=== PATIENT | female | born 1955 | race Caucasian/White ===

== ENCOUNTER 2016-10-28 18:08 | Inpatient (IN) ==
--- NOTE | 2016-10-28 18:19 | Emergency Department Note ---
Overdose - Medical Records Medical records reviewed: Yes I reviewed the patient's medical records. - Lab Data Lab results reviewed: Yes I reviewed the patient's lab results. Result diagrams: 10/28/16 18:33 10/28/16 18:33 Lab Results 10/28/16 10/28/16 10/28/16 Range/Units 18:33 18:33 18:33 WBC 14.1 H (4.3-11.1) K/mcL RBC 4.79 (3.82-4.97) M/mcL Hgb 14.2 (11.5-15.4) g/dL Hct 42.1 (35.3-44.9) % MCV 87.9 (83.0-100.0) fL MCH 29.6 (28.0-33.3) pg MCHC 33.7 (31.6-35.5) g/dL RDW 14.3 (11.5-14.5) % Plt Count 338 (140-400) K/mcL MPV 9.7 (9.4-12.4) fL Immature Gran % 0.9 (0-4) % Seg Neutrophils % 82.6 % Lymphocytes % 8.5 % Monocytes % 7.9 % Eosinophils % 0.0 % Basophils % 0.1 % Neutrophils # 11.6 H (1.6-8.9) K/mcL Lymphocytes # 1.2 (0.6-4.6) K/mcL Monocytes # 1.1 (0.0-1.3) K/mcL Eosinophils # 0.0 (0.0-0.6) K/mcL Basophils # 0.0 (0.0-0.2) K/mcL PT (9.4-12.1) Seconds INR APTT (26.0-36.0) Seconds Sodium 139 (136-145) mEq/L Potassium 3.1 L (3.5-4.5) mEq/L Chloride 101 (98-109) mEq/L Carbon Dioxide 25 (19-29) mEq/L BUN 12 (7-20) mg/dL Creatinine 0.72 (0.57-1.11) mg/dL Est GFR ( Amer) > 60 (> 60) Est GFR (Non-Af Amer) > 60 (> 60) BUN/Creatinine Ratio 17 (6-26) Glucose 151 H (70-99) mg/dL Calculated Osmolality 291 (280-300) Lactic Acid 1.9 (0.5-2.2) mmol/L Calcium 9.8 (8.6-10.8) mg/dL Total Bilirubin 1.0 (0.2-1.2) mg/dL Direct Bilirubin 0.4 (0.0-0.5) mg/dL Indirect Bilirubin 0.6 (0.0-1.2) mg/dL AST 26 (5-34) Units/L ALT 20 (0-55) Units/L Alkaline Phosphatase 164 H (38-126) Units/L Troponin I (0-0.03) ng/mL B-Natriuretic Peptide (0-100) pg/mL Serum Total Protein 8.3 (6.0-8.3) g/dL Albumin 3.6 (3.5-5.0) g/dL Globulin 4.7 H (2.4-3.5) g/dL Albumin/Globulin Ratio 0.8 L (1.1-2.2) Urine Color (Yellow) Urine Clarity (Clear) Urine pH (5.0-8.0) pH Units Ur Specific [place] (1.010-1.025) Urine Protein (Neg-Trace) mg/dL Urine Glucose (UA) (Normal) mg/dL Urine Ketones (Negative) mg/dL Urine Blood (Negative) Urine Nitrite (Negative) Urine Bilirubin (Negative) Urine Urobilinogen (Normal) mg/dL Ur Leukocyte Esterase (Negative) Urine Microscopic RBC (0-3) per hpf Urine Microscopic WBC (0-3) per hpf Ur Squamous Epith Cells (None-Few) per lpf Urine Bacteria (None-Few) per hpf Hyaline Casts (None-Few) per lpf Salicylates < 5.0 L (15-30) mg/dL Urine Opiates Screen (Yzapkm=289) ng/mL Acetaminophen < 1.0 L (10-30) mcg/mL Ur Barbiturates Screen (Ebxarp=481) ng/mL Ur Phencyclidine Scrn (Cutoff=25) ng/mL Ur Amphetamines Screen (Ynxomw=5140) ng/mL U Benzodiazepines Scrn (Qviyix=253) ng/mL Urine Cocaine Screen (Cutoff= 300) ng/mL U Marijuana (THC) Screen (Cutoff = 50) ng/mL Ethyl Alcohol < 10 (0-10) mg/dL 10/28/16 10/28/16 10/28/16 Range/Units 18:33 18:33 18:33 WBC (4.3-11.1) K/mcL RBC (3.82-4.97) M/mcL Hgb (11.5-15.4) g/dL Hct (35.3-44.9) % MCV (83.0-100.0) fL MCH (28.0-33.3) pg MCHC (31.6-35.5) g/dL RDW (11.5-14.5) % Plt Count (140-400) K/mcL MPV (9.4-12.4) fL Immature Gran % (0-4) % Seg Neutrophils % % Lymphocytes % % Monocytes % % Eosinophils % % Basophils % % Neutrophils # (1.6-8.9) K/mcL Lymphocytes # (0.6-4.6) K/mcL Monocytes # (0.0-1.3) K/mcL Eosinophils # (0.0-0.6) K/mcL Basophils # (0.0-0.2) K/mcL PT 12.0 (9.4-12.1) Seconds INR 1.1 APTT 27.7 (26.0-36.0) Seconds Sodium (136-145) mEq/L Potassium (3.5-4.5) mEq/L Chloride (98-109) mEq/L Carbon Dioxide (19-29) mEq/L BUN (7-20) mg/dL Creatinine (0.57-1.11) mg/dL Est GFR ( Amer) (> 60) Est GFR (Non-Af Amer) (> 60) BUN/Creatinine Ratio (6-26) Glucose (70-99) mg/dL Calculated Osmolality (280-300) Lactic Acid (0.5-2.2) mmol/L Calcium (8.6-10.8) mg/dL Total Bilirubin (0.2-1.2) mg/dL Direct Bilirubin (0.0-0.5) mg/dL Indirect Bilirubin (0.0-1.2) mg/dL AST (5-34) Units/L ALT (0-55) Units/L Alkaline Phosphatase (38-126) Units/L Troponin I 1.20 H* (0-0.03) ng/mL B-Natriuretic Peptide 3751 H (0-100) pg/mL Serum Total Protein (6.0-8.3) g/dL Albumin (3.5-5.0) g/dL Globulin (2.4-3.5) g/dL Albumin/Globulin Ratio (1.1-2.2) Urine Color (Yellow) Urine Clarity (Clear) Urine pH (5.0-8.0) pH Units Ur Specific [place] (1.010-1.025) Urine Protein (Neg-Trace) mg/dL Urine Glucose (UA) (Normal) mg/dL Urine Ketones (Negative) mg/dL Urine Blood (Negative) Urine Nitrite (Negative) Urine Bilirubin (Negative) Urine Urobilinogen (Normal) mg/dL Ur Leukocyte Esterase (Negative) Urine Microscopic RBC (0-3) per hpf Urine Microscopic WBC (0-3) per hpf Ur Squamous Epith Cells (None-Few) per lpf Urine Bacteria (None-Few) per hpf Hyaline Casts (None-Few) per lpf Salicylates (15-30) mg/dL Urine Opiates Screen (Rbwqtn=736) ng/mL Acetaminophen (10-30) mcg/mL Ur Barbiturates Screen (Dpczvr=746) ng/mL Ur Phencyclidine Scrn (Cutoff=25) ng/mL Ur Amphetamines Screen (Fadyaj=4419) ng/mL U Benzodiazepines Scrn (Sorurt=087) ng/mL Urine Cocaine Screen (Cutoff= 300) ng/mL U Marijuana (THC) Screen (Cutoff = 50) ng/mL Ethyl Alcohol (0-10) mg/dL 10/28/16 10/28/16 Range/Units 18:35 18:35 WBC (4.3-11.1) K/mcL RBC (3.82-4.97) M/mcL Hgb (11.5-15.4) g/dL Hct (35.3-44.9) % MCV (83.0-100.0) fL MCH (28.0-33.3) pg MCHC (31.6-35.5) g/dL RDW (11.5-14.5) % Plt Count (140-400) K/mcL MPV (9.4-12.4) fL Immature Gran % (0-4) % Seg Neutrophils % % Lymphocytes % % Monocytes % % Eosinophils % % Basophils % % Neutrophils # (1.6-8.9) K/mcL Lymphocytes # (0.6-4.6) K/mcL Monocytes # (0.0-1.3) K/mcL Eosinophils # (0.0-0.6) K/mcL Basophils # (0.0-0.2) K/mcL PT (9.4-12.1) Seconds INR APTT (26.0-36.0) Seconds Sodium (136-145) mEq/L Potassium (3.5-4.5) mEq/L Chloride (98-109) mEq/L Carbon Dioxide (19-29) mEq/L BUN (7-20) mg/dL Creatinine (0.57-1.11) mg/dL Est GFR ( Amer) (> 60) Est GFR (Non-Af Amer) (> 60) BUN/Creatinine Ratio (6-26) Glucose (70-99) mg/dL Calculated Osmolality (280-300) Lactic Acid (0.5-2.2) mmol/L Calcium (8.6-10.8) mg/dL Total Bilirubin (0.2-1.2) mg/dL Direct Bilirubin (0.0-0.5) mg/dL Indirect Bilirubin (0.0-1.2) mg/dL AST (5-34) Units/L ALT (0-55) Units/L Alkaline Phosphatase (38-126) Units/L Troponin I (0-0.03) ng/mL B-Natriuretic Peptide (0-100) pg/mL Serum Total Protein (6.0-8.3) g/dL Albumin (3.5-5.0) g/dL Globulin (2.4-3.5) g/dL Albumin/Globulin Ratio (1.1-2.2) Urine Color Yellow (Yellow) Urine Clarity Clear (Clear) Urine pH 6.5 (5.0-8.0) pH Units Ur Specific [place] 1.020 (1.010-1.025) Urine Protein >=1000 H (Neg-Trace) mg/dL Urine Glucose (UA) 100 H (Normal) mg/dL Urine Ketones Trace H (Negative) mg/dL Urine Blood Moderate H (Negative) Urine Nitrite Negative (Negative) Urine Bilirubin Negative (Negative) Urine Urobilinogen Normal (Normal) mg/dL Ur Leukocyte Esterase Negative (Negative) Urine Microscopic RBC 5-15 H (0-3) per hpf Urine Microscopic WBC 0-3 (0-3) per hpf Ur Squamous Epith Cells Many H (None-Few) per lpf Urine Bacteria None Seen (None-Few) per hpf Hyaline Casts None Seen (None-Few) per lpf Salicylates (15-30) mg/dL Urine Opiates Screen Positive H (Aogfvz=336) ng/mL Acetaminophen (10-30) mcg/mL Ur Barbiturates Screen Negative (Qcgqzr=131) ng/mL Ur Phencyclidine Scrn Negative (Cutoff=25) ng/mL Ur Amphetamines Screen Negative (Unlmld=3161) ng/mL U Benzodiazepines Scrn Positive H (Hwunit=989) ng/mL Urine Cocaine Screen Negative (Cutoff= 300) ng/mL U Marijuana (THC) Screen Negative (Cutoff = 50) ng/mL Ethyl Alcohol (0-10) mg/dL - Radiology Data Radiology results reviewed: Yes I reviewed the patient's radiology results. - EKG Data EKG attestation: Yes I reviewed and interpreted this EKG. EKG results narrative: Initial EKG showing sinus tachycardia with ventricular rate of 139. SC 178. QRS 107. QTC 431. Patient has concern for ST changes in V3 and V4 as well as diffuse T-wave changes in the inferior leads as well as the precordial leads. Repeat EKG with patient's rate improved to 106 she continues to have similar EKGs that are partially resolved in regards to any kind of ST segment changes as well as resolution of inversion of V1 and V2 T-wave inversions. Overdose HPI - General Chief Complaint: ED Overdose Stated Complaint: Altered mental status Time Seen by Provider: 10/28/16 18:12 Source: patient Mode of arrival: ambulatory Nursing Notes Reviewed: Yes Vital Signs Reviewed: Yes - History of Present Illness HPI Narrative: Patient here for evaluation of altered mental status. Patient was initially seen by EMS at 12:00 PM. Patient refused transfer to facility at this time. Patient's daughter returned home and called EMS not giving the patient the option to not come to the hospital. Patient presents by EMS with 2 empty pill bottles. Percocet 120 tablets that was filled on 11-05. As well as benzodiazepines 90 tablets filled on 11-05. Patient has a history of overdose in the past. Patient's mental status is awake and oriented to person and place but not date. Patient is able to be conversational however she is not very helpful when trying to describe why she is at the hospital or where she is having what she describes as diffuse pain. - Related Data Home Medications Medication Instructions Recorded Confirmed Alprazolam [Xanax] 1 mg PO TID PRN 02/08/15 10/28/16 Aspirin 325 mg PO DAILY 02/08/15 10/28/16 Cholecalciferol (Vitamin D3) 50,000 unit PO QWEEK 02/08/15 10/28/16 [Vitamin D3] Clopidogrel [Plavix] 75 mg PO QAM 02/08/15 10/28/16 Furosemide [Lasix] 20 mg PO DAILY 02/08/15 10/28/16 Lisinopril [Zestril] 10 mg PO QAM 02/08/15 10/28/16 Metoprolol XL (24 HR) Succ [Toprol 25 mg PO QAM 02/08/15 10/28/16 XL] Nitroglycerin 0.4 mg SL Q5M PRN 02/08/15 10/28/16 Omeprazole [PriLOSEC] 20 mg PO BID 02/08/15 10/28/16 Potassium Chloride 5 meq PO QAM 02/08/15 10/28/16 Gabapentin [Neurontin] 300 mg PO TID 12/28/15 10/28/16 Amlodipine Besylate 10 mg PO DAILY 10/28/16 10/28/16 Atorvastatin [Lipitor] 40 mg PO HS 10/28/16 10/28/16 HYDROcodone/Acet 7.5/325 mg [[place] 1 tab PO Q6H PRN 10/28/16 10/28/16 7.5-325 mg] Allergies Allergy/AdvReac Type Severity Reaction Status Date / Time codeine Allergy itching, Verified 07/26/15 19:42 [From Tylenol-Codeine #3] redness Zolpidem [From Ambien] Allergy swelling,di Verified 07/26/15 19:42 sorientatio n Review of Systems: Patient describes diffuse pain and confusion and not wanting to be in the hospital. Otherwise limited secondary to cooperation. Past Medical History - Past Medical History Medical history: Reports: arthritis, cancer, CVA, hypertension, peripheral artery disease, TIA Surgical history: Reports: carotid endarterectomy, hysterectomy Psychiatric history: Reports: no psych history SHAMPOOER history: Reports: bilateral tubal ligation - Social History Smoking Status: Current every day smoker Smokeless Tobacco Status: No Alcohol use: Reports: none Drug use: Reports: none Physical Exam - General Limitations: altered mental status General appearance: alert, anxious - Head Head exam: other (Bruising to the left maxillary) - Eye Eye exam: Present: normal appearance, conjunctival injection - ENT ENT exam: normal exam, normal oropharynx - Neck Neck exam: Present: normal inspection - Chest Chest inspection: Present: normal inspection, symmetric chest wall rise - Respiratory Respiratory exam: Present: normal lung sounds bilaterally. Absent: respiratory distress, wheezes - Cardiovascular Cardiovascular exam: Present: normal rhythm, tachycardia - Abdominal Exam Abdominal exam: Present: soft, Non-Tender - Extremities Exam Extremities exam: Present: normal inspection. Absent: tenderness - Back Exam Back exam: Present: normal inspection - Neurological Exam Neurological exam: Present: alert, oriented X3, CN II-XII intact. Absent: motor sensory deficit - Expanded Neurological Exam Patient oriented to: Present: person, place. Absent: time Speech: Present: fluid speech. Absent: receptive aphasia Cranial nerves: EOM function (II, III, IV, ): Normal, facial sensation (V): Normal, facial palsy (VII): Normal, gag reflex (IX): Normal, spinal accessory function (XI): Normal, tongue deviation (XII): Normal Cerebellar function: normal gait Motor strength - LUE: 5/5 Motor strength - RUE: 5/5 Motor strength - LLE: 5/5 Motor strength - RLE: 5/5 Coma Scale Eye Opening: Spontaneous Coma Scale Motor Response: Obeys Commands Coma Scale Verbal Response: Oriented Coma Scale Total: 15 - Psychiatric Psychiatric exam: Present: agitated - Skin Skin exam: Present: warm, dry, intact Course Course Narrative: Poison control was called in regards to the patient's overdose and clinical presentation. With the acetaminophen level less than 1 and it being this far out from possible ingestion is very likely that she took any acetaminophen containing products at this time. Possible benzo overdose with confusion however this should not influence the cardiac picture at this time. - Reevaluation(s) Reevaluation #1: Patient continues to be protecting her airway at this time. Patient is 97% on 2 L with gag reflex intact. - Consultations Consultation #1: Discussed with Dr. Johnson, cardiology. The patient's presentation including decreased appetite, nausea, complaints about epigastric and chest pain yesterday to family members members along with decreased mental status today was related alongside abnormal EKG including significant tachycardia with ST changes but no specific STEMI including T-wave inversions in the inferior leads as well as V3 V4 V5 and V6. Changes are consistent after the patient had responded to fluids and metoprolol with a ventricular rate of 106. She has concerned there may be more going on than just an STEMI. Recommends giving heparin as long as there is no concern about intracranial bleeding or other contraindication. Consultation #2: Discussed with Dr. Hobson who accepts the patient for admission to the hospitalist service for N STEMI as well as altered mental status and concern for overdose. Vital Signs Temperature 97.1 F L 10/28/16 18:12 Pulse Rate 140 10/28/16 18:12 Respiratory Rate 16 10/28/16 18:12 Blood Pressure 134/105 10/28/16 18:12 O2 Sat by Pulse Oximetry 98 10/28/16 18:12 Temperature 97.4 F L 10/28/16 19:07 Pulse Rate 113 10/28/16 20:02 Respiratory Rate 20 10/28/16 20:02 Blood Pressure 136/62 10/28/16 20:02 O2 Sat by Pulse Oximetry 97 10/28/16 20:02 Oxygen Delivery Oxygen Delivery Room Air Critical Care Time Critical Care Time: Yes Total Critical Care Time: 35 Attestation: Critical care time of 35 minutes that is separate from any other billable procedure. Disposition Clinical Impression: NSTEMI (non-ST elevated myocardial infarction) Altered mental status Qualifiers: Altered mental status type: unspecified Qualified Code(s): R41.82 - Altered mental status, unspecified Overdose Qualifiers: Encounter type: initial encounter Injury intent: undetermined intent Qualified Code(s): T50.904A - Poisoning by unspecified drugs, medicaments and biological substances, undetermined, initial encounter Disposition: Admitted As Inpatient Condition: Fair Referrals: Gilbert Bradley MD [Primary Care Provider] - Attestation Statement - Attestation Attestation: Patient was seen with resident physician. I reviewed the history, physical, assessment and plan, and agree with the findings. I also personally evaluated this patient and had [id number] time with this patient. 61-year-old female presents to the emergency department with mental status changes. Story from EMS is that family members found her concerned that she may have taken an entire bottle of Percocet. And also bottle of benzodiazepines. Patient had altered mental status and was brought to the emergency department. On arrival patient is easily arousable and answers questions appropriately. She does not have a complaint of chest pain or shortness of breath she said she wants to go home. Was explained to her that because of her potential overdose that was not to be a possibility. An workup was begun. Physical examination. Vital signs are unremarkable ENT patient is poor dentition but otherwise noteworthy only for bruise to the left cheek. Head and neck both appeared atraumatic. Heart regular rhythm but tachycardic. Lungs are clear. Abdomen was soft and nontender. Extremities essentially unremarkable. Neurologically patient's arousable moves all extremities cranial nerves appear grossly intact. ED course. EKG shows significant T-wave inversions which appeared to be a new change from prior. Her acetaminophen level was not significant this having been a 6 hour ago minimum ingestion, we discussed with poison control and they felt that it was unlikely that she had taken the amount of medicine that was told to us. Additionally lab workup revealed elevated troponin. The patient was given several doses of medication to control her heart rate. Repeat EKG continued to show ST segment changes. Cardiology was notified and they suggested potentially starting the patient on heparin if there are no other contraindications. This was done. Patient's mental status continued to be stable. Head CT scan did not reveal any acute abnormality neither did facial CT scans or neck CT scan. We discussed the case with the hospitalist agreed to accept the patient for admission. At this time we do not have a definitive cause for the elevated troponin, could be related to whatever medication she had been taking and her relatively altered mental status which seems to be again related to potentially use of benzodiazepines. Patient was in guarded condition we will admit her to telemetry unit for further evaluation and treatment. Agree with the resident physician assessment and plan.
[2016-10-28] MEDS ORDERED: 0.9 % Sodium Chloride 1,000 ML IVC ONE (18:20)
[2016-10-28 18:46] LABS: Basophils % 0.1 %; Hematocrit 42.1 % (35.3-44.9); Hemoglobin 14.2 g/dL (11.5-15.4); Immature Granulocytes % 0.9 % (0-4); Lymphocytes # 1.2 K/mcL (0.6-4.6); Lymphocytes % 8.5 %; Mean Corpuscular HGB Conc 33.7 g/dL (31.6-35.5); Mean Corpuscular Hemoglobin 29.6 pg (28.0-33.3); Mean Corpuscular Volume 87.9 fL (83.0-100.0); Mean Platelet Volume 9.7 fL (9.4-12.4); Monocytes # 1.1 K/mcL (0.0-1.3); Monocytes % 7.9 %; Neutrophils # 11.6 K/mcL (1.6-8.9); Platelet Count 338 K/mcL (140-400); Red Blood Count 4.79 M/mcL (3.82-4.97); Red Cell Distribution Width 14.3 % (11.5-14.5); Segmented Neutrophils % 82.6 %
[2016-10-28 18:55] LABS: Bilirubin,Urine Negative (Negative); Blood,Urine Moderate (Negative); Clarity,Urine Clear (Clear); Color,Urine Yellow (Yellow); Glucose,Urine (UA) 100 mg/dL (Normal); Ketones,Urine Trace mg/dL (Negative); Leukocyte Esterase,Urine Negative (Negative); Nitrite,Urine Negative (Negative); PH,Urine 6.5 pH Units (5.0-8.0); Protein,Urine >=1000 mg/dL (Neg-Trace); Urobilinogen,Urine Normal (Normal)
[2016-10-28 18:59] LABS: Bacteria,Urine None Seen per hpf (None-Few); Hyaline Casts,Urine None Seen per lpf (None-Few); Squamous Epithelial Cell,Urine Many per lpf (None-Few); WBC,Urine 0-3 per hpf (0-3)
[2016-10-28 19:00] LABS: Amphetamine Screen,Urine Negative ng/mL (Cutoff=1000); Barbiturate Screen,Urine Negative ng/mL (Cutoff=200); Benzodiazepines Screen,Urine Positive ng/mL (Cutoff=200); Cannabinoid Screen,Urine Negative ng/mL (Cutoff = 50); Cocaine Screen,Urine Negative ng/mL (Cutoff= 300); Opiate Screen,Urine Positive ng/mL (Cutoff=300); Phencyclidine Screen,Urine Negative ng/mL (Cutoff=25)
[2016-10-28 19:01] LABS: Alanine Aminotransferase 20 Units/L (0-55); Albumin 3.6 g/dL (3.5-5.0); Albumin/Globulin Ratio 0.8 (1.1-2.2); Alkaline Phosphatase 164 Units/L (38-126); Aspartate Amino Transferase 26 Units/L (5-34); BUN/Creatinine Ratio 17 (6-26); Bilirubin,Direct 0.4 mg/dL (0.0-0.5); Bilirubin,Indirect 0.6 mg/dL (0.0-1.2); Blood Urea Nitrogen 12 mg/dL (7-20); Calcium 9.8 mg/dL (8.6-10.8); Carbon Dioxide 25 mEq/L (19-29); Chloride 101 mEq/L (98-109); Globulin 4.7 g/dL (2.4-3.5); Glucose 151 mg/dL (70-99); Osmolality,Calculated 291 (280-300); Potassium 3.1 mEq/L (3.5-4.5); Sodium 139 mEq/L (136-145); Total Protein 8.3 g/dL (6.0-8.3); eGFR For African Americans > 60 (> 60); eGFR For Non-African Americans > 60 (> 60)
[2016-10-28 19:02] LABS: Acetaminophen < 1.0 mcg/mL (10-30); Ethanol < 10 mg/dL (0-10); Salicylate < 5.0 mg/dL (15-30)
[2016-10-28] MEDS ORDERED: *HR* Metoprolol 5 MG/5 ML VIAL IVP ONE ×2 (19:10→20:36)
[2016-10-28] MEDS ORDERED: Aspirin 81 MG TAB.CHEW PO ONE (19:38)
[2016-10-28] MEDS ORDERED: *HR* Heparin 5,000 UNIT/ML VIAL IVP PRN ×2 (19:40)
[2016-10-28] MEDS ORDERED: *HR* Heparin 5,000 UNIT/ML VIAL IVP ONE (19:40)
[2016-10-28] MEDS ORDERED: Heparin 25,000 UNIT/500 ML D5W 25,000 UNIT/500 ML MLS IVC SCH (19:45)
[2016-10-28 19:53] LABS: INR 1.1
[2016-10-28 19:56] LABS: Activated Partial Thrombo Time 27.7 Seconds (26.0-36.0)
--- NOTE | 2016-10-28 23:08 | Internal Med History&Physical ---
Date of Encounter: 10/28/16 Time of Encounter: 23:08 Assessment and Plan (1) Acute encephalopathy Current visit: Yes Status: Acute this is related to the benzos and opiates, we will do neuro checks, head CT shoed prior infarct but nothing acute, (2) Respiratory distress Current visit: Yes Status: Acute etiology unknown but may be related to vasodilatory effects of opiates in the respiratory arterioles, we will try NIMV and if she fails, that we will transfer to ICU for intubation (3) Overdose Current visit: Yes Status: Acute pt with a history of multiple overdoses in the past of her prescription medications was brought in today after another episode, she was reported by her daughter and sister at bedside to have consumed Percocet 120 tablets that was filled on 11-05, as well as benzodiazepines 90 tablets filled on 11-05, she is lethargic but able to follow commands, she is protecting her airway, we will admit for neuro checks, and supportive management, her urox was positive for benzos and opiates she lives alone and keeps overdosing on her prescription medications, her daughter has been unable to get the prescriber to limit the number of pills, family is confident that her episodes are not DIRECTED AT SELF HARM we will get social work involved Qualifiers: Encounter type: initial encounter Injury intent: accidental or unintentional Qualified Code(s): T50.901A - Poisoning by unspecified drugs, medicaments and biological substances, accidental (unintentional), initial encounter (4) Hypokalemia Current visit: Yes Status: Acute we will replace and monitor BMP (5) Hypertension Current visit: Yes Status: Chronic she is on amlodipine, lisinopril and metoprolol, we will continue these with BP monitoring Qualifiers: Hypertension type: essential hypertension Qualified Code(s): I10 - Essential (primary) hypertension Internal Medicine - H&P: HPI Chief complaint: altered mental status Admitted From: Emergency Dept Plans for Post Hospital Care: Home History of present illness: Ms. Reveles is a 61 year old female with a history of anxiety and chronic pain syndrome on multiple medications at home was brought in via EMS for altered mental status. She was in her usual state of health until tis morning when she was found altered by her brother, she mentioned to her brother that she took all her pulls. She reportedly refilled her benzos and hydrocodone about 5 days ago and the bottles were found empty. Her brother could not get her to come to the ER so when her daughter came home later she called EMS and she was brought in. Per family she did not have ay LOC, she fell on her left side when she took the medications and was lethargic, no nausea, vomiting, chest pain. Per family they have lost count of how many times this has happened over the past 15-20 years and they have been trying to get the PCP to limit the umber of pills prescribed to her but these pleadings have fallen on deaf ears. Past Med Surg Social Fam HX - Past Medical History Source: old records reviewed, nursing notes reviewed Medical history: arthritis, cancer (cervical s/p hysterectomy, radiation and chemo 4 years ago), CVA, hypertension, peripheral artery disease, TIA Psychiatric history: no psych history - Past Surgical History Surgical History: carotid endarterectomy (bilateral), hysterectomy, LE vascular intervention (?bilateral fempop) - Social History Smoking Status: Current every day smoker Smokeless Tobacco Status: No Alcohol use: none Drug use: none - Family History Mother Adopted: No Living Status: Hx Family Cardiac Disorders: Yes Hx Family Cancer: Yes Hx Family Endocrine Disorder: Yes (DM) Hx Family Neurologic Disorders: Yes ( FROM CVA.) Father Adopted: No Living Status: Hx Family Cardiac Disorders: Yes - Additional Family History Additional family history: positive for cervical cancer in both sister and daughter, multiple family members with cancer Internal Medicine - H&P: Meds Alprazolam [Xanax] 1 mg PO TID PRN 02/08/15 [History] Aspirin 325 mg PO DAILY 02/08/15 [History] Cholecalciferol (Vitamin D3) [Vitamin D3] 50,000 unit PO QWEEK 02/08/15 [History ] Clopidogrel [Plavix] 75 mg PO QAM 02/08/15 [History] Furosemide [Lasix] 20 mg PO DAILY 02/08/15 [History] Lisinopril [Zestril] 10 mg PO QAM 02/08/15 [History] Metoprolol XL (24 HR) Succ [Toprol XL] 25 mg PO QAM 02/08/15 [History] Nitroglycerin 0.4 mg SL Q5M PRN 02/08/15 [History] Omeprazole [PriLOSEC] 20 mg PO BID 02/08/15 [History] Potassium Chloride 5 meq PO QAM 02/08/15 [History] Gabapentin [Neurontin] 300 mg PO TID 12/28/15 [History] Amlodipine Besylate 10 mg PO DAILY 10/28/16 [History] Atorvastatin [Lipitor] 40 mg PO HS 10/28/16 [History] HYDROcodone/Acet 7.5/325 mg [[place] 7.5-325 mg] 1 tab PO Q6H PRN 10/28/16 [ History] Allergies codeine [From Tylenol-Codeine #3] Allergy (Verified 07/26/15 19:42) itching, redness Zolpidem [From Ambien] Allergy (Verified 07/26/15 19:42) swelling,disorientation All Systems PM: A 10-system review of systems was performed and is negative for pertinent findings except as documented above in the HPI. - Constitutional Vitals: Temp Pulse Resp BP Pulse Ox 97.4 F L 111 20 127/92 94 10/28/16 19:07 10/28/16 22:18 10/28/16 22:18 10/28/16 22:18 10/28/16 22:18 PHYSICAL EXAMINATION: GENERAL: Adult female, lethargic, in acute rep distress and looks uncomfortable HEENT: NC/AT, EOMI, PERRLA, anicteric sclera, normal conjunctiva, supple, dry mucous membranes, dry tongue RESP: in resp distress, rapid shallow breathing noted, no crackles or wheeze CARDIO: tachycardic with no murmurs, no JVD, no ankle edema GI: Soft, full, no tenderness, no organomegaly felt, normal bowel sounds heard MUSCULOSKELETAL: grossly normal movements bilaterally, no deformities noted, no calf tenderness EXTREMITIES: spontaneous movement noted, scars noted in bilateral lower extremities NEUROLOGIC: unable to do a complete neuro exam but no gross motor/sensory deficit appreciated, PSYCHIATRY: AAO x 1. SKIN: no skin rash or ulcers noted Internal Med - H&P Results - Labs CBC & Chem 7: 10/29/16 05:16 10/29/16 05:16
[2016-10-28] MEDS ORDERED: Naloxone 0.4 MG/ML INJ IVP PRN (23:14)
[2016-10-28] MEDS ORDERED: Nitroglycerin 0.4 MG TAB.SUBL SL PRN (23:16)
[2016-10-28] MEDS ORDERED: 0.9 % Sodium Chloride 1,000 ML IVC SCH (23:45)
[2016-10-29] MEDS ORDERED: *HR* Morphine 2 MG/ML SYRINGE IVP STA (04:00)
[2016-10-29] MEDS ORDERED: *HR* Morphine 2 MG/ML SYRINGE ONE (04:03)
[2016-10-29 04:36] LABS: ABG HCO3 23.8 mEQ/L (21-27); ABG Oxygen Saturation 99 % (95-98); ABG PCO2 32 mmHg (35-45); ABG PH 7.48 pH Units (7.32-7.45); ABG PO2 116 mmHg (85-104); ABG TCO2 24.8 mEq/L (20-26); Blood Gas FiO2 50 %
[2016-10-29 05:27] LABS: Basophils % 0.1 %; Hematocrit 40.1 % (35.3-44.9); Hemoglobin 13.4 g/dL (11.5-15.4); Immature Granulocytes % 1.2 % (0-4); Lymphocytes # 1.1 K/mcL (0.6-4.6); Lymphocytes % 7.6 %; Mean Corpuscular HGB Conc 33.4 g/dL (31.6-35.5); Mean Corpuscular Hemoglobin 29.6 pg (28.0-33.3); Mean Corpuscular Volume 88.7 fL (83.0-100.0); Mean Platelet Volume 9.7 fL (9.4-12.4); Monocytes # 1.2 K/mcL (0.0-1.3); Monocytes % 8.3 %; Neutrophils # 11.9 K/mcL (1.6-8.9); Platelet Count 309 K/mcL (140-400); Red Blood Count 4.52 M/mcL (3.82-4.97); Red Cell Distribution Width 14.6 % (11.5-14.5); Segmented Neutrophils % 82.8 %
[2016-10-29 05:39] LABS: BUN/Creatinine Ratio 23 (6-26); Blood Urea Nitrogen 16 mg/dL (7-20); Carbon Dioxide 21 mEq/L (19-29); Chloride 104 mEq/L (98-109); Glucose 132 mg/dL (70-99); Magnesium 1.5 mg/dL (1.6-2.6); Osmolality,Calculated 293 (280-300); Phosphorous 3.2 mg/dL (2.3-4.7); Potassium 3.1 mEq/L (3.5-4.5); Sodium 140 mEq/L (136-145); eGFR For African Americans > 60 (> 60); eGFR For Non-African Americans > 60 (> 60)
[2016-10-29] MEDS: Dexmedetomidine HCl 400 MCG/100 ML MLS IVC SCH (05:48)
[2016-10-29] MEDS: Furosemide 40 MG/4 ML VIAL IVP SCH ×2 (07:39→17:18)
[2016-10-29] MEDS: *HR* Enoxaparin 40 MG/0.4 ML SYRINGE SQ SCH (07:39)
--- NOTE | 2016-10-29 07:46 | Pulmonology Consult Note ---
<Wisam Mello - Last Filed: 10/29/16 17:19> Date of Encounter: 10/29/16 Time of Encounter: 07:45 Assessment and Plan (1) Respiratory distress Current Visit: Yes Status: Acute unclear etiology reported overdose of Xanax and Opiates, positive UDS reports history of tobacco abuse - albuterol PRN ABG/VBG respiratory alkalosis with increase respiration rate CXR 10/28 reviewed, no acute pulmonary findings suggestive of pneumonia, comparison to prior there is increased markings in the RLL possible pulm edema will trial Lasix does not appear fluid overloaded, BNP is elevated at 3751 and elevated troponin 0.91 last ECHO 09/27/15 showed preserved EF 70-75% and mild diastolic dysfunction - repeated ECHO today 10/29/16 shows EF 55-60% with mild diastolic dysfunction and overall normal LV function - cardiology consulted currently tolerating BiPAP, oxygen saturation remains above 96% but tachypneic at 30-40s - fentanyl for pain, will try wean off BiPAP as tolerated onto high flow oxygen - if respiratory distress continues to persist or fatigue, consideration for intubation and mechanical ventilation (2) Acute encephalopathy Current Visit: Yes Status: Acute lethargic, easily arousable, when awake is oriented to persons and place, she recognizes family in the room but poor historian admitted for overdose benzo and opiates, positive in UDS EKG reviewed and shows diffuse inverted T waves suggestive of possible neurologic insult cardiology consulted, believes encephalopathic metabolic picture or neurologic, no ischemic EKG pattern - CT head in ED negative for infarction or hemorrhage - MRI brain ordered but notified unable to image if on BiPAP, will try to wean off BiPAP to high flow oxygen/mask as tolerated - troponin peaked 1.2 and downtrending family denies any recent illness patient is afebrile, no nuchal rigidity low potassium and magnesium, will replete and continue to monitor NPO until MRI results (3) Altered mental status Current Visit: Yes Status: Acute EKG concerning for possible neurologic insult MRI brain ordered and will follow up with results NPO Qualifiers: Altered mental status type: unspecified Qualified Code(s): R41.82 - Altered mental status, unspecified (4) SIRS (systemic inflammatory response syndrome) Current Visit: Yes Status: Acute meets SIRS criteria with elevated WBC, sinus tachycardia, and tachypnea she is not septic appearing however due to recent illness and normal CXR and urine, will continue to monitor for fever and closely monitor medical condition blood cultures and urine cultures ordered episode of diarrhea in ICU, sent for GI panel which was negative no C. diff as it was formed if medical condition worsens or develops a fever initiate broad spectrum antibiotics (5) Elevated troponin Current Visit: Yes Status: Acute initial troponin 1.2, downtrending cardiology has been consulted, no intervention at this time no heparin drip (6) Proteinuria Current Visit: Yes Status: Acute UA showed significant proteinuria Urine protein/creatinine ratio 3.22 concern for nephropathy will continue to monitor UOP consideration for possible nephrology consult Qualifiers: Proteinuria type: unspecified Qualified Code(s): R80.9 - Proteinuria, unspecified (7) PAD (peripheral artery disease) Current Visit: No Status: Chronic significant history of PAD s/p carotid endarterectomy and fem-pop bypass continue aspirin and plavix (8) Hypertension Current Visit: Yes Status: Chronic history of hypertension currently BPs are stable will hold beta blockers intermittent episodes of bradycardia into 60s her troponin is elevated 0.9 (peak 1.2) and BNP is 3751, does not appear in acute heart failure Qualifiers: Hypertension type: essential hypertension Qualified Code(s): I10 - Essential (primary) hypertension (9) Hypokalemia Current Visit: Yes Status: Acute electrolyte replacement protocol, concern for NSTEMI aim to keep above 4 (10) Hypomagnesemia Current Visit: Yes Status: Acute replete via electrolyte replacement protocol (11) Tobacco abuse Current Visit: Yes Status: Acute smoking cessation recommended albuterol as needed (12) DVT prophylaxis Current Visit: Yes Status: Acute Lovenox SQ 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: patient is lethargic but easily arousable, follows simple commands, moves all 4 extremities without focal neuro deficit Cardio: cardio consulted, sinus tachycardia, EKG reveals diffuse T wave inversion possible neurologic insult, MRI ordered, cardiology does not believe to be cardiac in nature and does not recommend cath, ECHO shows decreased EF 50 % with mild diastolic dysfunction Pulm: patient with respiratory distress and acute hypoxic respiratory failure tolerating BiPAP, wean off onto oxygen mask, she is at risk to deteriorate and might need invasive mechanical ventilation, CXR does not demonstrate pneumonia possible edema, trial of Lasix GI: GI prophylaxis, NPO at this time Heme: DVT prophylaxis, Lovenox SQ ID: no obvious source of infection, nonseptic appearing, afebrile, meets SIRS criteria but will not initiate broad spectrum antibiotics at this time due to possible overdose Renal: appropriate UOP, Lasix ordered, significant proteinuria Endo: blood glucose monitored Lines: all lines checked and no evidence of infections, perez in place Skin: small bruises, no significant rashes or lesions, routine skin care to prevent pressure ulcers per RN routine care Lytes: continue to monitor and replete PRN History of Present Illness Consult date: 10/29/16 Requesting physician: Finesse [facility] Chief complaint: respiratory distress, overdose, elevated trop History of present illness: 61-year-old female history of PAD s/p fem-pop bypass and carotid endartectomy, CVA, cervical cancer s/p hysterectomy, AAA, hypertension, arthritis, chronic pain syndrome was admitted for altered mental status, elevated troponin and overdose. Patient was transferred to ICU for respiratory distress on BiPAP, respirations initially were 50-60s. She is currently tolerating BiPAP and respirations have decreased to 30-40s. She does not have increase work of breathing and maintains good oxygen saturation above 96%. She is lethargic but easily arousable. When awaken, she is oriented to person and place. She follows simple commands but appears to be a poor historian. Denies any complaints but seems to say no for everything. She denies difficulty in breathing, chest pain, abdominal pain, headache, or suicidal ideations. No family is at bedside. Most of history obtained from medical records. Patient was brought into the ED via EMS early this morning for overdose. She was found with 2 empty bottles of her [place] and Xanax which were filled on the . No Narcan was reportedly given. Patient was initially confused, lethargic but following commands and protecting her airway. Family is at bedside. Reports the patient lives at home by yourself. Brother has been staying with her the past several days. Over the past 2 days she has been increasingly more weak and fallen multiple times up to 8. They report this is the reason she was brought in to the ED for evaluation. She was extremely weak and unable to stand and needed assistance to the bathroom when she fell. They report she was weak in her legs and fell striking her head. CT of the head in the ED did not reveal any acute fractures, infarction or hemorrhage. She takes aspirin and Plavix reportedly for her peripheral vascular disease. She has a history of TIA without any sequela. They report she normally is independent and very talkative. She is normally found to be outside smoking cigarettes. They deny any recent illness, fevers, chills, cough. She has had decreased appetite the past several days. Reports of chest discomfort 2 days ago. It was not until after EMS arrive that family noticed empty bottles in the house. Family believes that she may have taken all of the medications or possibly hidden them. She was also found to have a Suboxone label next to her which her son takes. Past Med Surg Social Fam HX - Past Medical History Medical history: arthritis, cancer (cervical s/p hysterectomy, radiation and chemo 4 years ago), CVA, hypertension, peripheral artery disease, TIA Psychiatric history: no psych history - Past Surgical History Surgical History: carotid endarterectomy (bilateral), hysterectomy, LE vascular intervention (?bilateral fempop) - Social History Smoking Status: Current every day smoker Smokeless Tobacco Status: No Alcohol use: none Drug use: none - Family History Mother Adopted: No Living Status: Hx Family Cardiac Disorders: Yes Hx Family Cancer: Yes Hx Family Endocrine Disorder: Yes (DM) Hx Family Neurologic Disorders: Yes ( FROM CVA.) Father Adopted: No Living Status: Hx Family Cardiac Disorders: Yes Medications and Allergies Alprazolam [Xanax] 1 mg PO TID PRN 02/08/15 [History] Aspirin 325 mg PO DAILY 02/08/15 [History] Cholecalciferol (Vitamin D3) [Vitamin D3] 50,000 unit PO QWEEK 02/08/15 [History ] Clopidogrel [Plavix] 75 mg PO QAM 02/08/15 [History] Furosemide [Lasix] 20 mg PO DAILY 02/08/15 [History] Lisinopril [Zestril] 10 mg PO QAM 02/08/15 [History] Metoprolol XL (24 HR) Succ [Toprol XL] 25 mg PO QAM 02/08/15 [History] Nitroglycerin 0.4 mg SL Q5M PRN 02/08/15 [History] Omeprazole [PriLOSEC] 20 mg PO BID 02/08/15 [History] Potassium Chloride 5 meq PO QAM 08/20/15 [History] Gabapentin [Neurontin] 300 mg PO TID 12/28/15 [History] Amlodipine Besylate 10 mg PO DAILY 10/28/16 [History] Atorvastatin [Lipitor] 40 mg PO HS 10/28/16 [History] HYDROcodone/Acet 7.5/325 mg [[place] 7.5-325 mg] 1 tab PO Q6H PRN 10/28/16 [ History] Allergies codeine [From Tylenol-Codeine #3] Allergy (Verified 07/26/15 19:42) itching, redness Zolpidem [From Ambien] Allergy (Verified 07/26/15 19:42) swelling,disorientation ROS unobtainable: due to mental status (limited) All Systems: A 10-system review of systems was performed and is negative for pertinent findings except as documented above in the HPI. Physical Examination Vital Signs: Vital Signs, Last 4 Hours Pulse Resp BP Pulse Ox 10/29/16 06:10 132 51 167/112 100 10/29/16 05:51 130 59 169/121 100 General appearance: no acute distress, lethargic, other (does not appear fluid overloaded) Eyes: nonicteric, other (PEERL) Effort: other (no accessory muscle use but rapid shallow breathing, on BiPAP tolerating well however increase respirations 30-40s) Inspection: normal Auscultation: bilateral: clear Cardiovascular: regular rate and rhythm (intermittent episodes of bradycardia as low as 70s but maintains sinus tachycardia 110) Gastrointestinal: normoactive bowel sounds, soft, non-tender, non-distended Integumentary: normal Musculoskeletal: no deformities, other (moves all 4 extremities) non-focal exam, pupils equal and round, unable to assess due to mental status Results - Laboratory Findings CBC and BMP: 10/29/16 05:16 10/29/16 05:16 ABG ABG pH 7.48 pH Units (7.32-7.45) H 10/29/16 02:24 ABG pCO2 32 mmHg (35-45) L 10/29/16 02:24 ABG pO2 116 mmHg (85-104) H 10/29/16 02:24 ABG O2 Saturation 99 % (95-98) H 10/29/16 02:24 PT/INR, D-dimer PT 12.0 Seconds (9.4-12.1) 10/28/16 18:33 Abnormal lab findings: Abnormal lab results WBC 14.4 K/mcL (4.3-11.1) H 10/29/16 05:16 RDW 14.6 % (11.5-14.5) H 10/29/16 05:16 Neutrophils # 11.9 K/mcL (1.6-8.9) H 10/29/16 05:16 ABG pH 7.48 pH Units (7.32-7.45) H 10/29/16 02:24 ABG pCO2 32 mmHg (35-45) L 10/29/16 02:24 ABG pO2 116 mmHg (85-104) H 10/29/16 02:24 ABG O2 Saturation 99 % (95-98) H 10/29/16 02:24 Potassium 3.1 mEq/L (3.5-4.5) L 10/29/16 05:16 Glucose 132 mg/dL (70-99) H 10/29/16 05:16 Magnesium 1.5 mg/dL (1.6-2.6) L 10/29/16 05:16 Alkaline Phosphatase 164 Units/L (38-126) H 10/28/16 18:33 Troponin I 0.91 ng/mL (0-0.03) H* 10/28/16 23:05 B-Natriuretic Peptide 3751 pg/mL (0-100) H 10/28/16 18:33 Globulin 4.7 g/dL (2.4-3.5) H 10/28/16 18:33 Albumin/Globulin Ratio 0.8 (1.1-2.2) L 10/28/16 18:33 Urine Protein >=1000 mg/dL (Neg-Trace) H 10/28/16 18:35 Urine Glucose (UA) 100 mg/dL (Normal) H 10/28/16 18:35 Urine Ketones Trace mg/dL (Negative) H 10/28/16 18:35 Urine Blood Moderate (Negative) H 10/28/16 18:35 Urine Microscopic RBC 5-15 per hpf (0-3) H 10/28/16 18:35 Ur Squamous Epith Cells Many per lpf (None-Few) H 10/28/16 18:35 Salicylates < 5.0 mg/dL (15-30) L 10/28/16 18:33 Urine Opiates Screen Positive ng/mL (Taqmsy=923) H 10/28/16 18:35 Acetaminophen < 1.0 mcg/mL (10-30) L 10/28/16 18:33 U Benzodiazepines Scrn Positive ng/mL ([place]=880) H 10/28/16 18:35 - Diagnostic Findings Chest x-ray: report reviewed, image reviewed - Clinical Findings Intake & Output: Intake & Output 10/28/16 10/28/16 10/29/16 15:59 23:59 07:59 Intake Total 2.4 / 2.4 Balance 2.4 / 2.4 Consult Discharge Plan - Plan Referrals: Gilbert Bradley MD [Primary Care Provider] - <Fernando Lewis - Last Filed: 10/30/16 06:32> Date of Encounter: 10/30/16 All Systems: A 10-system review of systems was performed and is negative for pertinent findings except as documented above in the HPI. Physical Examination Vital Signs: Vital Signs, Last 4 Hours Temp Pulse Resp BP Pulse Ox 10/29/16 12:26 97.8 F 10/29/16 12:00 80 30 102/83 98 10/29/16 11:30 90 10/29/16 11:14 41 95/68 99 10/29/16 11:00 104 42 95/68 100 10/29/16 10:00 120 38 153/91 100 10/29/16 09:00 123 48 145/101 100 Results - Laboratory Findings CBC and BMP: 10/30/16 00:08 10/30/16 00:08 ABG ABG pH 7.48 pH Units (7.32-7.45) H 10/29/16 02:24 ABG pCO2 32 mmHg (35-45) L 10/29/16 02:24 ABG pO2 116 mmHg (85-104) H 10/29/16 02:24 ABG O2 Saturation 99 % (95-98) H 10/29/16 02:24 PT/INR, D-dimer PT 12.0 Seconds (9.4-12.1) 10/28/16 18:33 Abnormal lab findings: Abnormal lab results WBC 14.4 K/mcL (4.3-11.1) H 10/29/16 05:16 RDW 14.6 % (11.5-14.5) H 10/29/16 05:16 Neutrophils # 11.9 K/mcL (1.6-8.9) H 10/29/16 05:16 ABG pH 7.48 pH Units (7.32-7.45) H 10/29/16 02:24 ABG pCO2 32 mmHg (35-45) L 10/29/16 02:24 ABG pO2 116 mmHg (85-104) H 10/29/16 02:24 ABG O2 Saturation 99 % (95-98) H 10/29/16 02:24 VBG pH 7.57 pH Units (7.32-7.42) H 10/29/16 11:09 VBG pCO2 26 mmHg (41-51) L 10/29/16 11:09 VBG pO2 209 mmHg (25-40) H 10/29/16 11:09 Potassium 3.1 mEq/L (3.5-4.5) L 10/29/16 05:16 Glucose 132 mg/dL (70-99) H 10/29/16 05:16 Magnesium 1.5 mg/dL (1.6-2.6) L 10/29/16 05:16 Alkaline Phosphatase 164 Units/L (38-126) H 10/28/16 18:33 Troponin I 0.91 ng/mL (0-0.03) H* 10/28/16 23:05 B-Natriuretic Peptide 3751 pg/mL (0-100) H 10/28/16 18:33 Globulin 4.7 g/dL (2.4-3.5) H 10/28/16 18:33 Albumin/Globulin Ratio 0.8 (1.1-2.2) L 10/28/16 18:33 Urine Protein >=1000 mg/dL (Neg-Trace) H 10/28/16 18:35 Urine Glucose (UA) 100 mg/dL (Normal) H 10/28/16 18:35 Urine Ketones Trace mg/dL (Negative) H 10/28/16 18:35 Urine Blood Moderate (Negative) H 10/28/16 18:35 Urine Microscopic RBC 5-15 per hpf (0-3) H 10/28/16 18:35 Ur Squamous Epith Cells Many per lpf (None-Few) H 10/28/16 18:35 Salicylates < 5.0 mg/dL (15-30) L 10/28/16 18:33 Urine Opiates Screen Positive ng/mL (Tztlvd=337) H 10/28/16 18:35 Acetaminophen < 1.0 mcg/mL (10-30) L 10/28/16 18:33 U Benzodiazepines Scrn Positive ng/mL (Cjcbkq=553) H 10/28/16 18:35 - Clinical Findings Intake & Output: Intake & Output 10/28/16 10/29/16 10/29/16 23:59 07:59 15:59 Intake Total 202.4 / 202.4 220 / 220 Output Total 300 / 300 400 / 400 Balance -97.6 / -97.6 -180 / -180 - Attending Attestation I examined this patient and my medical decision-making was reviewed with the FERRY PILOT/PA/Advanced Practice Nurse/Resident Physician. I agree with the documented findings, disposition and treatment plan as described except to the extent set forth below. Patient seen and examined. Labs, radiology, chart personally reviewed. Agree with resident's history and physical, assessment, plan with following comments: 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: Patient is lethargic and follow simple commands, Pulmonary: Patient with respiratory distress and acute hypoxic respiratory failure tolerating BiPAP, however there is at risk her condition could deteriorate and might need invasive mechanical ventilation. I suspect pulmonary edema and most likely the cause is cardiac. Cardiovascular: Cardiology consulted and I have reviewed echocardiogram at the bedside and to my reading today is decrease in ejection fraction with significant EKG abnormalities. We will await for final recommendation from cardiology, however with her history and presentation she might need cardiac catheterization. Later I discussed with patient services representative and thinking this is not cardiac in origin and suspect could be related to 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, for that reason JAVIER was done. GI: Nutrition per dietary and GI prophylaxis per routine keep patient nothing by mouth at this time Heme: DVT prophylaxis per routine ID: Continue antibiotics and plan to de-escalation Renal; urine out put and renal funtion reviewed. Trial with diuresis Endorcine: blood glucose is monitored Lines: all lines checked and no evidence of infections Skin: skin care to prevent pressure ulcers per nursing routine care I have talked to family at bedside and patient remain full code. I spent 35 min of Critical Care time with this patient. It involved decision making of high complexity to assess, manipulate, and support vital organ system failure and/or to prevent further life threatening deterioration of the patient' s condition. The time involved in the performance of separately reportable procedures was not counted toward critical care time.
[2016-10-29] MEDS ORDERED: Furosemide 20 MG TABLET PO SCH (09:00)
[2016-10-29] MEDS ORDERED: Magnesium Sulfate 2 GM in D5% in Water 100 ML IVPB PRN (09:02)
[2016-10-29] MEDS ORDERED: Calcium Gluconate 1,000 MG in D5% in Water 100 ML IVPB PRN (09:02)
[2016-10-29] MEDS ORDERED: Potassium Phosphate 44 MEQ in 0.9 % Sodium Chloride 250 ML IVPB PRN (09:02)
[2016-10-29] MEDS: Aspirin 325 MG TABLET PO SCH (09:23)
[2016-10-29] MEDS: Gabapentin 300 MG CAPSULE PO SCH ×3 (09:23→21:21)
[2016-10-29] MEDS: amLODIPine 5 MG TABLET PO SCH (09:23)
[2016-10-29] MEDS: Metoprolol XL (24 HR) Succ 25 MG TAB.ER.24H PO SCH (09:24)
[2016-10-29] MEDS: Potassium Chloride Elixir 20 MEQ/15 ML UDC PO SCH (09:24)
--- NOTE | 2016-10-29 11:20 | Cardiology Consult Note ---
Date of Encounter: 10/29/16 Time of Encounter: 11:19 Assessment and Plan (1) NSTEMI (non-ST elevated myocardial infarction) Current Visit: Yes Status: Acute Likely 2/2 demand ischemia associated with overdose - no ischemic pattern on EKG - diffusely inverted T waves appears to be more encephalopathic metabolic picture - troponin downtrending 0.91 (from 1.2) - echo pending - last [facility] 08/25/14 with LAD 30-50% stenosis, circumflex 30-40% stenosis, and RCA 30-40% stenosis. - No plans for repeat heart cath at this time. - Continue home meds: Aspirin 325 mg daily, Plavix 70mg, Lisinopril 10mg daily, Toprol XL 25mg daily, Amlodipine 10mg daily, Lipitor 40mg daily. - No need for heparin drip at this time. Discussion w patient/family: The assessment and plan as outlined above was discussed with the patient and/or family members who expressed understanding and agreement. All questions were answered. Thank you for involving us in the care of your patient. Please call with any questions. History of Present Illness Consult date: 10/29/16 Requesting physician: Wisam Mello Consult reason: Elevated trop Chief complaint: Overdose History of present illness: Ms. Reveles is a 61 year old female with a past medical history of hypertension, hyperlipidemia, chronic pain syndrome, peripheral vascular disease , coronary artery disease, AAA, anxiety who was admitted from the ER as an overdose. Patient had positive opiates and benzodiazepines in UDS. Patient apparently and was initially found by family members with altered mental status and lethargy. Patient's initial troponin 1.2 trending down to 0.91 this morning. Cardiology service was consulted for NSTEMI. Echocardiogram 09/27/2015 6 LVEF 70-75%. Carotid duplex in 08/28/2015 shows right ICA minimal disease, left common carotid 40-59%, left internal carotid 40-59%. Endarterectomy 07/26/2015- left iliofemoral endarterectomy, left deep femoral endarterectomy [facility] 08/25/16- LAD 30-50% stenosis, circumflex 30-40%, RCA 30-40% [facility] 02/2013- mild to moderate CAD Past Med Surg Social Fam HX - Past Medical History Medical history: arthritis, cancer (cervical s/p hysterectomy, radiation and chemo 4 years ago), CVA, hypertension, peripheral artery disease, TIA Psychiatric history: no psych history - Past Surgical History Surgical History: carotid endarterectomy (bilateral), hysterectomy, LE vascular intervention (?bilateral fempop) - Social History Smoking Status: Current every day smoker Smokeless Tobacco Status: No Alcohol use: none Drug use: none - Family History Mother Adopted: No Living Status: Hx Family Cardiac Disorders: Yes Hx Family Cancer: Yes Hx Family Endocrine Disorder: Yes (DM) Hx Family Neurologic Disorders: Yes ( FROM CVA.) Father Adopted: No Living Status: Hx Family Cardiac Disorders: Yes Medications and Allergies Alprazolam [Xanax] 1 mg PO TID PRN 02/08/15 [History] Aspirin 325 mg PO DAILY 02/08/15 [History] Cholecalciferol (Vitamin D3) [Vitamin D3] 50,000 unit PO QWEEK 02/08/15 [History ] Clopidogrel [Plavix] 75 mg PO QAM 02/08/15 [History] Furosemide [Lasix] 20 mg PO DAILY 02/08/15 [History] Lisinopril [Zestril] 10 mg PO QAM 02/08/15 [History] Metoprolol XL (24 HR) Succ [Toprol XL] 25 mg PO QAM 02/08/15 [History] Nitroglycerin 0.4 mg SL Q5M PRN 02/08/15 [History] Omeprazole [PriLOSEC] 20 mg PO BID 02/08/15 [History] Potassium Chloride 5 meq PO QAM 02/08/15 [History] Gabapentin [Neurontin] 300 mg PO TID 12/28/15 [History] Amlodipine Besylate 10 mg PO DAILY 10/28/16 [History] Atorvastatin [Lipitor] 40 mg PO HS 10/28/16 [History] HYDROcodone/Acet 7.5/325 mg [[place] 7.5-325 mg] 1 tab PO Q6H PRN 10/28/16 [ History] Allergies codeine [From Tylenol-Codeine #3] Allergy (Verified 07/26/15 19:42) itching, redness Zolpidem [From Ambien] Allergy (Verified 07/26/15 19:42) swelling,disorientation ROS unobtainable: due to mental status All Systems Review: A 10-system review of systems was performed and is negative for pertinent findings except as documented above in the HPI. Physical Examination Vital Signs, Last 4 Hours Pulse Resp BP Pulse Ox 10/29/16 11:14 41 95/68 99 10/29/16 10:00 120 38 153/91 100 10/29/16 09:00 123 48 145/101 100 10/29/16 08:00 80 40 93/64 100 10/29/16 07:56 100 10/29/16 07:30 79 General: Other (on bipap, somnolent) HEENT: Atraumatic, Normocephaly, Mucus Membranes Moist Neck: No JVD Cardiac: Other (sinus tachycardia) Lungs: Normal Breath Sounds Neuro: Alert and responsive, No focal deficits noted Abdomen: Soft, Non-Tender Skin: No rashes noted on visualized skin Musculoskeletal: No Chest Wall Tenderness Extremities: No Edema, Other (pulses difficult to palpate DP/PT) Results 10/29/16 05:16 10/29/16 05:16 Lab Results 10/29/16 10/29/16 05:16 05:16 WBC 14.4 H Hgb 13.4 Hct 40.1 Plt Count 309 Sodium 140 Potassium 3.1 L Chloride 104 Carbon Dioxide 21 BUN 16 Creatinine 0.70 Glucose 132 H Calcium 9.0 Magnesium 1.5 L - Imaging and Cardiology Chest Xray: report reviewed Echo: pending - EKG Interpretation EKG results cardiology: personally reviewed, no diagnostic ischemia (EKG done at 843 shows sinus tachycardia with a rate of [address] elevation or depression. Diffuse inverted T waves throughout all leads) Consult Discharge Plan - Plan Referrals: Gilbert Bradley MD [Primary Care Provider] -
[2016-10-29 11:23] LABS: VBG HCO3 23.8 mEq/L (21-27); VBG PH 7.57 pH Units (7.32-7.42)
[2016-10-29 11:52] LABS: Adenovirus F 40/41 PCR Not detected (Not detect); Astrovirus PCR Not detected (Not detect); Cryptosporidium by PCR Not detected (Not detect); Cyclospora cayetanensis PCR Not detected (Not detect); E. coli O157 by PCR Not detected (Not detect); Entamoeba histolytica PCR Not detected (Not detect); Enteroaggregative E.coli(EAEC) Not detected (Not detect); Enteropathogenic E.coli(EPEC) Not detected (Not detect); Enterotoxigenic E.coli (ETEC) Not detected (Not detect); Giardia lamblia PCR Not detected (Not detect); Norovirus GI/GII PCR Not detected (Not detect); Plesiomonas shigelloides PCR Not detected (Not detect); Rotavirus A PCR Not detected (Not detect); Salmonella PCR Not detected (Not detect); Sapovirus PCR Not detected (Not detect); Shig/EnteroinvasiveE coli EIEC Not detected (Not detect); Shigalike tox-prod E coli STEC Not detected (Not detect); Vibrio PCR Not detected (Not detect); Vibrio cholerae PCR Not detected (Not detect); Yersinia enterocolitica PCR Not detected (Not detect)
--- NOTE | 2016-10-29 11:58 | ECHO - Doppler Report ---
Echocardiogram Name: Hannah Reveles Date of Study: 10/29/2016 Date: 1955 Ht: 61.0 in Medical Record#: [id number] Age: 61 Wt: 110.0 lb Gender: Female BSA: 1.47 Order #: [id number] Location: [facility] Room #: 8 Reading Physician: Gigi Vanessa DO, WILL QUEVEDO Call Center Manager: Romi Nuno Ordering Physician: Maurisio Trammell DO Primary Physician: Gilbert Bradley MD Indications: Pulmonary edema Impressions: Technically sub-optimal due to poor echocardiographic windows. LVEF 55-60%. Normal LV chamber size. Not all LV segments were visualized and many views foreshortened, but overall LV function appears normal. Mild concentric left ventricular hypertrophy. Normal right ventricular structure and function. Mild left ventricular diastolic dysfunction. No evidence of pulmonary hypertension identified. No significant valvular dysfunction. Findings: Study Quality * Technically sub-optimal due to poor echocardiographic windows. ECG Findings * Normal sinus rhythm. Left Ventricle * LVEF 55-60%. * Normal LV chamber size. * Not all LV segments were visualized and many views foreshortened, but overall LV function appears normal. * Mild concentric left ventricular hypertrophy. * Mild left ventricular diastolic dysfunction. Right Ventricle * Normal right ventricular structure and function. Left Atrium * Mildly dilated left atrium. Right Atrium * Normal right atrial size. Interatrial Septum * Interatrial septum not well evaluated. Aortic Valve * Aortic valve not well visualized. * No aortic regurgitation. * No aortic stenosis. Mitral Valve * Normal mitral valve structure and function. * No mitral regurgitation. * No mitral stenosis. Tricuspid Valve * Normal tricuspid valve structure and function. * Trace tricuspid regurgitation. * No evidence of pulmonary hypertension identified. Pulmonic Valve * Pulmonic valve not well visualized. Aorta * Normally sized aortic root. Pericardium * The pericardium appears normal. IVC * Normal IVC dimensions and inspiratory collapse. Pulmonary Artery * Pulmonary artery not well visualized. History 09/27/15 a Previous Echo was performed. Measurements: BP: 145/ 101 2D Normal Values RVIDd: 2.70 cm <2.7 cm IVSd: 1.30 cm 0.6 - 1.0 cm LVIDd: 3.20 cm 3.7 - 5.6 cm LVPWd: 1.30 cm 0.6 - 1.1 cm LVIDs: 2.60 cm 1.5 - 3.6 cm AO: 2.20 cm < 4.0 cm LA: 2.60 cm 2.0 - 4.0cm %FS: 18.80 cm >25 % LA volume: 24 Mitral Valve Peak E:.67 m/sec Peak A:.70 m/sec E/A Ratio:1 Peak E' Lat Anthony:4.87 cm/s Peak E' Med Anthony:4.87 cm/s E/E' Lat Ratio:13.8 E/E' Med Ratio:13.8 Tricuspid Valve TV Regurg Peak Grad: 22.00mmHg TV Regurg Peak Anthony: 2.36m/sec Updated by Gigi Vanessa DO, FACAdriana, WILL, ALLISON on 10/29/2016 11:51:52 AM electronically signed on 10/29/2016 11:53:46 AM with status of [employer] Ceja: 1=Normal, 2=Hypokinesis, 3=Akinesis, 4=Dyskinesis, 5=Aneurysmal, 6=Hyperkinetic, X=Not Visualized (Blank)=Missing
[2016-10-29 13:23] LABS: Protein/Creatinine Ratio,Urine 3.22 mg/mg (0-0.20)
[2016-10-29] MEDS ORDERED: *HR* FentaNYL (PF) 100 MCG/2 ML VIAL IVP ONE (14:46)
--- NOTE | 2016-10-29 15:25 | Electrocardiograph Report ---
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
--- NOTE | 2016-10-29 15:26 | Electrocardiograph Report ---
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
--- NOTE | 2016-10-29 15:27 | Electrocardiograph Report ---
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
[2016-10-29] MEDS ORDERED: Albuterol 2.5 MG/3 ML NEBULIZER IH PRN (17:31)
[2016-10-29] MEDS ORDERED: Acetaminophen IV 1,000 MG/100 ML INFUS..BTL IVPB ONE (18:04)
[2016-10-29] MEDS: *HR* Morphine 2 MG/ML SYRINGE IVP PRN (21:14)
[2016-10-29] MEDS ORDERED: *HR* Metoprolol 5 MG/5 ML VIAL IVP ONE ×2 (22:55→23:02)
[2016-10-30 00:17] LABS: Basophils % 0.1 %; Hematocrit 38.7 % (35.3-44.9); Hemoglobin 12.5 g/dL (11.5-15.4); Immature Granulocytes % 0.9 % (0-4); Lymphocytes # 1.3 K/mcL (0.6-4.6); Lymphocytes % 11.6 %; Mean Corpuscular HGB Conc 32.3 g/dL (31.6-35.5); Mean Corpuscular Hemoglobin 28.7 pg (28.0-33.3); Mean Platelet Volume 9.8 fL (9.4-12.4); Monocytes # 1.1 K/mcL (0.0-1.3); Monocytes % 10.3 %; Neutrophils # 8.3 K/mcL (1.6-8.9); Platelet Count 262 K/mcL (140-400); Red Blood Count 4.35 M/mcL (3.82-4.97); Red Cell Distribution Width 14.6 % (11.5-14.5); Segmented Neutrophils % 77.1 %
[2016-10-30 00:24] LABS: Potassium 2.7 mEq/L (3.5-4.5)
[2016-10-30 00:29] LABS: BUN/Creatinine Ratio 23 (6-26); Blood Urea Nitrogen 23 mg/dL (7-20); Calcium 8.6 mg/dL (8.6-10.8); Carbon Dioxide 26 mEq/L (19-29); Chloride 101 mEq/L (98-109); Glucose 116 mg/dL (70-99); Osmolality,Calculated 293 (280-300); Potassium 2.7 mEq/L (3.5-4.5); Sodium 139 mEq/L (136-145); eGFR For African Americans > 60 (> 60); eGFR For Non-African Americans 57 (> 60)
[2016-10-30] MEDS: *HR* Enoxaparin 40 MG/0.4 ML SYRINGE SQ SCH (06:11)
[2016-10-30] MEDS: *HR* Morphine 2 MG/ML SYRINGE IVP PRN (06:12)
--- NOTE | 2016-10-30 06:32 | Pulmonology Progress Note ---
<JoshuaFernando M - Last Filed: 10/30/16 09:39> Date of Encounter: 10/30/16 Objective PUL Vital signs: Last Vital Signs Temp 97.6 F 10/30/16 07:25 Pulse 115 10/30/16 09:00 Resp 26 10/30/16 08:00 BP 110/83 10/30/16 08:00 Pulse Ox 94 10/30/16 08:00 Results - Laboratory Findings CBC and BMP: 10/30/16 00:08 10/30/16 00:08 ABG ABG pH 7.48 pH Units (7.32-7.45) H 10/29/16 02:24 ABG pCO2 32 mmHg (35-45) L 10/29/16 02:24 ABG pO2 116 mmHg (85-104) H 10/29/16 02:24 ABG O2 Saturation 99 % (95-98) H 10/29/16 02:24 PT/INR, D-dimer PT 12.0 Seconds (9.4-12.1) 10/28/16 18:33 Abnormal lab findings: Abnormal lab results RDW 14.6 % (11.5-14.5) H 10/30/16 00:08 ABG pH 7.48 pH Units (7.32-7.45) H 10/29/16 02:24 ABG pCO2 32 mmHg (35-45) L 10/29/16 02:24 ABG pO2 116 mmHg (85-104) H 10/29/16 02:24 ABG O2 Saturation 99 % (95-98) H 10/29/16 02:24 VBG pH 7.57 pH Units (7.32-7.42) H 10/29/16 11:09 VBG pCO2 26 mmHg (41-51) L 10/29/16 11:09 VBG pO2 209 mmHg (25-40) H 10/29/16 11:09 Potassium 2.7 mEq/L (3.5-4.5) L 10/30/16 00:08 BUN 23 mg/dL (7-20) H 10/30/16 00:08 Est GFR (Non-Af Amer) 57 (> 60) L 10/30/16 00:08 Glucose 116 mg/dL (70-99) H 10/30/16 00:08 POC Glucose 145 (58-89) H 10/29/16 06:51 Alkaline Phosphatase 164 Units/L (38-126) H 10/28/16 18:33 Troponin I 0.36 ng/mL (0-0.03) H* 10/30/16 07:47 B-Natriuretic Peptide 3751 pg/mL (0-100) H 10/28/16 18:33 Globulin 4.7 g/dL (2.4-3.5) H 10/28/16 18:33 Albumin/Globulin Ratio 0.8 (1.1-2.2) L 10/28/16 18:33 Urine Protein >=1000 mg/dL (Neg-Trace) H 10/28/16 18:35 Urine Glucose (UA) 100 mg/dL (Normal) H 10/28/16 18:35 Urine Ketones Trace mg/dL (Negative) H 10/28/16 18:35 Urine Blood Moderate (Negative) H 10/28/16 18:35 Urine Microscopic RBC 5-15 per hpf (0-3) H 10/28/16 18:35 Ur Squamous Epith Cells Many per lpf (None-Few) H 10/28/16 18:35 Protein/Creatinin Ratio 3.22 mg/mg (0-0.20) H 10/29/16 10:35 Urine Total Protein 58 mg/dL (1-14) H 10/29/16 10:35 Salicylates < 5.0 mg/dL (15-30) L 10/28/16 18:33 Urine Opiates Screen Positive ng/mL (Jwzmok=488) H 10/28/16 18:35 Acetaminophen < 1.0 mcg/mL (10-30) L 10/28/16 18:33 U Benzodiazepines Scrn Positive ng/mL (Ojdvsz=846) H 10/28/16 18:35 - Clinical Findings Intake & Output: Intake & Output 10/29/16 10/30/16 10/30/16 23:59 07:59 15:59 Output Total 650 / 650 106 / 106 Balance -650 / -650 -106 / -106 Weight 51.1 kg Consult Discharge Plan - Plan Referrals: Gilbert Bradley MD [Primary Care Provider] - - Attending Attestation I examined this patient and my medical decision-making was reviewed with the DYE ROOM HELPER/PA/Advanced Practice Nurse/Resident Physician. I agree with the documented findings, disposition and treatment plan as described except to the extent set forth below. Patient seen and examined. Labs, radiology, chart personally reviewed. 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 Pulmonary: Acceptable oxygenation and ventilation and patient has significant smoking history , suspect mild COPD exacerbation, will treat. Cardiovascular: Patient has been followed up by application specialist and will defer management to cardiology team GI: Nutrition per dietary and GI prophylaxis per routine Heme: DVT prophylaxis per routine ID: Continue antibiotics and plan to de-escalation Renal; urine out put and renal funtion reviewed Endorcine: blood glucose is monitored Lines: all lines checked and no evidence of infections Skin: skin care to prevent pressure ulcers per nursing routine care Patient is feeling better, will transfer to the floor. <Wisam Mello - Last Filed: 10/30/16 09:44> Date of Encounter: 10/30/16 Time of Encounter: 06:32 Assessment and Plan (1) Respiratory distress Current Visit: Yes Status: Acute improving scattered rhonchi on exam CXR 10/28 reviewed, no acute pulmonary findings suggestive of pneumonia, comparison to prior there is increased markings in the RLL possible pulm edema 97% on 4L oxy mask BiPAP as needed history of tobacco abuse, 1 ppd reports increased cough and sputum, will treat for COPD exacerbation scheduled albuterol and prednisone 40mg PO start ABX Azithromycin Patient is stable for transfer to telemetry (2) COPD with acute exacerbation Current Visit: Yes Status: Acute significant history of tobacco abuse, 1 ppd smoker increase cough and sputum suspect mild COPD exacerbation treat with bronchodilators, steroids, and azithromycin (3) Altered mental status Current Visit: Yes Status: Resolved resolved awake, alert, and oriented to person place and time tolerating PO at this time a better patient history obtained, reports history of frequent falls due to arthritis and prior surgeries in her leg, she denies overdose of medications and reports hiding them from family, she is unsure why she is here but reports falling and breaking her eye glasses MR brain 10/29 demonstrated no acute abnormality, but an old posterior left frontal and anterior left pariental lobe with encephalomalacia and gliosis with mild parenchymal volume loss and mild chronic microvascular disease denies any chest pain at this time PT/OT consulted Qualifiers: Altered mental status type: unspecified Qualified Code(s): R41.82 - Altered mental status, unspecified (4) Hypokalemia Current Visit: Yes Status: Acute potassium is 2.7 patient is tolerating PO, 40 mg PO KCl x2 ordered will recheck Magnesium is 2.0 may be secondary to Lasix, will change to home dose Lasix (5) SIRS (systemic inflammatory response syndrome) Current Visit: Yes Status: Acute meets SIRS criteria with tachypnea and tachycardia clinically medical condition has improved significantly this is likely due to tobacco abuse and undiagnosed COPD patient reports increased cough and sputum production, will treat with bronchodilators, steroids and azithromycin for acute exacerbation leukocytosis has resolved 107 (14.4) afebrile blood and urine cultures pending (6) Elevated troponin Current Visit: Yes Status: Acute denies any chest pain or shortness of breath at this time troponin today 0.36, continues to downtrended from 1.2 --> 0.91 EKG continues to show diffuse T wave inversions, HR 76 (7) Proteinuria Current Visit: Yes Status: Acute UA showed significant proteinuria Urine protein/creatinine ratio 3.22 concern for nephropathy will continue to monitor UOP consideration for possible nephrology consult Qualifiers: Proteinuria type: unspecified Qualified Code(s): R80.9 - Proteinuria, unspecified (8) Tachycardia Current Visit: Yes Status: Acute sinus tachycardia avg 110 EKG reveals diffuse T wave inversions, non-ischemic pattern per cardiology intermittent episodes of HR 60-70s with correlated hypotension 90/60s ECHO 10/29/16 shows EF 55-60% with mild diastolic dysfunction and overall normal LV function (9) PAD (peripheral artery disease) Current Visit: No Status: Chronic significant history of PAD s/p carotid endarterectomy and fem-pop bypass continue aspirin and plavix (10) Hypertension Current Visit: Yes Status: Chronic history of hypertension patient tolerating PO meds restart home medications intermittent episodes of SBP 90, will closely monitor Qualifiers: Hypertension type: essential hypertension Qualified Code(s): I10 - Essential (primary) hypertension (11) Hypomagnesemia Current Visit: Yes Status: Resolved normalized continue to monitor and replete as needed (12) Tobacco abuse Current Visit: Yes Status: Acute smoking cessation recommended albuterol as needed (13) DVT prophylaxis Current Visit: Yes Status: Acute Lovenox SQ BACK 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: alert and oriented to person, place, and time, MRI 10/29 no acute abnormality Cardio: sinus tachycardia with an episode of SVT last pm 180s improved with lopressor, BPs have remained stable currently 110/80 but when HR decreases to 70s BP is 90/60, EKG revealed diffuse T wave inversion, ECHO shows decreased EF 50% with mild diastolic dysfunction Pulm: improved, lungs with scattered rhonchi and increased cough, wean off onto oxymask as tolerated currently 97% on RA, she is at risk to deteriorate and might need invasive mechanical ventilation, CXR does not demonstrate pneumonia possible edema GI: tolerating orals at this time cardiac diet ordered Heme: DVT prophylaxis, Lovenox SQ ID: no obvious source of infection, nonseptic appearing, afebrile, concern for COPD exacerbation, Azithromycin initiated Renal: urine UOP and renal function reviewed, appropriate UOP, continue home dose Lasix, significant proteinuria Endo: blood glucose monitored Lines: all lines checked and no evidence of infections, perez in place but will dc once PT/OT evaluates Skin: small bruises, no significant rashes or lesions, routine skin care to prevent pressure ulcers per RN routine care Lytes: continue to monitor and replete PRN Subjective Principal diagnosis: respiratory distress, AMS Interval history: Patient seen and examined at bedside. Show episode of SVT overnight improved after Lopressor. Patient denied any chest pain or shortness of breath at that time. Currently patient is in no acute distress. Her mental status has significantly improved she is awake alert and oriented to person place and time. Currently endorses chronic pain in her legs from prior surgeries as well as some nausea from pain medication earlier this morning. Admits to spitting as well as some vomiting of water, requests Phenergan as it was given to her last night she reports. No record of phenergan. It was observed that she poured water into her emesis basin and admits to vomiting. Denies any headache, chest pain, shortness of breath or abdominal pain at this time. Reports increase in cough as well as some sputum production. Reports this has been ongoing for the past several days. She is a much better historian at this time and reports feeling under the weather the past several days. She normally smokes a pack per day cigarettes as well as drink Pepsi. Reports a history of frequent falls due to her leg pain and last remembers falling and breaking her eyeglasses. She denies any prodrome prior to the fall such as chest pain or shortness of breath. She denies any suicidal ideation or overdose of medication. Reports she purposely hid her pain medications from her family. Objective PUL Vital signs: Last Vital Signs Temp 97.8 F 10/30/16 04:39 Pulse 123 10/30/16 06:17 Resp 22 10/30/16 06:17 BP 96/46 10/30/16 06:17 Pulse Ox 97 10/30/16 06:17 General appearance: no acute distress, alert Eyes: nonicteric ENT: oropharynx dry Neck: supple, no lymphadenopathy Effort: normal Auscultation: bilateral: diminished breath sounds, rhonchi (expiratory rhonchi) Cardiovascular: regular rate and rhythm (TACHYCARDIA) Gastrointestinal: normoactive bowel sounds, soft, non-tender, non-distended Integumentary: normal Extremities: no edema, pink and warm, other (diminished PT/DP bilaterally, old scar on left medial lower leg from venous grafting) Musculoskeletal: no deformities, ROM normal normal mental status, non-focal exam, pupils equal and round, other (4/5 strength in lower extremities) Results - Laboratory Findings CBC and BMP: 10/30/16 00:08 10/30/16 00:08 ABG ABG pH 7.48 pH Units (7.32-7.45) H 10/29/16 02:24 ABG pCO2 32 mmHg (35-45) L 10/29/16 02:24 ABG pO2 116 mmHg (85-104) H 10/29/16 02:24 ABG O2 Saturation 99 % (95-98) H 10/29/16 02:24 PT/INR, D-dimer PT 12.0 Seconds (9.4-12.1) 10/28/16 18:33 Abnormal lab findings: Abnormal lab results RDW 14.6 % (11.5-14.5) H 10/30/16 00:08 ABG pH 7.48 pH Units (7.32-7.45) H 10/29/16 02:24 ABG pCO2 32 mmHg (35-45) L 10/29/16 02:24 ABG pO2 116 mmHg (85-104) H 10/29/16 02:24 ABG O2 Saturation 99 % (95-98) H 10/29/16 02:24 VBG pH 7.57 pH Units (7.32-7.42) H 10/29/16 11:09 VBG pCO2 26 mmHg (41-51) L 10/29/16 11:09 VBG pO2 209 mmHg (25-40) H 10/29/16 11:09 Potassium 2.7 mEq/L (3.5-4.5) L 10/30/16 00:08 BUN 23 mg/dL (7-20) H 10/30/16 00:08 Est GFR (Non-Af Amer) 57 (> 60) L 10/30/16 00:08 Glucose 116 mg/dL (70-99) H 10/30/16 00:08 POC Glucose 145 (58-89) H 10/29/16 06:51 Alkaline Phosphatase 164 Units/L (38-126) H 10/28/16 18:33 Troponin I 0.91 ng/mL (0-0.03) H* 10/28/16 23:05 B-Natriuretic Peptide 3751 pg/mL (0-100) H 10/28/16 18:33 Globulin 4.7 g/dL (2.4-3.5) H 10/28/16 18:33 Albumin/Globulin Ratio 0.8 (1.1-2.2) L 10/28/16 18:33 Urine Protein >=1000 mg/dL (Neg-Trace) H 10/28/16 18:35 Urine Glucose (UA) 100 mg/dL (Normal) H 10/28/16 18:35 Urine Ketones Trace mg/dL (Negative) H 10/28/16 18:35 Urine Blood Moderate (Negative) H 10/28/16 18:35 Urine Microscopic RBC 5-15 per hpf (0-3) H 10/28/16 18:35 Ur Squamous Epith Cells Many per lpf (None-Few) H 10/28/16 18:35 Protein/Creatinin Ratio 3.22 mg/mg (0-0.20) H 10/29/16 10:35 Urine Total Protein 58 mg/dL (1-14) H 10/29/16 10:35 Salicylates < 5.0 mg/dL (15-30) L 10/28/16 18:33 Urine Opiates Screen Positive ng/mL (Twuhyp=290) H 10/28/16 18:35 Acetaminophen < 1.0 mcg/mL (10-30) L 10/28/16 18:33 U Benzodiazepines Scrn Positive ng/mL (Mxmhmi=673) H 10/28/16 18:35 - Diagnostic Findings Chest x-ray: report reviewed, image reviewed Additional studies: Cervical Spine CT 10/28/16 18:13 IMPRESSION: 1. No acute abnormality of the cervical spine. 2. Moderate C5-C6 degenerative changes. D/ / Lloyd Saleh MD / Lloyd Saleh MD Interpreting Provider: Lloyd Saleh MD Face CT 10/28/16 18:13 IMPRESSION: No acute traumatic injury of the facial bones. D/ / Lloyd Saleh MD / Lloyd Saleh MD Interpreting Provider: Lloyd Saleh MD Head CT 10/28/16 18:13 IMPRESSION: 1. No acute intracranial abnormality. 2. Low-attenuation within the left parietal lobe shown to be from prior infarct. D/ / Babar Dejesus MD / Babar Dejesus MD Interpreting Provider: Babar Dejesus MD Chest X-Ray 10/28/16 18:19 IMPRESSION: No acute findings. D/ / Clarisa Barry MD / Clarisa Barry MD Interpreting Provider: Clarisa Barry MD Brain MRI 10/29/16 14:54 IMPRESSION: No acute intracranial abnormality. 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 Mild parenchymal volume loss. Mild chronic microvascular disease. D/ / Aaron Rouse MD / Aaron Rouse MD Interpreting Provider: Aaron Rouse MD - Clinical Findings Intake & Output: Intake & Output 10/29/16 10/29/16 10/30/16 15:59 23:59 07:59 Intake Total 524 / 524 Output Total 400 / 400 650 / 650 106 / 106 Balance 124 / 124 -650 / -650 -106 / -106 Weight 51.1 kg
[2016-10-30] MEDS ORDERED: Ondansetron 4 MG/2 ML VIAL IVP PRN (07:18)
[2016-10-30 07:30] LABS: Campylobacter by PCR Not detected (Not detect)
[2016-10-30] MEDS: Dexmedetomidine HCl 400 MCG/100 ML MLS IVC SCH (07:37)
[2016-10-30] MEDS ORDERED: Albuterol 2.5 MG/3 ML NEBULIZER ONE (07:46)
[2016-10-30] MEDS: Gabapentin 300 MG CAPSULE PO SCH ×2 (07:52→21:29)
[2016-10-30] MEDS: Potassium Chloride Elixir 20 MEQ/15 ML UDC PO SCH (07:52)
[2016-10-30] MEDS: Aspirin 325 MG TABLET PO SCH (07:52)
[2016-10-30] MEDS: Metoprolol XL (24 HR) Succ 25 MG TAB.ER.24H PO SCH (07:52)
[2016-10-30] MEDS: Furosemide 40 MG/4 ML VIAL IVP SCH (07:52)
[2016-10-30] MEDS: amLODIPine 5 MG TABLET PO SCH (07:52)
[2016-10-30] MEDS ORDERED: Albuterol 2.5 MG/3 ML NEBULIZER IH SCH (08:00)
[2016-10-30] MEDS ORDERED: Azithromycin 500 MG in D5% in Water 250 ML IVPB SCH (08:00)
--- NOTE | 2016-10-30 08:19 | Cardiology Progress Note ---
Date of Encounter: 10/30/16 Time of Encounter: 08:18 Assessment and Plan (1) NSTEMI (non-ST elevated myocardial infarction) Current Visit: Yes Status: Acute Likely 2/2 demand ischemia associated with overdose - no ischemic pattern on EKG - diffusely inverted T waves appears to be more encephalopathic metabolic picture - troponin downtrending 0.36 (from 0.91, from 1.2) - echo 10/29/16- LVEF 55-60%, mild LV hypertrophy, mild LV diastolic dysfunction. - last LHC 08/25/14 with LAD 30-50% stenosis, circumflex 30-40% stenosis, and RCA 30-40% stenosis. - No plans for repeat heart cath at this time. - Continue home meds: Aspirin 325 mg daily, Plavix 70mg, Lisinopril 10mg daily, Toprol XL 25mg daily, Amlodipine 10mg daily, Lipitor 40mg daily. - No need for heparin drip at this time. - Pt has been in sinus tachycardia which is likely reactive to something else underlying as opposed to primary cardiac ischemia. Cardiology will sign off at this time. Followup with cardiology clinic, appointment has been made. Please reconsult as needed. Discussion w patient/family: The assessment and plan as outlined above was discussed with the patient and/or family members who expressed understanding and agreement. All questions were answered. Thank you for involving us in the care of your patient. Please call with any questions. Subjective Principal diagnosis: respiratory distress, AMS Interval history: Pt awake and much more alert overnight and this morning. Pt has been complaining of feeling nauseous and continues to ask for phenergan. Denies any chest pain or difficulty breathing. Pt had an episode of tachyarrythmia up to 160s and was given a dose of 5mg Lopressor. No other issues overnight. Objective Vital Signs, Last 4 Hours Temp Pulse Resp BP Pulse Ox 10/30/16 07:59 18 100 10/30/16 07:25 97.6 F 10/30/16 06:17 123 22 96/46 97 10/30/16 04:39 97.8 F General: Conversant, No Apparent Distress HEENT: Atraumatic, Mucus Membranes Moist Neck: No JVD Cardiac: Other (sinus tachycardia) Lungs: Normal Breath Sounds, No Wheeze, Rales, Rhonchi Neuro: Alert and responsive, No focal deficits noted Abdomen: Soft, Non-Tender Skin: No rashes noted on visualized skin Musculoskeletal: No Chest Wall Tenderness Extremities: No Edema Results 10/30/16 00:08 10/30/16 00:08 Lab Results 10/30/16 10/30/16 10/30/16 00:08 00:08 00:08 WBC 10.7 Hgb 12.5 Hct 38.7 Plt Count 262 Sodium 139 Potassium 2.7 L 2.7 L Chloride 101 Carbon Dioxide 26 BUN 23 H Creatinine 0.99 Glucose 116 H Calcium 8.6 Magnesium 2.0 Troponin I 10/30/16 07:47 WBC Hgb Hct Plt Count Sodium Potassium Chloride Carbon Dioxide BUN Creatinine Glucose Calcium Magnesium Troponin I 0.36 H* Consult Discharge Plan - Plan Referrals: Gilbert Bradley MD [Primary Care Provider] -
[2016-10-30] MEDS ORDERED: predniSONE 20 MG TABLET PO SCH (09:00)
[2016-10-30] MEDS ORDERED: Pantoprazole 40 MG VIAL IVP SCH (09:00)
[2016-10-30] MEDS ORDERED: Naloxone 0.4 MG/ML INJ IVP PRN (09:03)
[2016-10-30] MEDS ORDERED: Nitroglycerin 0.4 MG TAB.SUBL SL PRN (09:03)
[2016-10-30] MEDS: *HR* HYDROcodone/Acet 5/325 mg TABLET PO PRN ×2 (09:44→16:34)
[2016-10-30] MEDS: Albuterol 2.5 MG/3 ML NEBULIZER IH SCH ×3 (11:17→21:16)
[2016-10-30 11:26] LABS: Magnesium 1.9 mg/dL (1.6-2.6); Potassium 3.9 mEq/L (3.5-4.5)
[2016-10-30] MEDS: Ondansetron 4 MG/2 ML VIAL IVP PRN ×2 (14:59→21:39)
[2016-10-30] MEDS ORDERED: Gabapentin 300 MG CAPSULE PO SCH (15:00)
--- NOTE | 2016-10-30 16:28 | Nephrology Consult Note ---
Date of Encounter: 10/30/16 Time of Encounter: 12:00 Assessment and Plan (1) Proteinuria Current Visit: Yes Status: Acute Proteinuria along with hematuria rule out GNW Will confirm with 24hr urine Will check SPEP and UPEP Will check JOSEFINA and complements Will check ANCA and antiGBM Will check hepatitis panel Will obtain US of kidney Qualifiers: Proteinuria type: unspecified Qualified Code(s): R80.9 - Proteinuria, unspecified History of Present Illness - Reason for Consult Consult date: 10/30/16 proteinuria Requesting physician: Wisam Mello - History of Present Illness 61 y o female with PMH of HTN, CVA, active tobacco use with PAD s/p fem-pop, CEA , AAA and chronic pain admitted with altered mental status and subsequently transferred to the ICU for unresponsiveness. UDS positive for opiates and benzos. patient was noted to have significant proteinuria incidentally on UA along with moderate hematuria. SCr has been from 0.7 to 0.99 this hospital stay but she has had MIGUEL in 09/2015 with GFR down to 12 (though she does not remember this) and a couple smaller bouts in 12/2015 and 03/2016. She denies any history of renal disease or any family history of such. No urinary sxs. No DM. No NSAIDs use. Past Med Surg Social Fam HX - Past Medical History Medical history: arthritis, cancer (cervical s/p hysterectomy, radiation and chemo 4 years ago), CVA, hypertension, peripheral artery disease, TIA Psychiatric history: no psych history - Past Surgical History Surgical History: carotid endarterectomy (bilateral), hysterectomy, LE vascular intervention (?bilateral fempop) - Social History Smoking Status: Current every day smoker Smokeless Tobacco Status: No Alcohol use: none Drug use: none - Family History Mother Adopted: No Living Status: Hx Family Cardiac Disorders: Yes Hx Family Cancer: Yes Hx Family Endocrine Disorder: Yes (DM) Hx Family Neurologic Disorders: Yes ( FROM CVA.) Father Adopted: No Living Status: Hx Family Cardiac Disorders: Yes Medications and Allergies Alprazolam [Xanax] 1 mg PO TID PRN 02/08/15 [History] Aspirin 325 mg PO DAILY 02/08/15 [History] Cholecalciferol (Vitamin D3) [Vitamin D3] 50,000 unit PO QWEEK 02/08/15 [History ] Clopidogrel [Plavix] 75 mg PO QAM 02/08/15 [History] Furosemide [Lasix] 20 mg PO DAILY 02/08/15 [History] Lisinopril [Zestril] 10 mg PO QAM 02/08/15 [History] Metoprolol XL (24 HR) Succ [Toprol XL] 25 mg PO QAM 02/08/15 [History] Nitroglycerin 0.4 mg SL Q5M PRN 02/08/15 [History] Omeprazole [PriLOSEC] 20 mg PO BID 02/08/15 [History] Potassium Chloride 5 meq PO QAM 02/08/15 [History] Gabapentin [Neurontin] 300 mg PO TID 12/28/15 [History] Amlodipine Besylate 10 mg PO DAILY 10/28/16 [History] Atorvastatin [Lipitor] 40 mg PO HS 10/28/16 [History] HYDROcodone/Acet 7.5/325 mg [Cypress 7.5-325 mg] 1 tab PO Q6H PRN 10/28/16 [ History] Allergies codeine [From Tylenol-Codeine #3] Allergy (Verified 07/26/15 19:42) itching, redness Zolpidem [From Ambien] Allergy (Verified 07/26/15 19:42) swelling,disorientation Review of Systems All Systems: reviewed and no additional remarkable complaints except as stated ( 10 systems reviewed) Exam - Vital Signs Vital signs: Initial Vital Signs Temp Pulse Resp BP Pulse Ox 97.1 F L 140 16 134/105 98 10/28/16 18:12 10/28/16 18:12 10/28/16 18:12 10/28/16 18:12 10/28/16 18:12 Vital Signs - Last 8 Hours Temp Pulse Resp BP Pulse Ox 10/30/16 12:24 98.5 F 101 17 93/64 100 10/30/16 11:17 18 99 10/30/16 10:00 101 24 88/64 100 10/30/16 09:00 103 28 106/64 100 Intake and Output 10/30/16 10/30/16 10/30/16 07:59 15:59 23:59 Output Total 106 / 106 600 / 600 Balance -106 / -106 -600 / -600 Output: Catheter 106 / 106 600 / 600 Other: Meal refused Percent of Meal Consumed 0% Stool Size Small Stool Consistency liquid Stool Color Green # Bowel Movements 1 Weight 51.1 kg Patient Weight 10/30/16 23:59 Weight 51.1 kg - General Appearance General appearance: frail (NAD) EENT: ATNC, mucous membranes moist Neck: no JVD, supple Additional Comments: good areation ant bilat Cardiology: no edema, normal S1, normal S2 Gastrointestinal: no tenderness, no guarding Integumentary: no rash, warm and dry Neurologic: no focal deficit Musculoskeletal: no deformities Psychiatric: mood/affect appropriate, cooperative Results - Lab Results 10/30/16 00:08 10/30/16 11:06 Most recent lab results ABG pH 7.48 pH Units (7.32-7.45) H 10/29/16 02:24 ABG pCO2 32 mmHg (35-45) L 10/29/16 02:24 ABG pO2 116 mmHg (85-104) H 10/29/16 02:24 ABG HCO3 23.8 mEQ/L (21-27) 10/29/16 02:24 ABG O2 Saturation 99 % (95-98) H 10/29/16 02:24 Calcium 8.6 mg/dL (8.6-10.8) 10/30/16 00:08 Phosphorus 3.2 mg/dL (2.3-4.7) 10/29/16 05:16 Magnesium 1.9 mg/dL (1.6-2.6) 10/30/16 11:06 Urine Creatinine 18 mg/dL 10/29/16 10:35 Urine Total Protein 58 mg/dL (1-14) H 10/29/16 10:35 Consult Discharge Plan - Plan Referrals: Gilbert Bradley MD [Primary Care Provider] -
[2016-10-30] MEDS ORDERED: ALPRAZolam 1 MG TABLET PO SCH (21:00)
[2016-10-30] MEDS: ALPRAZolam 1 MG TABLET PO PRN (21:29)
[2016-10-31] MEDS: Albuterol 2.5 MG/3 ML NEBULIZER IH SCH ×8 (00:26→23:25)
[2016-10-31] MEDS: *HR* HYDROcodone/Acet 5/325 mg TABLET PO PRN ×4 (04:01→22:51)
[2016-10-31] MEDS: Ondansetron 4 MG/2 ML VIAL IVP PRN ×4 (05:12→22:51)
[2016-10-31] MEDS: *HR* Enoxaparin 40 MG/0.4 ML SYRINGE SQ SCH (05:13)
[2016-10-31 05:27] LABS: Albumin 3.2 g/dL (3.5-5.0); Albumin/Globulin Ratio 0.7 (1.1-2.2); Bilirubin,Direct 0.3 mg/dL (0.0-0.5); Bilirubin,Indirect 0.3 mg/dL (0.0-1.2); Bilirubin,Total 0.6 mg/dL (0.2-1.2); Globulin 4.3 g/dL (2.4-3.5); Total Protein 7.5 g/dL (6.0-8.3)
[2016-10-31] MEDS: Metoprolol XL (24 HR) Succ 25 MG TAB.ER.24H PO SCH (08:54)
[2016-10-31] MEDS: Gabapentin 300 MG CAPSULE PO SCH ×2 (08:54→20:47)
[2016-10-31] MEDS: Aspirin 325 MG TABLET PO SCH (08:54)
[2016-10-31] MEDS: predniSONE 20 MG TABLET PO SCH (08:55)
[2016-10-31] MEDS: Furosemide 20 MG/2 ML VIAL IVP SCH (08:55)
[2016-10-31] MEDS: amLODIPine 5 MG TABLET PO SCH (08:55)
[2016-10-31] MEDS: Azithromycin 500 MG in D5% in Water 250 ML IVPB SCH (08:56)
--- NOTE | 2016-10-31 10:36 | Nephrology Progress Note ---
Date of Encounter: 10/31/16 Time of Encounter: 09:45 - Assessment and Plan (1) Proteinuria Current Visit: Yes Status: Acute Agree with proteinuria work up but if her renal function remains stable, then this work up could be safely performed on an outpatient basis. No need of urgent renal biopsy or HD. Pending all serologies. I suspect her vascular disease and HTN histories are likely contributing to the proteinuria. Continue to follow a renal protective strategy. Avoid nephrotoxic Rx and dose Rx by GFR. Because she is not in overt renal failure, I do not suspect an RPGN, so I do not recommend empiric steroids. Thank you. Qualifiers: Proteinuria type: unspecified Qualified Code(s): R80.9 - Proteinuria, unspecified (2) Hypertension Current Visit: Yes Status: Chronic Agree with lisinopril for antiproteinuric effect. May need to uptitrate the LEONARDO at some point, as long as tolerated by SCr and serum K+ levels. Qualifiers: Hypertension type: essential hypertension Qualified Code(s): I10 - Essential (primary) hypertension (3) PAD (peripheral artery disease) Current Visit: No Status: Chronic As per primary. Subjective Principal diagnosis: respiratory distress, AMS Interval history: Pt was s/e earlier today. She did not affirm uremic complaints (i.e., no N/V/D, diminished appetite or severe edema). She denied NSAID use nor prior FHx of ESRD. She has previously required IV Antibiotics as an outpatient, she said, in the past. Objective - Vital Signs Vital signs: Vital Signs Temp Pulse Resp BP Pulse Ox 10/31/16 08:02 18 96 10/31/16 07:41 98.5 F 97 16 109/84 100 10/31/16 04:04 97.6 F 94 18 136/97 98 10/31/16 00:26 18 99 10/31/16 00:00 98.4 F 111 18 153/96 98 10/30/16 21:26 103 16 117/68 99 10/30/16 19:53 98.9 F 98 16 101/66 98 10/30/16 16:57 98.2 F 93 18 94/67 92 10/30/16 16:37 18 100 10/30/16 12:24 98.5 F 101 17 93/64 100 10/30/16 11:17 18 99 Intake and Output 10/30/16 10/31/16 10/31/16 23:59 07:59 15:59 Intake Total 500 / 500 0 / 0 Output Total 300 / 300 400 / 400 Balance 500 / 500 -300 / -300 -400 / -400 Intake: Oral 500 / 500 0 / 0 Output: Urine 300 / 300 400 / 400 Other: Percent of Meal Consumed 5% # Voids 1 0 Weight 54.5 kg Patient Weight 10/31/16 23:59 Weight 54.5 kg - General Appearance General appearance: Present: well-developed, well-nourished, appears started age EENT: Present: ATNC, PERRL, mucous membranes moist Neck: Present: supple Respiratory: Present: clear Cardiology: Present: no edema, regular rate, regular rhythm, normal S1, normal S2 Gastrointestinal: Present: normoactive bowel sounds, no tenderness, no guarding Integumentary: Present: no rash, warm and dry Neurologic: Present: no focal deficit, no asterixis, alert and oriented x3 Musculoskeletal: Present: no deformities, no erythema, no cyanosis Psychiatric: Present: mood/affect appropriate, cooperative - Lab 10/30/16 00:08 10/30/16 11:06 Most recent lab results ABG pH 7.48 pH Units (7.32-7.45) H 10/29/16 02:24 ABG pCO2 32 mmHg (35-45) L 10/29/16 02:24 ABG pO2 116 mmHg (85-104) H 10/29/16 02:24 ABG HCO3 23.8 mEQ/L (21-27) 10/29/16 02:24 ABG O2 Saturation 99 % (95-98) H 10/29/16 02:24 Calcium 8.6 mg/dL (8.6-10.8) 10/30/16 00:08 Phosphorus 3.2 mg/dL (2.3-4.7) 10/29/16 05:16 Magnesium 1.9 mg/dL (1.6-2.6) 10/30/16 11:06 Urine Creatinine 18 mg/dL 10/29/16 10:35 Urine Total Protein 58 mg/dL (1-14) H 10/29/16 10:35 Consult Discharge Plan - Plan Referrals: Gilbert Bradley MD [Primary Care Provider] - 11/13/16 3:45 pm
--- NOTE | 2016-10-31 19:25 | Internal Med Progress Note ---
Date of Encounter: 10/31/16 Time of Encounter: 09:30 - Assessment and plan (1) Acute respiratory failure with hypoxia Current Visit: Yes Status: Resolved Assessment and plan: Pt with improved respiratory status at this time. Will continue supportive care for now. (2) COPD with acute exacerbation Current Visit: Yes Status: Acute Assessment and plan: Continue supportive care and wean treatment as able. (3) PAD (peripheral artery disease) Current Visit: Yes Status: Chronic Assessment and plan: Supportive care. (4) Proteinuria Current Visit: Yes Status: Acute Assessment and plan: Per renal service. Further work up outpatient. Qualifiers: Proteinuria type: unspecified Qualified Code(s): R80.9 - Proteinuria, unspecified (5) Hypertension Current Visit: Yes Status: Chronic Assessment and plan: Controlled. Continue meds. Qualifiers: Hypertension type: essential hypertension Qualified Code(s): I10 - Essential (primary) hypertension (6) Tobacco abuse Current Visit: Yes Status: Chronic Assessment and plan: Cessation counselling - Subjective Interval history: Ms. Reveles is currently admitted for acute hypoxic respiratory failure. She is moderate risk due to potential for worsening respiratory status. Ms. Reveles is complaining of nausea. Denies constipation and diarrhea. No CP or SOB currently. No fever or chills. - Constitutional Vitals: Temp Pulse Resp BP Pulse Ox 97.6 F 73 18 106/72 97 10/31/16 16:44 10/31/16 16:44 10/31/16 16:44 10/31/16 16:44 10/31/16 16:44 General appearance: Present: A&O X 3, answers questions appropriately - Head Head exam: Present: normocephalic - Eye Eye exam: Present: conjuntiva pink - ENT ENT exam: Present: mucous membranes moist - Respiratory Respiratory exam: Present: decreased breath sounds, CTAB - Cardiovascular Cardiovascular exam: Present: RRR. Absent: tachycardia - GI/Abdominal GI/Abdominal exam: Present: normal bowel sounds, soft. Absent: mass, tenderness - Extremities Exam Extremities exam: Present: warm. Absent: pedal edema - Neurological Exam Neurological exam: Present: alert, oriented X3, no focal deficits - Skin Skin exam: Present: warm. Absent: rash Internal Medicine: Result - Labs CBC & Chem 7: 10/30/16 00:08 10/30/16 11:06 Labs: Liver Function 10/31/16 Range/Units 04:54 Total Bilirubin 0.6 (0.2-1.2) mg/dL Direct Bilirubin 0.3 (0.0-0.5) mg/dL AST 11 (5-34) Units/L ALT 11 (0-55) Units/L Alkaline Phosphatase 102 (38-126) Units/L Albumin 3.2 L (3.5-5.0) g/dL - ABG Interpretation ABG results: ABG ABG pH 7.48 pH Units (7.32-7.45) H 10/29/16 02:24 ABG pCO2 32 mmHg (35-45) L 10/29/16 02:24 ABG pO2 116 mmHg (85-104) H 10/29/16 02:24 ABG O2 Saturation 99 % (95-98) H 10/29/16 02:24 PT/INR, D-dimer PT 12.0 Seconds (9.4-12.1) 10/28/16 18:33 - Impressions Impressions Retroperitoneum Ultrasound 10/30/16 19:00 IMPRESSION: Bilateral renal cysts are again seen. Kidneys otherwise unremarkable. No evidence of hydronephrosis. The bladder is collapsed and poorly evaluated. D/ / Samantha Perez MD / Samantha Perez MD Interpreting Provider: Samantha Perez MD Consult Discharge Plan - Plan Referrals: Gilbert Bradley MD [Primary Care Provider] - 11/13/16 3:45 pm
[2016-10-31] MEDS: ALPRAZolam 1 MG TABLET PO PRN (22:50)
[2016-11-01] MEDS: Albuterol 2.5 MG/3 ML NEBULIZER IH SCH ×6 (04:00→23:20)
[2016-11-01] MEDS: *HR* HYDROcodone/Acet 5/325 mg TABLET PO PRN (04:52)
[2016-11-01 05:00] LABS: Basophils % 0.3 %; Eosinophils % 0.1 %; Hematocrit 45.6 % (35.3-44.9); Hemoglobin 15.2 g/dL (11.5-15.4); Immature Granulocytes % 1.5 % (0-4); Lymphocytes # 1.9 K/mcL (0.6-4.6); Lymphocytes % 20.9 %; Mean Corpuscular HGB Conc 33.3 g/dL (31.6-35.5); Mean Corpuscular Hemoglobin 29.8 pg (28.0-33.3); Mean Corpuscular Volume 89.4 fL (83.0-100.0); Mean Platelet Volume 9.7 fL (9.4-12.4); Monocytes # 0.6 K/mcL (0.0-1.3); Monocytes % 6.6 %; Neutrophils # 6.5 K/mcL (1.6-8.9); Platelet Count 315 K/mcL (140-400); Red Cell Distribution Width 14.4 % (11.5-14.5); Segmented Neutrophils % 70.6 %
[2016-11-01] MEDS: *HR* Enoxaparin 40 MG/0.4 ML SYRINGE SQ SCH (05:01)
[2016-11-01 05:05] LABS: BUN/Creatinine Ratio 20 (6-26); Blood Urea Nitrogen 21 mg/dL (7-20); Calcium 9.6 mg/dL (8.6-10.8); Carbon Dioxide 28 mEq/L (19-29); Chloride 95 mEq/L (98-109); Glucose 92 mg/dL (70-99); Osmolality,Calculated 285 (280-300); Potassium 3.6 mEq/L (3.5-4.5); Sodium 136 mEq/L (136-145); eGFR For African Americans > 60 (> 60); eGFR For Non-African Americans 52 (> 60)
[2016-11-01] MEDS ORDERED: 0.9 % Sodium Chloride 500 ML IVC ONE (08:30)
[2016-11-01] MEDS ORDERED: *HR* OxyCODONE/APAP 5/325 TABLET PO PRN (08:34)
[2016-11-01] MEDS: Gabapentin 300 MG CAPSULE PO SCH ×2 (09:05→20:09)
[2016-11-01] MEDS: Aspirin 325 MG TABLET PO SCH (09:05)
[2016-11-01] MEDS: predniSONE 20 MG TABLET PO SCH (09:06)
[2016-11-01] MEDS: Azithromycin 500 MG in D5% in Water 250 ML IVPB SCH (09:06)
[2016-11-01] MEDS: Metoprolol XL (24 HR) Succ 25 MG TAB.ER.24H PO SCH (09:07)
[2016-11-01] MEDS: Furosemide 20 MG/2 ML VIAL IVP SCH (09:07)
[2016-11-01] MEDS: amLODIPine 5 MG TABLET PO SCH (09:07)
[2016-11-01 10:50] LABS: Complement Component 3 168 mg/dL (88-201); Complement Component 4 32 mg/dL (10-40)
[2016-11-01 11:37] LABS: Total Volume 24 Hour,Urine 0.99 Liters (0.60-1.60)
[2016-11-01] MEDS: ALPRAZolam 1 MG TABLET PO PRN (11:51)
[2016-11-01] MEDS ORDERED: *HR* FentaNYL (PF) 100 MCG/2 ML VIAL IVP ONE ×2 (12:00→15:31)
[2016-11-01 12:07] LABS: Creatinine 24 Hour,Urine 0.24 g/day (0.71-1.65); Creatinine,Urine 24 mg/dL; Microalbum/Creatinine Ratio,Ur 46 (0-30); Microalbumin,Urine 11 mg/L; Protein/Creatinine Ratio,Urine 0.29 mg/mg (0-0.20); Total Protein 24 Hour,Urine 69 mg/day (0-299)
--- NOTE | 2016-11-01 14:14 | Internal Med Progress Note ---
Date of Encounter: 11/01/16 Time of Encounter: 08:00 - Assessment and plan (1) Low back pain Current Visit: Yes Status: Acute Assessment and plan: Check xrays of lumbar spine this AM. (2) Acute respiratory failure with hypoxia Current Visit: Yes Status: Resolved Assessment and plan: Doing better. Off oxygen at this time. Continue supportive care. (3) COPD with acute exacerbation Current Visit: Yes Status: Acute Assessment and plan: Continue supportive care and wean treatment as able. (4) PAD (peripheral artery disease) Current Visit: Yes Status: Chronic Assessment and plan: Supportive care. (5) Proteinuria Current Visit: Yes Status: Acute Assessment and plan: Per renal service. Further work up outpatient. Qualifiers: Proteinuria type: unspecified Qualified Code(s): R80.9 - Proteinuria, unspecified (6) Hypertension Current Visit: Yes Status: Chronic Assessment and plan: Was high this AM but having pain. BP dropped with Hydralazine. Follow. Qualifiers: Hypertension type: essential hypertension Qualified Code(s): I10 - Essential (primary) hypertension (7) Tobacco abuse Current Visit: Yes Status: Chronic Assessment and plan: Cessation counselling - Subjective Interval history: Ms. Reveles is currently admitted for acute hypoxic respiratory failure. She is moderate risk due to potential for worsening respiratory status. Ms. Reveles is having a lot of back pain today. She says she cannot lie still. BP was up earlier and she was given Hydralazine. BP now 71/41. No CP. Breathing OK. Appetite not good. - Constitutional Vitals: Temp Pulse Resp BP Pulse Ox 98.1 F 95 18 96/62 96 11/01/16 11:43 11/01/16 11:43 11/01/16 11:43 11/01/16 11:43 11/01/16 11:43 General appearance: Present: A&O X 3, answers questions appropriately - Head Head exam: Present: normocephalic - Eye Eye exam: Present: conjuntiva pink - ENT ENT exam: Present: mucous membranes moist - Respiratory Respiratory exam: Present: decreased breath sounds, rhonchi. Absent: wheezes - Cardiovascular Cardiovascular exam: Present: RRR, tachycardia - GI/Abdominal GI/Abdominal exam: Present: soft. Absent: tenderness - Extremities Exam Extremities exam: Present: warm. Absent: tenderness - Neurological Exam Neurological exam: Present: alert, oriented X3, no focal deficits - Skin Skin exam: Present: warm. Absent: rash Internal Medicine: Result - Labs CBC & Chem 7: 11/01/16 04:38 11/01/16 04:38 Labs: Short CBC 11/01/16 Range/Units 04:38 WBC 9.2 (4.3-11.1) K/mcL Hgb 15.2 D (11.5-15.4) g/dL Hct 45.6 H (35.3-44.9) % Plt Count 315 (140-400) K/mcL Neutrophils # 6.5 (1.6-8.9) K/mcL BMP 11/01/16 04:38 Sodium 136 Potassium 3.6 Chloride 95 L Carbon Dioxide 28 BUN 21 H Creatinine 1.07 Glucose 92 Calcium 9.6 - ABG Interpretation ABG results: ABG ABG pH 7.48 pH Units (7.32-7.45) H 10/29/16 02:24 ABG pCO2 32 mmHg (35-45) L 10/29/16 02:24 ABG pO2 116 mmHg (85-104) H 10/29/16 02:24 ABG O2 Saturation 99 % (95-98) H 10/29/16 02:24 PT/INR, D-dimer PT 12.0 Seconds (9.4-12.1) 10/28/16 18:33 - Impressions Impressions Lumbar Spine X-Ray 11/01/16 08:31 IMPRESSION: 1. Significant decreased bone mineral density. 2. Acute L1 compression fracture with approximately 55% loss of height and 4-5 mm of posterior cortical displacement. 3. Normal lumbar spine alignment with lower lumbar degenerative joint disease. The findings were sent to the Radiology Results Communication Center at 11:28 am on 11/01/2016to be communicated to a licensed caregiver. D/ / 11/01/2016 11:31:57 David Garcia MD / jessica Interpreting Provider: David Garcia MD Consult Discharge Plan - Plan Referrals: Gilbert Bradley MD [Primary Care Provider] - 11/13/16 3:45 pm
[2016-11-01] MEDS ORDERED: *HR* HYDROmorphone 20 MG/20 ML PCA IVC PRN (16:06)
--- NOTE | 2016-11-01 16:50 | Nephrology Progress Note ---
Date of Encounter: 11/01/16 Time of Encounter: 15:00 - Assessment and Plan (1) Proteinuria Current Visit: Yes Status: Acute Stable renal function 24hr urine P/C ratio is improving. Recommend outpatient nephrology follow up in about 3-[address] Doll or myself. No need of urgent renal biopsy or HD. Most serologies pending. I suspect her vascular disease and HTN histories are likely contributing to the proteinuria. Continue to follow a renal protective strategy. Avoid nephrotoxic Rx and dose Rx by GFR. Because she is not in overt renal failure, I do not suspect an RPGN, so I do not recommend empiric steroids. Thank you. Qualifiers: Proteinuria type: unspecified Qualified Code(s): R80.9 - Proteinuria, unspecified (2) Hypertension Current Visit: Yes Status: Chronic Agree with lisinopril for antiproteinuric effect. May need to uptitrate the LEONARDO at some point, as long as tolerated by SCr and serum K+ levels. Qualifiers: Hypertension type: essential hypertension Qualified Code(s): I10 - Essential (primary) hypertension (3) PAD (peripheral artery disease) Current Visit: Yes Status: Chronic As per primary. (4) Low back pain Current Visit: Yes Status: Acute As per primary, but avoid NSAIDs as these could worsen the proteinuria. Qualifiers: Chronicity: acute Back pain laterality: bilateral Sciatica presence: without sciatica Qualified Code(s): M54.5 - Low back pain Subjective Principal diagnosis: respiratory distress, AMS Interval history: Pt was s/e earlier today. She did not affirm uremic complaints (i.e., no N/V/D, diminished appetite or severe edema). Her family was present. She reported having back pains with the recent fracture findings, she said. Objective - Vital Signs Vital signs: Vital Signs Temp Pulse Resp BP Pulse Ox 11/01/16 14:54 98.2 F 96 18 126/71 96 11/01/16 11:43 98.1 F 95 18 96/62 96 11/01/16 09:10 103/57 11/01/16 08:45 109/66 11/01/16 07:06 98.1 F 91 16 76/53 97 11/01/16 04:11 98.4 F 94 18 151/105 100 10/31/16 21:28 91 18 132/90 97 Intake and Output 11/01/16 11/01/16 11/01/16 07:59 15:59 23:59 Intake Total 200 / 200 360 / 360 Output Total 300 / 300 Balance -100 / -100 360 / 360 Intake: Oral 200 / 200 360 / 360 Output: Urine 300 / 300 Other: Meal Lunch Percent of Meal Consumed 65% # Voids 1 Weight 55 kg Patient Weight 11/01/16 23:59 Weight 55 kg - General Appearance General appearance: Present: well-developed, well-nourished, appears started age EENT: Present: ATNC, PERRL, mucous membranes moist Neck: Present: supple Respiratory: Present: clear Cardiology: Present: no edema, regular rate, regular rhythm, normal S1, normal S2 Gastrointestinal: Present: normoactive bowel sounds, no tenderness, no guarding Integumentary: Present: no rash, warm and dry Neurologic: Present: no focal deficit, no asterixis, alert and oriented x3 Musculoskeletal: Present: no clubbing Additional Comments: Back pain, per pt Psychiatric: Present: mood/affect appropriate, cooperative - Lab 11/01/16 04:38 11/01/16 04:38 Most recent lab results ABG pH 7.48 pH Units (7.32-7.45) H 10/29/16 02:24 ABG pCO2 32 mmHg (35-45) L 10/29/16 02:24 ABG pO2 116 mmHg (85-104) H 10/29/16 02:24 ABG HCO3 23.8 mEQ/L (21-27) 10/29/16 02:24 ABG O2 Saturation 99 % (95-98) H 10/29/16 02:24 Calcium 9.6 mg/dL (8.6-10.8) 11/01/16 04:38 Phosphorus 3.2 mg/dL (2.3-4.7) 10/29/16 05:16 Magnesium 1.9 mg/dL (1.6-2.6) 10/30/16 11:06 Urine Creatinine 24 mg/dL 11/01/16 04:15 Ur Total Protein 24 Hr 69 mg/day (0-299) 11/01/16 04:15 Urine Total Protein < 7 mg/dL (1-14) 11/01/16 04:15 Consult Discharge Plan - Plan Referrals: Gilbert Bradley MD [Primary Care Provider] - 11/13/16 3:45 pm
[2016-11-01] MEDS: Ondansetron 4 MG/2 ML VIAL IVP PRN (19:59)
[2016-11-02] MEDS: Albuterol 2.5 MG/3 ML NEBULIZER IH SCH ×6 (03:28→23:35)
[2016-11-02] MEDS: *HR* Enoxaparin 40 MG/0.4 ML SYRINGE SQ SCH (05:43)
[2016-11-02] MEDS ORDERED: *HR* HYDROmorphone 20 MG/20 ML PCA IVC PRN (08:59)
--- NOTE | 2016-11-02 09:04 | Internal Med Progress Note ---
Date of Encounter: 11/02/16 Time of Encounter: 08:30 - Assessment and plan (1) Fracture of L1 vertebra Current Visit: Yes Status: Acute Assessment and plan: Pt has fracture of L1 on MRI with extension into spinal canal. Pain is in back and not down legs. She has some chronic numbness to R leg and both feet and this is unchanged. Pain control. Spine surgery eval. Qualifiers: Encounter type: subsequent encounter Fracture type: closed Fracture morphology: unspecified fracture morphology Fracture healing: with routine healing Qualified Code(s): S32.019D - Unspecified fracture of first lumbar vertebra, subsequent encounter for fracture with routine healing (2) Low back pain Current Visit: Yes Status: Acute Assessment and plan: Related to fracture of L1. (3) Acute respiratory failure with hypoxia Current Visit: Yes Status: Resolved Assessment and plan: Doing better. Off oxygen at this time. Continue supportive care. (4) COPD with acute exacerbation Current Visit: Yes Status: Acute Assessment and plan: Continue supportive care and wean treatment as able. (5) PAD (peripheral artery disease) Current Visit: Yes Status: Chronic Assessment and plan: Supportive care. (6) Proteinuria Current Visit: Yes Status: Acute Assessment and plan: Per renal service. Further work up outpatient. Qualifiers: Proteinuria type: unspecified Qualified Code(s): R80.9 - Proteinuria, unspecified (7) Hypertension Current Visit: Yes Status: Chronic Assessment and plan: Better controlled at this time. Qualifiers: Hypertension type: essential hypertension Qualified Code(s): I10 - Essential (primary) hypertension (8) Tobacco abuse Current Visit: Yes Status: Chronic Assessment and plan: Cessation counselling - Subjective Interval history: Ms. Reveles is currently admitted for acute hypoxic respiratory failure. She has been found to have L1 fracture. She is high risk due to potential for worsening respiratory status and neurologic status as well as IV pain medication via [employer]. Ms. Reveles continues to have a lot of back pain. Hurts to move around in bed. No new neurologic changes. No bowel or bladder issues. Appetite OK. No CP or SOB. No GI issues. - Constitutional Vitals: Temp Pulse Resp BP Pulse Ox 98.1 F 99 16 125/86 97 11/02/16 06:45 11/02/16 06:45 11/02/16 06:45 11/02/16 06:45 11/02/16 06:45 General appearance: Present: A&O X 3, answers questions appropriately - Head Head exam: Present: normocephalic - Eye Eye exam: Present: EOMI, conjuntiva pink - ENT ENT exam: Present: mucous membranes moist - Respiratory Respiratory exam: Present: decreased breath sounds, CTAB. Absent: rales, rhonchi, wheezes - Cardiovascular Cardiovascular exam: Present: RRR, systolic murmur. Absent: tachycardia - GI/Abdominal GI/Abdominal exam: Present: normal bowel sounds, soft. Absent: mass, tenderness - Extremities Exam Extremities exam: Present: warm. Absent: pedal edema, tenderness - Neurological Exam Neurological exam: Present: alert, oriented X3 - Psychiatric Psychiatric exam: Present: normal affect, normal mood - Skin Skin exam: Present: dry, warm. Absent: rash Internal Medicine: Result - Labs CBC & Chem 7: 11/01/16 04:38 11/01/16 04:38 - ABG Interpretation ABG results: ABG ABG pH 7.48 pH Units (7.32-7.45) H 10/29/16 02:24 ABG pCO2 32 mmHg (35-45) L 10/29/16 02:24 ABG pO2 116 mmHg (85-104) H 10/29/16 02:24 ABG O2 Saturation 99 % (95-98) H 10/29/16 02:24 PT/INR, D-dimer PT 12.0 Seconds (9.4-12.1) 10/28/16 18:33 - Impressions Impressions Lumbar Spine X-Ray 11/01/16 08:31 IMPRESSION: 1. Significant decreased bone mineral density. 2. Acute L1 compression fracture with approximately 55% loss of height and 4-5 mm of posterior cortical displacement. 3. Normal lumbar spine alignment with lower lumbar degenerative joint disease. The findings were sent to the Radiology Results Communication Center at 11:28 am on 11/01/2016to be communicated to a licensed caregiver. D/ / 11/01/2016 11:31:57 David Garcia MD / jessica Interpreting Provider: David Garcia MD Lumbar Spine MRI 11/01/16 11:59 IMPRESSION: Probable transitional vertebral anatomy with partially sacralized L5. The last well-formed disc space is defined as L5-S1. Moderate to severe compression fracture of L1, likely subacute, new since April 16, 2016. Associated 7.5 mm retropulsion of the posterior cortex, contributing to mild spinal canal narrowing. Abnormal bone marrow signal along the bilateral sacrum and at in the S2 and S3 vertebral bodies, suspicious for acute to subacute nondisplaced sacral insufficiency fractures. Multilevel degenerative disc disease as described above. Mild spinal canal narrowing at T12-L1 secondary to retropulsion of posterior cortex of L1. No foraminal narrowing. The results were sent to radiology results communication. D/ / Aaron Rouse MD / Aaron Rouse MD Interpreting Provider: Aaron Rouse MD Consult Discharge Plan - Plan Referrals: Gilbert Bradley MD [Primary Care Provider] - 11/13/16 3:45 pm
[2016-11-02] MEDS: Furosemide 20 MG/2 ML VIAL IVP SCH (09:23)
[2016-11-02] MEDS: amLODIPine 5 MG TABLET PO SCH (09:24)
[2016-11-02] MEDS: Gabapentin 300 MG CAPSULE PO SCH ×2 (09:24→21:35)
[2016-11-02] MEDS: predniSONE 20 MG TABLET PO SCH (09:24)
[2016-11-02] MEDS: Aspirin 325 MG TABLET PO SCH (09:24)
[2016-11-02] MEDS: Metoprolol XL (24 HR) Succ 25 MG TAB.ER.24H PO SCH (09:24)
[2016-11-02] MEDS: Azithromycin 500 MG in D5% in Water 250 ML IVPB SCH (09:25)
[2016-11-02 10:03] LABS: ANA IgG by ELISA NONE DETECTED (None Detected)
[2016-11-02] MEDS: 0.9 % Sodium Chloride 1,000 ML IVC SCH (12:55)
[2016-11-02 14:07] LABS: Beta Globulin (PEP) 0.89 g/dL (0.48-1.10)
[2016-11-02] MEDS: ALPRAZolam 1 MG TABLET PO PRN (21:38)
[2016-11-03] MEDS: Albuterol 2.5 MG/3 ML NEBULIZER IH SCH ×4 (03:58→15:13)
[2016-11-03] MEDS: *HR* Enoxaparin 40 MG/0.4 ML SYRINGE SQ SCH (05:49)
[2016-11-03 07:16] LABS: IFE Reflexed NOT DONE
--- NOTE | 2016-11-03 07:43 | Spinal Consult Note ---
Date of Encounter: 11/02/16 Time of Encounter: 20:40 Assessment and Plan (1) Lumbar burst fracture Current Visit: Yes Status: Acute On exam she is sitting in the bed in obvious distress. Afebrile vital signs stable. She is neurovascularly intact with regard to her bilateral upper and lower extremities. She has tenderness to palpation in the thoracic or lumbar region. Her hips move symmetrically. She has no clonus. MRI of the lumbar spine reveals an L1 burst fracture with some retropulsion of fragments in the canal. STIR sequence imaging reveals this is an acute fracture. There is some moderate stenosis at the L1 level. Radiographs of the lumbar spine reveals an L1 burst type fracture with significant osteopenia and degenerative changes amongst multilevel vertebral bodies. Assessment: 1) osteopenia 2) L1 burst fracture Plan: Due to her failure of nonoperative treatment and significant pain and disability I find it reasonable to consider surgery in the form of a kyphoplasty L1. Other options such as bracing and analgesics have been discussed and the patient would like to proceed. Qualifiers: Encounter type: initial encounter Fracture type: closed Qualified Code(s) : S32.001A - Stable burst fracture of unspecified lumbar vertebra, initial encounter for closed fracture History of Present Illness Chief complaint: Back pain, lumbar fracture HPI: Ms. Reveles is a 61 year old female Who sustained a fall approximately a week ago and has had severe back pain since. Due to intractable pain she was evaluated in the emergency department and found to have an L1 burst fracture. She was admitted for definitive management. She denies any bowel bladder symptomatology, or radicular symptoms into the lower extremities or weakness. She rates the pain as a 10 on a pain scale. Past Med Surg Social Fam HX - Past Medical History Medical history: arthritis, cancer (cervical s/p hysterectomy, radiation and chemo 4 years ago), CVA, hypertension, peripheral artery disease, TIA Psychiatric history: no psych history - Past Surgical History Surgical History: carotid endarterectomy (bilateral), hysterectomy, LE vascular intervention (?bilateral fempop) - Social History Smoking Status: Current every day smoker Smokeless Tobacco Status: No Alcohol use: none Drug use: none - Family History Mother Adopted: No Living Status: Hx Family Cardiac Disorders: Yes Hx Family Cancer: Yes Hx Family Endocrine Disorder: Yes (DM) Hx Family Neurologic Disorders: Yes ( FROM CVA.) Father Adopted: No Living Status: Hx Family Cardiac Disorders: Yes Medications and Allergies Alprazolam [Xanax] 1 mg PO TID PRN 02/08/15 [History] Aspirin 325 mg PO DAILY 02/08/15 [History] Cholecalciferol (Vitamin D3) [Vitamin D3] 50,000 unit PO QWEEK 02/08/15 [History ] Clopidogrel [Plavix] 75 mg PO QAM 02/08/15 [History] Furosemide [Lasix] 20 mg PO DAILY 02/08/15 [History] Lisinopril [Zestril] 10 mg PO QAM 02/08/15 [History] Metoprolol XL (24 HR) Succ [Toprol XL] 25 mg PO QAM 02/08/15 [History] Nitroglycerin 0.4 mg SL Q5M PRN 02/08/15 [History] Omeprazole [PriLOSEC] 20 mg PO BID 02/08/15 [History] Potassium Chloride 5 meq PO QAM 02/08/15 [History] Gabapentin [Neurontin] 300 mg PO TID 12/28/15 [History] Amlodipine Besylate 10 mg PO DAILY 10/28/16 [History] Atorvastatin [Lipitor] 40 mg PO HS 10/28/16 [History] HYDROcodone/Acet 7.5/325 mg [[place] 7.5-325 mg] 1 tab PO Q6H PRN 10/28/16 [ History] Allergies codeine [From Tylenol-Codeine #3] Allergy (Verified 07/26/15 19:42) itching, redness Zolpidem [From Ambien] Allergy (Verified 07/26/15 19:42) swelling,disorientation Results - Labs Result Diagrams: 11/01/16 04:38 11/01/16 04:38 Labs: Abnormal lab results RBC 5.10 M/mcL (3.82-4.97) H 11/01/16 04:38 Hct 45.6 % (35.3-44.9) H 11/01/16 04:38 ABG pH 7.48 pH Units (7.32-7.45) H 10/29/16 02:24 ABG pCO2 32 mmHg (35-45) L 10/29/16 02:24 ABG pO2 116 mmHg (85-104) H 10/29/16 02:24 ABG O2 Saturation 99 % (95-98) H 10/29/16 02:24 VBG pH 7.57 pH Units (7.32-7.42) H 10/29/16 11:09 VBG pCO2 26 mmHg (41-51) L 10/29/16 11:09 VBG pO2 209 mmHg (25-40) H 10/29/16 11:09 Chloride 95 mEq/L (98-109) L 11/01/16 04:38 BUN 21 mg/dL (7-20) H 11/01/16 04:38 Est GFR (Non-Af Amer) 52 (> 60) L 11/01/16 04:38 POC Glucose 145 (58-89) H 10/29/16 06:51 Troponin I 0.36 ng/mL (0-0.03) H* 10/30/16 07:47 B-Natriuretic Peptide 3751 pg/mL (0-100) H 10/28/16 18:33 Albumin 3.2 g/dL (3.5-5.0) L 10/31/16 04:54 Globulin 4.3 g/dL (2.4-3.5) H 10/31/16 04:54 Albumin/Globulin Ratio 0.7 (1.1-2.2) L 10/31/16 04:54 Gwscz-2-Iydwnwzvl 0.59 g/dL (0.19-0.46) H 10/30/16 17:22 Fvvkt-4-Cecoeatdq 1.20 g/dL (0.48-1.05) H 10/30/16 17:22 Urine Protein >=1000 mg/dL (Neg-Trace) H 10/28/16 18:35 Urine Glucose (UA) 100 mg/dL (Normal) H 10/28/16 18:35 Urine Ketones Trace mg/dL (Negative) H 10/28/16 18:35 Urine Blood Moderate (Negative) H 10/28/16 18:35 Urine Microscopic RBC 5-15 per hpf (0-3) H 10/28/16 18:35 Ur Squamous Epith Cells Many per lpf (None-Few) H 10/28/16 18:35 Ur Creatinine 24 Hour 0.24 g/day (0.71-1.65) L 11/01/16 04:15 Microalb/Creat Ratio 46 (0-30) H 11/01/16 04:15 Protein/Creatinin Ratio 0.29 mg/mg (0-0.20) H 11/01/16 04:15 Salicylates < 5.0 mg/dL (15-30) L 10/28/16 18:33 Urine Opiates Screen Positive ng/mL (Xesxsg=818) H 10/28/16 18:35 Acetaminophen < 1.0 mcg/mL (10-30) L 10/28/16 18:33 U Benzodiazepines Scrn Positive ng/mL (Mffhdj=109) H 10/28/16 18:35 All other labs normal. Consult Discharge Plan - Plan Referrals: Gilbert Bradley MD [Primary Care Provider] - 11/13/16 3:45 pm
[2016-11-03] MEDS ORDERED: Azithromycin 250 MG TABLET PO SCH (08:00)
[2016-11-03] MEDS: Gabapentin 300 MG CAPSULE PO SCH (08:20)
[2016-11-03] MEDS: predniSONE 20 MG TABLET PO SCH (08:20)
[2016-11-03] MEDS: Aspirin 325 MG TABLET PO SCH (08:22)
[2016-11-03] MEDS: Furosemide 20 MG/2 ML VIAL IVP SCH (08:23)
[2016-11-03] MEDS: Metoprolol XL (24 HR) Succ 25 MG TAB.ER.24H PO SCH ×2 (08:23→10:06)
[2016-11-03] MEDS: amLODIPine 5 MG TABLET PO SCH (08:23)
[2016-11-03] MEDS ORDERED: ceFAZolin 1,000 MG in D5% in Water (Mini-Bag+) 100 ML IVPB ONE (09:00)
--- NOTE | 2016-11-03 10:16 | Internal Med Progress Note ---
<Jeremias Pinto - Last Filed: 11/03/16 14:37> Date of Encounter: 11/03/16 Time of Encounter: 09:45 - Assessment and plan (1) Fracture of L1 vertebra Current Visit: Yes Status: Acute Assessment and plan: - Lumbar MRI showed L1 fracture with extension into spinal canal - Pain is in back and not down legs and patient has some chronic numbness to R leg and both feet and this is unchanged. No focal weakness. 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 - Back surgery on board and plan to have kyphoplasty this afternoon. - Continue to monitor. Qualifiers: Encounter type: subsequent encounter Fracture type: closed Fracture morphology: unspecified fracture morphology Fracture healing: with routine healing Qualified Code(s): S32.019D - Unspecified fracture of first lumbar vertebra, subsequent encounter for fracture with routine healing (2) Preoperative cardiovascular examination Current Visit: Yes Status: Acute Assessment and plan: - No active cardiac conditions (the troponin elevation on admission is considered demand ischemic associated with overdose per cardiology). - Patient does have clinical risk factors including history of CAD and CVA. - Patient is considered moderate risk for intermediate-risk surgery likely kyphoplasty. (3) Acute respiratory failure with hypoxia Current Visit: Yes Status: Resolved Assessment and plan: - With respiratory distress requiring BiPAP early in her current hospitalization. - Unclear etiology but may be secondary to opiate overdose and COPD exacerbation. - Improves as patient now is only on oxygen as needed. - Continue prednisone, scheduled bronchodilator and supplemental oxygen for COPD exacerbation. (4) COPD with acute exacerbation Current Visit: Yes Status: Acute Assessment and plan: - Continue prednisone, scheduled bronchodilator and as needed supplemental oxygen. (5) Hypertension Current Visit: Yes Status: Chronic Assessment and plan: - BP within normal range. Continue current antihypertensive regimen. Qualifiers: Hypertension type: essential hypertension Qualified Code(s): I10 - Essential (primary) hypertension (6) Proteinuria Current Visit: Yes Status: Acute Assessment and plan: - Will have further outpatient work-up per nephrology. Qualifiers: Proteinuria type: unspecified Qualified Code(s): R80.9 - Proteinuria, unspecified - Subjective Interval history: No significant event noted overnight. Patient was seen and examined this morning. Patient reports pain better controlled with Dilaudid AIRWORTHINESS INSPECTOR. Patient denies new numbness/tingling, focal weakness, fever, chills, chest pain, shortness of breath, nausea, vomiting, diarrhea. Patient is aware of planned kyphoplasty later this afternoon. - Constitutional Vitals: Temp Pulse Resp BP Pulse Ox 98.0 F 96 18 123/76 95 11/03/16 07:49 11/03/16 07:49 11/03/16 07:49 11/03/16 07:49 11/03/16 07:49 General appearance: Present: A&O X 3, answers questions appropriately - Head Head exam: Present: atraumatic, normocephalic - Eye Eye exam: Present: EOMI, PERRL, conjuntiva pink, sclera anicteric - Neck Neck exam general surgery: Present: supple, trachea midline. Absent: lymphadenopathy - Respiratory Respiratory exam: Present: CTAB (anteriorly). Absent: accessory muscle use, rales, rhonchi, wheezes - Cardiovascular Cardiovascular exam: Present: RRR, +S1, +S2. Absent: diastolic murmur, gallop, rubs, systolic murmur - GI/Abdominal GI/Abdominal exam: Present: normal bowel sounds, soft, no peritoneal signs. Absent: distended, tenderness - Extremities Exam Extremities exam: Present: warm, radial pulses palpable and symetrical. Absent : calf tenderness, cyanotic, pedal edema - Neurological Exam Neurological exam: Present: CN II-XII intact, oriented X3, no focal deficits. Absent: pronater drift, facial droop, speech deficit - Skin Skin exam: Present: dry, intact, warm Internal Medicine: Result - Labs CBC & Chem 7: 11/01/16 04:38 11/01/16 04:38 - ABG Interpretation ABG results: ABG ABG pH 7.48 pH Units (7.32-7.45) H 10/29/16 02:24 ABG pCO2 32 mmHg (35-45) L 10/29/16 02:24 ABG pO2 116 mmHg (85-104) H 10/29/16 02:24 ABG O2 Saturation 99 % (95-98) H 10/29/16 02:24 PT/INR, D-dimer PT 12.0 Seconds (9.4-12.1) 10/28/16 18:33 Consult Discharge Plan - Plan Referrals: Gilbert Bradley MD [Primary Care Provider] - 11/13/16 3:45 pm <Eddie Hollnad - Last Filed: 11/03/16 16:08> Date of Encounter: 11/03/16 - Assessment and plan (1) Fracture of L1 vertebra Current Visit: Yes Status: Acute Qualifiers: Encounter type: subsequent encounter Fracture type: closed Fracture morphology: unspecified fracture morphology Fracture healing: with routine healing Qualified Code(s): S32.019D - Unspecified fracture of first lumbar vertebra, subsequent encounter for fracture with routine healing (2) Low back pain Current Visit: Yes Status: Acute (3) Acute respiratory failure with hypoxia Current Visit: Yes Status: Resolved (4) COPD with acute exacerbation Current Visit: Yes Status: Acute (5) PAD (peripheral artery disease) Current Visit: Yes Status: Chronic (6) Proteinuria Current Visit: Yes Status: Acute Qualifiers: Proteinuria type: unspecified Qualified Code(s): R80.9 - Proteinuria, unspecified (7) Hypertension Current Visit: Yes Status: Chronic Qualifiers: Hypertension type: essential hypertension Qualified Code(s): I10 - Essential (primary) hypertension (8) Tobacco abuse Current Visit: Yes Status: Chronic - Constitutional Vitals: Temp Pulse Resp BP Pulse Ox 98.0 F 75 15 109/71 98 11/03/16 12:06 11/03/16 12:06 11/03/16 12:06 11/03/16 12:06 11/03/16 12:06 Internal Medicine: Result - Labs CBC & Chem 7: 11/01/16 04:38 11/01/16 04:38 - ABG Interpretation ABG results: ABG ABG pH 7.48 pH Units (7.32-7.45) H 10/29/16 02:24 ABG pCO2 32 mmHg (35-45) L 10/29/16 02:24 ABG pO2 116 mmHg (85-104) H 10/29/16 02:24 ABG O2 Saturation 99 % (95-98) H 10/29/16 02:24 PT/INR, D-dimer PT 12.0 Seconds (9.4-12.1) 10/28/16 18:33 - Attending Attestation I examined this patient and my medical decision-making was reviewed with the Resident Physician on 11/03/16. I agree with the documented findings, disposition and treatment plan as described except to the extent set forth below. Ms. Reveles is currently admitted for acute encephalopathy and now acute L1 burst fracture. She is high risk due to potential for neurologic compromise. Ms. Reveles is feeling about the same. Pain fairly controlled with AIRWORTHINESS INSPECTOR. No new issues overnight and no new neurologic symptoms. Exam Alert. Comfortable Heart reg No wheeze I/P 1. L1 fracture 2. Acute pain Further diagnoses and plan as above
[2016-11-03] MEDS ORDERED: *HR* HYDROmorphone (PF) 1 MG/ML SYRINGE IVP PRN ×2 (14:02→18:29)
[2016-11-03] MEDS ORDERED: *HR* FentaNYL (PF) 100 MCG/2 ML VIAL ONE (15:26)
[2016-11-03] MEDS ORDERED: *HR* Propofol 200 MG/20 ML VIAL IVP ONE (15:27)
[2016-11-03] MEDS ORDERED: *HR* Midazolam HCl 2 MG/2 ML VIAL ONE (15:27)
[2016-11-03] MEDS ORDERED: Lidocaine -MPF 2% 2 ML VIAL ONE (15:28)
--- NOTE | 2016-11-03 16:30 | Anesthesia Evaluation PreOp ---
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: CVA (right residual weakness) Other Medical History: GERD, Other (anxiety/depression, RA, H/O cervical CA S/P chemo/XRT) Anesthesia History: No Prior Anesthetic Complications, Past Anesthesia ( Bilateral CEA, GABRIEL, Fem-Pop bypass) Alcohol Use: none Drug use: none Medications and Allergies Alprazolam [Xanax] 1 mg PO TID PRN 02/08/15 [History] Aspirin 325 mg PO DAILY 02/08/15 [History] Cholecalciferol (Vitamin D3) [Vitamin D3] 50,000 unit PO QWEEK 02/08/15 [History ] Clopidogrel [Plavix] 75 mg PO QAM 02/08/15 [History] Furosemide [Lasix] 20 mg PO DAILY 02/08/15 [History] Lisinopril [Zestril] 10 mg PO QAM 02/08/15 [History] Metoprolol XL (24 HR) Succ [Toprol XL] 25 mg PO QAM 02/08/15 [History] Nitroglycerin 0.4 mg SL Q5M PRN 02/08/15 [History] Omeprazole [PriLOSEC] 20 mg PO BID 02/08/15 [History] Potassium Chloride 5 meq PO QAM 02/08/15 [History] Gabapentin [Neurontin] 300 mg PO TID 12/28/15 [History] Amlodipine Besylate 10 mg PO DAILY 10/28/16 [History] Atorvastatin [Lipitor] 40 mg PO HS 10/28/16 [History] HYDROcodone/Acet 7.5/325 mg [[place] 7.5-325 mg] 1 tab PO Q6H PRN 10/28/16 [ History] Allergies codeine [From Tylenol-Codeine #3] Allergy (Verified 07/26/15 19:42) itching, redness Zolpidem [From Ambien] Allergy (Verified 07/26/15 19:42) swelling,disorientation - Meds/Allergy Pre-op Review Medications Reviewed: Yes Allergies Reviewed: Yes Beta Blockers on Current Med List: Yes If Beta Blockers taken, Date/Time (Last Dose taken): 11/03/2016 at 1006 Anesthesia Results - Labs 11/01/16 04:38 11/01/16 04:38 - Imaging EKG: report reviewed (10/29/2016 ST, diffuse ST changes) Additional studies: 10/29/2016 Echo technically sub-optimal due to poor echocardiographic windows LVEF 55-60% mild concentric LVH mild LV diastolic dysfunction no significant valvular dysfunction 08/25/2016 Cath LAD 30-50% stenosis, CX 30-40%, RCA 30-40% Anesthesia Exam Vital Signs/O2 Sat, Most Current Temp Pulse Resp BP Pulse Ox 98.0 F 75 15 109/71 98 11/03/16 12:06 11/03/16 12:06 11/03/16 12:06 11/03/16 12:06 11/03/16 12:06 Height: 5'1''/1.55m Weight: 125 lbs/56.8 kg NPO (# of Hours): 8 Pain Scale: 10 Pain Scale Used: Numeric (1 - 10) - HEENT Pupil (Motor): EOMI Mallampati: II Teeth: Edentulous Oral Opening: Greater than 3 - 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
[2016-11-03] MEDS ORDERED: EPHEDrine 50 MG/ML VIAL ONE (17:17)
[2016-11-03] MEDS ORDERED: Dexamethasone 4 MG/ML VIAL ONE (17:25)
[2016-11-03] MEDS ORDERED: Ondansetron 4 MG/2 ML VIAL ONE (17:25)
--- NOTE | 2016-11-03 18:01 | Orthopedic Operative Note ---
Date of procedure: 11/03/16 Pre-op diagnosis: Osteopenia, lumbar burst fracture Post-op diagnosis: same Operation/Findings: Kyphoplasty L1: The patient was brought to the operative theater where successful endotracheal anesthesia was performed. The patient was given antibiotics prior to the start of the procedure. Compression boots and stockings were used for deep vein thrombosis. Patient was then turned prone on a well-padded Hunter table. The back was prepped and draped in the usual sterile fashion. 2 C-arm fluorographic devices were brought into position such that simultaneous AP and lateral views centered over the involved L1 vertebral body could be performed. A stab incision was made over the superior-lateral aspect of the left L1 pedicle. We introduced a Jamshidi needle into the vertebral body via a transpedicular route. We took biplanar images of the L1 vertebral body using fluorography. The needle was found to be in appropriate position and within the confines of the L1 vertebral body. We then introduced a biopsy trocar and obtained a biopsy specimen of the L1 vertebral body. This was sent for pathologic evaluation. We then removed the biopsy trocar and introduced a Kyphon balloon. The balloon was insufflated to approximately 4 mL volume and subsequently deflated. The balloon was seen to expand within the confines of the L1 vertebral body on biplanar fluorographic views. The balloon was then removed. We then inserted cement trochars and sequentially placed bone cement within the confines of the L1 vertebral body. We took intermittent fluorographic views which confirmed satisfactory placement of the cement. After completion of the cementation process, the trocar was removed. We took final AP and lateral fluorographic views. We then closed the stab incision with 2-0 nylon suture. A Band-Aid was placed over the wound. The patient was turned supine on a hospital bed and extubated. All sponge instrument and needle counts were correct at the end of the procedure. The patient tolerated the procedure well without complications. Anesthesia: GETA Surgeon: Maurisio Juarez Jr Estimated blood loss (cc): 1 Specimen: L1 vertebral biopsy Condition: stable Disposition: PACU
[2016-11-03] MEDS ORDERED: *HR* Promethazine 25 MG/ML VIAL IVP PRN (18:29)
[2016-11-03] MEDS ORDERED: *HR* HYDROmorphone (PF) 1 MG/ML SYRINGE ONE (18:35)
--- NOTE | 2016-11-03 18:53 | Anesthesia Evaluation Post Op ---
Date of Encounter: 11/03/16 Time of Encounter: 18:52 - Vital Signs Vital Signs: Vital Signs/O2 Sat, Most Current Temp Pulse Resp BP Pulse Ox 98.6 F 99 16 114/82 100 11/03/16 18:24 11/03/16 18:44 11/03/16 18:44 11/03/16 18:44 11/03/16 18:44 - Lungs Lungs: Clear Ascult./Percussion - Airway Airway: Non-obstructed - Cardiovascular Regular Rate - Mental Status Mental Status: Alert & Oriented, Answers Appropriately - Pain Pain Scale: 5 Pain Scale used: Numeric (1 - 10) - Nausea Vomiting Nausea Vomiting: Not Present - Hydration Hydration: Ice chips, Has not voided - Discharge PostOp Status: Transfer Patient to floor
[2016-11-03] MEDS: Ringers Solution, Lactated 1,000 ML IVC SCH (21:43)
[2016-11-03] MEDS: *HR* Morphine 2 MG/ML SYRINGE IVP PRN (21:43)
[2016-11-03] MEDS: *HR* OxyCODONE Immed Rel 5 MG TABLET PO PRN (23:56)
[2016-11-03] MEDS: ceFAZolin 2,000 MG in D5% in Water 100 ML IVPB SCH (23:58)
[2016-11-04] MEDS: Gabapentin 300 MG CAPSULE PO SCH ×4 (01:18→21:35)
[2016-11-04] MEDS: ALPRAZolam 1 MG TABLET PO SCH ×2 (01:18→21:35)
[2016-11-04] MEDS ORDERED: Ondansetron 4 MG/2 ML VIAL IVP PRN (03:38)
[2016-11-04] MEDS: *HR* OxyCODONE Immed Rel 5 MG TABLET PO PRN ×4 (08:52→22:41)
[2016-11-04] MEDS: Ringers Solution, Lactated 1,000 ML IVC SCH (08:53)
[2016-11-04] MEDS: ceFAZolin 2,000 MG in D5% in Water 100 ML IVPB SCH (08:54)
[2016-11-04] MEDS: 0.9 % Sodium Chloride 1,000 ML IVC SCH (09:32)
[2016-11-04] MEDS: *HR* Morphine 2 MG/ML SYRINGE IVP PRN ×2 (12:08→16:39)
--- NOTE | 2016-11-04 13:34 | Spine Progress Note ---
Date of Encounter: 11/04/16 Time of Encounter: 13:32 - Assessment and Plan (1) Lumbar burst fracture Current Visit: Yes Status: Acute On exam she is sitting in the bed in obvious distress. Afebrile vital signs stable. She is neurovascularly intact with regard to her bilateral upper and lower extremities. She has tenderness to palpation in the thoracic or lumbar region. Her hips move symmetrically. She has no clonus. MRI of the lumbar spine reveals an L1 burst fracture with some retropulsion of fragments in the canal. STIR sequence imaging reveals this is an acute fracture. There is some moderate stenosis at the L1 level. Radiographs of the lumbar spine reveals an L1 burst type fracture with significant osteopenia and degenerative changes amongst multilevel vertebral bodies. Assessment: 1) osteopenia 2) L1 burst fracture Plan: Due to her failure of nonoperative treatment and significant pain and disability I find it reasonable to consider surgery in the form of a kyphoplasty L1. Other options such as bracing and analgesics have been discussed and the patient would like to proceed. Qualifiers: Encounter type: initial encounter Fracture type: closed Qualified Code(s) : S32.001A - Stable burst fracture of unspecified lumbar vertebra, initial encounter for closed fracture Subjective Principal diagnosis: respiratory distress, AMS Interval history: Patient is postoperative day 1 kyphoplasty L1.The patient is without complaints. Some pain but it is different from her baseline since her fracture. Afebrile vital signs are stable. Incision is clean dry and intact. Neurovascularly intact with regard to bilateral lower extremities. Fires all upper and lower extremity motor groups. Assessment :stable. Plan mobilize , continue analgesics, from my standpoint she may be discharged. Follow-up in 2 weeks. She has been instructed to have primary M.D. start osteo-protective agents. Objective Vital signs: Vital Signs Temp Pulse Resp BP Pulse Ox 11/04/16 11:55 92 14 100/56 97 11/04/16 10:53 99.2 F 92 14 100/56 97 11/04/16 07:24 98.2 F 88 14 132/81 98 11/04/16 03:19 98.4 F 88 16 109/69 97 11/04/16 00:00 98.2 F 107 16 114/74 97 11/03/16 22:45 98.2 F 99 16 113/75 96 11/03/16 21:40 98.1 F 102 16 117/70 96 11/03/16 20:40 98.1 F 99 16 145/90 96 11/03/16 20:10 98.2 F 97 16 153/89 99 11/03/16 19:40 98.0 F 94 16 100/61 100 11/03/16 19:06 98.9 F 106 16 143/86 99 11/03/16 18:56 98.9 F 103 16 141/73 99 11/03/16 18:44 99 16 114/82 100 11/03/16 18:34 99 16 134/86 100 11/03/16 18:24 98.6 F 91 16 145/93 100 Intake and Output 11/03/16 11/04/16 11/04/16 23:59 07:59 15:59 Intake Total 1500 / 1500 Output Total 101 / 101 200 / 200 Balance -101 / -101 1500 / 1500 -200 / -200 Intake: IV Fluids 1100 / 1100 Lactated Ringers 1,000 ML 1000 / 1000 @ 100 mls/hr IVC .Q10H [facility] Rx#:[id number] Ancef 2,000 MG In 100 / 100 Dextrose 5% 100 ML @ 200 mls/hr IVPB Q8HR [facility] Rx#: [id number] Oral 400 / 400 Output: Urine 100 / 100 200 / 200 Estimated Blood Loss Other: # Voids 1 # Bowel Movements 1 Weight 65.3 kg Patient Weight 11/04/16 23:59 Weight 65.3 kg - Labs CBC & BMP: 11/01/16 04:38 11/01/16 04:38 Labs: Abnormal lab results RBC 5.10 M/mcL (3.82-4.97) H 11/01/16 04:38 Hct 45.6 % (35.3-44.9) H 11/01/16 04:38 ABG pH 7.48 pH Units (7.32-7.45) H 10/29/16 02:24 ABG pCO2 32 mmHg (35-45) L 10/29/16 02:24 ABG pO2 116 mmHg (85-104) H 10/29/16 02:24 ABG O2 Saturation 99 % (95-98) H 10/29/16 02:24 VBG pH 7.57 pH Units (7.32-7.42) H 10/29/16 11:09 VBG pCO2 26 mmHg (41-51) L 10/29/16 11:09 VBG pO2 209 mmHg (25-40) H 10/29/16 11:09 Chloride 95 mEq/L (98-109) L 11/01/16 04:38 BUN 21 mg/dL (7-20) H 11/01/16 04:38 Est GFR (Non-Af Amer) 52 (> 60) L 11/01/16 04:38 POC Glucose 145 (58-89) H 10/29/16 06:51 Troponin I 0.36 ng/mL (0-0.03) H* 10/30/16 07:47 B-Natriuretic Peptide 3751 pg/mL (0-100) H 10/28/16 18:33 Albumin 3.2 g/dL (3.5-5.0) L 10/31/16 04:54 Globulin 4.3 g/dL (2.4-3.5) H 10/31/16 04:54 Albumin/Globulin Ratio 0.7 (1.1-2.2) L 10/31/16 04:54 Qyahp-7-Yqgvdmscc 0.59 g/dL (0.19-0.46) H 10/30/16 17:22 Ckyxk-1-Fpelmafks 1.20 g/dL (0.48-1.05) H 10/30/16 17:22 Urine Protein >=1000 mg/dL (Neg-Trace) H 10/28/16 18:35 Urine Glucose (UA) 100 mg/dL (Normal) H 10/28/16 18:35 Urine Ketones Trace mg/dL (Negative) H 10/28/16 18:35 Urine Blood Moderate (Negative) H 10/28/16 18:35 Urine Microscopic RBC 5-15 per hpf (0-3) H 10/28/16 18:35 Ur Squamous Epith Cells Many per lpf (None-Few) H 10/28/16 18:35 Ur Creatinine 24 Hour 0.24 g/day (0.71-1.65) L 11/01/16 04:15 Microalb/Creat Ratio 46 (0-30) H 11/01/16 04:15 Protein/Creatinin Ratio 0.29 mg/mg (0-0.20) H 11/01/16 04:15 Salicylates < 5.0 mg/dL (15-30) L 10/28/16 18:33 Urine Opiates Screen Positive ng/mL (Bkpwiq=590) H 10/28/16 18:35 Acetaminophen < 1.0 mcg/mL (10-30) L 10/28/16 18:33 U Benzodiazepines Scrn Positive ng/mL (Blfbxw=379) H 10/28/16 18:35 Consult Discharge Plan - Plan Referrals: Gilbert Bradley MD [Primary Care Provider] - 11/13/16 3:45 pm
--- NOTE | 2016-11-04 18:07 | Internal Med Progress Note ---
Date of Encounter: 11/04/16 Time of Encounter: 18:20 - Assessment and plan (1) Fracture of L1 vertebra Current Visit: Yes Status: Acute Assessment and plan: - Lumbar MRI showed L1 fracture with extension into spinal canal - Pain has lumbar back pain with no signs of radiculopathy. - Appreciated Dr. Juarez input: Patient underwent kyphoplasty on November 03. Her pain has improved. She is still requires IV morphine. I will stop IV morphine and continue oxycodone every 4 hours. If patient tolerates pain regimen well, she will go home tomorrow morning. - Continue to monitor. Qualifiers: Encounter type: subsequent encounter Fracture type: closed Fracture morphology: unspecified fracture morphology Fracture healing: with routine healing Qualified Code(s): S32.019D - Unspecified fracture of first lumbar vertebra, subsequent encounter for fracture with routine healing (2) Acute respiratory failure with hypoxia Current Visit: Yes Status: Resolved Assessment and plan: resolved. Chest x-ray showed no acute pulmonary process. - With respiratory distress requiring BiPAP early in her current hospitalization. - Etiology but may be secondary to opiate overdose and COPD exacerbation. -Completed course of prednisone. Continue nebulizations and supplemental oxygen. (3) Acute encephalopathy Current Visit: Yes Status: Resolved Assessment and plan: Resolved. Acute metabolic encephalopathy secondary to respiratory failure. CT head showed no acute process. (4) Hypertension Current Visit: Yes Status: Chronic Assessment and plan: - BP within normal range. Continue current antihypertensive regimen. Qualifiers: Hypertension type: essential hypertension Qualified Code(s): I10 - Essential (primary) hypertension (5) Proteinuria Current Visit: Yes Status: Acute Assessment and plan: Appreciate nephrology input. Will have further outpatient work-up per nephrology. Qualifiers: Proteinuria type: unspecified Qualified Code(s): R80.9 - Proteinuria, unspecified - Subjective Interval history: Patient reports lower back pain has significantly improved after surgery but still requires IV pain medications. - Constitutional Vitals: Temp Pulse Resp BP Pulse Ox 98.0 F 89 14 111/73 98 11/04/16 15:43 11/04/16 15:43 11/04/16 15:43 11/04/16 15:43 11/04/16 15:43 General appearance: Present: cooperative, A&O X 3, pleasant, no acute distress, answers questions appropriately - Neck Neck exam general surgery: Absent: supple, trachea midline - Respiratory Respiratory exam: Present: CTAB - Cardiovascular Cardiovascular exam: Present: RRR - GI/Abdominal GI/Abdominal exam: Present: normal bowel sounds, soft. Absent: distended, tenderness - Extremities Exam Extremities exam: Absent: pedal edema - Neurological Exam Neurological exam: Present: alert, oriented X3, no focal deficits, strengths equal and symetr throughout. Absent: facial droop, speech deficit - Skin Skin exam: Absent: rash Internal Medicine: Result - Labs CBC & Chem 7: 11/01/16 04:38 11/01/16 04:38 - ABG Interpretation ABG results: ABG ABG pH 7.48 pH Units (7.32-7.45) H 10/29/16 02:24 ABG pCO2 32 mmHg (35-45) L 10/29/16 02:24 ABG pO2 116 mmHg (85-104) H 10/29/16 02:24 ABG O2 Saturation 99 % (95-98) H 10/29/16 02:24 PT/INR, D-dimer PT 12.0 Seconds (9.4-12.1) 10/28/16 18:33 - Impressions Impressions Fluoroscopy 11/03/16 17:00 IMPRESSION: Intraprocedural fluoroscopic spot images as above. See separate procedure report for more information. D/ / Omega Vallejo MD / Omega Vallejo MD Interpreting Provider: Omega Vallejo MD Lumbar Spine X-Ray 11/03/16 17:00 IMPRESSION: Intraprocedural fluoroscopic spot images as above. See separate procedure report for more information. D/ / Omega Vallejo MD / Omega Vallejo MD Interpreting Provider: Omega Vallejo MD Xray Preliminary Report 11/03/16 17:00 IMPRESSION: Intraprocedural fluoroscopic spot images as above. See separate procedure report for more information. D/ / Omega Vallejo MD / Omega Vallejo MD Interpreting Provider: Omega Vallejo MD - VTE Documentation of Mechanical Device: Intermittent pneumatic compression device Consult Discharge Plan - Plan Referrals: Gilbert Bradley MD [Primary Care Provider] - 11/13/16 3:45 pm
[2016-11-05] MEDS: *HR* OxyCODONE Immed Rel 5 MG TABLET PO PRN ×3 (03:37→12:42)
[2016-11-05] MEDS: Ipratropium/Albuterol Neb 3 ML IH SCH ×4 (04:48→15:57)
[2016-11-05 05:59] LABS: Basophils % 0.1 %; Eosinophils # 0.1 K/mcL (0.0-0.6); Eosinophils % 1.2 %; Hematocrit 34.3 % (35.3-44.9); Immature Granulocytes % 1.2 % (0-4); Lymphocytes # 1.6 K/mcL (0.6-4.6); Lymphocytes % 22.4 %; Mean Corpuscular HGB Conc 31.8 g/dL (31.6-35.5); Mean Corpuscular Hemoglobin 28.8 pg (28.0-33.3); Mean Corpuscular Volume 90.7 fL (83.0-100.0); Mean Platelet Volume 10.2 fL (9.4-12.4); Monocytes # 0.7 K/mcL (0.0-1.3); Monocytes % 9.5 %; Neutrophils # 4.7 K/mcL (1.6-8.9); Platelet Count 247 K/mcL (140-400); Red Blood Count 3.78 M/mcL (3.82-4.97); Red Cell Distribution Width 14.6 % (11.5-14.5); Segmented Neutrophils % 65.6 %
[2016-11-05 06:04] LABS: Hemoglobin 10.9 g/dL (11.5-15.4)
[2016-11-05 06:15] LABS: BUN/Creatinine Ratio 12 (6-26); Blood Urea Nitrogen 9 mg/dL (7-20); Calcium 8.1 mg/dL (8.6-10.8); Carbon Dioxide 30 mEq/L (19-29); Chloride 102 mEq/L (98-109); Glucose 83 mg/dL (70-99); Osmolality,Calculated 288 (280-300); Potassium 2.8 mEq/L (3.5-4.5); Sodium 140 mEq/L (136-145); eGFR For African Americans > 60 (> 60); eGFR For Non-African Americans > 60 (> 60)
[2016-11-05] MEDS ORDERED: Potassium Chloride 40 MEQ, Lidocaine 1% 2 ML in D5% in Water 500 ML IVPB ONE (07:51)
[2016-11-05] MEDS ORDERED: Magnesium Sulfate 2 GM in D5% in Water 100 ML IVPB STA (07:51)
[2016-11-05] MEDS ORDERED: Potassium Chloride Elixir 20 MEQ/15 ML UDC PO STA (07:51)
[2016-11-05 08:03] LABS: GBM IgG Multiplex Bead Assay 0 AU/mL (0-19); Glomerular Basement Memb IgG NEGATIVE (Negative); Myeloperoxidase Ab 5 AU/mL (0-19); Serine Protease-3 Antibody 0 AU/mL (0-19)
[2016-11-05] MEDS: Gabapentin 300 MG CAPSULE PO SCH (08:16)
[2016-11-05] MEDS ORDERED: Aspirin 325 MG TABLET PO SCH (09:00)
[2016-11-05] MEDS: Metoprolol XL (24 HR) Succ 25 MG TAB.ER.24H PO SCH ×2 (09:32→09:35)
[2016-11-05] MEDS ORDERED: Magnesium Oxide 400 MG TABLET PO SCH (11:15)
[2016-11-05] MEDS ORDERED: Magnesium Sulfate 1 GM in D5% in Water 100 ML IVPB ONE (12:00)
[2016-11-05 12:44] LABS: Urine Collection Duration 24 hr; Urine Collection Volume 993 mL
[2016-11-05 12:51] LABS: Magnesium 2.1 mg/dL (1.6-2.6); Potassium 3.9 mEq/L (3.5-4.5)
--- NOTE | 2016-11-05 13:33 | Discharge Summary ---
Date of Encounter: 11/05/16 Time of Encounter: 13:31 - Discharge Diagnosis (1) Fracture of L1 vertebra Priority: Primary Status: Acute Qualifiers: Encounter type: subsequent encounter Fracture type: closed Fracture morphology: unspecified fracture morphology Fracture healing: with routine healing Qualified Code(s): S32.019D - Unspecified fracture of first lumbar vertebra, subsequent encounter for fracture with routine healing (2) Acute respiratory failure with hypoxia Priority: Primary Status: Resolved (3) Acute encephalopathy Priority: Primary Status: Resolved (4) Hypertension Priority: Secondary Status: Chronic Qualifiers: Hypertension type: essential hypertension Qualified Code(s): I10 - Essential (primary) hypertension (5) Proteinuria Priority: Primary Status: Acute Qualifiers: Proteinuria type: unspecified Qualified Code(s): R80.9 - Proteinuria, unspecified - Discharge Medications Prescriptions: ALPRAZolam [Xanax 1 MG Tablet] 0.5 mg PO BID PRN #14 tablet PRN Reason: Anxiety Magnesium Oxide [Mag-Ox] 400 mg PO BID #60 tablet OxyCODONE Immed Rel [Roxicodone 5 MG] 10 mg PO Q4H PRN #30 tablet PRN Reason: moderate to severe pain Home Medications: Aspirin 325 mg PO DAILY 02/08/15 [History] Cholecalciferol (Vitamin D3) [Vitamin D3] 50,000 unit PO QWEEK 02/08/15 [History ] Clopidogrel [Plavix] 75 mg PO QAM 02/08/15 [History] Metoprolol XL (24 HR) Succ [Toprol XL] 25 mg PO QAM 02/08/15 [History] Nitroglycerin 0.4 mg SL Q5M PRN 02/08/15 [History] Omeprazole [PriLOSEC] 20 mg PO BID 02/08/15 [History] Potassium Chloride 5 meq PO QAM 02/08/15 [History] Gabapentin [Neurontin] 300 mg PO TID 12/28/15 [History] Atorvastatin [Lipitor] 40 mg PO HS 10/28/16 [History] ALPRAZolam [Xanax 1 MG Tablet] 0.5 mg PO BID PRN #14 tablet 11/05/16 [Rx] Magnesium Oxide [Mag-Ox] 400 mg PO BID #60 tablet 11/05/16 [Rx] OxyCODONE Immed Rel [Roxicodone 5 MG] 10 mg PO Q4H PRN #30 tablet 11/05/16 [Rx] Allergies/Adverse Reactions: Allergies codeine [From Tylenol-Codeine #3] Allergy (Verified 07/26/15 19:42) itching, redness Zolpidem [From Ambien] Allergy (Verified 07/26/15 19:42) swelling,disorientation Date of admission: 10/28/16 23:14 Primary care physician: Gilbert Bradley MD Consults: 10/29/16 06:33 Consult to Pulmonology [CONS] Routine Consulting Provider: [facility] Reason for Consult: Respiratory distress Call Completed: Yes 10/29/16 08:06 Consult to Cardiology [CONS] Stat Comment: Consulting Provider: Cardiology Karen Reason for Consult: elevated troponin, NSTEMI, sinus tachy Time Notified: 08:07 Call Completed: Yes 11/03/16 19:55 Consult to Occupational Therapy [CONS] Routine Comment: Evaluate, develop and implement POC Reason for Consult: No bending, lifting or twisting, log roll when getting out of bed Consult to Physical Therapy [CONS] Routine Comment: Evaluate, develop and implement POC Reason for Consult: Postoperative 11/04/16 13:30 Consult to Physician [CONS] Routine Consulting Provider: Maurisio Scott Jr Reason for Consult: kypho Call Completed: Yes - Patient Status Disposition: Home, Self-Care Condition: Good Functional capacity at discharge: uses cane/walker Overall status at discharge: patient is progressing back to baseline - Discharge Instructions Follow Up With: Gilbert Bradley MD [Primary Care Provider] - 11/13/16 3:45 pm Maurisio Scott Jr, MD [Partnered Physician] - (f/u in 2 weeks) Additional Instructions: PLEASE FOLLOW UP WITH YOUR PRIMARY CARE DOCTOR SCHEDULED. YOU MAY CONSIDER HAVING OUTPATIENT PHYSICAL THERAPY. CHECK YOUR BLOOD PRESSURE TWICE DAILY (SAME TIME IN THE MORNING AND EVENING). WRITE DOWN THE NUMBERS AND BRING RECORD TO DOCTOR'S APPOINTMENT. Discharge Instructions: Lumbar Please call [facility] ([phone]), your Primary Care Physician, or report to the ER if you have any of the following symptoms: Fever greater that 101.5, increased pain/redness/drainage/odor for your incision site or any other concerning symptoms. ACTIVITY * May Shower * No Tub Baths * No lifting greater than 10 pounds * No Smoking * No Swimming * No off Ground Activities (Running, Climbing, Ladders, Horseback Riding) * No Driving MEDICATIONS: Upon discharge resume your home medications. Take all the medications as prescribed. Take a stool softener if taking narcotic pain medications. Stool softeners are only effective if you drink enough fluids. Drink 6-8 glass of water or fluids a day, unless this is not allowed for another health problem. Despite using stool softeners, if you haven't had a bowel movement in 3 days, please switch to a gentle laxative. Gentle laxatives are sold over the counter. You should have a bowel movement within 24 hours, if not call the office. You will be discharged from the hospital with a prescription for pain medication. You are encouraged to decrease the use of narcotic pain medication as tolerated. Should you require a refill, please call the office. It is best to call 48-72 hours in advance of needing a prescription refill so you don't run out of medication. FOLLOW-UP: Please follow up with your surgeon in the orthopedic clinic in 2 weeks from the day of surgery. References: [employer] (www.apta.org) - Diet and Activity Activity: resume usual activities as tolerated Diet: low salt diet Interval History: patient reports back pain is well controlled with medications. she is eager to go home. Hospital course: Ms. Reveles is a 61 year old female with past medical history of HTN, prior CVA, tobacco use, anxiety and chronic pain syndrome who presents with changes in her mental status. She was admitted with encephalopathy secondary to medication overuse and hypoxemia. CT head showed no acute process. cxr showed no acute process. troponins were mildly elevated due to demand ischemia. patient improved and started to complain of severe lumbar pain. Xray of lumbar spine showed acute L 2 compression fracture with cortical disruption. MRI of lumbar spine revealed L1 compression fracture with cord impingement. PAtient underwent kyphoplasty with significant improvement of her back pain. Her magnesium and potassium were low and these were corrected at discharged. PLAN: patient declined any home health PT/OT. she will follow up with her PCP next week and with dr scott in 2weeks. - Time Spent with Patient Total time spent providing and/or coordinating discharge services: - Constitutional Vitals: Temp Pulse Resp BP Pulse Ox 98.8 F 98 16 120/76 98 11/05/16 11:04 11/05/16 11:04 11/05/16 11:04 11/05/16 11:04 11/05/16 11:04 General appearance: Present: cooperative, A&O X 3, pleasant, no acute distress, answers questions appropriately - Neck Neck exam general surgery: Present: supple, trachea midline. Absent: lymphadenopathy - Respiratory Respiratory exam: Present: CTAB - Cardiovascular Cardiovascular exam: Present: RRR - GI/Abdominal GI/Abdominal exam: Present: normal bowel sounds, soft. Absent: distended, tenderness - Extremities Exam Extremities exam: Absent: pedal edema - Neurological Exam Neurological exam: Present: alert, oriented X3, no focal deficits, strengths equal and symetr throughout. Absent: facial droop, speech deficit - Skin Skin exam: Absent: rash - VTE Documentation of Mechanical Device: Intermittent pneumatic compression device
[2016-11-05 15:04] VITALS: BP 128/74
== END 2016-11-05 16:00 | disposition home or self-care (01) | DRG 907 ==
LOC: EMEROO 18:08 → 2NENU 18:08 → SUATTDRO 23:14 → ICNU 10-29 06:31 → 2NENU 10-30 11:41 → 3NENU 11-03 19:40
PROVIDERS: ADMIT Internal Medicine; ATTEND Internal Medicine

== ENCOUNTER 2017-07-11 12:20 | Inpatient (IN) ==
[2017-07-11] MEDS ORDERED: predniSONE 20 MG TABLET PO ONE ×2 (12:30→12:40)
[2017-07-11] MEDS ORDERED: *HR* OxyCODONE/APAP 5/325 TABLET PO ONE (12:30)
--- NOTE | 2017-07-11 13:08 | Emergency Department Note ---
Disposition Clinical Impression: Multiple falls, MIGUEL (acute kidney injury) Hypotension Qualifiers: Hypotension type: unspecified hypotension type Qualified Code(s): I95.9 - Hypotension, unspecified Disposition: Admitted As Inpatient Condition: Good Referrals: Gilbert Bradley MD [Primary Care Provider] - Forms: ED Satisfaction Letter Lower Extremity Injury HPI - General Chief Complaint: ED Extremity Injury, Lower Stated Complaint: RIGHT LEG PAIN S/P FALL Time Seen by Provider: 07/11/17 12:24 Source: patient Mode of arrival: EMS Limitations: no limitations Nursing Notes Reviewed: Yes Vital Signs Reviewed: Yes - History of Present Illness HPI Narrative: 62-year-old female presents to the ER with a chief complaint of right leg pain status post mechanical fall at home. Patient reports prior to arrival that she tripped while trying to feed her dog. Reports she landed on her right side. She was able to get herself up and get into a chair. Reports she has had difficulty with ambulation since they took her off her pain medication 3 months ago. She denies any prodromal symptoms, head injury, loss of consciousness. Reports no other injuries aside from her right leg. Currently complaining of right thigh pain that goes into her knee. Reports some numbness in her leg which is chronic from neuropathy. No other complaints. Pt Subjective Complaint: leg injury Injury location: Right thigh Onset (ago): Just [employer] Mechanism of Injury: fall Context: fall Place: home Pain Severity: severe Improves with: nothing Worsens with: nothing Associated symptoms: Reports: able to partially bear weight - Related Data Home Medications Medication Instructions Recorded Confirmed Aspirin 325 mg PO DAILY 02/08/15 07/11/17 Cholecalciferol (Vitamin D3) 50,000 unit PO MO 02/08/15 07/11/17 [Vitamin D3] Clopidogrel [Plavix] 75 mg PO QAM 02/08/15 07/11/17 Metoprolol XL (24 HR) Succ [Toprol 25 mg PO QAM 02/08/15 07/11/17 XL] Nitroglycerin 0.4 mg SL Q5M PRN 02/08/15 07/11/17 Omeprazole [PriLOSEC] 20 mg PO BID 02/08/15 07/11/17 Potassium Chloride 5 meq PO QAM 02/08/15 07/11/17 Gabapentin [Neurontin] 300 mg PO TID 12/28/15 07/11/17 Atorvastatin [Lipitor] 40 mg PO HS 10/28/16 07/11/17 ALPRAZolam [Xanax 1 MG Tablet] 1 mg PO TID PRN 07/11/17 07/11/17 Amlodipine Besylate 10 mg PO DAILY 07/11/17 07/11/17 Furosemide [Lasix] 20 mg PO DAILY PRN 07/11/17 07/11/17 Lisinopril [Zestril] 10 mg PO DAILY 07/11/17 07/11/17 Previous Rx's Medication Instructions Recorded Magnesium Oxide [Mag-Ox] 400 mg PO BID #60 tablet 11/05/16 Allergies Allergy/AdvReac Type Severity Reaction Status Date / Time codeine Allergy itching, Verified 07/26/15 19:42 [From Tylenol-Codeine #3] redness Zolpidem [From Ambien] Allergy swelling,di Verified 07/26/15 19:42 sorientatio n All systems ED: reviewed and negative except as stated. Cardiovascular: Denies: chest pain Gastrointestinal: Denies: abdominal pain Musculoskeletal: Reports: other (Right thigh pain). Denies: back pain, neck pain Neurological: Reports: numbness (Chronic) Past Medical History - Past Medical History Attestation: Yes The following information was validated with the patient. Source: patient Medical history: Reports: arthritis, cancer, CVA, hypertension, peripheral artery disease, TIA Surgical history: Reports: carotid endarterectomy (bilateral), hysterectomy, LE vascular intervention (?bilateral fempop) Psychiatric history: Reports: no psych history [employer] history: Reports: bilateral tubal ligation - Social History Smoking Status: Current every day smoker Smokeless Tobacco Status: No Alcohol use: Reports: none Drug use: Reports: none Physical Exam - General Limitations: no limitations General appearance: alert, in no apparent distress - Head Head exam: atraumatic, normocephalic - Eye Eye exam: Present: normal appearance - Neck Neck exam: Present: normal inspection - Chest Chest inspection: Present: normal inspection, symmetric chest wall rise - Respiratory Respiratory exam: Present: normal lung sounds bilaterally - Cardiovascular Cardiovascular exam: Present: regular rate, normal rhythm, normal heart sounds - Abdominal Exam Abdominal exam: Present: soft, Non-Tender. Absent: tenderness - Extremities Exam Extremities exam: Present: normal inspection, full ROM - Expanded Upper Extremity Exam Shoulder exam: Present: normal inspection, full ROM Arm exam: Present: normal inspection, full ROM Elbow exam: Present: normal inspection, full ROM Forearm/Wrist exam: Present: normal inspection, full ROM Hand exam: Present: normal inspection, full ROM - Expanded Lower Extremity Exam Hip/Pelvis exam: Present: normal inspection. Absent: full ROM (Decreased range of motion secondary to pain) Upper leg exam: Present: normal inspection, tenderness (Tenderness to palpation along the anterior aspect of the proximal right thigh). Absent: swelling Knee exam: Present: normal inspection, tenderness (Tenderness along the anterior and lateral aspect of the right knee). Absent: swelling Lower leg exam: Present: normal inspection, full ROM Ankle exam: Present: normal inspection, full ROM Foot/toe exam: Present: normal inspection, full ROM Neurovascular/Tendon exam: Present: sensory deficit (Paresthesias of the right lower extremity which she reports is chronic) - Neurological Exam Neurological exam: Present: other (Alert, GCS 15, nonfocal exam, moves all extremities equally) - Skin Skin exam: Present: warm, dry Course Course Narrative: Patient seen and examined. Nonfocal here. We will get x-rays of the right hip , femur and knee. - Reevaluation(s) Reevaluation #1: Upon reevaluation the patient discloses that for the last 2 days she has had multiple falls at home. She states that it is right after she stands up and starts to walk at home. She denies any lightheadedness, syncopal episodes, chest pain or shortness of breath. She is unsure why she keeps falling. Family reports that she will start to stagger and then fall to the side. We will add on an EKG as well as CT scan of her head as well as labs including troponin. Patient is agreeable with staying. Reevaluation #2: Patient thinks to be hypotensive here last reading at 92/40. Patient receiving IV fluids. Discussed results of imaging and labs. Vital Signs Temperature 97.7 F 07/11/17 12:22 Pulse Rate 90 07/11/17 12:22 Respiratory Rate 18 07/11/17 12:22 Blood Pressure 109/76 07/11/17 12:22 O2 Sat by Pulse Oximetry 96 07/11/17 12:22 Temperature 97.7 F 07/11/17 12:22 Pulse Rate 77 07/11/17 14:54 Respiratory Rate 16 07/11/17 14:54 Blood Pressure 106/78 07/11/17 14:54 O2 Sat by Pulse Oximetry 98 07/11/17 14:54 Oxygen Delivery Oxygen Delivery Room Air Extremity Injury, Lower - MDM Narrative Medical decision making narrative: 62-year-old female presents to the ER due to right lower extremity pain status post fall. Imaging of the effected areas are negative. She did not want to disclose multiple falls over the last 2 days. She is noted to be hypotensive here. Denies any recent change in her antihypertensives. CT scan of her head unremarkable. EKG nonischemic. Labs reviewed. Patient given IV fluids for hypotension. Admitted to the hospitalist service. - Lab Data Lab results reviewed: Yes I reviewed the patient's lab results. Result diagrams: 07/11/17 13:53 07/11/17 13:53 Lab Results 07/11/17 07/11/17 07/11/17 Range/Units 13:53 13:53 13:53 WBC 6.0 (4.3-11.1) K/mcL RBC 4.57 (3.82-4.97) M/mcL Hgb 13.8 (11.5-15.4) g/dL Hct 43.7 (35.3-44.9) % MCV 95.6 (83.0-100.0) fL MCH 30.2 (28.0-33.3) pg MCHC 31.6 (31.6-35.5) g/dL RDW 14.2 (11.5-14.5) % Plt Count 211 (140-400) K/mcL MPV 9.5 (9.4-12.4) fL Immature Gran % 0.3 (0-4) % Seg Neutrophils % 60.6 % Lymphocytes % 26.4 % Monocytes % 9.3 % Eosinophils % 2.7 % Basophils % 0.7 % Neutrophils # 3.6 (1.6-8.9) K/mcL Lymphocytes # 1.6 (0.6-4.6) K/mcL Monocytes # 0.6 (0.0-1.3) K/mcL Eosinophils # 0.2 (0.0-0.6) K/mcL Basophils # 0.0 (0.0-0.2) K/mcL Sodium 136 (136-145) mEq/L Potassium 4.2 (3.5-5.1) mEq/L Chloride 104 (98-107) mEq/L Carbon Dioxide 22 L (23-29) mEq/L BUN 24 H (8-23) mg/dL Creatinine 1.98 H (0.60-1.20) mg/dL Est GFR ( Amer) 31 L (> 60) Est GFR (Non-Af Amer) 26 L (> 60) BUN/Creatinine Ratio 12 (6-26) Glucose 81 (70-105) mg/dL Calculated Osmolality 285 (280-300) Calcium 8.8 (8.6-10.3) mg/dL Troponin I < 0.03 (< 0.04) ng/mL TSH 1.578 (0.340-5.600) mcIU/mL Urine Color (Yellow) Urine Clarity (Clear) Urine pH (5.0-8.0) pH Units Ur Specific [place] (1.010-1.025) Urine Protein (Neg-Trace) mg/dL Urine Glucose (UA) (Normal) mg/dL Urine Ketones (Negative) mg/dL Urine Blood (Negative) Urine Nitrite (Negative) Urine Bilirubin (Negative) Urine Urobilinogen (Normal) mg/dL Ur Leukocyte Esterase (Negative) 07/11/17 Range/Units 16:00 WBC (4.3-11.1) K/mcL RBC (3.82-4.97) M/mcL Hgb (11.5-15.4) g/dL Hct (35.3-44.9) % MCV (83.0-100.0) fL MCH (28.0-33.3) pg MCHC (31.6-35.5) g/dL RDW (11.5-14.5) % Plt Count (140-400) K/mcL MPV (9.4-12.4) fL Immature Gran % (0-4) % Seg Neutrophils % % Lymphocytes % % Monocytes % % Eosinophils % % Basophils % % Neutrophils # (1.6-8.9) K/mcL Lymphocytes # (0.6-4.6) K/mcL Monocytes # (0.0-1.3) K/mcL Eosinophils # (0.0-0.6) K/mcL Basophils # (0.0-0.2) K/mcL Sodium (136-145) mEq/L Potassium (3.5-5.1) mEq/L Chloride (98-107) mEq/L Carbon Dioxide (23-29) mEq/L BUN (8-23) mg/dL Creatinine (0.60-1.20) mg/dL Est GFR ( Amer) (> 60) Est GFR (Non-Af Amer) (> 60) BUN/Creatinine Ratio (6-26) Glucose (70-105) mg/dL Calculated Osmolality (280-300) Calcium (8.6-10.3) mg/dL Troponin I (< 0.04) ng/mL TSH (0.340-5.600) mcIU/mL Urine Color Yellow (Yellow) Urine Clarity Clear (Clear) Urine pH 5.0 (5.0-8.0) pH Units Ur Specific [place] 1.022 (1.010-1.025) Urine Protein Negative (Neg-Trace) mg/dL Urine Glucose (UA) Normal (Normal) mg/dL Urine Ketones Negative (Negative) mg/dL Urine Blood Negative (Negative) Urine Nitrite Negative (Negative) Urine Bilirubin Negative (Negative) Urine Urobilinogen Normal (Normal) mg/dL Ur Leukocyte Esterase Negative (Negative) - Radiology Data Radiology results reviewed: Yes I reviewed the patient's radiology results. Femur X-Ray 07/11/17 12:29 IMPRESSION: 1. No acute osseous abnormality of the pelvis. 2. No acute osseous abnormality of the right femur. 3. No acute osseous abnormality of the right knee. 4. Suspected osteopenia. D/ /11/2017 13:19:15 Delbert Lockett MD / [facility] Interpreting Provider: Delbert Lockett MD Knee X-Ray 07/11/17 12:29 IMPRESSION: 1. No acute osseous abnormality of the pelvis. 2. No acute osseous abnormality of the right femur. 3. No acute osseous abnormality of the right knee. 4. Suspected osteopenia. D/ : / 07/11/2017 13:19:15 Delbert Lockett MD / [facility] Interpreting Provider: Delbert Lockett MD Pelvis X-Ray 07/11/17 12:29 IMPRESSION: 1. No acute osseous abnormality of the pelvis. 2. No acute osseous abnormality of the right femur. 3. No acute osseous abnormality of the right knee. 4. Suspected osteopenia. D/ / 07/11/2017 13:19:15 Delbert Lockett MD / [facility] Interpreting Provider: Delbert Lockett MD Chest X-Ray 07/11/17 13:24 IMPRESSION: No acute process. D/ / 07/11/2017 14:33:01 Tai Joyce MD / [facility] Interpreting Provider: Tai Joyce MD Head CT 07/11/17 13:24 IMPRESSION: No acute intracranial abnormality. Stable chronic left parietal infarct. D/ / 07/11/2017 14:44:13 Delbert Lockett MD / [facility] Interpreting Provider: Delbert Lockett MD - EKG Data EKG attestation: Yes I reviewed and interpreted this EKG. EKG results narrative: EKG demonstrated sinus rhythm with rate of 75 bpm. Normal axis. Normal intervals. Normal R-wave progression. Nonspecific ST-T wave changes in the lateral leads. No gross ST elevations or depressions. No acute ischemic findings. S.B.A.R. - S.B.A.R. Situation: Demographics, MOA Background: Presenting Complaint, Relevant PMH, Meds, & Allergies Assessment: Vital Signs, Course and respsone to treatment, Exam Concerns, Patient/Family Expectation, Pertinant Lab Results Recommendation: Barrier(s) to disposition, Recommendation based on pending studies, treatments, or consults S.B.A.RTawny Report Given to: Dr. dandre Browne Repor Time: 16:19 Attestation Statement - Attestation Attestation: I, Cruzito Batista DO, examined this patient [id number] and my medical decision-making was reviewed with Dr. Gagandeep Thomas, Resident Physician. I agree with the documented findings, disposition and treatment plan as described except to the extent set forth below. Please see my progress notes for details. 62-year-old female presents to emergency room after having what she describes as a mechanical fall at home. She fell this morning injuring her right knee and right hip. Patient is currently on Plavix secondary to cardiac stent. Vital signs on presentation are stable patient is requiring oxygen. After discussion with the family at the bedside patient is now disclosed that she has had lots of issues as far generalized weakness falls of unknown etiology. Patient is concerning for cardiac, pulmonary, hypoxic issue causing the falls and injuries. Patient will have definitive imaging modality CT head chest x- ray and plain films of the extremities. She also EKG and screening laboratory workup. Breathing treatments and steroids will be given for symptomatic control. Disposition determined at that point. Physical exam shows a frail- appearing elderly lady who does appear to be guarded with a medical issue does not want to discuss any other medical problems. She is requesting to go home but is accommodating and evaluation the family's request at this time. EKG will be ordered. Patient is otherwise stable. Imaging modalities workup and treatment course will be completed at this time. Disposition will most likely be admission the patient is accommodating at this point. Concern is for pneumonia, COPD, upper respiratory infection generalized malaise exacerbating or falls. Patient and family informed that controlled plan this time. Physical exam is otherwise unremarkable except for poorly aerated lungs heart is regular with no murmurs. She has had poor pulses in her lower extremities but she does have warm feet with palpable pulses that are symmetric bilaterally. She does have history of peripheral vascular disease along with coronary artery disease. Patient is concerning for multiple medical issues exacerbating symptoms but otherwise no other acute issues at this time. [id number] Patient will be admitted at this time for acute kidney insufficiency and hypotension. Some of this could be causing her symptoms at home with unknown etiology to her falls. She continues describing them as mechanical despite the unknown presentation this point per patient and family are comfortable with the admission process been completed at this time. No other acute issues noted during the treatment course. No critical care provided to the patient
[2017-07-11] MEDS ORDERED: 0.9 % Sodium Chloride 1,000 ML IVC ONE (13:24)
[2017-07-11] MEDS ORDERED: Ipratropium/Albuterol Neb 3 ML IH ONE (13:25)
[2017-07-11] MEDS ORDERED: *HR* FentaNYL (PF) 100 MCG/2 ML VIAL IVP ONE (14:00)
[2017-07-11 14:01] LABS: Basophils % 0.7 %; Eosinophils # 0.2 K/mcL (0.0-0.6); Eosinophils % 2.7 %; Hematocrit 43.7 % (35.3-44.9); Hemoglobin 13.8 g/dL (11.5-15.4); Immature Granulocytes % 0.3 % (0-4); Lymphocytes # 1.6 K/mcL (0.6-4.6); Lymphocytes % 26.4 %; Mean Corpuscular HGB Conc 31.6 g/dL (31.6-35.5); Mean Corpuscular Hemoglobin 30.2 pg (28.0-33.3); Mean Corpuscular Volume 95.6 fL (83.0-100.0); Mean Platelet Volume 9.5 fL (9.4-12.4); Monocytes # 0.6 K/mcL (0.0-1.3); Monocytes % 9.3 %; Neutrophils # 3.6 K/mcL (1.6-8.9); Platelet Count 211 K/mcL (140-400); Red Blood Count 4.57 M/mcL (3.82-4.97); Red Cell Distribution Width 14.2 % (11.5-14.5); Segmented Neutrophils % 60.6 %
[2017-07-11 14:19] LABS: Calcium 8.8 mg/dL (8.6-10.3); Potassium 4.2 mEq/L (3.5-5.1)
[2017-07-11 14:32] LABS: Thyroid Stimulating Hormone 1.578 mcIU/mL (0.340-5.600)
[2017-07-11] MEDS ORDERED: 0.9 % Sodium Chloride 1,000 ML IVC SCH (15:45)
[2017-07-11 16:08] LABS: Bilirubin,Urine Negative (Negative); Blood,Urine Negative (Negative); Clarity,Urine Clear (Clear); Color,Urine Yellow (Yellow); Glucose,Urine (UA) Normal (Normal); Ketones,Urine Negative (Negative); Leukocyte Esterase,Urine Negative (Negative); Nitrite,Urine Negative (Negative); Protein,Urine Negative (Neg-Trace); Specific Gravity,Urine 1.022 (1.010-1.025); Urobilinogen,Urine Normal (Normal)
[2017-07-11] MEDS ORDERED: Acetaminophen 325 MG TABLET PO PRN (20:39)
[2017-07-11] MEDS ORDERED: Naloxone 0.4 MG/ML INJ IVP PRN (20:39)
[2017-07-11] MEDS ORDERED: Ipratropium/Albuterol Neb 3 ML IH PRN (20:44)
[2017-07-11] MEDS ORDERED: Nitroglycerin 0.4 MG TAB.SUBL SL PRN (20:44)
--- NOTE | 2017-07-11 21:15 | Internal Med History&Physical ---
Date of Encounter: 07/11/17 Time of Encounter: 19:40 Assessment and Plan (1) Acute kidney injury superimposed on chronic kidney disease Current visit: Yes Status: Acute 1. Will hold BP meds and Lasix. 2. Will hydrate with IVF and monitor renal function. 3. Consult nephrology if renal function does not improve. (2) Pneumonia Current visit: Yes Status: Suspected 1. Despite negative CXR, history and exam concerning for pneumonia. 2. I ordered blood cultures, IV antibiotics, and aerosols. 3. Monitor clinically and convert to to oral antibiotics when improved. Qualifiers: Pneumonia type: due to unspecified organism Laterality: right Lung location: lower lobe of lung Qualified Code(s): J18.1 - Lobar pneumonia, unspecified organism (3) Status post fall Current visit: Yes Status: Acute 1. Patient reports mechanical fall. 2. Given old stroke with subsequent deficits, she has history of falling. 3. Patient may need PT/OT re-evaluation. 4. Imaging in ER negative for fracture. (4) Hypertension Current visit: No Status: Chronic 1. Patient presented with low BP, responded to IVF in ER. 2. Hold BP meds and lasix. 3. Monitor BP and adjust/resume meds as appropriate. Qualifiers: Hypertension type: essential hypertension Qualified Code(s): I10 - Essential (primary) hypertension (5) DVT prophylaxis Current visit: Yes Status: Acute 1. Heparin SQ. Internal Medicine - H&P: HPI Chief complaint: s/p fall; right leg injury Admitted From: Emergency Dept Plans for Post Hospital Care: Home History of present illness: Ms. Reveles is a 62 year old female who presented to the ER earlier today after she fell at home and injured her leg. Workup in the ER was negative for any fracture, but she did have evidence of new acute renal failure. She was also hypotensive initially and responded to fluid bolus. She was subsequently admitted to the hospitalist service. Upon my assessment of the patient, patient feels better except for some pain in her right leg. She has numbness in her foot and some mild foot drop from an old stroke. She states she falls frequently at home due to lack of sensation in her right foot. She denies any syncopal or near syncopal symptoms such as lightheadedness, dizziness, chest pain, or vertigo. She states that this fall was a mechanical fall and she tried to get out of her rocking chair to walk to the kitchen. She states she has chronic kidney disease and follows with Dr. Munoz. Her last creatinine was normal. However, today, and it is markedly elevated. As I was interviewing the patient, I noticed she had a significant harsh and somewhat productive cough. She states she has been coughing, having low-grade fevers, mildly short of breath, and has had some nausea the last few days. She states that everyone in her house has also been sick. She denies any vomiting, diarrhea, chills, or night sweats. She has had some nausea. She denies any body aches other than pain in her right leg. Past Med Surg Social Fam HX - Past Medical History Attestation: Yes The following information was validated with the patient. Source: patient, old records reviewed Medical history: arthritis, cancer, CVA, hypertension, peripheral artery disease , TIA Psychiatric history: no psych history - Past Surgical History Surgical History: carotid endarterectomy, hysterectomy, LE vascular intervention - Social History Smoking Status: Current every day smoker Packs per day: 2 Smokeless Tobacco Status: No Alcohol use: none Drug use: none Current living situation: Home, With Family Activity Level: Independent ambulation Recent Out of Country Travel Within the Last 8 Weeks: No - Family History Mother Adopted: No Living Status: Cause of : Stroke Hx Family Cardiac Disorders: Yes Hx Family Cancer: Yes Hx Family Endocrine Disorder: Yes (DM) Hx Family Neurologic Disorders: Yes ( FROM CVA.) Father Adopted: No Living Status: Cause of : Heart attack Hx Family Cardiac Disorders: Yes Internal Medicine - H&P: Meds Aspirin 325 mg PO DAILY 02/08/15 [History] Cholecalciferol (Vitamin D3) [Vitamin D3] 50,000 unit PO MO 02/08/15 [History] Clopidogrel [Plavix] 75 mg PO QAM 02/08/15 [History] Metoprolol XL (24 HR) Succ [Toprol XL] 25 mg PO QAM 02/08/15 [History] Nitroglycerin 0.4 mg SL Q5M PRN 02/08/15 [History] Omeprazole [PriLOSEC] 20 mg PO BID 02/08/15 [History] Potassium Chloride 5 meq PO QAM 02/08/15 [History] Gabapentin [Neurontin] 300 mg PO TID 12/28/15 [History] Atorvastatin [Lipitor] 40 mg PO HS 10/28/16 [History] Magnesium Oxide [Mag-Ox] 400 mg PO BID #60 tablet 11/05/16 [Rx] ALPRAZolam [Xanax 1 MG Tablet] 1 mg PO TID PRN 07/11/17 [History] Amlodipine Besylate 10 mg PO DAILY 07/11/17 [History] Furosemide [Lasix] 20 mg PO DAILY PRN 07/11/17 [History] Lisinopril [Zestril] 10 mg PO DAILY 07/11/17 [History] 3 Allergy/AdvReac Type Severity Reaction Status Date / Time codeine Allergy itching, Verified 07/26/15 19:42 [From Tylenol-Codeine #3] redness Zolpidem [From Ambien] Allergy swelling,di Verified 07/26/15 19:42 sorientatio n - Constitutional Constitutional: fever(s), no chills, no night sweats - EENT Eyes: no blurry vision, no change in vision Ears: no ear pain, no tinnitus Nose, mouth and throat: nasal congestion, no sinus pressure, no sore throat - Cardiovascular Cardiovascular ROS IM: no chest pain, no dyspnea, no palpitations, no syncope - Respiratory Respiratory: cough, wheezing, chest congestion, excessive phlegm production, change in phlegm color - Gastrointestinal Gastrointestinal: nausea, no abdominal pain, no diarrhea, no vomiting - Genitourinary Genitourinary: no dysuria, no flank pain, no hematuria - Musculoskeletal Musculoskeletal ROS IM: arthralgias, back pain, no muscle cramps, no myalgias - Integumentary Integumentary IM: no rash, no jaundice - Neurological Neurological ROS: frequent falls, numbness (chronic -- right foot), weakness, no dizziness, no headache(s) - Psychiatric Psychiatric: no anxiety, no depression - Endocrine Endocrine IM: no polydipsia, no polyuria - Allergic/Immunologic Allergic/Immunologic: wheezing, no GI upset with certain foods - Constitutional Vitals: Temp Pulse Resp BP Pulse Ox 97.3 F L 97 15 139/86 93 07/11/17 20:07 07/11/17 20:07 07/11/17 20:07 07/11/17 20:07 07/11/17 20:07 General appearance: Present: cooperative, A&O X 3, pleasant, no acute distress - Head Head exam: Present: atraumatic, normal inspection - Eye Eye exam: Present: EOMI, PERRL. Absent: scleral icterus Pupils: Present: normal accommodation - ENT ENT exam: Present: mucous membranes dry, normal exam, normal oropharynx Additional comments: nasal congestion; hoarse voice - Neck Neck exam general surgery: Present: full ROM, supple. Absent: lymphadenopathy, tenderness, thyromegaly - Respiratory Respiratory exam: Present: rales (right base), rhonchi. Absent: accessory muscle use, chest wall tenderness, wheezes - Cardiovascular Cardiovascular exam: Present: RRR, +S1, +S2. Absent: diastolic murmur, systolic murmur - GI/Abdominal GI/Abdominal exam: Present: normal bowel sounds, soft. Absent: hepatomegaly, splenomegaly, tenderness - Extremities Exam Extremities exam: Present: normal capillary refill, tenderness (right hip down to her foot -- chronic and not new), warm, radial pulses palpable and symmetrical. Absent: calf tenderness, joint swelling - Back Exam Back exam: Absent: CVA tenderness (L), CVA tenderness (R) - Neurological Exam Neurological exam: Present: alert, CN II-XII intact, oriented X3. Absent: no focal deficits (wekness and numbness right foot -- chronic) - Psychiatric Psychiatric exam: Present: normal affect, normal mood - Skin Skin exam: Present: dry, warm. Absent: rash Internal Med - H&P Results - Labs CBC & Chem 7: 07/11/17 13:53 07/11/17 13:53 - Diagnostic Studies Chest x-ray Status: image reviewed by me (negative)
[2017-07-11] MEDS: *HR* HYDROcodone/Acet 5/325 mg TABLET PO PRN (21:32)
[2017-07-11] MEDS: Gabapentin 300 MG CAPSULE PO SCH (21:32)
[2017-07-11] MEDS: Magnesium Oxide 400 MG TABLET PO SCH (21:32)
[2017-07-11] MEDS: Azithromycin 500 MG in D5% in Water 250 ML IVPB SCH (21:32)
[2017-07-11] MEDS: ALPRAZolam 1 MG TABLET PO PRN (21:32)
[2017-07-11] MEDS: *HR* Heparin 5,000 UNIT/ML VIAL SQ SCH (21:38)
[2017-07-11] MEDS: cefTRIAXone 1,000 MG in Water for inj. (sterile) 10 ML IVP SCH (23:49)
[2017-07-12] MEDS: *HR* HYDROcodone/Acet 5/325 mg TABLET PO PRN ×4 (03:57→22:21)
[2017-07-12] MEDS: 0.9 % Sodium Chloride 1,000 ML IVC SCH ×4 (03:57→20:17)
[2017-07-12] MEDS: *HR* Heparin 5,000 UNIT/ML VIAL SQ SCH ×2 (06:05→18:08)
[2017-07-12 07:33] LABS: Alanine Aminotransferase 41 Units/L (7-52); Albumin 3.4 g/dL (3.5-5.7); Albumin/Globulin Ratio 1.4 (1.1-2.2); Alkaline Phosphatase 91 Units/L (34-104); Aspartate Amino Transferase 29 Units/L (13-39); BUN/Creatinine Ratio 16 (6-26); Bilirubin,Total 0.2 mg/dL (0.3-1.0); Blood Urea Nitrogen 16 mg/dL (8-23); Calcium 8.3 mg/dL (8.6-10.3); Carbon Dioxide 23 mEq/L (23-29); Chloride 113 mEq/L (98-107); Globulin 2.5 g/dL (2.4-3.5); Glucose 106 mg/dL (70-105); Magnesium 1.7 mg/dL (1.6-2.6); Osmolality,Calculated 292 (280-300); Potassium 4.2 mEq/L (3.5-5.1); Sodium 140 mEq/L (136-145); Total Protein 5.9 g/dL (6.4-8.9); eGFR For African Americans > 60 (> 60); eGFR For Non-African Americans 58 (> 60)
[2017-07-12 07:37] LABS: Basophils % 0.2 %; Eosinophils % 0.2 %; Hematocrit 36.2 % (35.3-44.9); Immature Granulocytes % 0.2 % (0-4); Lymphocytes # 1.1 K/mcL (0.6-4.6); Lymphocytes % 17.3 %; Mean Corpuscular HGB Conc 33.4 g/dL (31.6-35.5); Mean Corpuscular Hemoglobin 31.3 pg (28.0-33.3); Mean Corpuscular Volume 93.8 fL (83.0-100.0); Mean Platelet Volume 9.8 fL (9.4-12.4); Monocytes # 0.5 K/mcL (0.0-1.3); Monocytes % 7.2 %; Neutrophils # 4.7 K/mcL (1.6-8.9); Platelet Count 181 K/mcL (140-400); Red Blood Count 3.86 M/mcL (3.82-4.97); Red Cell Distribution Width 13.8 % (11.5-14.5); Segmented Neutrophils % 74.9 %
[2017-07-12 07:41] LABS: Hemoglobin 12.1 g/dL (11.5-15.4)
[2017-07-12] MEDS: Gabapentin 300 MG CAPSULE PO SCH ×3 (09:32→20:18)
[2017-07-12] MEDS: Aspirin 325 MG TABLET PO SCH (09:32)
[2017-07-12] MEDS: Magnesium Oxide 400 MG TABLET PO SCH ×2 (09:32→20:18)
[2017-07-12] MEDS: Metoprolol XL (24 HR) Succ 25 MG TAB.ER.24H PO SCH (09:33)
[2017-07-12] MEDS: ALPRAZolam 1 MG TABLET PO PRN ×3 (11:03→22:21)
[2017-07-12] MEDS: cefTRIAXone 1,000 MG in Water for inj. (sterile) 10 ML IVP SCH (11:04)
--- NOTE | 2017-07-12 18:18 | Internal Med Progress Note ---
Date of Encounter: 07/12/17 Time of Encounter: 11:00 - Assessment and plan (1) Bronchitis Current Visit: Yes Status: Acute Assessment and plan: -Chest x-ray negative for infiltrates and patient afebrile without leukocytosis -Spectrum bacterial bronchitis so we will continue IV azithromycin/ceftriaxone in addition to DuoNeb's (2) Multiple falls Current Visit: Yes Status: Acute Assessment and plan: -Imaging negative for any acute fractures -We will consult PT/OT for evaluation and recommendations (3) Acute kidney injury superimposed on chronic kidney disease Current Visit: Yes Status: Acute (4) DVT prophylaxis Current Visit: Yes Status: Acute Assessment and plan: Subcutaneous heparin - Subjective Interval history: Patient still with productive cough secondary to suspected bacterial bronchitis ; chest x-ray negative for any infiltrates Patient with recurrent falls so we will consult PT/OT - Constitutional Vitals: Temp Pulse Resp BP Pulse Ox 98.1 F 77 16 110/68 96 07/12/17 14:51 07/12/17 14:51 07/12/17 14:51 07/12/17 14:51 07/12/17 14:51 General appearance: Present: cooperative, A&O X 3, pleasant, no acute distress - Respiratory Respiratory exam: Present: CTAB. Absent: accessory muscle use, rales, rhonchi, wheezes - Cardiovascular Cardiovascular exam: Present: RRR, +S1, +S2. Absent: diastolic murmur, gallop, rubs, systolic murmur Internal Medicine: Result - Labs CBC & Chem 7: 07/12/17 06:54 07/12/17 06:54 Labs: Short CBC 07/12/17 Range/Units 06:54 WBC 6.3 (4.3-11.1) K/mcL Hgb 12.1 D (11.5-15.4) g/dL Hct 36.2 (35.3-44.9) % Plt Count 181 (140-400) K/mcL Neutrophils # 4.7 (1.6-8.9) K/mcL BMP 07/12/17 06:54 Sodium 140 Potassium 4.2 Chloride 113 H Carbon Dioxide 23 BUN 16 Creatinine 0.97 Glucose 106 H Calcium 8.3 L Liver Function 07/12/17 Range/Units 06:54 Total Bilirubin 0.2 L (0.3-1.0) mg/dL AST 29 (13-39) Units/L ALT 41 (7-52) Units/L Alkaline Phosphatase 91 (34-104) Units/L Albumin 3.4 L (3.5-5.7) g/dL Consult Discharge Plan - Plan Referrals: Gilbert Bradley MD [Primary Care Provider] -
[2017-07-12] MEDS: Azithromycin 500 MG in D5% in Water 250 ML IVPB SCH (20:16)
[2017-07-13] MEDS ORDERED: *HR* FentaNYL (PF) 100 MCG/2 ML VIAL IVP PRN (00:22)
--- NOTE | 2017-07-13 01:23 | Event Note ---
Date of Encounter: 07/13/17 Time of Encounter: 01:20 Called by RN earlier for patient complaining of severe hip pain. I ordered Fentanyl IV PRN and bilateral hip xray. Xray confirms right hip fracture. Pain is intractable. I stopped Fentanyl and ordered Dilaudid IV for severe pain. I also placed a consult for orthopedics.
[2017-07-13] MEDS: *HR* HYDROmorphone (PF) 1 MG/ML SYRINGE IVP PRN ×7 (01:57→21:13)
[2017-07-13] MEDS: *HR* HYDROcodone/Acet 5/325 mg TABLET PO PRN ×4 (04:21→22:48)
[2017-07-13] MEDS: 0.9 % Sodium Chloride 1,000 ML IVC SCH ×2 (06:12→14:00)
[2017-07-13] MEDS: *HR* Heparin 5,000 UNIT/ML VIAL SQ SCH ×2 (06:14→17:32)
[2017-07-13] MEDS: Aspirin 325 MG TABLET PO SCH (07:58)
[2017-07-13] MEDS: Gabapentin 300 MG CAPSULE PO SCH ×3 (08:01→21:21)
[2017-07-13] MEDS: Magnesium Oxide 400 MG TABLET PO SCH ×2 (08:01→21:13)
[2017-07-13] MEDS: Metoprolol XL (24 HR) Succ 25 MG TAB.ER.24H PO SCH (08:02)
[2017-07-13] MEDS: cefTRIAXone 1,000 MG in Water for inj. (sterile) 10 ML IVP SCH (08:02)
[2017-07-13] MEDS: ALPRAZolam 1 MG TABLET PO PRN ×3 (08:06→21:13)
[2017-07-13 08:56] LABS: Basophils % 0.6 %; Eosinophils # 0.1 K/mcL (0.0-0.6); Hematocrit 40.3 % (35.3-44.9); Immature Granulocytes % 0.4 % (0-4); Lymphocytes # 1.7 K/mcL (0.6-4.6); Lymphocytes % 24.9 %; Mean Corpuscular HGB Conc 32.3 g/dL (31.6-35.5); Mean Corpuscular Volume 92.9 fL (83.0-100.0); Mean Platelet Volume 9.8 fL (9.4-12.4); Monocytes # 0.7 K/mcL (0.0-1.3); Monocytes % 9.6 %; Neutrophils # 4.3 K/mcL (1.6-8.9); Platelet Count 202 K/mcL (140-400); Red Blood Count 4.34 M/mcL (3.82-4.97); Red Cell Distribution Width 13.8 % (11.5-14.5); Segmented Neutrophils % 62.5 %
[2017-07-13 09:05] LABS: BUN/Creatinine Ratio 11 (6-26); Blood Urea Nitrogen 8 mg/dL (8-23); Calcium 8.8 mg/dL (8.6-10.3); Carbon Dioxide 25 mEq/L (23-29); Chloride 107 mEq/L (98-107); Glucose 94 mg/dL (70-105); Osmolality,Calculated 288 (280-300); Potassium 3.5 mEq/L (3.5-5.1); Sodium 140 mEq/L (136-145); eGFR For African Americans > 60 (> 60); eGFR For Non-African Americans > 60 (> 60)
--- NOTE | 2017-07-13 16:36 | Event Note ---
Date of Encounter: 07/13/17 Time of Encounter: 16:35 I was contacted by Dr. Jones for consult for a possible right hip intratrochanteric fracture. X-rays were reviewed, questionable lucency in right hip trochanteric region. A CT scan was ordered. Full consult to follow. The patient will be kept nothing by mouth overnight in case surgery is required.
--- NOTE | 2017-07-13 19:25 | Internal Med Progress Note ---
Date of Encounter: 07/13/17 Time of Encounter: 11:00 - Assessment and plan (1) Closed right hip fracture Current Visit: Yes Status: Acute Assessment and plan: CT of pelvis showed Acute nondisplaced right femoral intertrochanteric fracture ; orthopedics consulted Qualifiers: Encounter type: initial encounter Qualified Code(s): S72.001A - Fracture of unspecified part of neck of right femur, initial encounter for closed fracture (2) Bronchitis Current Visit: Yes Status: Acute Assessment and plan: -Chest x-ray negative for infiltrates and patient afebrile without leukocytosis -Spectrum bacterial bronchitis so we will continue IV azithromycin/ceftriaxone in addition to DuoNeb's (3) Multiple falls Current Visit: Yes Status: Acute Assessment and plan: -Imaging negative for any acute fractures -We will consult PT/OT for evaluation and recommendations (4) Acute kidney injury superimposed on chronic kidney disease Current Visit: Yes Status: Resolved Assessment and plan: -Resolved; continue to monitor. (5) DVT prophylaxis Current Visit: Yes Status: Acute Assessment and plan: Subcutaneous heparin - Subjective Interval history: Patient still with productive cough secondary to suspected bacterial bronchitis ; chest x-ray negative for any infiltrates CT of head showed Acute nondisplaced right femoral intertrochanteric fracture; orthopedics consulted - Constitutional Vitals: Temp Pulse Resp BP Pulse Ox 97.6 F 85 16 145/75 95 07/13/17 14:17 07/13/17 14:17 07/13/17 14:17 07/13/17 14:17 07/13/17 14:17 General appearance: Present: cooperative, A&O X 3, pleasant, no acute distress - Cardiovascular Cardiovascular exam: Present: RRR, +S1, +S2. Absent: diastolic murmur, gallop, rubs, systolic murmur Internal Medicine: Result - Labs CBC & Chem 7: 07/13/17 08:33 07/13/17 08:33 Labs: Short CBC 07/13/17 Range/Units 08:33 WBC 6.9 (4.3-11.1) K/mcL Hgb 13.0 (11.5-15.4) g/dL Hct 40.3 (35.3-44.9) % Plt Count 202 (140-400) K/mcL Neutrophils # 4.3 (1.6-8.9) K/mcL BMP 07/13/17 08:33 Sodium 140 Potassium 3.5 Chloride 107 Carbon Dioxide 25 BUN 8 Creatinine 0.73 Glucose 94 Calcium 8.8 - Impressions Impressions Hip/Pelvis X-Ray 07/13/17 00:19 IMPRESSION: An acute nondisplaced intertrochanteric right hip fracture is suspected. Possible developing ileus or small-bowel obstruction. D/ / Danny Mendez MD / Dnany Mendez MD Interpreting Provider: Danny Mendez MD Hip CT 07/13/17 16:26 IMPRESSION: Acute nondisplaced right femoral intertrochanteric fracture. D/ / Gigi Vyas MD / Gigi Vyas MD Interpreting Provider: Gigi Vyas MD Consult Discharge Plan - Plan Referrals: Gilbert Bradley MD [Primary Care Provider] -
[2017-07-13] MEDS: Azithromycin 500 MG in D5% in Water 250 ML IVPB SCH (21:14)
[2017-07-14] MEDS: *HR* HYDROmorphone (PF) 1 MG/ML SYRINGE IVP PRN ×8 (00:13→20:27)
[2017-07-14] MEDS: *HR* Heparin 5,000 UNIT/ML VIAL SQ SCH (06:29)
[2017-07-14] MEDS: Aspirin 325 MG TABLET PO SCH (07:20)
[2017-07-14] MEDS: Magnesium Oxide 400 MG TABLET PO SCH ×2 (07:28→20:28)
[2017-07-14] MEDS: cefTRIAXone 1,000 MG in Water for inj. (sterile) 10 ML IVP SCH (07:28)
[2017-07-14] MEDS: Gabapentin 300 MG CAPSULE PO SCH ×2 (07:28→20:27)
[2017-07-14] MEDS: Metoprolol XL (24 HR) Succ 25 MG TAB.ER.24H PO SCH (07:29)
[2017-07-14] MEDS: ALPRAZolam 1 MG TABLET PO PRN ×2 (07:29→23:33)
[2017-07-14] MEDS: *HR* HYDROcodone/Acet 5/325 mg TABLET PO PRN ×3 (07:29→23:33)
--- NOTE | 2017-07-14 09:49 | Orthopedic Consult Note ---
Date of Encounter: 07/14/17 Time of Encounter: 07:45 Assessment and Plan (1) Closed right hip fracture Current Visit: Yes Status: Acute Right hip intertrochanteric fracture. Plan for right hip IM nailing by Dr. Yeager today.I discussed the procedure as well as r/b/a with the patient. All questions answered. Consent obtained and placed in chart. NPO NWB until surgery. Pain control per hospitalist. Qualifiers: Encounter type: initial encounter Qualified Code(s): S72.001A - Fracture of unspecified part of neck of right femur, initial encounter for closed fracture History of Present Illness Chief complaint: right hip pain HPI: Ms. Reveles is a 62 year old female who fell at home 3 days ago. She states she has chronic peripheral neuropathy and has trouble feeling right foot. She had a previous stroke which has caused right sided deficits/foot drop and this caused her to fall this time. Original xrays in ER did not show fracture but she was admitted for acute renal failure and hypotension. Patient states in hospital she [place] [facility] [place] when she felt a pop in the hip and significantly increased pain. CT showed right intertrochanteric fracture. Currently pain is described as aching and increased from recent movement for bath, decreased pain at rest. No new or worsening numbness to extremities. Denies hitting head or LOC. Denies chest pain, SOB, fevers. She does currently have a cough though and diagnosed with bronchitis, states this has been improving. She typically ambulates well without assistance. Past Med Surg Social Fam HX - Past Medical History Medical history: arthritis, cancer, CVA, hypertension, peripheral artery disease , TIA Psychiatric history: no psych history - Past Surgical History Surgical History: carotid endarterectomy, hysterectomy, LE vascular intervention - Social History Smoking Status: Current every day smoker Packs per day: 2 Smokeless Tobacco Status: No Alcohol use: none Drug use: none - Family History Mother Adopted: No Living Status: Cause of : Stroke Hx Family Cardiac Disorders: Yes Hx Family Cancer: Yes Hx Family Endocrine Disorder: Yes (DM) Hx Family Neurologic Disorders: Yes ( FROM CVA.) Father Adopted: No Living Status: Cause of : Heart attack Hx Family Cardiac Disorders: Yes Medications and Allergies Aspirin 325 mg PO DAILY 02/08/15 [History] Cholecalciferol (Vitamin D3) [Vitamin D3] 50,000 unit PO MO 02/08/15 [History] Clopidogrel [Plavix] 75 mg PO QAM 02/08/15 [History] Metoprolol XL (24 HR) Succ [Toprol XL] 25 mg PO QAM 02/08/15 [History] Nitroglycerin 0.4 mg SL Q5M PRN 02/08/15 [History] Omeprazole [PriLOSEC] 20 mg PO BID 02/08/15 [History] Potassium Chloride 5 meq PO QAM 02/08/15 [History] Gabapentin [Neurontin] 300 mg PO TID 12/28/15 [History] Atorvastatin [Lipitor] 40 mg PO HS 10/28/16 [History] Magnesium Oxide [Mag-Ox] 400 mg PO BID #60 tablet 11/05/16 [Rx] ALPRAZolam [Xanax 1 MG Tablet] 1 mg PO TID PRN 07/11/17 [History] Amlodipine Besylate 10 mg PO DAILY 07/11/17 [History] Furosemide [Lasix] 20 mg PO DAILY PRN 07/11/17 [History] Lisinopril [Zestril] 10 mg PO DAILY 07/11/17 [History] 3 Allergy/AdvReac Type Severity Reaction Status Date / Time codeine Allergy itching, Verified 07/26/15 19:42 [From Tylenol-Codeine #3] redness Zolpidem [From Ambien] Allergy swelling,di Verified 07/26/15 19:42 sorientatio n All Systems Reviewed: A 10-system review of systems was performed and is negative for pertinent findings except as documented above in the HPI. - Constitutional Constitutional: as per HPI - Cardiovascular Cardiovascular: as per HPI - Respiratory Respiratory: as per HPI - Musculoskeletal Musculoskeletal: as per HPI Physical Exam - Constitutional Vitals: Temp Pulse Resp BP Pulse Ox 98.0 F 104 16 178/97 91 07/14/17 06:23 07/14/17 06:23 07/14/17 06:23 07/14/17 06:23 07/14/17 06:23 - Hip right Tenderness with palpation: anterior, lateral (no open wounds or lesions noted to right hip, moderate tenderness to palpation of the anterior and lateral hip, no tenderness to calf palpation. ROM of hip restricted secondary to known fracture. good dorsiflexion of foot. grossly NV intact) Results - Labs Result Diagrams: 07/13/17 08:33 07/13/17 08:33 Labs: Abnormal lab results POC Glucose 100 (58-89) H 07/14/17 05:03 Total Bilirubin 0.2 mg/dL (0.3-1.0) L 07/12/17 06:54 Serum Total Protein 5.9 g/dL (6.4-8.9) L 07/12/17 06:54 Albumin 3.4 g/dL (3.5-5.7) L 07/12/17 06:54 All other labs normal. - Diagnostic results Hip x-ray: report reviewed, image reviewed Hip CT: report reviewed (Acute nondisplaced right femoral intertrochanteric fracture.), image reviewed Consult Discharge Plan - Plan Referrals: Gilbert Bradley MD [Primary Care Provider] - - Attending Attestation Case and plan of care discussed with supervising physician who was available for all aspects of care.
--- NOTE | 2017-07-14 11:55 | Anesthesia Evaluation PreOp ---
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 SERVICES DIRECTOR History: CVA (right residual weakness) Other Medical History: GERD, Other (anxiety/depression, RA, H/O cervical CA S/P chemo/XRT) Anesthesia History: No Prior Anesthetic Complications, Past Anesthesia ( Bilateral CEA, GABRIEL, Fem-Pop bypass) Alcohol Use: none Drug use: none Medications and Allergies Aspirin 325 mg PO DAILY 02/08/15 [History] Cholecalciferol (Vitamin D3) [Vitamin D3] 50,000 unit PO MO 02/08/15 [History] Clopidogrel [Plavix] 75 mg PO QAM 02/08/15 [History] Metoprolol XL (24 HR) Succ [Toprol XL] 25 mg PO QAM 02/08/15 [History] Nitroglycerin 0.4 mg SL Q5M PRN 02/08/15 [History] Omeprazole [PriLOSEC] 20 mg PO BID 02/08/15 [History] Potassium Chloride 5 meq PO QAM 02/08/15 [History] Gabapentin [Neurontin] 300 mg PO TID 12/28/15 [History] Atorvastatin [Lipitor] 40 mg PO HS 10/28/16 [History] Magnesium Oxide [Mag-Ox] 400 mg PO BID #60 tablet 11/05/16 [Rx] ALPRAZolam [Xanax 1 MG Tablet] 1 mg PO TID PRN 07/11/17 [History] Amlodipine Besylate 10 mg PO DAILY 07/11/17 [History] Furosemide [Lasix] 20 mg PO DAILY PRN 07/11/17 [History] Lisinopril [Zestril] 10 mg PO DAILY 07/11/17 [History] 3 Allergy/AdvReac Type Severity Reaction Status Date / Time codeine Allergy itching, Verified 07/26/15 19:42 [From Tylenol-Codeine #3] redness Zolpidem [From Ambien] Allergy swelling,di Verified 07/26/15 19:42 sorientatio n - Meds/Allergy Pre-op Review Medications Reviewed: Yes Allergies Reviewed: Yes Beta Blockers on Current Med List: Yes If Beta Blockers taken, Date/Time (Last Dose taken): 07/14/2017 at 0729 Anesthesia Results - Labs 07/13/17 08:33 07/13/17 08:33 - Imaging EKG: report reviewed (10/29/[address]-T WAVE CHANGES CONSISTENT WITH POSSIBLE NEUROLOGIC INJURY) Additional studies: 10/29/2016 Echo technically sub-optimal due to poor echocardiographic windows LVEF 55-60% mild concentric LVH mild LV diastolic dysfunction no significant valvular dysfunction 08/25/2016 Cath LAD 30-50% stenosis, CX 30-40%, RCA 30-40% Anesthesia Exam Vital Signs/O2 Sat/Glucose, Most Recent Temp Pulse Resp BP Pulse Ox 97.5 F L 93 16 129/78 93 07/14/17 11:28 07/14/17 11:28 07/14/17 11:28 07/14/17 11:28 07/14/17 11:28 Blood Glucose* 100 Height: 5'4''/1.63 m Weight: 119 lbs/54.4 kg NPO (# of Hours): 8 Pain Scale: 8 (right hip) Pain Scale Used: Numeric (1 - 10) - HEENT Pupil (Motor): EOMI Mallampati: II Teeth: Edentulous Oral Opening: Greater than 3 - HEALTH SERVICES DIRECTOR LOC: Oriented HEALTH SERVICES DIRECTOR Motor: Normal RUE, Normal LUE, Normal LLE, Normal Face, Deficit RLE HEALTH SERVICES DIRECTOR Sensory: Normal: RUE, LUE, LLE, Face, Deficit: RLE - Cardiac Rhythm: Regular Murmur: None - Pulmonary Breath Sounds: bilateral Clear Respiratory Effort: Symmetrical Anesthesia Assess/Plan ASA Score: 3 Modified Jorje Scale for Level of Consciousness: Cooperative, oriented, and tranquil Anesthetic Plan: General Monitoring Plan: Standard Monitors Recovery Plan: PACU
[2017-07-14] MEDS ORDERED: Albuterol 2.5 MG/3 ML NEBULIZER IH ONE (12:40)
[2017-07-14] MEDS ORDERED: Albuterol 2.5 MG/3 ML NEBULIZER ONE (12:43)
[2017-07-14] MEDS ORDERED: Ondansetron 4 MG/2 ML VIAL ONE (14:04)
[2017-07-14] MEDS ORDERED: *HR* FentaNYL (PF) 100 MCG/2 ML VIAL ONE (14:04)
[2017-07-14] MEDS ORDERED: Lidocaine -MPF 2% 2 ML VIAL ONE (14:04)
[2017-07-14] MEDS ORDERED: *HR* Succinylcholine 200 MG/10 ML VIAL IVP ONE (14:04)
[2017-07-14] MEDS ORDERED: Dexamethasone 4 MG/ML VIAL ONE (14:04)
[2017-07-14] MEDS ORDERED: *HR* Propofol 200 MG/20 ML VIAL IVP ONE (14:04)
[2017-07-14] MEDS ORDERED: Lidocaine -MPF 4% 5 ML AMPUL ONE ×2 (14:04→15:10)
[2017-07-14] MEDS ORDERED: *HR* HYDROmorphone 2 MG/ML SYRINGE ONE (14:05)
[2017-07-14] MEDS ORDERED: *HR* Promethazine 25 MG/ML VIAL IVP PRN (14:09)
[2017-07-14] MEDS ORDERED: Ondansetron 4 MG/2 ML VIAL IVP ONE ×2 (14:09→15:57)
[2017-07-14] MEDS: *HR* Labetalol 20 MG/4 ML SYRINGE IVP PRN ×3 (14:53→15:23)
--- NOTE | 2017-07-14 15:42 | Anesthesia Evaluation Post Op ---
Date of Encounter: 07/14/17 Time of Encounter: 15:41 - Vital Signs Vital Signs: Vital Signs/O2 Sat, Most Current Temp Pulse Resp BP Pulse Ox 99 F 89 10 171/92 95 07/14/17 15:19 07/14/17 15:29 07/14/17 15:29 07/14/17 15:29 07/14/17 15:29 - Lungs Lungs: Clear Ascult./Percussion - Airway Airway: Non-obstructed - Cardiovascular Regular Rate - Mental Status Mental Status: Alert & Oriented, Answers Appropriately - Pain Pain Scale: 4 Pain Scale used: Numeric (1 - 10) - Nausea Vomiting Nausea Vomiting: Not Present - Hydration Hydration: Ice chips, Jalloh catheter - Discharge PostOp Status: Transfer Patient to floor
[2017-07-14] MEDS ORDERED: Ipratropium/Albuterol Neb 3 ML IH PRN (15:57)
[2017-07-14] MEDS ORDERED: Nitroglycerin 0.4 MG TAB.SUBL SL PRN (15:57)
[2017-07-14] MEDS ORDERED: Acetaminophen 325 MG TABLET PO PRN (15:57)
[2017-07-14] MEDS ORDERED: Sennosides 8.6 MG TABLET PO PRN (15:57)
[2017-07-14] MEDS ORDERED: Naloxone 0.4 MG/ML INJ IVP PRN (15:57)
[2017-07-14] MEDS: D5% in 0.45% NACL 1,000 ML IVC SCH (16:50)
--- NOTE | 2017-07-14 16:52 | Electrocardiograph Report ---
[address] [address] Test Date: 2017-07-11 Pat Name: Hannah Reveles Department: 104 Room: 3A41 Gender: F Movement Therapist: AM : 1955 Requested By: Gagandeep Thomas Order Number: [id number] Reading MD: Aneudy Johnson Measurements Intervals Pease Rate: 75 P: 66 IA: 161 QRS: 52 QRSD: 85 T: 102 QT: 388 QTc: 417 Interpretive Statements SINUS RHYTHM NONSPECIFIC T-WAVE ABNORMALITY Electronically Signed On 07-14-2017 16:50:59 EST by Aneudy Johnson
[2017-07-14] MEDS: CeFAZolin Premix DUPLEX 2,000 MG/50 ML BAG IVPB SCH (16:53)
--- NOTE | 2017-07-14 18:02 | Internal Med Progress Note ---
Date of Encounter: 07/14/17 Time of Encounter: 17:59 - Assessment and plan (1) Closed right hip fracture Current Visit: Yes Status: Acute Assessment and plan: CT of pelvis showed Acute non displaced right femoral intertrochanteric fracture ; orthopedics on board s/p IM nailing of Rt hip POD # 0 cont IV fluids Since BP elevated will resume home BP meds PT / OT eval on Lovenox for DVT prophylaxis Qualifiers: Encounter type: initial encounter Qualified Code(s): S72.001A - Fracture of unspecified part of neck of right femur, initial encounter for closed fracture (2) Hyperlipidemia Current Visit: No Status: Chronic Qualifiers: Hyperlipidemia type: unspecified Qualified Code(s): E78.5 - Hyperlipidemia , unspecified (3) Coronary artery disease Current Visit: No Status: Chronic Qualifiers: Coronary Disease-Associated Artery/Lesion type: [place] artery [place] vs. transplanted heart: [place] heart Associated angina: without angina Qualified Code(s): I25.10 - Atherosclerotic heart disease of [place] coronary artery without angina pectoris (4) Bronchitis Current Visit: Yes Status: Acute Assessment and plan: -Chest x-ray negative for infiltrates and patient afebrile without leukocytosis - She did mention about yellowish expectoration--- concerned for purulent bronchitis cont Ceftriaxone in addition to DuoNeb's (5) Tobacco abuse Current Visit: No Status: Chronic Assessment and plan: counseled to quit on nicotine patch (6) MIGUEL (acute kidney injury) Current Visit: Yes Status: Acute Assessment and plan: Pt does not have CKD her MIGUEL due to dehydration resolved now (7) DVT prophylaxis Current Visit: Yes Status: Acute Assessment and plan: on Lovenox - Subjective Interval history: Ms. Reveles is a 62 year old female who presented to the ER after she fell at home and injured her leg. Workup in the ER was negative for any fracture, but she did have evidence of new acute renal failure. She was also hypotensive initially and responded to fluid bolus. She was subsequently admitted to the hospitalist service. Patient states in hospital she was transferring from [facility] to bed when she felt a pop in the hip and significantly increased pain. CT showed right intertrochanteric fracture. Pt was evaluated by Ortho and did IM naialing this afternoon. She just came back from surgery. A, A O x 3. Pain is tolerable with medications. her cough also better today. Denied any CP / SOB. - Constitutional Vitals: Temp Pulse Resp BP Pulse Ox 97.5 F L 92 16 164/80 95 07/14/17 17:50 07/14/17 17:50 07/14/17 17:50 07/14/17 17:50 07/14/17 17:50 General appearance: Present: cooperative, A&O X 3, pleasant, no acute distress - Head Head exam: Present: atraumatic, normal inspection - Neck Neck exam general surgery: Present: supple - Respiratory Respiratory exam: Present: decreased breath sounds. Absent: rales, respiratory distress, rhonchi, wheezes - Cardiovascular Cardiovascular exam: Present: RRR, +S1, +S2. Absent: tachycardia - GI/Abdominal GI/Abdominal exam: Present: normal bowel sounds, soft. Absent: rebound, rigid, tenderness - Extremities Exam Extremities exam: Present: tenderness (Rt hip). Absent: calf tenderness, pedal edema - Back Exam Back exam: Absent: CVA tenderness (L), CVA tenderness (R) - Psychiatric Psychiatric exam: Present: normal affect, normal mood - Skin Skin exam: Absent: rash Internal Medicine: Result - Labs CBC & Chem 7: 07/13/17 08:33 07/13/17 08:33 - Impressions Impressions Hip CT 07/13/17 16:26 IMPRESSION: Acute nondisplaced right femoral intertrochanteric fracture. D/ / Gigi Vyas MD / Gigi Vyas MD Interpreting Provider: Gigi Vyas MD Fluoroscopy 07/14/17 13:23 IMPRESSION: Intraprocedural fluoroscopic spot images as above. See separate procedure report for more information. D/ / 07/14/2017 14:46:41 Bro Smith MD / tegan Interpreting Provider: Bro Smith MD Hip X-Ray 07/14/17 13:23 IMPRESSION: Intraprocedural fluoroscopic spot images as above. See separate procedure report for more information. D/ / 07/14/2017 14:46:41 Bro Smith MD / jeremy Interpreting Provider: Bro Smith MD - VTE Documentation of Mechanical Device: Graduated compression elastic hosiery Consult Discharge Plan - Plan Referrals: Gilbert Bradley MD [Primary Care Provider] -
[2017-07-14] MEDS: amLODIPine 5 MG TABLET PO SCH (20:28)
[2017-07-15] MEDS: *HR* HYDROmorphone (PF) 1 MG/ML SYRINGE IVP PRN ×6 (01:06→18:06)
[2017-07-15] MEDS: CeFAZolin Premix DUPLEX 2,000 MG/50 ML BAG IVPB SCH (01:06)
[2017-07-15 05:01] LABS: Basophils % 0.1 %; Hematocrit 34.7 % (35.3-44.9); Immature Granulocytes % 0.5 % (0-4); Lymphocytes # 0.7 K/mcL (0.6-4.6); Lymphocytes % 9.3 %; Mean Corpuscular HGB Conc 32.6 g/dL (31.6-35.5); Mean Corpuscular Hemoglobin 30.1 pg (28.0-33.3); Mean Corpuscular Volume 92.5 fL (83.0-100.0); Mean Platelet Volume 9.9 fL (9.4-12.4); Monocytes # 0.6 K/mcL (0.0-1.3); Monocytes % 8.2 %; Platelet Count 207 K/mcL (140-400); Red Blood Count 3.75 M/mcL (3.82-4.97); Red Cell Distribution Width 13.2 % (11.5-14.5); Segmented Neutrophils % 81.9 %
[2017-07-15 05:03] LABS: Hemoglobin 11.3 g/dL (11.5-15.4)
[2017-07-15 05:14] LABS: BUN/Creatinine Ratio 13 (6-26); Blood Urea Nitrogen 10 mg/dL (8-23); Calcium 8.7 mg/dL (8.6-10.3); Carbon Dioxide 26 mEq/L (23-29); Chloride 104 mEq/L (98-107); Glucose 156 mg/dL (70-105); Osmolality,Calculated 288 (280-300); Potassium 3.7 mEq/L (3.5-5.1); Sodium 138 mEq/L (136-145); eGFR For African Americans > 60 (> 60); eGFR For Non-African Americans > 60 (> 60)
[2017-07-15] MEDS: D5% in 0.45% NACL 1,000 ML IVC SCH (07:03)
[2017-07-15] MEDS: cefTRIAXone 1,000 MG in Water for inj. (sterile) 10 ML IVP SCH (08:42)
[2017-07-15] MEDS: Metoprolol XL (24 HR) Succ 25 MG TAB.ER.24H PO SCH (08:43)
[2017-07-15] MEDS: Aspirin 325 MG TABLET PO SCH (08:43)
[2017-07-15] MEDS: amLODIPine 5 MG TABLET PO SCH (08:43)
[2017-07-15] MEDS: Gabapentin 300 MG CAPSULE PO SCH ×3 (08:43→20:17)
[2017-07-15] MEDS: Magnesium Oxide 400 MG TABLET PO SCH ×2 (08:43→20:17)
[2017-07-15] MEDS: ALPRAZolam 1 MG TABLET PO PRN ×2 (08:43→15:25)
--- NOTE | 2017-07-15 10:24 | Operative Note ---
Date of procedure: 07/14/17 Pre-op diagnosis: Right hip intertrochanteric fracture Post-op diagnosis: same Procedure: Right hip intramedullary nailing Implants: Synthes short Trochanteric Femoral Nail Anesthesia: MILAA Surgeon: Ben Yeager Was there an assistant foreman present: No Estimated blood loss (cc): 100 Specimen: 0 Condition: stable Disposition: PACU Procedure in Detail: The patient received IV antibiotics in the holding area. She was brought to the operating room, sign in was performed. The patient underwent general anesthesia on the hospital bed. She was then transferred to the fracture table in supine position. The patient was positioned with the support groin post, the affected right lower extremity in the traction sanchez and the contralateral lower extremity in a well-padded limb sanchez with a hip flexed and abducted out of the way. Fluoroscopy was then brought in, the fractures visualized, and the fracture reduced. We checked on AP and true lateral view of the hip. Once satisfactory the right hip, from the pelvis down to the knee, was prepped and draped in usual sterile fashion. A timeout was performed. The level of the greater trochanter was palpated, a 4-5 cm oblique incision was made just proximally, , followed by Bovie dissection. The hip abductor was sharply split in line with its fibers with a curved Rowland scissors. The tip of the greater trochanter was palpable. A curved awl was then positioned on the tip. Its position was checked on fluoroscopy, slightly advanced, and we checked the lateral view. Once appropriately positioned, the aggressive awl was then used to open the proximal femur down to level of the lesser trochanter. A short Trochanteric Femoral Nail Advanced with 130 degree neck angle, 11 mm diameter, was assembled, and appropriately inserted into the proximal femur. The appropriate level was checked under fluoroscopy. The triple trochars of 130 degree neck angle was then positioned against the skin, checking fluoroscopy for positioning. Once satisfactory a 2.5 cm incision was made, the fascia was bluntly split along with the muscle fibers of the vastus lateralis. The triple trocar was advanced up against the lateral cortex. The guidepin was then driven up into the femoral head, checking AP and lateral views. The wire was adjusted as needed. A 85 mm long helical blade was chosen. Overdrilled the guidewire, and the helical blade was tapped in place over the guidewire in standard technique. Once close to the edge of the femoral head, the setscrew was then screwed down in place. Traction was then taken off the leg, and the fracture compressed. The triple trochars for the distal static locking screw were placed in the jig, a 1 cm longitudinal incision was made. The trochars were advanced to the cortex , and drilled across. The depth was measured and a 32 mm long by 5 mm bicortical screw was placed. All trochars and jig were removed. Final fluoroscopy shots were taken and saved showing good AP and lateral views of the hip and also distally at the tip of the nail. The wounds were irrigated with normal saline. Fascia over the abductors was closed with 0 Vicryl [id number] stitches, including the deep subcutaneous fat layer. Subcutaneous tissues were closed with 2-0 Vicryl, and the skin incisions were closed with roderick. Sterile dressings were applied. The patient was transferred to hospital bed where she was extubated and taken to recovery room in stable condition.
[2017-07-15] MEDS: *HR* HYDROcodone/Acet 5/325 mg TABLET PO PRN (10:46)
--- NOTE | 2017-07-15 15:58 | Orthopedics Progress Note ---
Date of Encounter: 07/15/17 Time of Encounter: 12:50 - Assessment and Plan (1) Closed right hip fracture Current Visit: Yes Status: Acute POD#1 s/p Right hip intramedullary nailing continue with therapy, WBAT dressings to be changed tomorrow ice to hip as needed for swelling DVT prophylaxis and pain control per hospitalist. Follow up with Emy Mcpherson PA-C in [place] office at [facility]. Office to fax appt card Qualifiers: Encounter type: initial encounter Qualified Code(s): S72.001A - Fracture of unspecified part of neck of right femur, initial encounter for closed fracture Subjective Principal diagnosis: POD#1 s/p Right hip intramedullary nailing Interval history: Patient doing well today with no concerns. No events overnight. Pain well controlled currently. Patient participating in therapy. Denies any calf pain Objective Vital signs: Vital Signs Temp Pulse Resp BP Pulse Ox 07/15/17 13:45 98.3 F 92 15 101/67 95 Intake and Output 07/14/17 07/15/17 07/15/17 23:59 07:59 15:59 Intake Total 240 / 720 Output Total 400 / 800 Balance -160 / -80 Intake: Oral 240 / 720 Output: Urine 400 / 800 Other: Meal Lunch Percent of Meal Consumed 100% Incision: clean and dry (dressings clean, dry, intact with no visible drainage or surrounding erythema) - Labs CBC & BMP: 07/15/17 04:36 07/15/17 04:36 Labs: Abnormal lab results RBC 3.75 M/mcL (3.82-4.97) L 07/15/17 04:36 Hgb 11.3 g/dL (11.5-15.4) L D 07/15/17 04:36 Hct 34.7 % (35.3-44.9) L 07/15/17 04:36 Glucose 156 mg/dL (70-105) H 07/15/17 04:36 POC Glucose 91 (58-89) H 07/14/17 11:50 Total Bilirubin 0.2 mg/dL (0.3-1.0) L 07/12/17 06:54 Serum Total Protein 5.9 g/dL (6.4-8.9) L 07/12/17 06:54 Albumin 3.4 g/dL (3.5-5.7) L 07/12/17 06:54 - VTE Documentation of Mechanical Device: Intermittent pneumatic compression device Consult Discharge Plan - Plan Referrals: Gilbert Bradley MD [Primary Care Provider] -
--- NOTE | 2017-07-15 17:54 | Internal Med Progress Note ---
Date of Encounter: 07/15/17 Time of Encounter: 17:00 - Assessment and plan (1) Closed right hip fracture Current Visit: Yes Status: Acute Assessment and plan: CT of pelvis showed Acute non displaced right femoral inter trochanteric fracture; orthopedics on board s/p IM nailing of Rt hip POD # 1 d/c IVF PT / OT eval on Lovenox for DVT prophylaxis May need ECF placement for short term rehab SW / CM working on it Qualifiers: Encounter type: initial encounter Qualified Code(s): S72.001A - Fracture of unspecified part of neck of right femur, initial encounter for closed fracture (2) Bronchitis Current Visit: Yes Status: Acute Assessment and plan: Chest x-ray negative for infiltrates and patient afebrile without leukocytosis She did mention about yellowish expectoration--- concerned for purulent bronchitis cont Ceftriaxone in addition to DuoNeb's (3) MIGUEL (acute kidney injury) Current Visit: Yes Status: Acute Assessment and plan: Pt does not have CKD her MIGUEL due to dehydration resolved now (4) Coronary artery disease Current Visit: No Status: Chronic Assessment and plan: resumed her home meds including ASA and Plavix Qualifiers: Coronary Disease-Associated Artery/Lesion type: [place] artery [place] vs. transplanted heart: [place] heart Associated angina: without angina Qualified Code(s): I25.10 - Atherosclerotic heart disease of [place] coronary artery without angina pectoris (5) Tobacco abuse Current Visit: No Status: Chronic Assessment and plan: counseled to quit on nicotine patch (6) DVT prophylaxis Current Visit: Yes Status: Acute Assessment and plan: on Lovenox (7) Hyperlipidemia Current Visit: No Status: Chronic Qualifiers: Hyperlipidemia type: unspecified Qualified Code(s): E78.5 - Hyperlipidemia , unspecified - Subjective Interval history: Ms. Reveles is a 62 year old female who presented to the ER after she fell at home and injured her leg. Workup in the ER was negative for any fracture, but she did have evidence of new acute renal failure. She was also hypotensive initially and responded to fluid bolus. She was subsequently admitted to the hospitalist service. Patient states in hospital she was transferring from [facility] to bed when she felt a pop in the hip and significantly increased pain. CT showed right intertrochanteric fracture. Pt was evaluated by Ortho and did IM nailing on 07/14/17 No events over nihgt. Resting comfortably. Requesting for stronger PO pain medications. Her cough also better today. Denied any CP / SOB. - Constitutional Vitals: Temp Pulse Resp BP Pulse Ox 98.3 F 92 15 101/67 95 07/15/17 13:45 07/15/17 13:45 07/15/17 13:45 07/15/17 13:45 07/15/17 13:45 General appearance: Present: cooperative, A&O X 3, pleasant, no acute distress - Head Head exam: Present: atraumatic, normal inspection - Neck Neck exam general surgery: Present: supple - Respiratory Respiratory exam: Present: decreased breath sounds. Absent: rales, respiratory distress, rhonchi, wheezes - Cardiovascular Cardiovascular exam: Present: RRR, +S1, +S2. Absent: tachycardia - GI/Abdominal GI/Abdominal exam: Present: normal bowel sounds, soft. Absent: rebound, rigid, tenderness - Extremities Exam Extremities exam: Present: tenderness (Rt hip). Absent: calf tenderness, pedal edema - Back Exam Back exam: Absent: CVA tenderness (L), CVA tenderness (R) - Neurological Exam Neurological exam: Present: alert, oriented X3 - Psychiatric Psychiatric exam: Present: normal affect, normal mood Internal Medicine: Result - Labs CBC & Chem 7: 07/15/17 04:36 07/15/17 04:36 - VTE Documentation of Mechanical Device: Intermittent pneumatic compression device Consult Discharge Plan - Plan Referrals: Gilbert Bradley MD [Primary Care Provider] -
[2017-07-15] MEDS: *HR* Enoxaparin 30 MG/0.3 ML SYRINGE SQ SCH (18:06)
[2017-07-15] MEDS: *HR* OxyCODONE/APAP 10/325 TABLET PO PRN (20:17)
[2017-07-16] MEDS: ALPRAZolam 1 MG TABLET PO PRN ×2 (00:06→08:34)
[2017-07-16] MEDS: *HR* HYDROmorphone (PF) 1 MG/ML SYRINGE IVP PRN ×2 (00:13→08:26)
[2017-07-16] MEDS: *HR* OxyCODONE/APAP 10/325 TABLET PO PRN ×3 (04:15→14:28)
[2017-07-16] MEDS: *HR* Enoxaparin 30 MG/0.3 ML SYRINGE SQ SCH (05:15)
[2017-07-16 06:37] LABS: Basophils % 0.7 %; Eosinophils # 0.2 K/mcL (0.0-0.6); Eosinophils % 3.8 %; Hemoglobin 10.7 g/dL (11.5-15.4); Immature Granulocytes % 0.5 % (0-4); Lymphocytes # 1.7 K/mcL (0.6-4.6); Lymphocytes % 27.9 %; Mean Corpuscular HGB Conc 32.4 g/dL (31.6-35.5); Mean Corpuscular Hemoglobin 30.4 pg (28.0-33.3); Mean Corpuscular Volume 93.8 fL (83.0-100.0); Mean Platelet Volume 10.2 fL (9.4-12.4); Monocytes # 0.6 K/mcL (0.0-1.3); Monocytes % 10.2 %; Neutrophils # 3.5 K/mcL (1.6-8.9); Platelet Count 229 K/mcL (140-400); Red Blood Count 3.52 M/mcL (3.82-4.97); Red Cell Distribution Width 13.8 % (11.5-14.5); Segmented Neutrophils % 56.9 %
[2017-07-16 07:14] VITALS: BP 136/84
[2017-07-16] MEDS: cefTRIAXone 1,000 MG in Water for inj. (sterile) 10 ML IVP SCH (08:30)
[2017-07-16] MEDS: Aspirin 325 MG TABLET PO SCH (08:30)
[2017-07-16] MEDS: amLODIPine 5 MG TABLET PO SCH (08:30)
[2017-07-16] MEDS: Gabapentin 300 MG CAPSULE PO SCH (08:31)
[2017-07-16] MEDS: Metoprolol XL (24 HR) Succ 25 MG TAB.ER.24H PO SCH (08:31)
[2017-07-16] MEDS: Magnesium Oxide 400 MG TABLET PO SCH (08:31)
--- NOTE | 2017-07-16 11:33 | Discharge Summary ---
Date of Encounter: 07/16/17 Time of Encounter: 11:31 - Discharge Diagnosis (1) Closed right hip fracture Priority: Primary Status: Acute Qualifiers: Encounter type: initial encounter Qualified Code(s): S72.001A - Fracture of unspecified part of neck of right femur, initial encounter for closed fracture (2) Bronchitis Priority: Primary Status: Acute (3) MIGUEL (acute kidney injury) Priority: Primary Status: Acute (4) Coronary artery disease Priority: Secondary Status: Chronic Qualifiers: Coronary Disease-Associated Artery/Lesion type: [place] artery [place] vs. transplanted heart: [place] heart Associated angina: without angina Qualified Code(s): I25.10 - Atherosclerotic heart disease of [place] coronary artery without angina pectoris (5) Tobacco abuse Priority: Secondary Status: Chronic (6) DVT prophylaxis Priority: Secondary Status: Acute (7) Hyperlipidemia Priority: Secondary Status: Chronic Qualifiers: Hyperlipidemia type: unspecified Qualified Code(s): E78.5 - Hyperlipidemia , unspecified - Discharge Medications Prescriptions: Oxycodone HCl/Acetaminophen [Percocet 5-325 mg Tablet] 1 each PO Q4HR PRN #25 tablet PRN Reason: Pain Albuterol Sulfate [Albuterol Inhaler] 2 puff IH Q6HR PRN #1 hfa.aer.ad PRN Reason: Shortness Of Breath Amoxicillin/Clavulanate [Augmentin] 875 mg PO BIDWM #4 tablet Enoxaparin [Lovenox] 40 mg SQ DAILY #18 syr Nicotine [Nicotine Patch] 1 each TD DAILY #30 patch.td24 Home Medications: Aspirin 325 mg PO DAILY 02/08/15 [History] Cholecalciferol (Vitamin D3) [Vitamin D3] 50,000 unit PO MO 02/08/15 [History] Clopidogrel [Plavix] 75 mg PO QAM 02/08/15 [History] Metoprolol XL (24 HR) Succ [Toprol XL] 25 mg PO QAM 02/08/15 [History] Nitroglycerin 0.4 mg SL Q5M PRN 02/08/15 [History] Omeprazole [PriLOSEC] 20 mg PO BID 02/08/15 [History] Potassium Chloride 5 meq PO QAM 02/08/15 [History] Gabapentin [Neurontin] 300 mg PO TID 12/28/15 [History] Atorvastatin [Lipitor] 40 mg PO HS 10/28/16 [History] Magnesium Oxide [Mag-Ox] 400 mg PO BID #60 tablet 11/05/16 [Rx] ALPRAZolam [Xanax 1 MG Tablet] 1 mg PO TID PRN 07/11/17 [History] Amlodipine Besylate 10 mg PO DAILY 07/11/17 [History] Furosemide [Lasix] 20 mg PO DAILY PRN 07/11/17 [History] Lisinopril [Zestril] 10 mg PO DAILY 07/11/17 [History] Albuterol Sulfate [Albuterol Inhaler] 2 puff IH Q6HR PRN #1 hfa.aer.ad 07/16/17 [Rx] Amoxicillin/Clavulanate [Augmentin] 875 mg PO BIDWM #4 tablet 07/16/17 [Rx] Enoxaparin [Lovenox] 40 mg SQ DAILY #18 syr 07/16/17 [Rx] Nicotine [Nicotine Patch] 1 each TD DAILY #30 patch.td24 07/16/17 [Rx] Oxycodone HCl/Acetaminophen [Percocet 5-325 mg Tablet] 1 each PO Q4HR PRN #25 tablet 07/16/17 [Rx] Allergies/Adverse Reactions: 3 Allergy/AdvReac Type Severity Reaction Status Date / Time codeine Allergy itching, Verified 07/26/15 19:42 [From Tylenol-Codeine #3] redness Zolpidem [From Ambien] Allergy swelling,di Verified 07/26/15 19:42 sorientatio n Date of admission: 07/15/17 12:41 Primary care physician: Gilbert Bradley MD - Patient Status Disposition: Home Health Service Condition: Good Overall status at discharge: patient is back to baseline - Discharge Instructions Follow Up With: Emy Mcpherson PAC [Physician Barrel Builder] - 07/29/17 3:00 pm Gilbert Bradley MD [Primary Care Provider] - 08/05/17 10:30 am - Diet and Activity Activity: as per physical therapy, increase activity as tolerated Diet: low salt diet Hospital course: Ms. Reveles is a 62 year old female who presented to the ER after she fell at home and injured her leg. Workup in the ER was negative for any fracture, but she did have evidence of new acute renal failure. She was also hypotensive initially and responded to fluid bolus. She was subsequently admitted to the hospitalist service. Patient states in hospital she was transferring from [facility] to bed when she felt a pop in the hip and significantly increased pain. CT showed right intertrochanteric fracture. Pt was evaluated by Ortho and did IM nailing on 07/14/17. Regarding her pneumonia méndez she was given IV Rocephin and Azithromycin. She is off the O2, breathing comfortably on RA. I did benefits counselor the pt to quit smoking. Pt has been evaluated by PT / OT who cleared the pt to go home with home health services. So will d/c her home today with home health services - Time Spent with Patient Total time spent providing and/or coordinating discharge services: - Constitutional Vitals: Temp Pulse Resp BP Pulse Ox 97.3 F L 91 16 136/84 94 07/16/17 07:07 07/16/17 07:07 07/16/17 07:07 07/16/17 07:07 07/16/17 07:07 General appearance: Present: cooperative, A&O X 3, pleasant, no acute distress - Head Head exam: Present: atraumatic, normal inspection - Neck Neck exam general surgery: Present: supple - Respiratory Respiratory exam: Present: decreased breath sounds, wheezes (mild). Absent: rales, respiratory distress, rhonchi - Cardiovascular Cardiovascular exam: Present: RRR, +S1, +S2. Absent: tachycardia - GI/Abdominal GI/Abdominal exam: Present: normal bowel sounds, soft. Absent: rebound, rigid, tenderness - Extremities Exam Extremities exam: Present: tenderness. Absent: calf tenderness, pedal edema Additional comments: Mild tenderness in Rt hip.... improved ROM - Back Exam Back exam: Absent: CVA tenderness (L), CVA tenderness (R) - Neurological Exam Neurological exam: Present: alert, oriented X3 - Psychiatric Psychiatric exam: Present: normal affect, normal mood - VTE Documentation of Mechanical Device: Intermittent pneumatic compression device
--- NOTE | 2017-07-16 11:38 | Physician Discharge Referral ---
Home Health/Hosp Referral Info Transfer to: Home Health Provider in Charge Post Discharge: PCP - Diagnosis (1) Closed right hip fracture Status: Acute (2) Bronchitis Status: Acute (3) MIGUEL (acute kidney injury) Status: Acute (4) Coronary artery disease Status: Chronic (5) Tobacco abuse Status: Chronic (6) DVT prophylaxis Status: Acute (7) Hyperlipidemia Status: Chronic - Respiratory Orders Smoking Cessation: Smoking cessation has been advised. For more information, call the [place] Tobacco Quit Line at 2-924-KATB-NOW. - Services Needed Following services are medically necessary services: Nursing, Physical Therapy, Occupational Therapy - Transfer Medications Prescriptions: Oxycodone HCl/Acetaminophen [Percocet 5-325 mg Tablet] 1 each PO Q4HR PRN #25 tablet PRN Reason: Pain Albuterol Sulfate [Albuterol Inhaler] 2 puff IH Q6HR PRN #1 hfa.aer.ad PRN Reason: Shortness Of Breath Amoxicillin/Clavulanate [Augmentin] 875 mg PO BIDWM #4 tablet Enoxaparin [Lovenox] 40 mg SQ DAILY #18 syr Nicotine [Nicotine Patch] 1 each TD DAILY #30 patch.td24 Home Medications: Aspirin 325 mg PO DAILY 02/08/15 [History] Cholecalciferol (Vitamin D3) [Vitamin D3] 50,000 unit PO MO 02/08/15 [History] Clopidogrel [Plavix] 75 mg PO QAM 02/08/15 [History] Metoprolol XL (24 HR) Succ [Toprol XL] 25 mg PO QAM 02/08/15 [History] Nitroglycerin 0.4 mg SL Q5M PRN 02/08/15 [History] Omeprazole [PriLOSEC] 20 mg PO BID 02/08/15 [History] Potassium Chloride 5 meq PO QAM 02/08/15 [History] Gabapentin [Neurontin] 300 mg PO TID 12/28/15 [History] Atorvastatin [Lipitor] 40 mg PO HS 10/28/16 [History] Magnesium Oxide [Mag-Ox] 400 mg PO BID #60 tablet 11/05/16 [Rx] ALPRAZolam [Xanax 1 MG Tablet] 1 mg PO TID PRN 07/11/17 [History] Amlodipine Besylate 10 mg PO DAILY 07/11/17 [History] Furosemide [Lasix] 20 mg PO DAILY PRN 07/11/17 [History] Lisinopril [Zestril] 10 mg PO DAILY 07/11/17 [History] Albuterol Sulfate [Albuterol Inhaler] 2 puff IH Q6HR PRN #1 hfa.aer.ad 07/16/17 [Rx] Amoxicillin/Clavulanate [Augmentin] 875 mg PO BIDWM #4 tablet 07/16/17 [Rx] Enoxaparin [Lovenox] 40 mg SQ DAILY #18 syr 07/16/17 [Rx] Nicotine [Nicotine Patch] 1 each TD DAILY #30 patch.td24 07/16/17 [Rx] Oxycodone HCl/Acetaminophen [Percocet 5-325 mg Tablet] 1 each PO Q4HR PRN #25 tablet 07/16/17 [Rx] Allergies/Adverse Reactions: 3 Allergy/AdvReac Type Severity Reaction Status Date / Time codeine Allergy itching, Verified 07/26/15 19:42 [From Tylenol-Codeine #3] redness Zolpidem [From Ambien] Allergy swelling,di Verified 07/26/15 19:42 sorientatio n Certification: Further, I certify that my clinical findings support that this patient is homebound (i.e. absences from home require considerable and taxing effort and are for medical reasons or yazidi services or infrequently or short duration when for other reasons) because: Homebound Reason: Patient requires assistance of a person or device to safely leave home Attestation: My signature below is to certify that this patient is under my care and that I, or nurse practitioner, or a physician's child center assistant working with me, has a face-to -face encounter with this patient.
--- NOTE | 2017-07-16 15:14 | Orthopedics Progress Note ---
Date of Encounter: 07/16/17 Time of Encounter: 08:20 - Assessment and Plan (1) Closed right hip fracture Current Visit: Yes Status: Acute POD#2 s/p Right hip intramedullary nailing continue with therapy, WBAT dressings to be changed today before discharge ice to hip as needed for swelling DVT prophylaxis and pain control per hospitalist. Follow up with Emy Mcpherson PA-C in [place] office at [facility]. Office to fax appt card Qualifiers: Encounter type: initial encounter Qualified Code(s): S72.001A - Fracture of unspecified part of neck of right femur, initial encounter for closed fracture Subjective Principal diagnosis: POD#2 s/p Right hip intramedullary nailing Interval history: Patient doing well today with no concerns. No events overnight. Pain well controlled currently. Patient participating in therapy. Denies any calf pain Objective Vital signs: Vital Signs Temp Pulse Resp BP Pulse Ox 07/16/17 07:07 97.3 F L 91 16 136/84 94 07/15/17 20:32 98.6 F 95 14 136/82 95 Intake and Output 07/15/17 07/16/17 07/16/17 23:59 07:59 15:59 Intake Total 240 / 240 0 / 0 600 / 600 Output Total 1000 / 1000 0 / 0 450 / 450 Balance -760 / -760 0 / 0 150 / 150 Intake: Oral 240 / 240 0 / 0 600 / 600 Output: Urine 1000 / 1000 0 / 0 450 / 450 Other: Meal Dinner Lunch Percent of Meal Consumed 100% 100% Incision: clean and dry (dressings c/d/i with no visible drainage or surrounding erythema) - Labs CBC & BMP: 07/16/17 05:04 07/15/17 04:36 Labs: Abnormal lab results RBC 3.52 M/mcL (3.82-4.97) L 07/16/17 05:04 Hgb 10.7 g/dL (11.5-15.4) L 07/16/17 05:04 Hct 33.0 % (35.3-44.9) L 07/16/17 05:04 Glucose 156 mg/dL (70-105) H 07/15/17 04:36 POC Glucose 91 (58-89) H 07/14/17 11:50 Total Bilirubin 0.2 mg/dL (0.3-1.0) L 07/12/17 06:54 Serum Total Protein 5.9 g/dL (6.4-8.9) L 07/12/17 06:54 Albumin 3.4 g/dL (3.5-5.7) L 07/12/17 06:54 - VTE Documentation of Mechanical Device: Intermittent pneumatic compression device Consult Discharge Plan - Plan Instructions: Oxycodone/Acetaminophen (By mouth), Albuterol (By mouth), Amoxicillin (By mouth), Nicotine (Absorbed through the skin), Enoxaparin ( Injection), Hip Fracture, Business Solutions Consultant (GEN) Additional Instructions: Discharge Instructions: Total Hip Replacement Please call [facility] ([phone]), your Primary Care Physician, or report to the Emergency Room if you have any of the following symptoms: Nausea, vomiting, fever greater that 101.5, swelling, chest pain, shortness of breath, increased pain/redness/drainage/odor for your incision site, numbness/ tingling, or any other concerning symptoms. ACTIVITY:Weight-bearing as tolerated for 8 weeks with hip dislocation precautions that physical therapy taught you. You may progress as tolerated under the guidance of your physical therapist. You do not need to sleep with a pillow between your legs. You can also seep on the operative side or on your stomach. MEDICATIONS: Upon discharge resume your home medications. Take all the medications as prescribed. Take a stool softener if taking narcotic pain medications. Stool softeners are only effective if you drink enough fluids. Drink 6-8 glass of water or fluids a day, unless this is not allowed for another health problem. Despite using stool softeners, if you haven't had a bowel movement in 3 days, please switch to a gentle laxative. Gentle laxatives are sold over the counter. You should have a bowel movement within 24 hours, if not call the office. You will be discharged from the hospital with a prescription for pain medication. You are encouraged to decrease the use of narcotic pain medication as tolerated. Should you require a refill, please call the office. [facility] prescribes narcotic pain medication for only 4-6 weeks after surgery. If you require pain medication beyond this time period, you may be referred to your Primary Care Physician or to the Pain Clinic for further evaluation. Plan ahead for refills on pain medication as many narcotics either need to be picked up at the office or mailed. It is best to call 48-72 hours in advance of needing a prescription refill so you don't run out of medication. To help control the post-operative pain, you may take NSAIDs (Aleve,Advil, Motrin, ibuprofen, naprosyn) or Tylenol as prescribed on the bottle in addition to the pain medication. ANTICOAGULATION (blood thinners): Continue your Aspirin, Lovenox or Coumadin as prescribed to help prevent a blood clot in the leg or in the lungs. As long as your incision remains dry and you tolerate the NSAIDs (Aleve, Advil, Motrin, Ibuprofen, Naprosyn), it is OK to use the NSAIDS while you are taking your anticoagulation medication. Should your incision start to drain, stop the NSAID and contact our office. Common symptoms of blood clot in the legs include: localized pain, swelling, calf tenderness, redness or discoloration of the skin. Blood clot in the lung symptoms include: shortness of breath, rapid pulse, sweating, and chest pain that worsens with deep breathing, coughing up blood, lightheadedness, feelings of anxiety. If you experience any of these symptoms notify your physician immediately, go to the emergency room, or if having trouble breathing, call 911. WOUND CARE: Leave the dressing on for 7 to 10days. You may change the dressing if it is saturated greater than 50%. Do not get the dressing wet at anytime. Wash your hands with antibacterial soap, rinse and dry prior to any wound care. If you have roderick the visiting nurse or rehab facility can remove the stapes 10-14 days after surgery and place steri-strips across the wound. Leave the steri-strips in place until they fall off on their own. You may let water from the shower run on top of the steri-strips. If you do not have a visiting nurse or rehab facility, you will need to return to the office at 10-14 days for the roderick to be removed. If you have itching or redness around the dressing call the office. FOLLOW-UP: Please follow up with your surgeon in the orthopedic clinic in 6 weeks from the day of surgery. If you have roderick that need to be removed, you will need to come back to the office in 10-14 days from the day of surgery. Referrals: Emy Mcpherson PAC [Physician Electronic News Gathering Camera Person] - 07/29/17 3:00 pm Gilbert Bradley MD [Primary Care Provider] - 08/05/17 10:30 am Prescriptions: Oxycodone HCl/Acetaminophen [Percocet 5-325 mg Tablet] 1 each PO Q4HR PRN #25 tablet PRN Reason: Pain Albuterol Sulfate [Albuterol Inhaler] 2 puff IH Q6HR PRN #1 hfa.aer.ad PRN Reason: Shortness Of Breath Amoxicillin/Clavulanate [Augmentin] 875 mg PO BIDWM #4 tablet Enoxaparin [Lovenox] 40 mg SQ DAILY #18 syr Nicotine [Nicotine Patch] 1 each TD DAILY #30 patch.td24
== END 2017-07-16 15:24 | disposition home health service (06) | DRG 480 ==
LOC: EMEROO 12:20 → 3ANU 12:20 → SUATTDRO 16:24 → 3ANU 16:47
PROVIDERS: ADMIT Hospitalist; ATTEND Family Medicine

== ENCOUNTER 2017-07-22 21:18 | Inpatient (IN) ==
--- NOTE | 2017-07-22 21:47 | Emergency Department Note ---
Disposition Clinical Impression: Collapse of left lung, Postoperative pain of extremity Disposition: Admitted As Inpatient Condition: Fair General Adult HPI - General Chief complaint: ED Extremity Injury, Lower Stated complaint: Left LE pain/swelling Time Seen by Provider: 07/22/17 21:21 Source: patient - History of Present Illness HPI Narrative: Patient presents with right lower extremity pain. She is recently postop from an orthopedic procedure involving several screws. Pain and swelling seemed to develop during the course of the day today. No relief with Percocet at home. She denies redness or drainage. Swelling is unilateral on the affected leg. No chest pain or shortness of breath. She has a cough, no sputum production, no hemoptysis, no fever. She does have a history of cancer, but has not been treated in 2 or 3 years. No recent travel. No history of DVT or PE. She is on prophylactic dose Lovenox, 40 mg subcutaneous daily. She is stop her aspirin while she is on the Lovenox. Denies any urinary tract symptoms or symptoms of bleeding. Otherwise without complaint. Pain Scale: 10 - Related Data Home Medications Medication Instructions Recorded Confirmed Aspirin 325 mg PO DAILY 02/08/15 07/23/17 Clopidogrel [Plavix] 75 mg PO QAM 02/08/15 07/23/17 Metoprolol XL (24 HR) Succ [Toprol 25 mg PO QAM 02/08/15 07/23/17 XL] Nitroglycerin 0.4 mg SL Q5M PRN 02/08/15 07/23/17 Omeprazole [PriLOSEC] 20 mg PO BID 02/08/15 07/23/17 Gabapentin [Neurontin] 300 mg PO TID 12/28/15 07/23/17 Atorvastatin [Lipitor] 40 mg PO HS 10/28/16 07/23/17 ALPRAZolam [Xanax 1 MG Tablet] 1 mg PO TID PRN 07/11/17 07/23/17 Amlodipine Besylate 10 mg PO DAILY 07/11/17 07/23/17 Furosemide [Lasix] 20 mg PO PRN PRN 07/11/17 07/23/17 Lisinopril [Zestril] 10 mg PO DAILY 07/11/17 07/23/17 Previous Rx's Medication Instructions Recorded Magnesium Oxide [Mag-Ox] 400 mg PO BID #60 tablet 11/05/16 Albuterol Sulfate [Albuterol 2 puff IH Q6HR PRN #1 hfa.aer.ad 07/16/17 Inhaler] Enoxaparin [Lovenox] 40 mg SQ DAILY #18 syr 07/16/17 Levofloxacin [Levaquin] 500 mg PO DAILY #5 tablet 07/25/17 OxyCODONE/APAP 5/325 [Percocet 1 each PO Q6H PRN 3 Days #12 tablet 07/27/17 5/325 MG] Allergies Allergy/AdvReac Type Severity Reaction Status Date / Time codeine Allergy itching, Verified 07/23/17 03:34 [From Tylenol-Codeine #3] redness Zolpidem [From Ambien] Allergy swelling,di Verified 07/23/17 03:34 sorientatio n All systems ED: reviewed and negative except as stated. 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 Gen.: Well-developed, well-nourished patient lying in bed who appears nontoxic. Head: Atraumatic, normocephalic. Eyes: Sclerae anicteric. ENT: Mucous membranes moist. Heart: Tachycardic and regular without appreciable murmur. Lungs: Normal respiratory pattern without respiratory distress, lungs clear to auscultation bilaterally. Saturating 92-94% on supplemental oxygen by nasal cannula. Abdomen: Soft, nontender, nondistended, no guarding or peritoneal signs. Skin: Warm and dry without rash. Sikes in place at surgical wound without signs of infection. Neurologic: Awake, alert with normal speech and mental status. Cranial nerves grossly intact. No focal deficits or lateralizing signs. Psychiatric: Seems somewhat anxious. Musculoskeletal: Unilateral edema is present on the right. She has calf tenderness on the side as well. No erythema or warmth. - General General appearance: alert Course Vital Signs Temperature 98.1 F 07/22/17 21:21 Pulse Rate 114 07/22/17 21:21 Respiratory Rate 24 07/22/17 21:21 Blood Pressure 123/93 07/22/17 21:21 O2 Sat by Pulse Oximetry 94 07/22/17 21:21 Temperature 97.6 F 07/27/17 06:07 Pulse Rate 90 07/27/17 06:07 Respiratory Rate 16 07/27/17 06:07 Blood Pressure 157/102 07/27/17 06:07 O2 Sat by Pulse Oximetry 93 07/27/17 06:07 Oxygen Delivery Oxygen Delivery Nasal Cannula Medical Decision Making - [facility] Narrative Medical decision making narrative: After initial evaluation, suspicion for DVT was high and suspicion for PE moderate, despite the lack of chest pain or shortness of breath, given her hypoxia and tachycardia. Because of this, BNP and troponin were ordered as part of an evaluation for possible submassive PE. However, in the absence of DVT by Doppler, suspicion for PE is significantly lower. She is low risk by well's criteria with a score less than 4. I added a d-dimer to her workup. I do not think that CT scan is justified at this point unless the d-dimer is elevated. She got minimal relief with Toradol here after taking Percocet at home. I ordered a sub-dissociative dose of ketamine. She was checked out to the relieving physician at change of shift. - Lab Data Result diagrams: 07/27/17 05:32 07/27/17 05:32 Lab Results 07/22/17 07/22/17 07/22/17 Range/Units 21:56 21:56 21:56 WBC (4.3-11.1) K/mcL RBC (3.82-4.97) M/mcL Hgb 11.1 L (11.5-15.4) g/dL Hct (35.3-44.9) % MCV (83.0-100.0) fL MCH (28.0-33.3) pg MCHC (31.6-35.5) g/dL RDW (11.5-14.5) % Plt Count (140-400) K/mcL MPV (9.4-12.4) fL Immature Gran % (0-4) % Seg Neutrophils % % Lymphocytes % % Monocytes % % Eosinophils % % Basophils % % Neutrophils # (1.6-8.9) K/mcL Lymphocytes # (0.6-4.6) K/mcL Monocytes # (0.0-1.3) K/mcL Eosinophils # (0.0-0.6) K/mcL Basophils # (0.0-0.2) K/mcL D-Dimer (0-500) ng/mLFEU Sodium 135 L (136-145) mEq/L Potassium 3.8 (3.5-5.1) mEq/L Chloride 105 (98-107) mEq/L Carbon Dioxide 23 (23-29) mEq/L BUN 13 (8-23) mg/dL Creatinine 0.96 (0.60-1.20) mg/dL Est GFR ( Amer) > 60 (> 60) Est GFR (Non-Af Amer) 59 L (> 60) BUN/Creatinine Ratio 14 (6-26) Glucose 107 H (70-105) mg/dL Calculated Osmolality 281 (280-300) Calcium 8.9 (8.6-10.3) mg/dL Troponin I < 0.03 (< 0.04) ng/mL B-Natriuretic Peptide (Less than 100) pg/mL 07/22/17 07/22/17 07/22/17 Range/Units 21:56 21:56 21:56 WBC 12.5 H D (4.3-11.1) K/mcL RBC 3.64 L (3.82-4.97) M/mcL Hgb 11.1 L (11.5-15.4) g/dL Hct 35.2 L (35.3-44.9) % MCV 96.7 (83.0-100.0) fL MCH 30.5 (28.0-33.3) pg MCHC 31.5 L (31.6-35.5) g/dL RDW 14.6 H (11.5-14.5) % Plt Count 513 H D (140-400) K/mcL MPV 9.1 L (9.4-12.4) fL Immature Gran % 1.5 (0-4) % Seg Neutrophils % 73.8 % Lymphocytes % 14.2 % Monocytes % 8.1 % Eosinophils % 1.8 % Basophils % 0.6 % Neutrophils # 9.2 H (1.6-8.9) K/mcL Lymphocytes # 1.8 (0.6-4.6) K/mcL Monocytes # 1.0 (0.0-1.3) K/mcL Eosinophils # 0.2 (0.0-0.6) K/mcL Basophils # 0.1 (0.0-0.2) K/mcL D-Dimer 3679 H (0-500) ng/mLFEU Sodium (136-145) mEq/L Potassium (3.5-5.1) mEq/L Chloride (98-107) mEq/L Carbon Dioxide (23-29) mEq/L BUN (8-23) mg/dL Creatinine (0.60-1.20) mg/dL Est GFR ( Amer) (> 60) Est GFR (Non-Af Amer) (> 60) BUN/Creatinine Ratio (6-26) Glucose (70-105) mg/dL Calculated Osmolality (280-300) Calcium (8.6-10.3) mg/dL Troponin I (< 0.04) ng/mL B-Natriuretic Peptide 45 (Less than 100) pg/mL 07/23/17 07/23/17 07/24/17 Range/Units 04:32 04:32 07:49 WBC 8.2 7.0 (4.3-11.1) K/mcL RBC 3.41 L 3.93 (3.82-4.97) M/mcL Hgb 10.6 L 12.2 D (11.5-15.4) g/dL Hct 33.0 L 37.3 (35.3-44.9) % MCV 96.8 94.9 (83.0-100.0) fL MCH 31.1 31.0 (28.0-33.3) pg MCHC 32.1 32.7 (31.6-35.5) g/dL RDW 14.6 H 14.6 H (11.5-14.5) % Plt Count 430 H 538 H (140-400) K/mcL MPV 8.9 L 8.9 L (9.4-12.4) fL Immature Gran % 2.2 1.6 (0-4) % Seg Neutrophils % 63.7 85.9 % Lymphocytes % 22.3 8.8 % Monocytes % 8.6 3.4 % Eosinophils % 2.3 0.0 % Basophils % 0.9 0.3 % Neutrophils # 5.2 6.0 (1.6-8.9) K/mcL Lymphocytes # 1.8 0.6 (0.6-4.6) K/mcL Monocytes # 0.7 0.2 (0.0-1.3) K/mcL Eosinophils # 0.2 0.0 (0.0-0.6) K/mcL Basophils # 0.1 0.0 (0.0-0.2) K/mcL D-Dimer (0-500) ng/mLFEU Sodium 137 (136-145) mEq/L Potassium 3.7 (3.5-5.1) mEq/L Chloride 106 (98-107) mEq/L Carbon Dioxide 23 (23-29) mEq/L BUN 18 (8-23) mg/dL Creatinine 0.90 (0.60-1.20) mg/dL Est GFR ( Amer) > 60 (> 60) Est GFR (Non-Af Amer) > 60 (> 60) BUN/Creatinine Ratio 20 (6-26) Glucose 93 (70-105) mg/dL Calculated Osmolality 286 (280-300) Calcium 8.8 (8.6-10.3) mg/dL Troponin I (< 0.04) ng/mL B-Natriuretic Peptide (Less than 100) pg/mL 07/24/17 07/25/17 07/25/17 Range/Units 07:49 06:35 06:35 WBC 12.1 H D (4.3-11.1) K/mcL RBC 3.29 L (3.82-4.97) M/mcL Hgb 10.2 L D (11.5-15.4) g/dL Hct 30.9 L (35.3-44.9) % MCV 93.9 (83.0-100.0) fL MCH 31.0 (28.0-33.3) pg MCHC 33.0 (31.6-35.5) g/dL RDW 14.7 H (11.5-14.5) % Plt Count 422 H (140-400) K/mcL MPV 8.7 L (9.4-12.4) fL Immature Gran % 0.7 (0-4) % Seg Neutrophils % 84.8 % Lymphocytes % 7.5 % Monocytes % 6.9 % Eosinophils % 0.0 % Basophils % 0.1 % Neutrophils # 10.3 H (1.6-8.9) K/mcL Lymphocytes # 0.9 (0.6-4.6) K/mcL Monocytes # 0.8 (0.0-1.3) K/mcL Eosinophils # 0.0 (0.0-0.6) K/mcL Basophils # 0.0 (0.0-0.2) K/mcL D-Dimer (0-500) ng/mLFEU Sodium 135 L 137 (136-145) mEq/L Potassium 3.9 3.4 L (3.5-5.1) mEq/L Chloride 105 107 (98-107) mEq/L Carbon Dioxide 22 L 23 (23-29) mEq/L BUN 16 19 (8-23) mg/dL Creatinine 0.64 0.57 L (0.60-1.20) mg/dL Est GFR ( Amer) > 60 > 60 (> 60) Est GFR (Non-Af Amer) > 60 > 60 (> 60) BUN/Creatinine Ratio 25 33 H (6-26) Glucose 102 116 H (70-105) mg/dL Calculated Osmolality 281 287 (280-300) Calcium 9.1 8.8 (8.6-10.3) mg/dL Troponin I (< 0.04) ng/mL B-Natriuretic Peptide (Less than 100) pg/mL 07/26/17 07/26/17 07/27/17 Range/Units 05:47 05:47 05:32 WBC 6.8 7.0 (4.3-11.1) K/mcL RBC 3.32 L 3.68 L (3.82-4.97) M/mcL Hgb 10.1 L 11.2 L (11.5-15.4) g/dL Hct 31.1 L 35.4 (35.3-44.9) % MCV 93.7 96.2 (83.0-100.0) fL MCH 30.4 30.4 (28.0-33.3) pg MCHC 32.5 31.6 (31.6-35.5) g/dL RDW 14.6 H 14.5 (11.5-14.5) % Plt Count 386 412 H (140-400) K/mcL MPV 8.8 L 9.1 L (9.4-12.4) fL Immature Gran % 0.6 0.3 (0-4) % Seg Neutrophils % 63.7 56.2 % Lymphocytes % 23.5 29.4 % Monocytes % 11.5 12.8 % Eosinophils % 0.1 0.6 % Basophils % 0.6 0.7 % Neutrophils # 4.3 3.9 (1.6-8.9) K/mcL Lymphocytes # 1.6 2.1 (0.6-4.6) K/mcL Monocytes # 0.8 0.9 (0.0-1.3) K/mcL Eosinophils # 0.0 0.0 (0.0-0.6) K/mcL Basophils # 0.0 0.1 (0.0-0.2) K/mcL D-Dimer (0-500) ng/mLFEU Sodium 140 (136-145) mEq/L Potassium 3.5 (3.5-5.1) mEq/L Chloride 109 H (98-107) mEq/L Carbon Dioxide 24 (23-29) mEq/L BUN 19 (8-23) mg/dL Creatinine 0.68 (0.60-1.20) mg/dL Est GFR ( Amer) > 60 (> 60) Est GFR (Non-Af Amer) > 60 (> 60) BUN/Creatinine Ratio 28 H (6-26) Glucose 81 (70-105) mg/dL Calculated Osmolality 291 (280-300) Calcium 8.6 (8.6-10.3) mg/dL Troponin I (< 0.04) ng/mL B-Natriuretic Peptide (Less than 100) pg/mL 07/27/17 Range/Units 05:32 WBC (4.3-11.1) K/mcL RBC (3.82-4.97) M/mcL Hgb (11.5-15.4) g/dL Hct (35.3-44.9) % MCV (83.0-100.0) fL MCH (28.0-33.3) pg MCHC (31.6-35.5) g/dL RDW (11.5-14.5) % Plt Count (140-400) K/mcL MPV (9.4-12.4) fL Immature Gran % (0-4) % Seg Neutrophils % % Lymphocytes % % Monocytes % % Eosinophils % % Basophils % % Neutrophils # (1.6-8.9) K/mcL Lymphocytes # (0.6-4.6) K/mcL Monocytes # (0.0-1.3) K/mcL Eosinophils # (0.0-0.6) K/mcL Basophils # (0.0-0.2) K/mcL D-Dimer (0-500) ng/mLFEU Sodium 140 (136-145) mEq/L Potassium 3.9 (3.5-5.1) mEq/L Chloride 108 H (98-107) mEq/L Carbon Dioxide 25 (23-29) mEq/L BUN 20 (8-23) mg/dL Creatinine 0.63 (0.60-1.20) mg/dL Est GFR ( Amer) > 60 (> 60) Est GFR (Non-Af Amer) > 60 (> 60) BUN/Creatinine Ratio 32 H (6-26) Glucose 77 (70-105) mg/dL Calculated Osmolality 291 (280-300) Calcium 8.9 (8.6-10.3) mg/dL Troponin I (< 0.04) ng/mL B-Natriuretic Peptide (Less than 100) pg/mL - EKG Data EKG #1 EKG shows normal: sinus rhythm (Rate 108, normal intervals/QRS. No acute ischemic changes. Non-specific lateral T-wave flattening, no change from previous EKG dated 07/11/17. No signs suggestive of right heart strain.)
[2017-07-22] MEDS ORDERED: Ketorolac 15 MG/ML VIAL IVP STA (21:53)
[2017-07-22] MEDS ORDERED: Ketamine *HR* 500 MG/10 ML MDV IVP STA (22:17)
[2017-07-22 22:26] LABS: BUN/Creatinine Ratio 14 (6-26); Blood Urea Nitrogen 13 mg/dL (8-23); Calcium 8.9 mg/dL (8.6-10.3); Carbon Dioxide 23 mEq/L (23-29); Chloride 105 mEq/L (98-107); Glucose 107 mg/dL (70-105); Osmolality,Calculated 281 (280-300); Potassium 3.8 mEq/L (3.5-5.1); Sodium 135 mEq/L (136-145); eGFR For African Americans > 60 (> 60); eGFR For Non-African Americans 59 (> 60)
[2017-07-23] MEDS ORDERED: *HR* OxyCODONE/APAP 10/325 TABLET PO ONE (01:30)
[2017-07-23 01:46] LABS: Basophils # 0.1 K/mcL (0.0-0.2); Basophils % 0.6 %; Eosinophils # 0.2 K/mcL (0.0-0.6); Eosinophils % 1.8 %; Hematocrit 35.2 % (35.3-44.9); Hemoglobin 11.1 g/dL (11.5-15.4); Immature Granulocytes % 1.5 % (0-4); Lymphocytes # 1.8 K/mcL (0.6-4.6); Lymphocytes % 14.2 %; Mean Corpuscular HGB Conc 31.5 g/dL (31.6-35.5); Mean Corpuscular Hemoglobin 30.5 pg (28.0-33.3); Mean Corpuscular Volume 96.7 fL (83.0-100.0); Mean Platelet Volume 9.1 fL (9.4-12.4); Monocytes % 8.1 %; Neutrophils # 9.2 K/mcL (1.6-8.9); Platelet Count 513 K/mcL (140-400); Red Blood Count 3.64 M/mcL (3.82-4.97); Red Cell Distribution Width 14.6 % (11.5-14.5); Segmented Neutrophils % 73.8 %
[2017-07-23] MEDS ORDERED: Levofloxacin 750 MG/150 ML 750 MG/150 ML BAG IVPB ONE (02:15)
--- NOTE | 2017-07-23 02:15 | Emergency Department Note ---
Disposition Clinical Impression: Collapse of left lung, Postoperative pain of extremity Disposition: Admitted As Inpatient Condition: Fair Referrals: Gilbert Bradley MD [Primary Care Provider] - Forms: ED Satisfaction Letter Time of Disposition: 02:19 General Adult HPI - General Chief complaint: ED Extremity Injury, Lower Stated complaint: Left LE pain/swelling Time Seen by Provider: 07/22/17 21:21 Source: patient Nursing Notes Reviewed: Yes Vital Signs Reviewed: Yes - History of Present Illness Pain Scale: 10 - Related Data Home Medications Medication Instructions Recorded Confirmed Aspirin 325 mg PO DAILY 02/08/15 07/11/17 Cholecalciferol (Vitamin D3) 50,000 unit PO MO 02/08/15 07/11/17 [Vitamin D3] Clopidogrel [Plavix] 75 mg PO QAM 02/08/15 07/11/17 Metoprolol XL (24 HR) Succ [Toprol 25 mg PO QAM 02/08/15 07/11/17 XL] Nitroglycerin 0.4 mg SL Q5M PRN 02/08/15 07/11/17 Omeprazole [PriLOSEC] 20 mg PO BID 02/08/15 07/11/17 Potassium Chloride 5 meq PO QAM 02/08/15 07/11/17 Gabapentin [Neurontin] 300 mg PO TID 12/28/15 07/11/17 Atorvastatin [Lipitor] 40 mg PO HS 10/28/16 07/11/17 ALPRAZolam [Xanax 1 MG Tablet] 1 mg PO TID PRN 07/11/17 07/11/17 Amlodipine Besylate 10 mg PO DAILY 07/11/17 07/11/17 Furosemide [Lasix] 20 mg PO DAILY PRN 07/11/17 07/11/17 Lisinopril [Zestril] 10 mg PO DAILY 07/11/17 07/11/17 Previous Rx's Medication Instructions Recorded Magnesium Oxide [Mag-Ox] 400 mg PO BID #60 tablet 11/05/16 Albuterol Sulfate [Albuterol 2 puff IH Q6HR PRN #1 hfa.aer.ad 07/16/17 Inhaler] Amoxicillin/Clavulanate [Augmentin] 875 mg PO BIDWM #4 tablet 07/16/17 Enoxaparin [Lovenox] 40 mg SQ DAILY #18 syr 07/16/17 Nicotine [Nicotine Patch] 1 each TD DAILY #30 patch.td24 07/16/17 Oxycodone HCl/Acetaminophen 1 each PO Q4HR PRN #25 tablet 07/16/17 [Percocet 5-325 mg Tablet] Allergies Allergy/AdvReac Type Severity Reaction Status Date / Time codeine Allergy itching, Verified 07/26/15 19:42 [From Tylenol-Codeine #3] redness Zolpidem [From Ambien] Allergy swelling,di Verified 07/26/15 19:42 sorientatio n Past Medical History - Past Medical History Medical history: Reports: arthritis, cancer, CVA, hypertension, peripheral artery disease, TIA Surgical history: Reports: carotid endarterectomy, hysterectomy, LE vascular intervention Psychiatric history: Reports: anxiety 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 Ross. Please refer to his note for complete details of the history and physical examination. Patient had a recent fracture and surgery of the right femur. She presented complaining of increased pain and swelling in the right leg. Venous Doppler was negative for DVT. D-dimer was elevated. At shift change patient is awaiting a CTA of the lungs. Patient does admit to some mild shortness of breath. She is not on home oxygen and does not have a history of breathing problems. There has been no fever. No significant cough. She admits to some mild left posterior pleuritic chest pain. On examination patient is a well-developed well-nourished female in no acute distress. She is alert and oriented 3. There is no cyanosis or diaphoresis. Breath sounds are decreased but clear and equal bilaterally. Heart regular rate and rhythm. Abdomen soft and nontender with normal bowel sounds. There is some diffuse swelling of the right lower extremity. Good dorsalis pedis pulse. Labs reviewed. CTA of the lungs showed no evidence of pulmonary embolism but it did show near total collapse and atelectasis of the entire left lower lobe. Concern for endobronchial obstructing lesion and follow-up bronchoscopy recommended. The hospitalist, Dr. Bautista, was consulted and accepted admission of the patient. He requested the patient be started on Levaquin. Vital Signs Temperature 98.1 F 07/22/17 21:21 Pulse Rate 114 07/22/17 21:21 Respiratory Rate 24 07/22/17 21:21 Blood Pressure 123/93 07/22/17 21:21 O2 Sat by Pulse Oximetry 94 07/22/17 21:21 Temperature 98.1 F 07/22/17 21:21 Pulse Rate 106 07/23/17 01:29 Respiratory Rate 16 07/23/17 01:29 Blood Pressure 133/87 07/23/17 01:29 O2 Sat by Pulse Oximetry 94 07/23/17 01:29 Oxygen Delivery Oxygen Delivery Nasal Cannula Medical Decision Making - Medical Records Medical records reviewed: Yes I reviewed the patient's medical records. - Lab Data Lab results reviewed: Yes I reviewed the patient's lab results. Result diagrams: 07/22/17 21:56 07/22/17 21:56 Lab Results 07/22/17 07/22/17 07/22/17 Range/Units 21:56 21:56 21:56 WBC (4.3-11.1) K/mcL RBC (3.82-4.97) M/mcL Hgb 11.1 L (11.5-15.4) g/dL Hct (35.3-44.9) % MCV (83.0-100.0) fL MCH (28.0-33.3) pg MCHC (31.6-35.5) g/dL RDW (11.5-14.5) % Plt Count (140-400) K/mcL MPV (9.4-12.4) fL Immature Gran % (0-4) % Seg Neutrophils % % Lymphocytes % % Monocytes % % Eosinophils % % Basophils % % Neutrophils # (1.6-8.9) K/mcL Lymphocytes # (0.6-4.6) K/mcL Monocytes # (0.0-1.3) K/mcL Eosinophils # (0.0-0.6) K/mcL Basophils # (0.0-0.2) K/mcL D-Dimer (0-500) ng/mLFEU Sodium 135 L (136-145) mEq/L Potassium 3.8 (3.5-5.1) mEq/L Chloride 105 (98-107) mEq/L Carbon Dioxide 23 (23-29) mEq/L BUN 13 (8-23) mg/dL Creatinine 0.96 (0.60-1.20) mg/dL Est GFR ( Amer) > 60 (> 60) Est GFR (Non-Af Amer) 59 L (> 60) BUN/Creatinine Ratio 14 (6-26) Glucose 107 H (70-105) mg/dL Calculated Osmolality 281 (280-300) Calcium 8.9 (8.6-10.3) mg/dL Troponin I < 0.03 (< 0.04) ng/mL B-Natriuretic Peptide (Less than 100) pg/mL 07/22/17 07/22/17 07/22/17 Range/Units 21:56 21:56 21:56 WBC 12.5 H D (4.3-11.1) K/mcL RBC 3.64 L (3.82-4.97) M/mcL Hgb 11.1 L (11.5-15.4) g/dL Hct 35.2 L (35.3-44.9) % MCV 96.7 (83.0-100.0) fL MCH 30.5 (28.0-33.3) pg MCHC 31.5 L (31.6-35.5) g/dL RDW 14.6 H (11.5-14.5) % Plt Count 513 H D (140-400) K/mcL MPV 9.1 L (9.4-12.4) fL Immature Gran % 1.5 (0-4) % Seg Neutrophils % 73.8 % Lymphocytes % 14.2 % Monocytes % 8.1 % Eosinophils % 1.8 % Basophils % 0.6 % Neutrophils # 9.2 H (1.6-8.9) K/mcL Lymphocytes # 1.8 (0.6-4.6) K/mcL Monocytes # 1.0 (0.0-1.3) K/mcL Eosinophils # 0.2 (0.0-0.6) K/mcL Basophils # 0.1 (0.0-0.2) K/mcL D-Dimer 3679 H (0-500) ng/mLFEU Sodium (136-145) mEq/L Potassium (3.5-5.1) mEq/L Chloride (98-107) mEq/L Carbon Dioxide (23-29) mEq/L BUN (8-23) mg/dL Creatinine (0.60-1.20) mg/dL Est GFR ( Amer) (> 60) Est GFR (Non-Af Amer) (> 60) BUN/Creatinine Ratio (6-26) Glucose (70-105) mg/dL Calculated Osmolality (280-300) Calcium (8.6-10.3) mg/dL Troponin I (< 0.04) ng/mL B-Natriuretic Peptide 45 (Less than 100) pg/mL - Radiology Data Radiology results reviewed: Yes I reviewed the patient's radiology results. Chest CTA 07/23/17 22:48 IMPRESSION: 1. No evidence of pulmonary emboli. 2. Near-total collapse/atelectasis of the left lower lobe. Obstructing endobronchial lesion cannot be excluded. Follow-up 4 direct visualization with bronchoscopy is recommended. 3. Mild emphysema. 4. 3 mm nonspecific right lower lobe subpleural nodule. RECOMMENDATIONS: Fleischner Society guidelines for follow-up and management of incidentally detected pulmonary nodules: Single Solid Nodule: Nodule size less than 6 mm In a low-risk patient, no routine follow-up. In a high-risk patient, optional CT at 12 months. Nodule size equals 6-8 mm In a low-risk patient, CT at 6-12 months, then consider CT at 18-24 months. In a high-risk patient, CT at 6-12 months, then CT at 18-24 months. Nodule size greater than 8 mm In a low-risk patient, consider CT, PET/CT, or tissue sampling at 3 months. In a high-risk patient, consider CT, PET/CT, or tissue sampling at 3 months. Multiple Solid Nodules: Nodule size less than 6 mm In a low-risk patient, no routine follow-up. In a high-risk patient, optional CT at 12 months. Nodule size equals 6-8 mm In a low-risk patient, CT at 3-6 months, then consider CT at 18-24 months. In a high-risk patient, CT at 3-6 months, then CT at 18-24 months. Nodule size greater than 8 mm In a low-risk patient, CT at 3-6 months, then consider CT at 18-24 months. In a high-risk patient, CT at 3-6 months, then CT at 18-24 months. - Low risk patients include individuals with minimal or absent history of smoking and other known risk factors. - High risk patients include individuals with a history or smoking or known risk factors. Radiology 2017 http://pubs.[facility]na.org/doi/full/[email or web address] D/ / Lloyd Saleh MD / Lloyd Saleh MD Interpreting Provider: Lloyd Saleh MD
[2017-07-23] MEDS ORDERED: Naloxone 0.4 MG/ML INJ IVP PRN (03:31)
[2017-07-23] MEDS ORDERED: Albuterol 2.5 MG/3 ML NEBULIZER IH PRN (03:44)
[2017-07-23] MEDS ORDERED: Ipratropium/Albuterol Neb 3 ML IH PRN (03:44)
[2017-07-23] MEDS ORDERED: Furosemide 20 MG TABLET PO PRN (03:45)
[2017-07-23] MEDS ORDERED: Nitroglycerin 0.4 MG TAB.SUBL SL PRN (03:45)
[2017-07-23] MEDS ORDERED: 0.9 % Sodium Chloride 1,000 ML IVC SCH (04:00)
--- NOTE | 2017-07-23 04:11 | Internal Med History&Physical ---
<Ector Carltonel - Last Filed: 07/23/17 04:00> Date of Encounter: 07/23/17 Time of Encounter: 03:15 Assessment and Plan (1) Collapse of left lung Current visit: Yes Status: Acute Left Lower Lobar collapse of unknown etiology -- suspect occlusive or inflammatory process, e.g., PNA, mucous plug, neoplasia Patient oxygenating satisfactorily on 1-2L O2 via NC in NARD Work up thus far negative for ACS, CHF, and PE; negative for chest pain Will need to consult pulmonology for possible bronchoscopic evaluation; consult order placed pending call Due to recent URI symptoms and patient susceptibility, will treat with IV Levaquin in the meantime O2, duonebs, and albuterol nebs ordered (2) Closed right hip fracture Current visit: No Status: Acute Initial fall on 07/11/17 with surgery on 07/15/17 Surgical sites appear well-healing, intact, and without signs of acute infection /inflammation Expected distal hematoma/edema of RLE Qualifiers: Encounter type: initial encounter Qualified Code(s): S72.001A - Fracture of unspecified part of neck of right femur, initial encounter for closed fracture (3) Postoperative pain of extremity Current visit: Yes Status: Acute Does have some swelling, but work up was negative for DVT Patient still ambulatory with walker; denies any interim falls/injuries Will continue to control pain with necessary analgesics; oxycodone ordered PRN severe pain (4) Tachycardia Current visit: No Status: Acute EKG showed signs of LVH, but no acute ST abnormalities; negative chest pain/BNP/ troponin Likely secondary to acute hypoxic process as above Will give patient IVF, cont monitoring, and optimize oxygenation pending pulmonology consult (5) History of CVA (cerebrovascular accident) Current visit: No Status: Chronic contributor to aforementioned injury due to persistent lateralizing weakness (6) Tobacco abuse Current visit: No Status: Chronic Offered TD nicotine patch which was declined (7) DVT prophylaxis Current visit: No Status: Acute Subcutaneous heparin; held Lovenox Internal Medicine - H&P: HPI Chief complaint: right leg pain/swelling after surgery Admitted From: Emergency Dept History of present illness: Ms. Reveles is a 62 year old female with PMH of CVA, persistent right leg weakness, significant smoking history, and recent right hip fracture sustained in mechanical fall & s/p open fixation on 07/15/17 by [facility]. Patient presented today for increased pain and swelling to the RLE for the past two days. Denies erythema or warmth to surgical sites; does describe pain poorly controlled with home PO Oxycodone 5mg as well as bruising and right- lateralizing pedal edema. She usually has some mild edema right>left lower extremity, but this is beyond her norm. Is currently at home ambulatory with use of a FWW and pending insurance clearance for rehabilitation services. Patient's brother, present, also describes recent shortness of breath particularly with exertion. Has had recent URI as noted on prior admission, but patient states most of those symptoms have abated asigne from continued SOA/ cough. Denies current fever, palpitations, vomiting, syncope, diaphoresis, or chest pain. ED work up significant for mild leukocytosis and elevated d-dimer, which collectively prompted RLE VD-U/S and CTA-chest; work up negative for VTE/PE. CTA did, however, demonstrate LLL atelectasis/collapse. Patient is a 2-3ppd smoker for approximately 45 years and has no known history of lung cancer. Past Med Surg Social Fam HX - Past Medical History Attestation: Yes The following information was validated with the patient. Source: patient Medical history: arthritis, cancer, CVA, hypertension, peripheral artery disease , TIA Psychiatric history: anxiety - Past Surgical History Surgical History: carotid endarterectomy, hysterectomy, LE vascular intervention - Social History Smoking Status: Current every day smoker Smokeless Tobacco Status: No Alcohol use: none Drug use: none - Family History Mother Adopted: No Living Status: Hx Family Cardiac Disorders: Yes Hx Family Cancer: Yes Hx Family Endocrine Disorder: Yes (DM) Hx Family Neurologic Disorders: Yes ( FROM CVA.) Father Adopted: No Living Status: Hx Family Cardiac Disorders: Yes Internal Medicine - H&P: Meds Aspirin 325 mg PO DAILY 02/08/15 [History] Cholecalciferol (Vitamin D3) [Vitamin D3] 50,000 unit PO MO 02/08/15 [History] Clopidogrel [Plavix] 75 mg PO QAM 02/08/15 [History] Metoprolol XL (24 HR) Succ [Toprol XL] 25 mg PO QAM 02/08/15 [History] Nitroglycerin 0.4 mg SL Q5M PRN 02/08/15 [History] Omeprazole [PriLOSEC] 20 mg PO BID 02/08/15 [History] Potassium Chloride 5 meq PO QAM 02/08/15 [History] Gabapentin [Neurontin] 300 mg PO TID 12/28/15 [History] Atorvastatin [Lipitor] 40 mg PO HS 10/28/16 [History] Magnesium Oxide [Mag-Ox] 400 mg PO BID #60 tablet 11/05/16 [Rx] ALPRAZolam [Xanax 1 MG Tablet] 1 mg PO TID PRN 07/11/17 [History] Amlodipine Besylate 10 mg PO DAILY 07/11/17 [History] Furosemide [Lasix] 20 mg PO PRN PRN 07/11/17 [History] Lisinopril [Zestril] 10 mg PO DAILY 07/11/17 [History] Albuterol Sulfate [Albuterol Inhaler] 2 puff IH Q6HR PRN #1 hfa.aer.ad 07/16/17 [Rx] Enoxaparin [Lovenox] 40 mg SQ DAILY #18 syr 07/16/17 [Rx] Oxycodone HCl/Acetaminophen [Percocet 5-325 mg Tablet] 1 each PO Q4HR PRN #25 tablet 07/16/17 [Rx] 3 Allergy/AdvReac Type Severity Reaction Status Date / Time codeine Allergy itching, Verified 07/23/17 03:34 [From Tylenol-Codeine #3] redness Zolpidem [From Ambien] Allergy swelling,di Verified 07/23/17 03:34 sorientatio n All Systems PM: A 10-system review of systems was performed and is negative for pertinent findings except as documented above in the HPI. - Constitutional Vitals: Temp Pulse Resp BP Pulse Ox 98.1 F 108 16 142/92 97 07/23/17 03:39 07/23/17 03:39 07/23/17 03:39 07/23/17 03:39 07/23/17 03:39 General appearance: Present: A&O X 3, no acute distress, answers questions appropriately - Head Head exam: Present: atraumatic, normocephalic - Eye Eye exam: Present: PERRL, conjuntiva pink, sclera anicteric - Neck Neck exam general surgery: Present: supple, trachea midline - Respiratory Respiratory exam: Present: CTAB. Absent: accessory muscle use, rales, respiratory distress, rhonchi, wheezes Additional comments: diminished/absent breath sounds to LLL - Cardiovascular Cardiovascular exam: Present: RRR, +S1, +S2, tachycardia. Absent: diastolic murmur, gallop, rubs, +S3, +S4, systolic murmur - GI/Abdominal GI/Abdominal exam: Present: normal bowel sounds, soft. Absent: distended, tenderness - Extremities Exam Extremities exam: Present: warm, radial pulses palpable and symmetrical. Absent : calf tenderness, cyanotic, mottling, pedal edema Additional comments: RLE does exhibit expected hematoma and edema distal to operative site with no other signs of venous stasis; LLE without edema Operative sites without signs of acute infection or dehiscence - Neurological Exam Neurological exam: Absent: speech deficit - Skin Skin exam: Present: dry, intact, normal color. Absent: cyanosis, diaphoretic, erythema, mottled, pallor Internal Med - H&P Results - Labs CBC & Chem 7: 07/22/17 21:56 07/22/17 21:56 Labs: Short CBC 07/22/17 07/22/17 Range/Units 21:56 21:56 WBC 12.5 H D (4.3-11.1) K/mcL Hgb 11.1 L 11.1 L (11.5-15.4) g/dL Hct 35.2 L (35.3-44.9) % Plt Count 513 H D (140-400) K/mcL Neutrophils # 9.2 H (1.6-8.9) K/mcL BMP 07/22/17 21:56 Sodium 135 L Potassium 3.8 Chloride 105 Carbon Dioxide 23 BUN 13 Creatinine 0.96 Glucose 107 H Calcium 8.9 Cardiac Enzymes 07/22/17 Range/Units 21:56 Troponin I < 0.03 (< 0.04) ng/mL - Impressions ITS Impressions Chest CTA 07/23/17 22:48 IMPRESSION: 1. No evidence of pulmonary emboli. 2. Near-total collapse/atelectasis of the left lower lobe. Obstructing endobronchial lesion cannot be excluded. Follow-up 4 direct visualization with bronchoscopy is recommended. 3. Mild emphysema. 4. 3 mm nonspecific right lower lobe subpleural nodule. RECOMMENDATIONS: Fleischner Society guidelines for follow-up and management of incidentally detected pulmonary nodules: Single Solid Nodule: Nodule size less than 6 mm In a low-risk patient, no routine follow-up. In a high-risk patient, optional CT at 12 months. Nodule size equals 6-8 mm In a low-risk patient, CT at 6-12 months, then consider CT at 18-24 months. In a high-risk patient, CT at 6-12 months, then CT at 18-24 months. Nodule size greater than 8 mm In a low-risk patient, consider CT, PET/CT, or tissue sampling at 3 months. In a high-risk patient, consider CT, PET/CT, or tissue sampling at 3 months. Multiple Solid Nodules: Nodule size less than 6 mm In a low-risk patient, no routine follow-up. In a high-risk patient, optional CT at 12 months. Nodule size equals 6-8 mm In a low-risk patient, CT at 3-6 months, then consider CT at 18-24 months. In a high-risk patient, CT at 3-6 months, then CT at 18-24 months. Nodule size greater than 8 mm In a low-risk patient, CT at 3-6 months, then consider CT at 18-24 months. In a high-risk patient, CT at 3-6 months, then CT at 18-24 months. - Low risk patients include individuals with minimal or absent history of smoking and other known risk factors. - High risk patients include individuals with a history or smoking or known risk factors. Radiology 2017 http://pubs.rsna.org/doi/full/10.1148/radiol.2370160163 D/ / Lloyd Saleh MD / Lloyd Saleh MD Interpreting Provider: Lloyd Saleh MD <Pierre Bautista - Last Filed: 07/23/17 04:37> Date of Encounter: 07/23/17 Internal Medicine - H&P: HPI History of present illness: Ms. Reveles is a 62 year old female All Systems PM: A 10-system review of systems was performed and is negative for pertinent findings except as documented above in the HPI. - Constitutional Vitals: Temp Pulse Resp BP Pulse Ox 98.1 F 108 16 142/92 97 07/23/17 03:39 07/23/17 03:39 07/23/17 03:39 07/23/17 03:39 07/23/17 03:39 Internal Med - H&P Results - Labs CBC & Chem 7: 07/22/17 21:56 07/22/17 21:56 - Impressions ITS Impressions Chest CTA 07/23/17 22:48 IMPRESSION: 1. No evidence of pulmonary emboli. 2. Near-total collapse/atelectasis of the left lower lobe. Obstructing endobronchial lesion cannot be excluded. Follow-up 4 direct visualization with bronchoscopy is recommended. 3. Mild emphysema. 4. 3 mm nonspecific right lower lobe subpleural nodule. RECOMMENDATIONS: Fleischner Society guidelines for follow-up and management of incidentally detected pulmonary nodules: Single Solid Nodule: Nodule size less than 6 mm In a low-risk patient, no routine follow-up. In a high-risk patient, optional CT at 12 months. Nodule size equals 6-8 mm In a low-risk patient, CT at 6-12 months, then consider CT at 18-24 months. In a high-risk patient, CT at 6-12 months, then CT at 18-24 months. Nodule size greater than 8 mm In a low-risk patient, consider CT, PET/CT, or tissue sampling at 3 months. In a high-risk patient, consider CT, PET/CT, or tissue sampling at 3 months. Multiple Solid Nodules: Nodule size less than 6 mm In a low-risk patient, no routine follow-up. In a high-risk patient, optional CT at 12 months. Nodule size equals 6-8 mm In a low-risk patient, CT at 3-6 months, then consider CT at 18-24 months. In a high-risk patient, CT at 3-6 months, then CT at 18-24 months. Nodule size greater than 8 mm In a low-risk patient, CT at 3-6 months, then consider CT at 18-24 months. In a high-risk patient, CT at 3-6 months, then CT at 18-24 months. - Low risk patients include individuals with minimal or absent history of smoking and other known risk factors. - High risk patients include individuals with a history or smoking or known risk factors. Radiology 2017 http://pubs.rsna.org/doi/full/10.1148/radiol.5808778784 D/ / Lloyd Saleh MD / Lloyd Saleh MD Interpreting Provider: Lloyd Saleh MD - Attending Attestation I have seen and examined the patient independently. I have discussed with resident physician Dr Carlton regarding the management plan, agreed with the documentation
[2017-07-23 04:53] LABS: Basophils # 0.1 K/mcL (0.0-0.2); Basophils % 0.9 %; Eosinophils # 0.2 K/mcL (0.0-0.6); Eosinophils % 2.3 %; Hemoglobin 10.6 g/dL (11.5-15.4); Immature Granulocytes % 2.2 % (0-4); Lymphocytes # 1.8 K/mcL (0.6-4.6); Lymphocytes % 22.3 %; Mean Corpuscular HGB Conc 32.1 g/dL (31.6-35.5); Mean Corpuscular Hemoglobin 31.1 pg (28.0-33.3); Mean Corpuscular Volume 96.8 fL (83.0-100.0); Mean Platelet Volume 8.9 fL (9.4-12.4); Monocytes # 0.7 K/mcL (0.0-1.3); Monocytes % 8.6 %; Neutrophils # 5.2 K/mcL (1.6-8.9); Platelet Count 430 K/mcL (140-400); Red Blood Count 3.41 M/mcL (3.82-4.97); Red Cell Distribution Width 14.6 % (11.5-14.5); Segmented Neutrophils % 63.7 %
[2017-07-23] MEDS: Gabapentin 300 MG CAPSULE PO SCH ×4 (05:14→20:30)
[2017-07-23 05:20] LABS: BUN/Creatinine Ratio 20 (6-26); Blood Urea Nitrogen 18 mg/dL (8-23); Calcium 8.8 mg/dL (8.6-10.3); Carbon Dioxide 23 mEq/L (23-29); Chloride 106 mEq/L (98-107); Glucose 93 mg/dL (70-105); Osmolality,Calculated 286 (280-300); Potassium 3.7 mEq/L (3.5-5.1); Sodium 137 mEq/L (136-145); eGFR For African Americans > 60 (> 60); eGFR For Non-African Americans > 60 (> 60)
[2017-07-23] MEDS: *HR* OxyCODONE Immed Rel 5 MG TABLET PO PRN ×3 (05:22→18:05)
[2017-07-23] MEDS: *HR* Heparin 5,000 UNIT/ML VIAL SQ SCH ×2 (05:23→17:38)
--- NOTE | 2017-07-23 07:34 | Pulmonology Consult Note ---
Date of Encounter: 07/24/17 Time of Encounter: 07:30 Assessment and Plan (1) Collapse of left lung Current Visit: No Status: Inactive Patient had recent pneumonia before the fall concern for mucous plugging vs endobronchial lesion gave option of conservative mangement and follow up imaging Vs Bronchoscopy patient opted for conservative managment she is convinced this is all mucous i told her if this is not getting better she could get either a inpatient or outpatient bronchoscopy patient verbalized understanding ask RT to get Flutter valve and incentive spirometry counseled to her to use the device as instructed .Patient verbalized understanding (2) Pneumonia Current Visit: No Status: Acute it is reasonable to treat her with broad spectrum antibiotics because of recent hospitalization . To continue incentive spirometry and flutter valve . To give a short burst of steroids change to 40 mg PO Qualifiers: Pneumonia type: due to unspecified organism Laterality: right Lung location: lower lobe of lung Qualified Code(s): J18.1 - Lobar pneumonia, unspecified organism (3) COPD (chronic obstructive pulmonary disease) Current Visit: Yes Status: Chronic To continue prn bronchodilators patient doesnt look to be in COPD exacerbation Qualifiers: Qualified Code(s): J44.9 - Chronic obstructive pulmonary disease, unspecified History of Present Illness Consult date: 07/23/17 Requesting physician: Pierre Bautista Reason for consult: other (Left lower lobe collapse) Chief complaint: Lower extremity pain after surgery History of present illness: Ms. Reveles is a 62 year old female with PMH of CVA, persistent right leg weakness, significant smoking history, and recent right hip fracture sustained in mechanical fall & s/p open fixation on 07/15/17 by [facility]. Patient actually presented yesterday for increased pain and swelling to the RLE for the past two days. In the ED concern for DVT and PE , CTA and DVT scan didnt show any evidence of clot but showed left lower lobe collpase with mucous plugging left lower lobe airways , asked patient that before this mechanical fall she had a 2 week course of COPD exacerbation complicated by pneumonia ,now she denies any pulmonary symptoms like shortness of breadth , cough and sputum production , denies any fever or chills denies any chest pain or tightness . Pulmonary was consulted for bronchscopic evaluation for airways to look for mucous plugging and endobronchial obstruction . Past Med Surg Social Fam HX - Past Medical History Medical history: arthritis, cancer, CVA, hypertension, peripheral artery disease , TIA Psychiatric history: anxiety - Past Surgical History Surgical History: carotid endarterectomy, hysterectomy, LE vascular intervention - Social History Smoking Status: Current every day smoker Smokeless Tobacco Status: No Alcohol use: none Drug use: none - Family History Mother Adopted: No Living Status: Hx Family Cardiac Disorders: Yes Hx Family Cancer: Yes Hx Family Endocrine Disorder: Yes (DM) Hx Family Neurologic Disorders: Yes ( FROM CVA.) Father Adopted: No Living Status: Hx Family Cardiac Disorders: Yes Medications and Allergies Aspirin 325 mg PO DAILY 02/08/15 [History] Clopidogrel [Plavix] 75 mg PO QAM 02/08/15 [History] Metoprolol XL (24 HR) Succ [Toprol XL] 25 mg PO QAM 02/08/15 [History] Nitroglycerin 0.4 mg SL Q5M PRN 02/08/15 [History] Omeprazole [PriLOSEC] 20 mg PO BID 02/08/15 [History] Gabapentin [Neurontin] 300 mg PO TID 12/28/15 [History] Atorvastatin [Lipitor] 40 mg PO HS 10/28/16 [History] Magnesium Oxide [Mag-Ox] 400 mg PO BID #60 tablet 11/05/16 [Rx] ALPRAZolam [Xanax 1 MG Tablet] 1 mg PO TID PRN 07/11/17 [History] Amlodipine Besylate 10 mg PO DAILY 07/11/17 [History] Furosemide [Lasix] 20 mg PO PRN PRN 07/11/17 [History] Lisinopril [Zestril] 10 mg PO DAILY 07/11/17 [History] Albuterol Sulfate [Albuterol Inhaler] 2 puff IH Q6HR PRN #1 hfa.aer.ad 07/16/17 [Rx] Enoxaparin [Lovenox] 40 mg SQ DAILY #18 syr 07/16/17 [Rx] 3 Allergy/AdvReac Type Severity Reaction Status Date / Time codeine Allergy itching, Verified 07/23/17 03:34 [From Tylenol-Codeine #3] redness Zolpidem [From Ambien] Allergy swelling,di Verified 07/23/17 03:34 sorientatio n All Systems: All other systems were reviewed found to be negative Physical Examination Vital Signs: Vital Signs, Last 4 Hours Temp Pulse Resp BP Pulse Ox 07/23/17 06:58 98.7 F 101 20 124/84 98 07/23/17 03:39 98.1 F 108 16 142/92 97 07/23/17 03:38 106 Auscultation: left: diminished breath sounds Results - Laboratory Findings CBC and BMP: 07/24/17 07:49 07/24/17 07:49 PT/INR, D-dimer D-Dimer 3679 ng/mLFEU (0-500) H 07/22/17 21:56 Abnormal lab findings: Abnormal lab results RBC 3.41 M/mcL (3.82-4.97) L 07/23/17 04:32 Hgb 10.6 g/dL (11.5-15.4) L 07/23/17 04:32 Hct 33.0 % (35.3-44.9) L 07/23/17 04:32 RDW 14.6 % (11.5-14.5) H 07/23/17 04:32 Plt Count 430 K/mcL (140-400) H 07/23/17 04:32 MPV 8.9 fL (9.4-12.4) L 07/23/17 04:32 D-Dimer 3679 ng/mLFEU (0-500) H 07/22/17 21:56 - Clinical Findings Intake & Output: Intake & Output 07/22/17 07/22/17 07/23/17 15:59 23:59 07:59 Weight 58.3 kg Consult Discharge Plan - Plan Referrals: Emy Mcpherson PAC [Physician Chemist Inorganic] - 07/29/17 3:00 pm Gilbert Bradley MD [Primary Care Provider] - 08/05/17 9:45 am
[2017-07-23] MEDS: Acetaminophen 325 MG TABLET PO PRN ×2 (08:11→22:47)
[2017-07-23] MEDS: amLODIPine 5 MG TABLET PO SCH (08:11)
[2017-07-23] MEDS: Metoprolol XL (24 HR) Succ 25 MG TAB.ER.24H PO SCH (08:11)
[2017-07-23] MEDS: ALPRAZolam 1 MG TABLET PO PRN ×2 (08:17→15:09)
[2017-07-23] MEDS: 0.9 % Sodium Chloride 1,000 ML IVC SCH (10:29)
[2017-07-23] MEDS ORDERED: Vancomycin 1,000 MG in D5% in Water 250 ML IVPB SCH (12:00)
[2017-07-23] MEDS: methylPREDNISolone 125 MG/2 ML VIAL IVP SCH (15:08)
[2017-07-23] MEDS: Cefepime HCl 1,000 MG in Water for inj. (sterile) 20 ML 10 ML IVP SCH (17:11)
[2017-07-24] MEDS: 0.9 % Sodium Chloride 1,000 ML IVC SCH ×2 (00:21→12:23)
[2017-07-24] MEDS: methylPREDNISolone 125 MG/2 ML VIAL IVP SCH ×2 (00:21→08:50)
[2017-07-24] MEDS: *HR* OxyCODONE Immed Rel 5 MG TABLET PO PRN ×2 (00:22→06:22)
[2017-07-24] MEDS: ALPRAZolam 1 MG TABLET PO PRN ×4 (00:22→23:26)
[2017-07-24] MEDS: Levofloxacin 750 MG/150 ML 750 MG/150 ML BAG IVPB SCH (03:10)
[2017-07-24] MEDS: Vancomycin 1,000 MG in D5% in Water 250 ML IVPB SCH (05:23)
[2017-07-24] MEDS: *HR* Heparin 5,000 UNIT/ML VIAL SQ SCH ×2 (05:24→17:54)
[2017-07-24] MEDS: Acetaminophen 325 MG TABLET PO PRN (05:24)
[2017-07-24] MEDS: Cefepime HCl 1,000 MG in Water for inj. (sterile) 20 ML 10 ML IVP SCH (05:24)
[2017-07-24 08:40] LABS: Basophils % 0.3 %; Hematocrit 37.3 % (35.3-44.9); Immature Granulocytes % 1.6 % (0-4); Lymphocytes # 0.6 K/mcL (0.6-4.6); Lymphocytes % 8.8 %; Mean Corpuscular HGB Conc 32.7 g/dL (31.6-35.5); Mean Corpuscular Volume 94.9 fL (83.0-100.0); Mean Platelet Volume 8.9 fL (9.4-12.4); Monocytes # 0.2 K/mcL (0.0-1.3); Monocytes % 3.4 %; Platelet Count 538 K/mcL (140-400); Red Blood Count 3.93 M/mcL (3.82-4.97); Red Cell Distribution Width 14.6 % (11.5-14.5); Segmented Neutrophils % 85.9 %
[2017-07-24 08:55] LABS: BUN/Creatinine Ratio 25 (6-26); Blood Urea Nitrogen 16 mg/dL (8-23); Calcium 9.1 mg/dL (8.6-10.3); Carbon Dioxide 22 mEq/L (23-29); Chloride 105 mEq/L (98-107); Glucose 102 mg/dL (70-105); Osmolality,Calculated 281 (280-300); Potassium 3.9 mEq/L (3.5-5.1); Sodium 135 mEq/L (136-145); eGFR For African Americans > 60 (> 60); eGFR For Non-African Americans > 60 (> 60)
[2017-07-24 09:00] LABS: Hemoglobin 12.2 g/dL (11.5-15.4)
--- NOTE | 2017-07-24 09:23 | Internal Med Progress Note ---
Date of Encounter: 07/24/17 Time of Encounter: 09:19 - Assessment and plan (1) Lung collapse Current Visit: Yes Status: Acute Assessment and plan: Conservative management for now per pulmonary. Possible plans for Bronch. The patient is stable now and she is on room air. Encourage IS (2) HCAP (healthcare-associated pneumonia) Current Visit: Yes Status: Acute Assessment and plan: Continue with broad-spectrum antibiotics. Patient is on vancomycin, cefepime, Levaquin per pulmonary's recommendations. Continue nebulizers. Currently on room air. (3) COPD with acute exacerbation Current Visit: No Status: Acute Assessment and plan: Patient is in exacerbation. Continue with Solu-Medrol. Pulmonary is following. Continue nebulizers. (4) Closed right hip fracture Current Visit: No Status: Acute Assessment and plan: X-ray shows intact postsurgical findings. Continue pain control. Qualifiers: Encounter type: initial encounter Qualified Code(s): S72.001A - Fracture of unspecified part of neck of right femur, initial encounter for closed fracture (5) DVT prophylaxis Current Visit: No Status: Acute Assessment and plan: Heparin subcutaneous - Subjective Interval history: Patient was seen and examined. She is currently on room air. Feeling better. She has been afebrile. She was admitted on 07/23 with shortness of breath. Found to have near total lung collapse of the left lower lobe. She was seen by pulmonary. No bronchoscopy is planned for now. - Constitutional Vitals: Temp Pulse Resp BP Pulse Ox 97.3 F L 102 17 123/82 94 07/24/17 08:07 07/24/17 08:07 07/24/17 08:07 07/24/17 08:07 07/24/17 08:07 General appearance: Present: A&O X 3, no acute distress, answers questions appropriately Exam: GEN: NAD CVS: RRR. S1, S2, No m/r/g RESP: Diminished. ABD: Soft, NT, ND, +BS EXT: No edema. 2+ DP. No rashes NEURO: Nonfocal Internal Medicine: Result - Labs CBC & Chem 7: 07/24/17 07:49 07/24/17 07:49 Labs: Short CBC 07/24/17 Range/Units 07:49 WBC 7.0 (4.3-11.1) K/mcL Hgb 12.2 D (11.5-15.4) g/dL Hct 37.3 (35.3-44.9) % Plt Count 538 H (140-400) K/mcL Neutrophils # 6.0 (1.6-8.9) K/mcL BMP 07/24/17 07:49 Sodium 135 L Potassium 3.9 Chloride 105 Carbon Dioxide 22 L BUN 16 Creatinine 0.64 Glucose 102 Calcium 9.1 - ABG Interpretation ABG results: PT/INR, D-dimer D-Dimer 3679 ng/mLFEU (0-500) H 07/22/17 21:56 - Impressions Impressions Hip X-Ray 07/23/17 09:52 IMPRESSION: Interval ORIF of previously identified nondisplaced right femoral intertrochanteric fracture as compared to CT exam 07/13/2017. No evidence for hardware complication. Bony alignment appears to be maintained and anatomic. No new acute bony abnormalities are seen. Mild subcutaneous edema laterally about the right hip could relate to the recent surgical intervention or could be posttraumatic in nature. No radiopaque foreign bodies or soft tissue gas identified. Diffuse bone demineralization. D/ / 07/23/2017 10:38:25 Wisam Guerrero MD / eliot Interpreting Provider: Wisam Guerrero MD Chest CTA 07/23/17 22:48 IMPRESSION: 1. No evidence of pulmonary emboli. 2. Near-total collapse/atelectasis of the left lower lobe. Obstructing endobronchial lesion cannot be excluded. Follow-up or direct visualization with bronchoscopy is recommended. 3. Mild emphysema. 4. A 3 mm nonspecific right lower lobe subpleural nodule. RECOMMENDATIONS: Fleischner Society guidelines for follow-up and management of incidentally detected pulmonary nodules: Single Solid Nodule: Nodule size less than 6 mm In a low-risk patient, no routine follow-up. In a high-risk patient, optional CT at 12 months. Nodule size equals 6-8 mm In a low-risk patient, CT at 6-12 months, then consider CT at 18-24 months. In a high-risk patient, CT at 6-12 months, then CT at 18-24 months. Nodule size greater than 8 mm In a low-risk patient, consider CT, PET/CT, or tissue sampling at 3 months. In a high-risk patient, consider CT, PET/CT, or tissue sampling at 3 months. Multiple Solid Nodules: Nodule size less than 6 mm In a low-risk patient, no routine follow-up. In a high-risk patient, optional CT at 12 months. Nodule size equals 6-8 mm In a low-risk patient, CT at 3-6 months, then consider CT at 18-24 months. In a high-risk patient, CT at 3-6 months, then CT at 18-24 months. Nodule size greater than 8 mm In a low-risk patient, CT at 3-6 months, then consider CT at 18-24 months. In a high-risk patient, CT at 3-6 months, then CT at 18-24 months. - Low risk patients include individuals with minimal or absent history of smoking and other known risk factors. - High risk patients include individuals with a history or smoking or known risk factors. Radiology 2017 http://pubs.rsna.org/doi/full/10.1148/radiol.0823354314 D/ / 07/23/2017 07:16:55 Lloyd Saleh MD / darell Interpreting Provider: Lloyd Saleh MD Consult Discharge Plan - Plan Referrals: Emy Mcpherson PAC [Physician Pathology Specialist] - 07/29/17 3:00 pm Gilbert Bradley MD [Primary Care Provider] - 08/05/17 9:45 am
[2017-07-24] MEDS: Metoprolol XL (24 HR) Succ 25 MG TAB.ER.24H PO SCH (09:29)
[2017-07-24] MEDS: Gabapentin 300 MG CAPSULE PO SCH ×3 (09:29→22:01)
[2017-07-24] MEDS: amLODIPine 5 MG TABLET PO SCH (09:30)
[2017-07-24] MEDS ORDERED: *HR* OxyCODONE Immed Rel 5 MG TABLET PO ONE (09:38)
[2017-07-24] MEDS ORDERED: *HR* OxyCODONE Immed Rel 5 MG TABLET PO PRN (09:38)
--- NOTE | 2017-07-24 13:01 | Electrocardiograph Report ---
[address] [address] Test Date: 2017-07-22 Pat Name: Hannah Reveles Department: 104 Room: 2A Gender: F Outsole Scheduler: : 1955 Requested By: Christian Ross Order Number: [id number] Reading MD: Aneudy Johnson Measurements Intervals [place] Rate: 108 P: 60 FL: 128 QRS: 55 QRSD: 82 T: 77 QT: 352 QTc: 415 Interpretive Statements SINUS TACHYCARDIA POSSIBLE LEFT ATRIAL ENLARGEMENT NONSPECIFIC T-WAVE ABNORMALITY ABNORMAL RHYTHM ECG Electronically Signed On 07-24-2017 13:00:01 EST by Aneudy Johnson
[2017-07-24] MEDS: *HR* OxyCODONE/APAP 5/325 TABLET PO PRN ×3 (14:16→22:01)
[2017-07-24] MEDS: predniSONE 20 MG TABLET PO SCH (15:25)
[2017-07-24] MEDS: Cefepime HCl 2,000 MG in Water for inj. (sterile) 20 ML IVP SCH (17:53)
--- NOTE | 2017-07-24 19:49 | Pulmonology Progress Note ---
Date of Encounter: 07/25/17 Time of Encounter: 13:00 Assessment and Plan (1) Collapse of left lung Current Visit: No Status: Inactive Patient wanted to try conservative measures first Incentive Spirometry and Flutter Valve patient whole day she is was using IS and Flutter valve she is saying coughing sputum to send for culture . Encourage to do IS and Flutter Valve Q2 when she is awake . Patient wants to try conservative measures now and when she goes home wants to get reevaluated as outpatient , she is off Oxygen now on Room air . (2) Pneumonia Current Visit: No Status: Acute To send the expectorated sputum for culture to continue Levofloxacin Qualifiers: Pneumonia type: due to unspecified organism Laterality: right Lung location: lower lobe of lung Qualified Code(s): J18.1 - Lobar pneumonia, unspecified organism (3) COPD (chronic obstructive pulmonary disease) Current Visit: Yes Status: Chronic To continue the current regimen of bronchodilators . Patient not in COPD exacerbation Qualifiers: Qualified Code(s): J44.9 - Chronic obstructive pulmonary disease, unspecified Subjective Principal diagnosis: Left lower lobe collapse Interval history: Patient says she is feeling better able to breathe better she said yesterday did faithfully incentive Spirometry and Flutter Valve . Bringing up mucus collecting in a cup no hemoptysis no fever or chills . Objective PUL Vital signs: Last Vital Signs Temp 97.7 F 07/24/17 19:11 Pulse 113 07/24/17 19:11 Resp 16 07/24/17 19:11 BP 120/75 07/24/17 19:11 Pulse Ox 94 07/24/17 19:11 General appearance: other (in pain from her hip incision) Auscultation: left: diminished breath sounds Extremities: other (There is no erythema around the incision ) Results - Laboratory Findings CBC and BMP: 07/25/17 06:35 07/25/17 06:35 PT/INR, D-dimer D-Dimer 3679 ng/mLFEU (0-500) H 07/22/17 21:56 Abnormal lab findings: Abnormal lab results RDW 14.6 % (11.5-14.5) H 07/24/17 07:49 Plt Count 538 K/mcL (140-400) H 07/24/17 07:49 MPV 8.9 fL (9.4-12.4) L 07/24/17 07:49 D-Dimer 3679 ng/mLFEU (0-500) H 07/22/17 21:56 Sodium 135 mEq/L (136-145) L 07/24/17 07:49 Carbon Dioxide 22 mEq/L (23-29) L 07/24/17 07:49 - Clinical Findings Intake & Output: Intake & Output 07/24/17 07/24/17 07/24/17 07:59 15:59 23:59 Intake Total 1000 / 1000 1000 / 1000 360 / 360 Output Total 0 / 0 Balance 1000 / 1000 1000 / 1000 360 / 360 Consult Discharge Plan - Plan Instructions: Chronic Obstructive Pulmonary Disease (DC) Referrals: Emy Mcpherson PAC [Physician Bow Tacker] - 07/29/17 3:00 pm (Please follow up as schedule..) Gilbert Bradley MD [Primary Care Provider] - 08/05/17 9:45 am (Please follow up a sschedule...) Rohan Vale MD [Partnered Physician] - 08/06/17 8:15 am (Please follow up as schedule...) Prescriptions: Levofloxacin [Levaquin] 500 mg PO DAILY #5 tablet predniSONE [PredniSONE] 40 mg PO DAILY 2 Days #4 tablet
[2017-07-25] MEDS: *HR* OxyCODONE/APAP 5/325 TABLET PO PRN ×5 (03:07→20:10)
[2017-07-25] MEDS: Levofloxacin 750 MG/150 ML 750 MG/150 ML BAG IVPB SCH (04:00)
[2017-07-25] MEDS: 0.9 % Sodium Chloride 1,000 ML IVC SCH (05:01)
[2017-07-25] MEDS: Vancomycin 1,000 MG in D5% in Water 250 ML IVPB SCH (05:32)
[2017-07-25 06:47] LABS: Basophils % 0.1 %; Hematocrit 30.9 % (35.3-44.9); Immature Granulocytes % 0.7 % (0-4); Lymphocytes # 0.9 K/mcL (0.6-4.6); Lymphocytes % 7.5 %; Mean Corpuscular Volume 93.9 fL (83.0-100.0); Mean Platelet Volume 8.7 fL (9.4-12.4); Monocytes # 0.8 K/mcL (0.0-1.3); Monocytes % 6.9 %; Neutrophils # 10.3 K/mcL (1.6-8.9); Platelet Count 422 K/mcL (140-400); Red Blood Count 3.29 M/mcL (3.82-4.97); Red Cell Distribution Width 14.7 % (11.5-14.5); Segmented Neutrophils % 84.8 %
[2017-07-25 06:51] LABS: Hemoglobin 10.2 g/dL (11.5-15.4)
[2017-07-25 07:11] LABS: BUN/Creatinine Ratio 33 (6-26); Blood Urea Nitrogen 19 mg/dL (8-23); Calcium 8.8 mg/dL (8.6-10.3); Carbon Dioxide 23 mEq/L (23-29); Chloride 107 mEq/L (98-107); Glucose 116 mg/dL (70-105); Osmolality,Calculated 287 (280-300); Potassium 3.4 mEq/L (3.5-5.1); Sodium 137 mEq/L (136-145); eGFR For African Americans > 60 (> 60); eGFR For Non-African Americans > 60 (> 60)
[2017-07-25] MEDS: Cefepime HCl 2,000 MG in Water for inj. (sterile) 20 ML IVP SCH (07:39)
--- NOTE | 2017-07-25 08:19 | Discharge Summary ---
Date of Encounter: 07/25/17 Time of Encounter: 08:17 - Discharge Diagnosis (1) Lung collapse Priority: Primary Status: Acute (2) HCAP (healthcare-associated pneumonia) Priority: Primary Status: Acute (3) COPD with acute exacerbation Priority: Primary Status: Acute (4) Closed right hip fracture Priority: Secondary Status: Acute Qualifiers: Encounter type: initial encounter Qualified Code(s): S72.001A - Fracture of unspecified part of neck of right femur, initial encounter for closed fracture - Discharge Medications Prescriptions: Levofloxacin [Levaquin] 500 mg PO DAILY #5 tablet predniSONE [PredniSONE] 40 mg PO DAILY 2 Days #4 tablet Home Medications: Aspirin 325 mg PO DAILY 02/08/15 [History] Clopidogrel [Plavix] 75 mg PO QAM 02/08/15 [History] Metoprolol XL (24 HR) Succ [Toprol XL] 25 mg PO QAM 02/08/15 [History] Nitroglycerin 0.4 mg SL Q5M PRN 02/08/15 [History] Omeprazole [PriLOSEC] 20 mg PO BID 02/08/15 [History] Gabapentin [Neurontin] 300 mg PO TID 12/28/15 [History] Atorvastatin [Lipitor] 40 mg PO HS 10/28/16 [History] Magnesium Oxide [Mag-Ox] 400 mg PO BID #60 tablet 11/05/16 [Rx] ALPRAZolam [Xanax 1 MG Tablet] 1 mg PO TID PRN 07/11/17 [History] Amlodipine Besylate 10 mg PO DAILY 07/11/17 [History] Furosemide [Lasix] 20 mg PO PRN PRN 07/11/17 [History] Lisinopril [Zestril] 10 mg PO DAILY 07/11/17 [History] Albuterol Sulfate [Albuterol Inhaler] 2 puff IH Q6HR PRN #1 hfa.aer.[id number] 07/16/17 [Rx] Enoxaparin [Lovenox] 40 mg SQ DAILY #18 syr 07/16/17 [Rx] Levofloxacin [Levaquin] 500 mg PO DAILY #5 tablet 07/25/17 [Rx] predniSONE [PredniSONE] 40 mg PO DAILY 2 Days #4 tablet 07/25/17 [Rx] Allergies/Adverse Reactions: 3 Allergy/AdvReac Type Severity Reaction Status Date / Time codeine Allergy itching, Verified 07/23/17 03:34 [From Tylenol-Codeine #3] redness Zolpidem [From Ambien] Allergy swelling,di Verified 07/23/17 03:34 sorientatio n Date of admission: 07/23/17 02:21 Primary care physician: Gilbert Bradley MD Consults: 07/23/17 03:30 Consult to Sports Attorney [CONS] Routine Reason for SW Consult: pt had recent hip surgery on 07/15/17 and has not started pt/ot for this. Pt stated that she was having someone help her but doesnt remeber who it is 07/23/17 03:31 Consult to Occupational Therapy [CONS] Routine Comment: Evaluate, develop and implement POC Reason for Consult: recent rt hip fx with open fixation; uses walker Consult to Physical Therapy [CONS] Routine Comment: Evaluate, develop and implement POC Reason for Consult: recent rt hip fx with open fixation; uses walker Consult to Pulmonology [CONS] Routine Consulting Provider: [facility] Reason for Consult: LLL atelectasis/collapse; potential need for bronchoscopy Call Completed: No - Patient Status Disposition: Home, Self-Care Condition: Fair Overall status at discharge: patient is progressing back to baseline - Discharge Instructions Instructions: Chronic Obstructive Pulmonary Disease (DC) Follow Up With: Emy Mcpherson PAC [Physician Gym Teacher] - 07/29/17 3:00 pm (Please follow up as schedule..) Gilbert Bradley MD [Primary Care Provider] - 08/05/17 9:45 am (Please follow up a sschedule...) Rohan Vale MD [Partnered Physician] - 08/06/17 8:15 am (Please follow up as schedule...) - Diet and Activity Activity: as per physical therapy, increase activity as tolerated Diet: regular diet Hospital course: Ms. Reveles is a 62 year old female with PMH of CVA, persistent right leg weakness, significant smoking history, and recent right hip fracture sustained in mechanical fall & s/p open fixation on 07/15/17 by [facility]. Patient presented for increased pain and swelling to the RLE for the past two days. She usually has some mild edema right>left lower extremity, but this was beyond her norm. ED work up significant for mild leukocytosis and elevated d- dimer, which collectively prompted RLE VD-U/S and CTA-chest; work up negative for VTE/PE. CTA did, however, demonstrate LLL atelectasis/collapse. She was admitted for that to the hospitalist service and was treated with aggressive IS and pulmonary toilet. Pulmonary saw the patient and she wanted to stay away from bronch and wanted to try conservative measures. She was doing well on 2017 and was on room air. She was discharged to follow up with pulmonary and PCP. She was started on IV abx and steroids per pulmonary and was discharged on prednisone for a couple more days and oral levaquin. - Time Spent with Patient Total time spent providing and/or coordinating discharge services: Greater than 30 minutes - Constitutional Vitals: Temp Pulse Resp BP Pulse Ox 97.5 F L 99 17 128/73 96 07/25/17 07:02 07/25/17 07:02 07/25/17 07:02 07/25/17 07:02 07/25/17 07:02 General appearance: Present: A&O X 3, no acute distress, answers questions appropriately Exam: GEN: NAD CVS: RRR. S1, S2, No m/r/g RESP: Diminished. ABD: Soft, NT, ND, +BS EXT: No edema. 2+ DP. No rashes. decreased ROM on right lower extremity. not able to lift it above 45 degrees. No sensory loss NEURO: Nonfocal
[2017-07-25] MEDS: Metoprolol XL (24 HR) Succ 25 MG TAB.ER.24H PO SCH (08:24)
[2017-07-25] MEDS: amLODIPine 5 MG TABLET PO SCH (08:25)
[2017-07-25] MEDS: predniSONE 20 MG TABLET PO SCH (08:25)
[2017-07-25] MEDS: Gabapentin 300 MG CAPSULE PO SCH ×3 (08:25→20:10)
[2017-07-25] MEDS: *HR* Heparin 5,000 UNIT/ML VIAL SQ SCH ×2 (08:27→17:16)
--- NOTE | 2017-07-25 13:37 | Pulmonology Progress Note ---
Date of Encounter: 07/26/17 Time of Encounter: 11:30 Assessment and Plan (1) Collapse of left lung Current Visit: No Status: Inactive Patient wanted to try conservative measures first Incentive Spirometry and Flutter Valve patient whole day she is was using IS and Flutter valve she is saying coughing sputum to send for culture . Encourage to do IS and Flutter Valve Q2 when she is awake . Patient wants to try conservative measures now and when she goes home wants to get reevaluated as outpatient , she is off Oxygen now on Room air . Will schedule appointment in 6-8 weeks will get repeat imaging if the left lower lobe is not opened up patient willing to undergo bronchoscopy for now patient wants conservative managment . Offered bronchoscopy patient declined during this hospital stay as she is battling the pain issues . (2) Pneumonia Current Visit: No Status: Acute To continue levofloxacin on discharge 7-10 days of antibiotics Qualifiers: Pneumonia type: due to unspecified organism Laterality: left Lung location: lower lobe of lung Qualified Code(s): J18.1 - Lobar pneumonia, unspecified organism (3) COPD (chronic obstructive pulmonary disease) Current Visit: Yes Status: Chronic To continue the current regimen of bronchodilators . Patient not in COPD exacerbation . To send home on duoneb nebulizer and Symbicort BID inhaler Qualifiers: COPD type: chronic bronchitis Chronic bronchitis type: mucopurulent Qualified Code(s): J41.1 - Mucopurulent chronic bronchitis Subjective Principal diagnosis: Left lower lobe collapse Interval history: Patient says she is feeling better able to breathe better wants to continue incentive spirometry and flutter valve otherwise no other symptoms Objective PUL Vital signs: Last Vital Signs Temp 98.0 F 07/25/17 10:41 Pulse 104 07/25/17 10:41 Resp 18 07/25/17 10:41 BP 113/75 07/25/17 10:41 Pulse Ox 96 07/25/17 10:41 Auscultation: left: diminished breath sounds (much improved from yesterday mildly diminished ) Musculoskeletal: other (Pain in her surgery site ) Results - Laboratory Findings CBC and BMP: 07/26/17 05:47 07/26/17 05:47 PT/INR, D-dimer D-Dimer 3679 ng/mLFEU (0-500) H 07/22/17 21:56 Abnormal lab findings: Abnormal lab results WBC 12.1 K/mcL (4.3-11.1) H D 07/25/17 06:35 RBC 3.29 M/mcL (3.82-4.97) L 07/25/17 06:35 Hgb 10.2 g/dL (11.5-15.4) L D 07/25/17 06:35 Hct 30.9 % (35.3-44.9) L 07/25/17 06:35 RDW 14.7 % (11.5-14.5) H 07/25/17 06:35 Plt Count 422 K/mcL (140-400) H 07/25/17 06:35 MPV 8.7 fL (9.4-12.4) L 07/25/17 06:35 Neutrophils # 10.3 K/mcL (1.6-8.9) H 07/25/17 06:35 D-Dimer 3679 ng/mLFEU (0-500) H 07/22/17 21:56 Potassium 3.4 mEq/L (3.5-5.1) L 07/25/17 06:35 Creatinine 0.57 mg/dL (0.60-1.20) L 07/25/17 06:35 BUN/Creatinine Ratio 33 (6-26) H 07/25/17 06:35 Glucose 116 mg/dL (70-105) H 07/25/17 06:35 - Clinical Findings Intake & Output: Intake & Output 07/24/17 07/25/17 07/25/17 23:59 07:59 15:59 Intake Total 380 / 380 1000 / 1000 120 / 120 Output Total 650 / 650 1200 / 1200 Balance -270 / -270 -200 / -200 120 / 120 Weight 57.266 kg Consult Discharge Plan - Plan Instructions: Chronic Obstructive Pulmonary Disease (DC) Referrals: Emy Mcpherson PAC [Physician Case Management Assistant] - 07/29/17 3:00 pm (Please follow up as schedule..) Gilbert Bradley MD [Primary Care Provider] - 08/05/17 9:45 am (Please follow up a sschedule...) Rohan Vale MD [Partnered Physician] - 08/06/17 8:15 am (Please follow up as schedule...) Prescriptions: Levofloxacin [Levaquin] 500 mg PO DAILY #5 tablet predniSONE [PredniSONE] 40 mg PO DAILY 2 Days #4 tablet
[2017-07-25] MEDS: ALPRAZolam 1 MG TABLET PO PRN (14:02)
--- NOTE | 2017-07-25 20:53 | Event Note ---
Date of Encounter: 07/25/17 Time of Encounter: 18:00 Found out from nursing staff that patient wasn't getting discharged as her insurance would not approve home health. She does not want placement into rehab /SNF. Will have to stay hospitalized till Thursday for social workers to see and work on options that would get covered by her insurance.
[2017-07-26] MEDS: *HR* OxyCODONE/APAP 5/325 TABLET PO PRN ×6 (00:10→21:21)
[2017-07-26] MEDS: ALPRAZolam 1 MG TABLET PO PRN ×4 (00:10→21:25)
[2017-07-26] MEDS: 0.9 % Sodium Chloride 1,000 ML IVC SCH ×2 (00:10→17:05)
[2017-07-26] MEDS: Levofloxacin 750 MG/150 ML 750 MG/150 ML BAG IVPB SCH (02:37)
[2017-07-26] MEDS: *HR* Heparin 5,000 UNIT/ML VIAL SQ SCH ×2 (04:26→17:05)
[2017-07-26 06:14] LABS: Basophils % 0.6 %; Eosinophils % 0.1 %; Hematocrit 31.1 % (35.3-44.9); Hemoglobin 10.1 g/dL (11.5-15.4); Immature Granulocytes % 0.6 % (0-4); Lymphocytes # 1.6 K/mcL (0.6-4.6); Lymphocytes % 23.5 %; Mean Corpuscular HGB Conc 32.5 g/dL (31.6-35.5); Mean Corpuscular Hemoglobin 30.4 pg (28.0-33.3); Mean Corpuscular Volume 93.7 fL (83.0-100.0); Mean Platelet Volume 8.8 fL (9.4-12.4); Monocytes # 0.8 K/mcL (0.0-1.3); Monocytes % 11.5 %; Neutrophils # 4.3 K/mcL (1.6-8.9); Platelet Count 386 K/mcL (140-400); Red Blood Count 3.32 M/mcL (3.82-4.97); Red Cell Distribution Width 14.6 % (11.5-14.5); Segmented Neutrophils % 63.7 %
[2017-07-26 06:32] LABS: BUN/Creatinine Ratio 28 (6-26); Blood Urea Nitrogen 19 mg/dL (8-23); Calcium 8.6 mg/dL (8.6-10.3); Carbon Dioxide 24 mEq/L (23-29); Chloride 109 mEq/L (98-107); Glucose 81 mg/dL (70-105); Osmolality,Calculated 291 (280-300); Potassium 3.5 mEq/L (3.5-5.1); Sodium 140 mEq/L (136-145); eGFR For African Americans > 60 (> 60); eGFR For Non-African Americans > 60 (> 60)
[2017-07-26] MEDS: predniSONE 20 MG TABLET PO SCH (08:20)
[2017-07-26] MEDS: Metoprolol XL (24 HR) Succ 25 MG TAB.ER.24H PO SCH (08:20)
[2017-07-26] MEDS: Gabapentin 300 MG CAPSULE PO SCH ×3 (08:20→21:21)
[2017-07-26] MEDS: amLODIPine 5 MG TABLET PO SCH (08:20)
--- NOTE | 2017-07-26 10:34 | Internal Med Progress Note ---
Date of Encounter: 07/26/17 Time of Encounter: 08:00 - Assessment and plan (1) Lung collapse Current Visit: Yes Status: Acute Assessment and plan: Conservative management for now per pulmonary. No plans for bronch. The patient is stable now and she is on room air. Encourage IS (2) HCAP (healthcare-associated pneumonia) Current Visit: Yes Status: Acute Assessment and plan: Continue Levaquin Continue nebulizers. Currently on room air. (3) COPD with acute exacerbation Current Visit: No Status: Acute Assessment and plan: Patient is in exacerbation. On oral prednisone. Pulmonary is following. Continue nebulizers. (4) Closed right hip fracture Current Visit: No Status: Acute Assessment and plan: X-ray shows intact postsurgical findings. Continue pain control. Qualifiers: Encounter type: initial encounter Qualified Code(s): S72.001A - Fracture of unspecified part of neck of right femur, initial encounter for closed fracture (5) DVT prophylaxis Current Visit: No Status: Acute Assessment and plan: Heparin subcutaneous - Subjective Interval history: Patient was seen and examined. No acute events. Was not able to discharge yesterday as she has had issues with her insurance covering for home health. She will end up staying until Thursday to be seen by social workers to see what her insurance will cover. She is currently on room air. Feeling better. She has been afebrile. She was admitted on 07/23 with shortness of breath. Found to have near total lung collapse of the left lower lobe. She was seen by pulmonary. No bronchoscopy is planned for now. - Constitutional Vitals: Temp Pulse Resp BP Pulse Ox 97.3 F L 75 16 114/64 96 07/26/17 03:10 07/26/17 03:10 07/26/17 03:10 07/26/17 03:10 07/26/17 03:10 General appearance: Present: A&O X 3, no acute distress, answers questions appropriately Exam: GEN: NAD CVS: RRR. S1, S2, No m/r/g RESP: Diminished. ABD: Soft, NT, ND, +BS EXT: No edema. 2+ DP. No rashes NEURO: Nonfocal Internal Medicine: Result - Labs CBC & Chem 7: 07/26/17 05:47 07/26/17 05:47 Labs: Short CBC 07/26/17 Range/Units 05:47 WBC 6.8 (4.3-11.1) K/mcL Hgb 10.1 L (11.5-15.4) g/dL Hct 31.1 L (35.3-44.9) % Plt Count 386 (140-400) K/mcL Neutrophils # 4.3 (1.6-8.9) K/mcL BMP 07/26/17 05:47 Sodium 140 Potassium 3.5 Chloride 109 H Carbon Dioxide 24 BUN 19 Creatinine 0.68 Glucose 81 Calcium 8.6 - ABG Interpretation ABG results: PT/INR, D-dimer D-Dimer 3679 ng/mLFEU (0-500) H 07/22/17 21:56 Consult Discharge Plan - Plan Instructions: Chronic Obstructive Pulmonary Disease (DC) Referrals: Emy Mcpherson PAC [Physician Counter Waitress/Waiter] - 07/29/17 3:00 pm (Please follow up as schedule..) Gilbert Bradley MD [Primary Care Provider] - 08/05/17 9:45 am (Please follow up a sschedule...) Rohan Vale MD [Partnered Physician] - 08/06/17 8:15 am (Please follow up as schedule...) Prescriptions: Levofloxacin [Levaquin] 500 mg PO DAILY #5 tablet predniSONE [PredniSONE] 40 mg PO DAILY 2 Days #4 tablet
[2017-07-26] MEDS: *HR* OxyCODONE Immed Rel 5 MG TABLET PO PRN (22:25)
[2017-07-27] MEDS: *HR* OxyCODONE Immed Rel 5 MG TABLET PO PRN (05:44)
[2017-07-27] MEDS: *HR* Heparin 5,000 UNIT/ML VIAL SQ SCH (05:44)
[2017-07-27 06:00] LABS: Basophils # 0.1 K/mcL (0.0-0.2); Basophils % 0.7 %; Eosinophils % 0.6 %; Hematocrit 35.4 % (35.3-44.9); Hemoglobin 11.2 g/dL (11.5-15.4); Immature Granulocytes % 0.3 % (0-4); Lymphocytes # 2.1 K/mcL (0.6-4.6); Lymphocytes % 29.4 %; Mean Corpuscular HGB Conc 31.6 g/dL (31.6-35.5); Mean Corpuscular Hemoglobin 30.4 pg (28.0-33.3); Mean Corpuscular Volume 96.2 fL (83.0-100.0); Mean Platelet Volume 9.1 fL (9.4-12.4); Monocytes # 0.9 K/mcL (0.0-1.3); Monocytes % 12.8 %; Neutrophils # 3.9 K/mcL (1.6-8.9); Platelet Count 412 K/mcL (140-400); Red Blood Count 3.68 M/mcL (3.82-4.97); Red Cell Distribution Width 14.5 % (11.5-14.5); Segmented Neutrophils % 56.2 %
[2017-07-27 06:08] VITALS: BP 157/102
[2017-07-27 06:43] LABS: BUN/Creatinine Ratio 32 (6-26); Blood Urea Nitrogen 20 mg/dL (8-23); Calcium 8.9 mg/dL (8.6-10.3); Carbon Dioxide 25 mEq/L (23-29); Chloride 108 mEq/L (98-107); Glucose 77 mg/dL (70-105); Osmolality,Calculated 291 (280-300); Potassium 3.9 mEq/L (3.5-5.1); Sodium 140 mEq/L (136-145); eGFR For African Americans > 60 (> 60); eGFR For Non-African Americans > 60 (> 60)
[2017-07-27] MEDS: *HR* OxyCODONE/APAP 5/325 TABLET PO PRN ×2 (07:29→11:52)
[2017-07-27] MEDS: 0.9 % Sodium Chloride 1,000 ML IVC SCH (07:29)
[2017-07-27] MEDS ORDERED: levoFLOXacin 750 MG TABLET PO SCH (08:00)
[2017-07-27] MEDS: amLODIPine 5 MG TABLET PO SCH (08:41)
[2017-07-27] MEDS: predniSONE 20 MG TABLET PO SCH (08:41)
[2017-07-27] MEDS: Metoprolol XL (24 HR) Succ 25 MG TAB.ER.24H PO SCH (08:41)
[2017-07-27] MEDS: Gabapentin 300 MG CAPSULE PO SCH (08:41)
[2017-07-27] MEDS: ALPRAZolam 1 MG TABLET PO PRN (08:45)
--- NOTE | 2017-07-27 08:45 | Internal Med Progress Note ---
Date of Encounter: 07/27/17 Time of Encounter: 08:44 - Assessment and plan (1) Lung collapse Current Visit: Yes Status: Acute Assessment and plan: Conservative management for now per pulmonary. No plans for bronch. The patient is stable now and she is on room air. Encourage IS (2) HCAP (healthcare-associated pneumonia) Current Visit: Yes Status: Acute Assessment and plan: Continue Levaquin Continue nebulizers. Currently on room air. (3) COPD with acute exacerbation Current Visit: No Status: Acute Assessment and plan: Patient is in exacerbation. On oral prednisone. last dose today. Pulmonary is following. Continue nebulizers. (4) Closed right hip fracture Current Visit: No Status: Acute Assessment and plan: X-ray shows intact postsurgical findings. Continue pain control. Qualifiers: Encounter type: initial encounter Qualified Code(s): S72.001A - Fracture of unspecified part of neck of right femur, initial encounter for closed fracture (5) DVT prophylaxis Current Visit: No Status: Acute Assessment and plan: Heparin subcutaneous - Subjective Interval history: Patient was seen and examined. No acute events. Social workers are working on getting her help. She will end up staying until Thursday to be seen by social workers to see what her insurance will cover. She is currently on room air. Feeling better. She has been afebrile. She was admitted on 07/23 with shortness of breath. Found to have near total lung collapse of the left lower lobe. She was seen by pulmonary. No bronchoscopy is planned - Constitutional Vitals: Temp Pulse Resp BP Pulse Ox 97.6 F 90 16 157/102 93 07/27/17 06:07 07/27/17 06:07 07/27/17 06:07 07/27/17 06:07 07/27/17 06:07 General appearance: Present: A&O X 3, no acute distress, answers questions appropriately Exam: GEN: NAD CVS: RRR. S1, S2, No m/r/g RESP: Diminished. ABD: Soft, NT, ND, +BS EXT: No edema. 2+ DP. No rashes NEURO: Nonfocal Internal Medicine: Result - Labs CBC & Chem 7: 07/27/17 05:32 07/27/17 05:32 Labs: Short CBC 07/27/17 Range/Units 05:32 WBC 7.0 (4.3-11.1) K/mcL Hgb 11.2 L (11.5-15.4) g/dL Hct 35.4 (35.3-44.9) % Plt Count 412 H (140-400) K/mcL Neutrophils # 3.9 (1.6-8.9) K/mcL BMP 07/27/17 05:32 Sodium 140 Potassium 3.9 Chloride 108 H Carbon Dioxide 25 BUN 20 Creatinine 0.63 Glucose 77 Calcium 8.9 - ABG Interpretation ABG results: PT/INR, D-dimer D-Dimer 3679 ng/mLFEU (0-500) H 07/22/17 21:56 Consult Discharge Plan - Plan Instructions: Chronic Obstructive Pulmonary Disease (DC) Referrals: Emy Mcpherson PAC [Physician Driver Lifter Of Sanitation Truck] - 07/29/17 3:00 pm (Please follow up as schedule..) Gilbert Bradley MD [Primary Care Provider] - 08/05/17 9:45 am (Please follow up a sschedule...) Rohan Vale MD [Partnered Physician] - 08/06/17 8:15 am (Please follow up as schedule...) Prescriptions: Levofloxacin [Levaquin] 500 mg PO DAILY #5 tablet OxyCODONE/APAP 5/325 [Percocet 5/325 MG] 1 each PO Q6H PRN 3 Days #12 tablet PRN Reason: Severe Pain (7-10)
[2017-07-27] MEDS ORDERED: Aminoglycoside Consult 1 EACH MC ONE (13:37)
== END 2017-07-27 13:38 | disposition home or self-care (01) | DRG 205 ==
LOC: 2NNU 21:18 → EMEROO 21:18 → 2NNU 07-23 02:42 → 2ANU 07-23 17:00
PROVIDERS: ADMIT Internal Medicine; ATTEND Internal Medicine

== ENCOUNTER 2018-09-21 12:01 | Inpatient (IN) ==
[2018-09-21 13:23] LABS: Basophils % 0.5 %; Eosinophils # 0.2 K/mcL (0.0-0.6); Eosinophils % 2.1 %; Hematocrit 43.8 % (35.3-44.9); Hemoglobin 14.6 g/dL (11.5-15.4); Immature Granulocytes % 0.6 % (0-4); Lymphocytes # 1.4 K/mcL (0.6-4.6); Lymphocytes % 15.7 %; Mean Corpuscular HGB Conc 33.3 g/dL (31.6-35.5); Mean Corpuscular Hemoglobin 30.4 pg (28.0-33.3); Mean Corpuscular Volume 91.3 fL (83.0-100.0); Mean Platelet Volume 8.5 fL (9.4-12.4); Monocytes # 0.5 K/mcL (0.0-1.3); Monocytes % 5.3 %; Neutrophils # 6.5 K/mcL (1.6-8.9); Platelet Count 288 K/mcL (140-400); Red Cell Distribution Width 13.6 % (11.5-14.5); Segmented Neutrophils % 75.8 %
[2018-09-21 13:50] LABS: BUN/Creatinine Ratio 15 (6-26); Blood Urea Nitrogen 8 mg/dL (8-23); Calcium 9.8 mg/dL (8.6-10.3); Carbon Dioxide 29 mEq/L (23-29); Chloride 88 mEq/L (98-107); Glucose 96 mg/dL (70-105); Osmolality,Calculated 268 (280-300); Potassium 3.9 mEq/L (3.5-5.1); Sodium 130 mEq/L (136-145); Troponin I < 0.03 ng/mL (< 0.04); eGFR For Non-African Americans > 60 (> 60)
[2018-09-21] MEDS ORDERED: Isovue-370 500 ML BOTTLE IVP ONE (14:05)
[2018-09-21] MEDS ORDERED: 0.9 % Sodium Chloride 500 ML IVC ONE (14:05)
--- NOTE | 2018-09-21 14:09 | Emergency Department Note ---
Disposition Clinical Impression: Shortness of breath, Tachycardia Disposition: Admitted As Inpatient Condition: Undetermined Time of Disposition: 16:36 SOB HPI - General Chief Complaint: ED Shortness of Breath/Dyspnea Stated Complaint: MEKA Time Seen by Provider: 09/21/18 13:56 Source: family Mode of arrival: wheelchair Limitations: no limitations Nursing Notes Reviewed: Yes Vital Signs Reviewed: Yes - History of Present Illness 63-year-old female history of COPD, "brittle bone disease" for hives to the emergency department with complaint of difficulty in breathing. The patient has been diagnosed with a bronchitis and has been having shortness of breath over the course the past 3 months. The patient has had admission she was actually admitted for concern for pneumonia and subsequently transferred to [facility] with known compression fracture of the thoracic spine. The patient has had that not repaired. She had another episode where she has been experiencing worsening shortness of breath. She was essentially supposed to receive surgery today for her compression fracture but they evaluated her and noted that she is continued to have difficulty breathing so they sent her to the emergency department. The patient is in no respiratory distress but is noted to be tachycardic with a heart rate 117. She denies any associate chest pain, new unilateral leg swing, hemoptysis, recent surgeries or immobilizations, history DVT or PE. The patient takes no anti-coagulation. Patient denies any abdominal pain, nausea, vomiting, diarrhea. - Related Data Home Medications Medication Instructions Recorded Confirmed RX: ALPRAZolam [Xanax 1 MG Tablet] 1 mg PO BID PRN 02/11/18 09/21/18 RX: Amlodipine Besylate 10 mg PO DAILY 02/11/18 09/21/18 RX: Atorvastatin [Lipitor] 40 mg PO HS 02/11/18 09/21/18 RX: Clopidogrel [Plavix] 75 mg PO DAILY 02/11/18 09/21/18 RX: Docusate [Colace] 100 mg PO BID PRN 02/11/18 09/21/18 RX: Ergocalciferol (VITAMIN D2) 50,000 unit PO FR 02/11/18 09/21/18 [Vitamin D2] RX: Furosemide [Lasix] 20 mg PO DAILY PRN 02/11/18 09/21/18 RX: Gabapentin [Neurontin] 300 mg PO 08,16 02/11/18 09/21/18 RX: Lisinopril [Zestril] 10 mg PO DAILY 02/11/18 09/21/18 RX: Omeprazole [PriLOSEC] 40 mg PO DAILY 02/11/18 09/21/18 Albuterol Sulfate [Proair Hfa] 2 puff IH Q6H PRN 09/21/18 09/21/18 Alendronate Sodium [Fosamax] 70 mg PO WE 09/21/18 09/21/18 Aspirin [Ecotrin] 325 mg PO DAILY 09/21/18 09/21/18 Calcitonin,[place],Synthetic 1 spray NS DAILY 09/21/18 09/21/18 [Calcitonin-[place]] Gabapentin [Neurontin] 600 mg PO HS 09/21/18 09/21/18 HYDROcodone/Acet 5/325 mg [[place] 1 tab PO Q6H PRN 09/21/18 09/21/18 5-325 mg] Potassium Chloride [Klor-Con 10] 5 meq PO DAILY 09/21/18 09/21/18 Allergies Allergy/AdvReac Type Severity Reaction Status Date / Time codeine Allergy itching, Verified 09/21/18 11:23 [From Tylenol-Codeine #3] redness Zolpidem [From Ambien] Allergy swelling,di Verified 09/21/18 11:23 sorientatio n All systems ED: reviewed and negative except as stated. Constitutional: Denies: fever, chills, weakness ENT ED: Denies: dysphagia Cardiovascular: Denies: chest pain Respiratory: Reports: cough, dyspnea, wheezes. Denies: sputum production Gastrointestinal: Denies: abdominal pain, nausea, vomiting Genitourinary: Denies: urgency, dysuria Musculoskeletal: Reports: back pain. Denies: neck pain, arthralgia, myalgia Integumentary: Denies: rash Neurological: Reports: weakness. Denies: headache, numbness, paresthesias, confusion Past Medical History - Past Medical History Attestation: Yes The following information was validated with the patient. Source: patient, old records reviewed Medical history: Reports: arthritis, cancer, CVA, hyperlipidemia, hypertension, peripheral artery disease, TIA Surgical history: Reports: carotid endarterectomy, hysterectomy, LE vascular intervention Psychiatric history: Reports: anxiety, depression [employer] history: Reports: bilateral tubal ligation - Social History Smoking Status: Current every day smoker Smokeless Tobacco Status: No Alcohol use: Reports: none Drug use: Reports: none Physical Exam - General Limitations: no limitations General appearance: alert, in no apparent distress - Head Head exam: atraumatic, normocephalic, normal inspection - Eye Eye exam: Present: normal appearance, PERRL, EOMI - ENT ENT exam: normal exam, normal oropharynx, mucous membranes moist - Neck Neck exam: Present: normal inspection, full ROM, trachea midline - Chest Chest inspection: Present: normal inspection, symmetric chest wall rise - Respiratory Respiratory exam: Present: wheezes (mild), other (coarse breath sounds bilaterally.). Absent: respiratory distress - Cardiovascular Cardiovascular exam: Present: normal rhythm, tachycardia, normal heart sounds - Abdominal Exam Abdominal exam: Present: soft, Non-Tender. Absent: tenderness, distention, guarding, rebound, rigidity - Extremities Exam Extremities exam: Present: normal inspection, full ROM. Absent: tenderness, pedal edema - Neurological Exam Neurological exam: Present: alert, oriented X3 - Skin Skin exam: Present: warm, dry, intact, normal color Course Vital Signs Temperature 98.7 F 09/21/18 12:07 Pulse Rate 116 09/21/18 12:07 Respiratory Rate 20 09/21/18 12:07 Blood Pressure 129/86 09/21/18 12:07 O2 Sat by Pulse Oximetry 92 09/21/18 12:07 Temperature 98.7 F 09/21/18 12:07 Pulse Rate 116 09/21/18 12:07 Respiratory Rate 20 09/21/18 12:07 Blood Pressure 129/86 09/21/18 12:07 O2 Sat by Pulse Oximetry 95 09/21/18 14:40 Oxygen Delivery Oxygen Delivery Room Air Shortness of Breath/Dyspnea - MDM Narrative Medical decision making narrative: Patient's ED demonstrates no acute process. Findings consistent with COPD exacerbation. No PE on CTA of the chest. Patient will be admitted secondary to dyspnea. Patient agrees to plan of care at this time. The patient had a CT of the head and cervical spine given the patient's multiple falls over the past 2 days. Patient was noted to be tachycardic and with recent immobilizations, CTA of the chest was obtained. All of which are negative for any acute process. The patient is still dyspneic so we will admit the patient to the hospital at this time. Treated the patient with DuoNeb's as well as Solu-Medrol. - Lab Data Lab results reviewed: Yes I reviewed the patient's lab results. Result diagrams: 09/21/18 13:07 09/21/18 13:07 Lab Results 09/21/18 09/21/18 09/21/18 Range/Units 13:07 13:07 13:07 WBC 8.6 (4.3-11.1) K/mcL RBC 4.80 (3.82-4.97) M/mcL Hgb 14.6 (11.5-15.4) g/dL Hct 43.8 (35.3-44.9) % MCV 91.3 (83.0-100.0) fL MCH 30.4 (28.0-33.3) pg MCHC 33.3 (31.6-35.5) g/dL RDW 13.6 (11.5-14.5) % Plt Count 288 (140-400) K/mcL MPV 8.5 L (9.4-12.4) fL Immature Gran % 0.6 (0-4) % Seg Neutrophils % 75.8 % Lymphocytes % 15.7 % Monocytes % 5.3 % Eosinophils % 2.1 % Basophils % 0.5 % Neutrophils # 6.5 (1.6-8.9) K/mcL Lymphocytes # 1.4 (0.6-4.6) K/mcL Monocytes # 0.5 (0.0-1.3) K/mcL Eosinophils # 0.2 (0.0-0.6) K/mcL Basophils # 0.0 (0.0-0.2) K/mcL Sodium 130 L (136-145) mEq/L Potassium 3.9 (3.5-5.1) mEq/L Chloride 88 L (98-107) mEq/L Carbon Dioxide 29 (23-29) mEq/L BUN 8 (8-23) mg/dL Creatinine 0.52 L (0.60-1.20) mg/dL Est GFR ( Amer) > 60 (> 60) Est GFR (Non-Af Amer) > 60 (> 60) BUN/Creatinine Ratio 15 (6-26) Glucose 96 (70-105) mg/dL Calculated Osmolality 268 L (280-300) Lactic Acid 0.9 (0.5-2.2) mmol/L Calcium 9.8 (8.6-10.3) mg/dL Troponin I < 0.03 (< 0.04) ng/mL B-Natriuretic Peptide (Less than 100) pg/mL 09/21/18 Range/Units 13:07 WBC (4.3-11.1) K/mcL RBC (3.82-4.97) M/mcL Hgb (11.5-15.4) g/dL Hct (35.3-44.9) % MCV (83.0-100.0) fL MCH (28.0-33.3) pg MCHC (31.6-35.5) g/dL RDW (11.5-14.5) % Plt Count (140-400) K/mcL MPV (9.4-12.4) fL Immature Gran % (0-4) % Seg Neutrophils % % Lymphocytes % % Monocytes % % Eosinophils % % Basophils % % Neutrophils # (1.6-8.9) K/mcL Lymphocytes # (0.6-4.6) K/mcL Monocytes # (0.0-1.3) K/mcL Eosinophils # (0.0-0.6) K/mcL Basophils # (0.0-0.2) K/mcL Sodium (136-145) mEq/L Potassium (3.5-5.1) mEq/L Chloride (98-107) mEq/L Carbon Dioxide (23-29) mEq/L BUN (8-23) mg/dL Creatinine (0.60-1.20) mg/dL Est GFR ( Amer) (> 60) Est GFR (Non-Af Amer) (> 60) BUN/Creatinine Ratio (6-26) Glucose (70-105) mg/dL Calculated Osmolality (280-300) Lactic Acid (0.5-2.2) mmol/L Calcium (8.6-10.3) mg/dL Troponin I (< 0.04) ng/mL B-Natriuretic Peptide 60 (Less than 100) pg/mL - Radiology Data Radiology results reviewed: Yes I reviewed the patient's radiology results. Chest X-Ray 09/21/18 12:13 IMPRESSION: Increased central vascular congestion, though no other acute cardiopulmonary process identified. D/ / Delbert Buck MD / Delbert Buck MD Interpreting Provider: Delbert Buck MD Cervical Spine CT 09/21/18 14:05 IMPRESSION: No acute abnormality of the cervical spine. Evaluation is motion limited. Diffuse bony demineralization. Mild degenerative changes. D/ / 09/21/2018 16:13:26 Camila Suarez MD / brianna Interpreting Provider: Camila Suarez MD Chest CTA 09/21/18 14:05 IMPRESSION: 1. No evidence of pulmonary embolism 2. Bibasilar atelectasis. No suspicious infiltrate or edema 3. Atherosclerosis including calcific coronary atherosclerosis D/ / Maged Bush MD / Maged Bush MD Interpreting Provider: Maged Bush MD Head CT 09/21/18 14:05 IMPRESSION: No acute intracranial abnormality. Stable remote left parietal infarct. D/ / 09/21/2018 16:12:02 Delbert Lockett MD / brianna Interpreting Provider: Delbert Lockett MD - EKG Data EKG attestation: Yes I reviewed and interpreted this EKG. EKG results narrative: Heart rate 117 beats for minute. Sinus tachycardia. No ST elevation or ST depression noted. No acute changes noted. Attestation Statement - Attestation Attestation: I examined this patient and my medical decision-making was reviewed with the Resident Physician. I agree with the documented findings, disposition and treatment plan as described except to the extent set forth below.
--- NOTE | 2018-09-21 15:25 | Emergency Department Note ---
Disposition Clinical Impression: Shortness of breath, Tachycardia Disposition: Admitted As Inpatient Forms: ED Satisfaction Letter SOB HPI - General Chief Complaint: ED Shortness of Breath/Dyspnea Stated Complaint: MEKA Time Seen by Provider: 09/21/18 13:56 Source: family Mode of arrival: wheelchair Limitations: no limitations - Related Data Home Medications Medication Instructions Recorded Confirmed ALPRAZolam [Xanax 1 MG Tablet] 1 mg PO TID PRN 02/11/18 09/21/18 Amlodipine Besylate 10 mg PO DAILY 02/11/18 09/21/18 Atorvastatin [Lipitor] 40 mg PO HS 02/11/18 09/21/18 Clopidogrel [Plavix] 75 mg PO DAILY 02/11/18 09/21/18 Docusate [Colace] 100 mg PO DAILY 02/11/18 09/21/18 Ergocalciferol (VITAMIN D2) 50,000 unit PO QWEEK 02/11/18 09/21/18 [Vitamin D2] Furosemide [Lasix] 20 mg PO DAILY PRN 02/11/18 09/21/18 Gabapentin [Neurontin] 300 mg PO Q6H PRN 02/11/18 09/21/18 Lisinopril [Zestril] 10 mg PO DAILY 02/11/18 09/21/18 Omeprazole [PriLOSEC] 20 mg PO BID 02/11/18 09/21/18 Albuterol Sulfate [Proair Hfa] 1 puff IH Q4H PRN 09/21/18 09/21/18 Alendronate Sodium [Fosamax] 70 mg PO QWEEK 09/21/18 09/21/18 Aspirin [Ecotrin] 325 mg PO DAILY 09/21/18 09/21/18 Calcitonin,[place],Synthetic 3.7 ml NS DAILY 09/21/18 09/21/18 [Calcitonin-[place]] Cyclobenzaprine HCl 10 mg PO TID 09/21/18 09/21/18 Guaifenesin [Mucinex] 600 mg PO Q12H PRN 09/21/18 09/21/18 HYDROcodone/Acet 5/325 mg [[place] 1 tab PO Q6H PRN 09/21/18 09/21/18 5-325 mg] Metoprolol XL (24 HR) Succ [Toprol 25 mg PO DAILY 09/21/18 09/21/18 Xl] Nitroglycerin [Nitrostat] 0.4 mg SL Q5M PRN 09/21/18 09/21/18 Potassium Chloride [Klor-Con 10] 5 meq PO DAILY 09/21/18 09/21/18 Allergies Allergy/AdvReac Type Severity Reaction Status Date / Time codeine Allergy itching, Verified 09/21/18 11:23 [From Tylenol-Codeine #3] redness Zolpidem [From Ambien] Allergy swelling,di Verified 09/21/18 11:23 sorientatio n Constitutional: Denies: fever, chills, weakness ENT ED: Denies: dysphagia Cardiovascular: Denies: chest pain Respiratory: Reports: cough, dyspnea, wheezes. Denies: sputum production Gastrointestinal: Denies: abdominal pain, nausea, vomiting Genitourinary: Denies: urgency, dysuria Musculoskeletal: Reports: back pain. Denies: neck pain, arthralgia, myalgia Integumentary: Denies: rash Neurological: Reports: weakness. Denies: headache, numbness, paresthesias, c onfusion Past Medical History - Past Medical History Medical history: Reports: arthritis, cancer, CVA, hyperlipidemia, hypertension, peripheral artery disease, TIA Surgical history: Reports: carotid endarterectomy, hysterectomy, LE vascular intervention Psychiatric history: Reports: anxiety, depression [employer] history: Reports: bilateral tubal ligation - Social History Smoking Status: Current every day smoker Smokeless Tobacco Status: No Alcohol use: Reports: none Drug use: Reports: none Physical Exam - General Limitations: no limitations General appearance: alert, in no apparent distress Course Vital Signs Temperature 98.7 F 09/21/18 12:07 Pulse Rate 116 09/21/18 12:07 Respiratory Rate 20 09/21/18 12:07 Blood Pressure 129/86 09/21/18 12:07 O2 Sat by Pulse Oximetry 92 09/21/18 12:07 Temperature 98.7 F 09/21/18 12:07 Pulse Rate 116 09/21/18 12:07 Respiratory Rate 20 09/21/18 12:07 Blood Pressure 129/86 09/21/18 12:07 O2 Sat by Pulse Oximetry 95 09/21/18 14:40 Oxygen Delivery Oxygen Delivery Room Air Shortness of Breath/Dyspnea - Lab Data Result diagrams: 09/21/18 13:07 09/21/18 13:07 Lab Results 09/21/18 09/21/18 09/21/18 Range/Units 13:07 13:07 13:07 WBC 8.6 (4.3-11.1) K/mcL RBC 4.80 (3.82-4.97) M/mcL Hgb 14.6 (11.5-15.4) g/dL Hct 43.8 (35.3-44.9) % MCV 91.3 (83.0-100.0) fL MCH 30.4 (28.0-33.3) pg MCHC 33.3 (31.6-35.5) g/dL RDW 13.6 (11.5-14.5) % Plt Count 288 (140-400) K/mcL MPV 8.5 L (9.4-12.4) fL Immature Gran % 0.6 (0-4) % Seg Neutrophils % 75.8 % Lymphocytes % 15.7 % Monocytes % 5.3 % Eosinophils % 2.1 % Basophils % 0.5 % Neutrophils # 6.5 (1.6-8.9) K/mcL Lymphocytes # 1.4 (0.6-4.6) K/mcL Monocytes # 0.5 (0.0-1.3) K/mcL Eosinophils # 0.2 (0.0-0.6) K/mcL Basophils # 0.0 (0.0-0.2) K/mcL Sodium 130 L (136-145) mEq/L Potassium 3.9 (3.5-5.1) mEq/L Chloride 88 L (98-107) mEq/L Carbon Dioxide 29 (23-29) mEq/L BUN 8 (8-23) mg/dL Creatinine 0.52 L (0.60-1.20) mg/dL Est GFR ( Amer) > 60 (> 60) Est GFR (Non-Af Amer) > 60 (> 60) BUN/Creatinine Ratio 15 (6-26) Glucose 96 (70-105) mg/dL Calculated Osmolality 268 L (280-300) Lactic Acid 0.9 (0.5-2.2) mmol/L Calcium 9.8 (8.6-10.3) mg/dL Troponin I < 0.03 (< 0.04) ng/mL B-Natriuretic Peptide (Less than 100) pg/mL 09/21/18 Range/Units 13:07 WBC (4.3-11.1) K/mcL RBC (3.82-4.97) M/mcL Hgb (11.5-15.4) g/dL Hct (35.3-44.9) % MCV (83.0-100.0) fL MCH (28.0-33.3) pg MCHC (31.6-35.5) g/dL RDW (11.5-14.5) % Plt Count (140-400) K/mcL MPV (9.4-12.4) fL Immature Gran % (0-4) % Seg Neutrophils % % Lymphocytes % % Monocytes % % Eosinophils % % Basophils % % Neutrophils # (1.6-8.9) K/mcL Lymphocytes # (0.6-4.6) K/mcL Monocytes # (0.0-1.3) K/mcL Eosinophils # (0.0-0.6) K/mcL Basophils # (0.0-0.2) K/mcL Sodium (136-145) mEq/L Potassium (3.5-5.1) mEq/L Chloride (98-107) mEq/L Carbon Dioxide (23-29) mEq/L BUN (8-23) mg/dL Creatinine (0.60-1.20) mg/dL Est GFR ( Amer) (> 60) Est GFR (Non-Af Amer) (> 60) BUN/Creatinine Ratio (6-26) Glucose (70-105) mg/dL Calculated Osmolality (280-300) Lactic Acid (0.5-2.2) mmol/L Calcium (8.6-10.3) mg/dL Troponin I (< 0.04) ng/mL B-Natriuretic Peptide 60 (Less than 100) pg/mL Attestation Statement - Attestation Attestation: I have seen this patient with the resident physician, I have personally evaluated this patient. I had reviewed the chart and document dictation by the resident physician and M in agreement with the information documented by the resident physician. Please see documentation by the resident physician for complete chart including past medical history, family medical history, review of systems, current history and physical and laboratory and imaging studies. Patient presented emergency room with chief complaint of shortness of breath. The patient was in the hospital currently getting prepared to have back surgery for compression fractures of her back, but was noted to be in respiratory distress with atypical lung sounds by anesthesia who refused to intubate her because they did not feel she was stable enough for this procedure, so they referred her to the emergency room. Patient has had progressive respiratory issues ever since June when she was admitted with pneumonia, but symmetrically worsening respiratory status and Thursday with increased shortness of breath, also increased and was weakness and increased falls. Family are also concerned that she does have a history of drug abuse although they have been living with her and have been trying to ensure that she is not abusing any medications. Patient has had chronic peripheral edemachanges, she does have cou gh without significant sputum or shortness of breath denies chest pain. On exam she was tachycardic, diffuse coarse breath sounds and diffuse wheezing throughout the lungs. EKG was sinus tachycardia nodes acute ischemia. Chest x-ray as interpreted by radiology demonstrated some cardiomegaly with mild vascular congestion centrally but no other evidence of CHF. CBC basic metabolic profile cardiac enzymes BNP were all within a couple minutes apart from a slightly low sodium of 130. Secondary to patient's falls, also reporting by the family that she hit her head imaging of her head and cervical spine were performed, also secondary to tachycardia and shortness of breath is protocol was performed. Patient will require admission to the hospital for further evaluation and management of shortness of breath, any further workup here in the emergency department.
[2018-09-21] MEDS ORDERED: Ipratropium/Albuterol Neb 3 ML IH ONE (16:30)
[2018-09-21] MEDS ORDERED: methylPREDNISolone 125 MG/2 ML VIAL IVP ONE (16:31)
[2018-09-21] MEDS ORDERED: Acetaminophen 325 MG TABLET PO PRN (19:57)
[2018-09-21] MEDS ORDERED: Naloxone 0.4 MG/ML INJ IVP PRN (19:57)
[2018-09-21] MEDS ORDERED: Ondansetron 4 MG/2 ML VIAL IVP PRN (19:57)
--- NOTE | 2018-09-21 20:23 | Internal Med History&Physical ---
Date of Encounter: 09/21/18 Time of Encounter: 20:14 Internal Medicine - H&P: HPI Chief complaint: SOB Admitted From: Emergency Dept Plans for Post Hospital Care: Home History of present illness: Ms. Reveles is a 63 year old female past medical history of CAD history of femoropopliteal bypass 2014 CAD COPD CVA 8 years ago right leg weakness osteoporosis thoracic fracture cervical cancer-was scheduled for spine surgery or compression fracture today however patient was found to be in respiratory distress and was sent to the ER for evaluation. ER staff reports upon arrival patient's oxygen saturation was 87% on room air patient was tachycardic CTA chest was performed negative for any PE patient has been experiencing frequent falls at home CT of head and cervical spine with no acute fractures. Patient was given Solu-Medrol and breathing treatments and oxygen sats up to 95% on 2 L nasal cannula. Lab work was obtained which did show hyponatremia. Patient was admitted for further workup and evaluation COPD exacerbation. Upon presentation patient does appear to be in some mild respiratory distress she is sitting up in the bed leaning forward. Discussed with patient's family was at bedside and who are her caregivers states that patient has been experiencing a decline since June. She has been experiencing frequent falls with 1 fall occurring in May requiring patient being transferred to [place] for a head injury. According to family the patient was recently diagnosed with COPD she does not use any oxygen at home and has been growing increasingly short of breath unable to perform ADLs at home. She also has been expressing a moist nonproductive cough no fevers or chills no vomiting diarrhea or abdominal pain. Family also reports patient has recently been treated for bronchitis and was treated for pneumonia and June. I did discuss CODE STATUS with the patient who verbalized she would like to be a full code patient has been admitted for further workup and evaluation of COPD exacerbation Past Med Surg Social Fam HX - Past Medical History Medical history: arthritis, cancer, CVA, hyperlipidemia, hypertension, pe ripheral artery disease, TIA Additional medical history: Cervical cancer Psychiatric history: anxiety, depression - Past Surgical History Surgical History: carotid endarterectomy, hysterectomy, LE vascular intervention Additional surgical history: Back surgery from crushed disc, neck, both legs - Social History Smoking Status: Current every day smoker Smokeless Tobacco Status: No Alcohol use: none Drug use: none - Family History Mother Adopted: No Living Status: Hx Family Cardiac Disorders: Yes Hx Family Cancer: Yes Hx Family Endocrine Disorder: Yes (DM) Hx Family Neurologic Disorders: Yes ( FROM CVA.) Father Adopted: No Living Status: Hx Family Cardiac Disorders: Yes Internal Medicine - H&P: Meds ALPRAZolam [Xanax 1 MG Tablet] 1 mg PO BID PRN 02/11/18 [History] Amlodipine Besylate 10 mg PO DAILY 02/11/18 [History] Atorvastatin [Lipitor] 40 mg PO HS 02/11/18 [History] Clopidogrel [Plavix] 75 mg PO DAILY 02/11/18 [History] Docusate [Colace] 100 mg PO BID PRN 02/11/18 [History] Ergocalciferol (VITAMIN D2) [Vitamin D2] 50,000 unit PO FR 02/11/18 [History] Furosemide [Lasix] 20 mg PO DAILY PRN 02/11/18 [History] Gabapentin [Neurontin] 300 mg PO ,16 02/11/18 [History] Lisinopril [Zestril] 10 mg PO DAILY 02/11/18 [History] Omeprazole [PriLOSEC] 40 mg PO DAILY 02/11/18 [History] Albuterol Sulfate [Proair Hfa] 2 puff IH Q6H PRN 09/21/18 [History] Alendronate Sodium [Fosamax] 70 mg PO WE 09/21/18 [History] Aspirin [Ecotrin] 325 mg PO DAILY 09/21/18 [History] Calcitonin,[place],Synthetic [Calcitonin-[place]] 1 spray NS DAILY 09/21/18 [History] Gabapentin [Neurontin] 600 mg PO HS 09/21/18 [History] HYDROcodone/Acet 5/325 mg [[place] 5-325 mg] 1 tab PO Q6H PRN 09/21/18 [History] Potassium Chloride [Klor-Con 10] 5 meq PO DAILY 09/21/18 [History] Allergy/AdvReac Type Severity Reaction Status Date / Time codeine Allergy itching, Verified 09/21/18 11:23 [From Tylenol-Codeine #3] redness Zolpidem [From Ambien] Allergy swelling,di Verified 09/21/18 11:23 sorientatio n All Systems PM: A 10-system review of systems was performed and is negative for pertinent findings except as documented above in the HPI. - Constitutional Constitutional: weight loss, no chills, no fever(s), no night sweats - EENT Eyes: no change in vision, no discharge, no pain, no photophobia Nose, mouth and throat: no dysphagia, no nasal discharge, no neck pain, no sore throat - Cardiovascular Cardiovascular ROS IM: dyspnea on exertion, no chest pain, no diaphoresis, no dyspnea, no lightheadedness, no palpitations, no syncope - Respiratory Respiratory: cough, dyspnea on exertion, wheezing, excessive phlegm production, no dyspnea - Gastrointestinal Gastrointestinal: no abdominal pain, no diarrhea, no hematemesis, no hematochezia, no melena, no nausea, no vomiting - Genitourinary Genitourinary: no change in urinary stream, no dysuria, no flank pain, no hematuria - Musculoskeletal Musculoskeletal ROS IM: no numbness, no tingling - Integumentary Integumentary IM: no rash, no unusual bruising - Neurological Neurological ROS: as per HPI - Hematologic/Lymphatic Hematologic/Lymphatic: no easy bruising - Constitutional Vitals: Temp Pulse Resp BP Pulse Ox 98.7 F 116 24 134/86 96 09/21/18 12:07 09/21/18 12:07 09/21/18 19:45 09/21/18 19:45 09/21/18 15:31 General appearance: Present: mild distress, A&O X 3 Exam: . - Head Head exam: Present: atraumatic, normocephalic - Eye Eye exam: Present: PERRL, conjuntiva pink, sclera anicteric Pupils: Present: PERRL - Neck Neck exam general surgery: Present: supple, trachea midline. Absent: lymphadenopathy - Respiratory Respiratory exam: Present: decreased breath sounds, rhonchi, wheezes. Absent: accessory muscle use, rales - Cardiovascular Cardiovascular exam: Present: RRR, +S1, +S2. Absent: diastolic murmur, gallop, rubs, systolic murmur - GI/Abdominal GI/Abdominal exam: Present: normal bowel sounds, soft, no peritoneal signs. Absent: distended, tenderness - Extremities Exam Extremities exam: Present: warm, radial pulses palpable and symmetrical. Absent: calf tenderness, cyanotic, pedal edema - Neurological Exam Neurological exam: Present: CN II-XII intact, oriented X3, no focal deficits. Absent: pronater drift, facial droop, speech deficit - Skin Skin exam: Present: dry, intact Internal Med - H&P Results - Labs CBC & Chem 7: 09/21/18 13:07 09/21/18 13:07 Labs: Short CBC 09/21/18 Range/Units 13:07 WBC 8.6 (4.3-11.1) K/mcL Hgb 14.6 (11.5-15.4) g/dL Hct 43.8 (35.3-44.9) % Plt Count 288 (140-400) K/mcL Neutrophils # 6.5 (1.6-8.9) K/mcL BMP 09/21/18 13:07 Sodium 130 L Potassium 3.9 Chloride 88 L Carbon Dioxide 29 BUN 8 Creatinine 0.52 L Glucose 96 Calcium 9.8 Cardiac Enzymes 09/21/18 Range/Units 13:07 Troponin I < 0.03 (< 0.04) ng/mL - Impressions ITS Impressions Chest X-Ray 09/21/18 12:13 IMPRESSION: Increased central vascular congestion, though no other acute cardiopulmonary process identified. D/ / Delbert Buck MD / Delbert Buck MD Interpreting Provider: Delbert Buck MD Cervical Spine CT 09/21/18 14:05 IMPRESSION: No acute abnormality of the cervical spine. Evaluation is motion limited. Diffuse bony demineralization. Mild degenerative changes. D/ / 09/21/2018 16:13:26 Camila Suarez MD / brianna Interpreting Provider: Camila Suarez MD Chest CTA 09/21/18 14:05 IMPRESSION: 1. No evidence of pulmonary embolism 2. Bibasilar atelectasis. No suspicious infiltrate or edema 3. Atherosclerosis including calcific coronary atherosclerosis D/ / Maged Bush MD / Maged Bush MD Interpreting Provider: Maged Bush MD Head CT 09/21/18 14:05 IMPRESSION: No acute intracranial abnormality. Stable remote left parietal infarct. D/ / 09/21/2018 16:12:02 Delbert Lockett MD / [email or web address] Interpreting Provider: Delbert Lockett MD - Assessment and Plan (1) COPD with acute exacerbation Current Visit: No Status: Acute Assessment and plan: Patient does have a history of 3 pack-a-day smoker for the past 40 years-states she was recently diagnosed with COPD and is not on any oxygen therapy at home. Has had recent treatment for bronchitis and has pneumonia in the past. On presentation oxygen saturations were in the 80s on room air. We will continue with oxygen support titrating maintain SPO2 greater than 92% Continue with steroids 60 mg IV every 6 hours Azithromycin Bronchodilators Encourage patient to stop smoking and nicotine patch (2) Thoracic compression fracture Current Visit: Yes Status: Acute Assessment and plan: Patient has been experiencing frequent falls since June. She was supposed to have surgery today 09/21/2018 thoracic compression fracture however was and COPD exacerbation and surgery was canceled. Patient will have to follow-up with orthopedics consult as needed Pain control patient is taking [place] at home which we will continue Qualifiers: Encounter type: initial encounter Fracture type: closed Qualified Code(s): S22.000A - Wedge compression fracture of unspecified thoracic vertebra, initial encounter for closed fracture (3) Frequent falls Current Visit: Yes Status: Acute Assessment and plan: Patient has been experiencing frequent falls we will have PT OT evaluation Placed on fall precautions (4) CAD (coronary artery disease) Current Visit: No Status: Chronic Assessment and plan: History of coronary disease continue with aspirin and Plavix statin lisinopril No chest pain this time Qualifiers: Coronary Disease-Associated Artery/Lesion type: [place] artery [place] vs. transplanted heart: [place] heart Associated angina: without angina Qualified Code(s): I25.10 - Atherosclerotic heart disease of [place] coronary artery without angina pectoris (5) CVA (cerebral vascular accident) Current Visit: No Status: Chronic Assessment and plan: History of CVA continue with aspirin and Plavix and statin Qualifiers: CVA mechanism: thrombosis Laterality of affected vessel: unspecified Qualified Code(s): I63.019 - Cerebral infarction due to thrombosis of unspe cified vertebral artery (6) DVT prophylaxis Current Visit: No Status: Acute (7) Acute respiratory failure with hypoxia Current Visit: Yes Status: Acute Assessment and plan: Patient presented with respiratory distress tachycardic hypoxic with sats mid 80s on room air. Patient does normally wear oxygen at home. Secondary to COPD exacerbation-continue with oxygen titrated to maintain SPO2 greater than 92% She may require qualification for O2 prior discharge - Time Spent With Patient Total time spent is greater than 50% in coordination of care (as documented) at patient's floor/unit and/or counseling patient:
[2018-09-21] MEDS: Gabapentin 300 MG CAPSULE PO SCH (21:23)
[2018-09-21] MEDS: *HR* HYDROcodone/Acet 5/325 mg TABLET PO PRN (21:23)
[2018-09-21] MEDS: Azithromycin 500 MG in D5% in Water 250 ML IVPB SCH (21:24)
[2018-09-21] MEDS: Nicotine 21 MG PATCH.TD24 TD SCH (21:24)
[2018-09-21] MEDS: ALPRAZolam 1 MG TABLET PO PRN (21:26)
[2018-09-21] MEDS: Levalbuterol Neb 1.25 MG/3 ML IH SCH (22:01)
[2018-09-21] MEDS: methylPREDNISolone 125 MG/2 ML VIAL IVP SCH (23:39)
[2018-09-22] MEDS: Levalbuterol Neb 1.25 MG/3 ML IH SCH ×4 (04:05→21:55)
[2018-09-22] MEDS: *HR* HYDROcodone/Acet 5/325 mg TABLET PO PRN ×3 (05:39→18:28)
[2018-09-22] MEDS: *HR* Heparin 5,000 UNIT/ML VIAL SQ SCH ×2 (05:39→18:28)
[2018-09-22] MEDS: amLODIPine 5 MG TABLET PO SCH (09:29)
[2018-09-22] MEDS: Aspirin Enteric Coated 325 MG Tablet PO SCH (09:29)
[2018-09-22] MEDS: Gabapentin 300 MG CAPSULE PO SCH ×3 (09:29→20:22)
[2018-09-22] MEDS: cefTRIAXone 1,000 MG in Water for inj. (sterile) 20 ML 10 ML IVP SCH (09:30)
[2018-09-22] MEDS: Nicotine 21 MG PATCH.TD24 TD SCH (09:30)
[2018-09-22] MEDS: methylPREDNISolone 125 MG/2 ML VIAL IVP SCH (09:30)
[2018-09-22] MEDS: CALCITONIN SALMON SYNTHETIC NS SCH (09:31)
[2018-09-22] MEDS: ALPRAZolam 1 MG TABLET PO PRN ×2 (09:34→22:27)
[2018-09-22 11:25] LABS: Basophils % 0.2 %; Eosinophils % 0.3 %; Hematocrit 40.7 % (35.3-44.9); Hemoglobin 13.7 g/dL (11.5-15.4); Immature Granulocytes % 0.5 % (0-4); Lymphocytes # 0.4 K/mcL (0.6-4.6); Lymphocytes % 6.3 %; Mean Corpuscular HGB Conc 33.7 g/dL (31.6-35.5); Mean Corpuscular Hemoglobin 30.2 pg (28.0-33.3); Mean Corpuscular Volume 89.8 fL (83.0-100.0); Monocytes # 0.2 K/mcL (0.0-1.3); Monocytes % 3.3 %; Neutrophils # 5.8 K/mcL (1.6-8.9); Platelet Count 219 K/mcL (140-400); Red Blood Count 4.53 M/mcL (3.82-4.97); Red Cell Distribution Width 13.5 % (11.5-14.5); Segmented Neutrophils % 89.4 %
[2018-09-22 11:43] LABS: BUN/Creatinine Ratio 15 (6-26); Blood Urea Nitrogen 11 mg/dL (8-23); Calcium 9.4 mg/dL (8.6-10.3); Carbon Dioxide 31 mEq/L (23-29); Chloride 94 mEq/L (98-107); Glucose 237 mg/dL (70-105); Magnesium 1.5 mg/dL (1.6-2.6); Osmolality,Calculated 287 (280-300); Potassium 3.5 mEq/L (3.5-5.1); Sodium 135 mEq/L (136-145); eGFR For Non-African Americans > 60 (> 60)
[2018-09-22] MEDS: Metoprolol XL (24 HR) Succ 25 MG TAB.ER.24H PO SCH (11:55)
--- NOTE | 2018-09-22 12:59 | Internal Med Progress Note ---
Hospitalist Progress Note - Encounter Date of Encounter: 09/22/18 Time of Encounter: 12:56 - Subjective Interval History: Evaluated patient earlier today. She is feeling somewhat better with regards to her respiratory status. Able to breathe easier. Continues to have some wheezing. Denies any fevers or chills overnight. No nausea or vomiting. Has had chronic sinus tachycardia and was previously on Toprol-XL. Unclear when she was taken off it and why. She does not recollect any adverse effects. - Exam Vitals: Temp Pulse Resp BP Pulse Ox 97.7 F 125 16 109/74 93 09/22/18 11:42 09/22/18 11:42 09/22/18 11:42 09/22/18 11:42 09/22/18 11:42 Exam: General: Patient is alert, no acute distress, oriented x 3 ENT: Mucous membranes moist Respiratory: Prolonged expiratory phase, mild wheezing and rhonchi Cardiovascular: Regular rate and rhythm. s1 and s2 normal No clicks, rubs, gallops, or murmurs. No pedal edema Abdomen: Abdomen is soft, nontender. Bowel sounds are present Musculoskeletal: Spontaneously moving all extremities Skin: warm, dry, intact. Neuro: Alert oriented x 3 normal cranial nerves, no focal deficits - Assessment and Plan (1) Acute respiratory failure with hypoxia Current Visit: Yes Status: Acute Assessment and Plan: Continue O2 supplementation. Patient not on home oxygen. Will wean FiO2 as tolerated. (2) COPD with acute exacerbation Current Visit: Yes Status: Acute Assessment and Plan: Continue bronchodilators, steroids and O2 supplementation. Patient is also on ceftriaxone and azithromycin currently. CT angiogram of the chest did not show any infiltrate. Will check respiratory infection panel. Moderate risk for complications. (3) CVA (cerebral vascular accident) Current Visit: Yes Status: Chronic Assessment and Plan: Prior CVA. Continue aspirin, statin (4) Thoracic compression fracture Current Visit: Yes Status: Acute Assessment and Plan: Planned surgery yesterday has now been postponed. She will need to follow up with spine surgery as outpatient after discharge. If this patient and sustaining in the hospital over the weekend, will consult spine surgery here to evaluate for inpatient surgery. (5) Frequent falls Current Visit: Yes Status: Acute Assessment and Plan: Awaiting physical therapy evaluation. (6) CAD (coronary artery disease) Current Visit: Yes Status: Chronic Assessment and Plan: Continue aspirin, statin (7) DVT prophylaxis Current Visit: No Status: Acute Assessment and Plan: With subcutaneous heparin (8) Tachycardia Current Visit: Yes Status: Acute Assessment and Plan: Patient with sinus tachycardia. Chronic. We will check thyroid profile. Also place patient on beta chad at low dose and assess response. - Time Spent with Patient Total time spent is greater than 50% in coordination of care (as documented) at patient's floor/unit and/or counseling patient: Internal Medicine: Result - Labs CBC & Chem 7: 09/22/18 10:48 09/22/18 10:48 Labs: Short CBC 09/21/18 09/22/18 Range/Units 13:07 10:48 WBC 8.6 6.5 (4.3-11.1) K/mcL Hgb 14.6 13.7 (11.5-15.4) g/dL Hct 43.8 40.7 (35.3-44.9) % Plt Count 288 219 (140-400) K/mcL Neutrophils # 6.5 5.8 (1.6-8.9) K/mcL BMP 09/21/18 09/22/18 13:07 10:48 Sodium 130 L 135 L Potassium 3.9 3.5 Chloride 88 L 94 L Carbon Dioxide 29 31 H BUN 8 11 Creatinine 0.52 L 0.74 Glucose 96 237 H Calcium 9.8 9.4 Cardiac Enzymes 09/21/18 Range/Units 13:07 Troponin I < 0.03 (< 0.04) ng/mL - Impressions Impressions Chest X-Ray 09/21/18 12:13 IMPRESSION: Increased central vascular congestion, though no other acute cardiopulmonary process identified. D/ / Delbert Buck MD / Delbert Buck MD Interpreting Provider: Delbert Buck MD Cervical Spine CT 09/21/18 14:05 IMPRESSION: No acute abnormality of the cervical spine. Evaluation is motion limited. Diffuse bony demineralization. Mild degenerative changes. D/ / 09/21/2018 16:13:26 Camila Suarez MD / brianna Interpreting Provider: Camila Suarez MD Chest CTA 09/21/18 14:05 IMPRESSION: 1. No evidence of pulmonary embolism 2. Bibasilar atelectasis. No suspicious infiltrate or edema 3. Atherosclerosis including calcific coronary atherosclerosis D/ / Maged Bush MD / Maged Bush MD Interpreting Provider: Maged Bush MD Head CT 09/21/18 14:05 IMPRESSION: No acute intracranial abnormality. Stable remote left parietal infarct. D/ / 09/21/2018 16:12:02 Delbert Lockett MD / brianna Interpreting Provider: Delbert Lockett MD Consult Discharge Plan - Plan Referrals: Gilbert Bradley MD [Primary Care Provider] - (3) CVA (cerebral vascular accident) Qualifiers: CVA mechanism: thrombosis Laterality of affected vessel: unspecified Qualified Code(s): I63.019 - Cerebral infarction due to thrombosis of unspecified vertebral artery (4) Thoracic compression fracture Qualifiers: Encounter type: initial encounter Fracture type: closed Qualified Code(s): S22.000A - Wedge compression fracture of unspecified thoracic vertebra, initial encounter for closed fracture (6) CAD (coronary artery disease) Qualifiers: Coronary Disease-Associated Artery/Lesion type: [place] artery [place] vs. transplanted heart: [place] heart Associated angina: without angina Qualified Code(s): I25.10 - Atherosclerotic heart disease of [place] coronary artery without angina pectoris
[2018-09-22] MEDS ORDERED: NON-FORMULARY MEDICATION 1 EACH EACH (Alendronate Sodium [Fosamax] 70 MG) PO SCH (20:09)
[2018-09-22] MEDS: Azithromycin 500 MG in D5% in Water 250 ML IVPB SCH (20:22)
[2018-09-23] MEDS: Levalbuterol Neb 1.25 MG/3 ML IH SCH ×3 (04:23→15:49)
[2018-09-23] MEDS: *HR* Heparin 5,000 UNIT/ML VIAL SQ SCH (06:04)
[2018-09-23 06:28] LABS: Basophils % 0.1 %; Hematocrit 41.1 % (35.3-44.9); Hemoglobin 13.6 g/dL (11.5-15.4); Immature Granulocytes % 0.5 % (0-4); Lymphocytes # 1.3 K/mcL (0.6-4.6); Lymphocytes % 8.3 %; Mean Corpuscular HGB Conc 33.1 g/dL (31.6-35.5); Mean Corpuscular Hemoglobin 30.7 pg (28.0-33.3); Mean Corpuscular Volume 92.8 fL (83.0-100.0); Mean Platelet Volume 8.9 fL (9.4-12.4); Monocytes # 0.9 K/mcL (0.0-1.3); Monocytes % 5.9 %; Platelet Count 287 K/mcL (140-400); Red Blood Count 4.43 M/mcL (3.82-4.97); Red Cell Distribution Width 13.8 % (11.5-14.5); Segmented Neutrophils % 85.2 %
[2018-09-23 06:52] LABS: BUN/Creatinine Ratio 29 (6-26); Blood Urea Nitrogen 17 mg/dL (8-23); Calcium 9.5 mg/dL (8.6-10.3); Carbon Dioxide 33 mEq/L (23-29); Chloride 98 mEq/L (98-107); Glucose 114 mg/dL (70-105); Osmolality,Calculated 292 (280-300); Potassium 3.5 mEq/L (3.5-5.1); Sodium 140 mEq/L (136-145); eGFR For Non-African Americans > 60 (> 60)
[2018-09-23 06:57] VITALS: BP 143/88
[2018-09-23] MEDS: *HR* HYDROcodone/Acet 5/325 mg TABLET PO PRN ×2 (07:29→16:15)
[2018-09-23] MEDS ORDERED: predniSONE 20 MG TABLET PO SCH (09:00)
[2018-09-23 09:20] LABS: Estimated Average Glucose 111 mg/dl; Hemoglobin A1C 5.5 %
[2018-09-23] MEDS: Gabapentin 300 MG CAPSULE PO SCH ×2 (09:42→16:15)
[2018-09-23] MEDS: Aspirin Enteric Coated 325 MG Tablet PO SCH (09:42)
[2018-09-23] MEDS: amLODIPine 5 MG TABLET PO SCH (09:42)
[2018-09-23] MEDS: Metoprolol XL (24 HR) Succ 25 MG TAB.ER.24H PO SCH (09:42)
[2018-09-23] MEDS: cefTRIAXone 1,000 MG in Water for inj. (sterile) 20 ML 10 ML IVP SCH (09:43)
[2018-09-23] MEDS: Nicotine 21 MG PATCH.TD24 TD SCH (09:43)
[2018-09-23] MEDS: ALPRAZolam 1 MG TABLET PO PRN (09:45)
[2018-09-23] MEDS: CALCITONIN SALMON SYNTHETIC NS SCH (09:46)
--- NOTE | 2018-09-23 12:56 | Discharge Summary ---
- NOTES TO OUTPATIENT PROVIDER Notes to Outpatient Provider: Patient with a history of COPD, coronary artery disease, CVA who was just undergo surgery for vertebral compression fracture and ended up coming to the hospital for COPD exacerbation and she was found to be hypoxic during preop evaluation. She was suspected of having COPD exacerbation and was started on antibiotics, steroids and bronchodilators with significant improvement in her symptoms over the past 3 days. She is now stable to be discharged home on oral steroids and bronchodilators. She was evaluated by physical therapy and recommended home health which will be arranged for her. Patient remains hypoxic related to her COPD and would benefit from home oxygen which will be arranged for her prior to discharge. Patient also has chronic sinus tachycardia and has previously been on beta chad. However she has not been on it recently. As such this was resumed with Toprol-XL at 25 mg daily. May increase dose further as outpatient if needed and blood pressure tolerates. Reviewing her previous labs, she is had slight elevation in norepinephrine and plasma free normetanephrine levels in the past. This can be followed further and evaluated as outpatient. She is had a normal thyroid profile. Orders not resulted at time of discharge: Pending orders 09/21/18 20:06 Sputum Culture [Culture,Sputum with Gram Stain] [RM] Routine Date of Encounter: 09/23/18 Time of Encounter: 12:54 - Discharge Diagnosis (1) Acute respiratory failure with hypoxia Priority: Primary Status: Acute (2) COPD with acute exacerbation Priority: Secondary Status: Acute (3) CVA (cerebral vascular accident) Priority: Secondary Status: Chronic Qualifiers: CVA mechanism: thrombosis Laterality of affected vessel: unspecified Qualified Code(s): I63.019 - Cerebral infarction due to thrombosis of unspecified vertebral artery (4) Thoracic compression fracture Priority: Secondary Status: Acute Qualifiers: Encounter type: initial encounter Fracture type: closed Qualified Code(s): S22.000A - Wedge compression fracture of unspecified thoracic vertebra, initial encounter for closed fracture (5) Frequent falls Priority: Secondary Status: Acute (6) CAD (coronary artery disease) Priority: Secondary Status: Chronic Qualifiers: Coronary Disease-Associated Artery/Lesion type: [place] artery [place] vs. transplanted heart: [place] heart Associated angina: without angina Qualified Code(s): I25.10 - Atherosclerotic heart disease of [place] coronary artery without angina pectoris (7) DVT prophylaxis Priority: Secondary Status: Acute (8) Tachycardia Priority: Secondary Status: Chronic Hospital course: Ms. Reveles is a 63 year old female Patient with a history of COPD, coronary artery disease, CVA who was just undergo surgery for vertebral compression fracture and ended up coming to the hospital for COPD exacerbation and she was found to be hypoxic during preop evaluation. She was suspected of having COPD exacerbation and was started on antibiotics, steroids and bronchodilators with significant improvement in her symptoms over the past 3 days. She is now stable to be discharged home on oral steroids and bronchodilators. She was evaluated by physical therapy and recommended home health which will be arranged for her. Patient remains hypoxic related to her COPD and would benefit from home oxygen which will be arranged for her prior to discharge. Patient also has chronic sinus tachycardia and has previously been on beta chad. However she has not been on it recently. As such this was resumed with Toprol-XL at 25 mg daily. May increase dose further as outpatient if needed and blood pressure tolerates. Reviewing her previous labs, she is had slight elevation in norepinephrine and plasma free normetanephrine levels in the past. This can be followed further and evaluated as outpatient. She is had a normal thyroid profile. Discharge discussed with: patient - Time Spent with Patient Total time spent providing and/or coordinating discharge services: Time spent: Greater than 30 minutes (35 min) - Discharge Medications Prescriptions: New Azithromycin [Zithromax] 500 mg PO DAILY #6 tablet Budesonide/Formoterol 80/4.5 [Symbicort 80/4.5] 2 puff IH BID #1 hfa.aer.ad Metoprolol XL (24 HR) Succ [Toprol Xl] 25 mg PO DAILY #30 tab.er.24h predniSONE [PredniSONE] 10 mg PO DAILY 8 Days #20 tablet GuaiFENesin ER [Mucinex] 600 mg PO BID PRN #30 tbbp.12hr PRN Reason: Congestion Continue ALPRAZolam [Xanax 1 MG Tablet] 1 mg PO BID PRN PRN Reason: Anxiety Amlodipine Besylate 10 mg PO DAILY Atorvastatin [Lipitor] 40 mg PO HS Clopidogrel [Plavix] 75 mg PO DAILY Docusate [Colace] 100 mg PO BID PRN PRN Reason: Constipation Ergocalciferol (VITAMIN D2) [Vitamin D2] 50,000 unit PO FR Furosemide [Lasix] 20 mg PO DAILY PRN PRN Reason: Edema Gabapentin [Neurontin] 300 mg PO , Lisinopril [Zestril] 10 mg PO DAILY Omeprazole [PriLOSEC] 40 mg PO DAILY Potassium Chloride [Klor-Con 10] 5 meq PO DAILY HYDROcodone/Acet 5/325 mg [[place] 5-325 mg] 1 tab PO Q6H PRN PRN Reason: Pain Alendronate Sodium [Fosamax] 70 mg PO WE Calcitonin,[place],Synthetic [Calcitonin-[place]] 1 spray NS DAILY Aspirin [Ecotrin] 325 mg PO DAILY Albuterol Sulfate [Proair Hfa] 2 puff IH Q6H PRN PRN Reason: Shortness Of Breath Gabapentin [Neurontin] 600 mg PO HS Home Medications: ALPRAZolam [Xanax 1 MG Tablet] 1 mg PO BID PRN 02/11/18 [History] Amlodipine Besylate 10 mg PO DAILY 02/11/18 [History] Atorvastatin [Lipitor] 40 mg PO HS 02/11/18 [History] Clopidogrel [Plavix] 75 mg PO DAILY 02/11/18 [History] Docusate [Colace] 100 mg PO BID PRN 02/11/18 [History] Ergocalciferol (VITAMIN D2) [Vitamin D2] 50,000 unit PO FR 02/11/18 [History] Furosemide [Lasix] 20 mg PO DAILY PRN 02/11/18 [History] Gabapentin [Neurontin] 300 mg PO ,16 02/11/18 [History] Lisinopril [Zestril] 10 mg PO DAILY 02/11/18 [History] Omeprazole [PriLOSEC] 40 mg PO DAILY 02/11/18 [History] Albuterol Sulfate [Proair Hfa] 2 puff IH Q6H PRN 09/21/18 [History] Alendronate Sodium [Fosamax] 70 mg PO WE 09/21/18 [History] Aspirin [Ecotrin] 325 mg PO DAILY 09/21/18 [History] Calcitonin,[place],Synthetic [Calcitonin-[place]] 1 spray NS DAILY 09/21/18 [History] Gabapentin [Neurontin] 600 mg PO HS 09/21/18 [History] HYDROcodone/Acet 5/325 mg [[place] 5-325 mg] 1 tab PO Q6H PRN 09/21/18 [History] Potassium Chloride [Klor-Con 10] 5 meq PO DAILY 09/21/18 [History] Azithromycin [Zithromax] 500 mg PO DAILY #6 tablet 09/23/18 [Rx] Budesonide/Formoterol 80/4.5 [Symbicort 80/4.5] 2 puff IH BID #1 hfa.aer.ad 09/23/18 [Rx] GuaiFENesin ER [Mucinex] 600 mg PO BID PRN #30 tbbp.12hr 09/23/18 [Rx] Metoprolol XL (24 HR) Succ [Toprol Xl] 25 mg PO DAILY #30 tab.er.24h 09/23/18 [Rx] predniSONE [PredniSONE] 10 mg PO DAILY 8 Days #20 tablet 09/23/18 [Rx] Allergies/Adverse Reactions: Allergy/AdvReac Type Severity Reaction Status Date / Time codeine Allergy itching, Verified 09/21/18 11:23 [From Tylenol-Codeine #3] redness Zolpidem [From Ambien] Allergy swelling,di Verified 09/21/18 11:23 sorientatio n Date of admission: 09/21/18 22:29 Primary care physician: Gilbert Bradley MD Consults: 09/21/18 19:59 Consult to Occupational Therapy [CONS] Routine Comment: Evaluate, develop and implement POC Reason for Consult: falls Does patient have active BEDREST order?: No Is patient medically & hemodynamically stable?: Yes Patient assessed for mobility or mobilized this visit?: No Consult to Physical Therapy [CONS] Routine Comment: Evaluate, develop and implement POC Reason for Consult: falls Does patient have active BEDREST order?: No Is patient medically & hemodynamically stable?: Yes Patient assessed for mobility or mobilized this visit?: No 09/21/18 21:45 Consult to Nutrition [CONS] Routine Comment: Consulting Provider: NUTRITION Reason for Dietary Consult: MST Score Discharging clinician: Alexandre Hagen Anticipated date of discharge: 09/23/18 - Constitutional Vitals: Temp Pulse Resp BP Pulse Ox 98.6 F 125 16 143/88 95 09/23/18 06:56 09/23/18 06:56 09/23/18 10:10 09/23/18 06:56 09/23/18 10:10 General appearance: Present: A&O X 3, pleasant, no acute distress, answers questions appropriately Exam: . - Respiratory Respiratory exam: Present: CTAB, prolonged expiratory phase, wheezes. Absent: accessory muscle use, rhonchi - Cardiovascular Cardiovascular exam: Present: RRR, +S1, +S2, tachycardia. Absent: diastolic murmur, gallop, rubs, systolic murmur - GI/Abdominal GI/Abdominal exam: Present: normal bowel sounds, soft, no peritoneal signs. Absent: distended, tenderness - Patient Status Disposition: Home Health Service Condition: Good Functional capacity at discharge: uses cane/walker Overall status at discharge: patient is progressing back to baseline - Discharge Instructions Instructions: Acute Respiratory Distress Syndrome (DC), Chronic Obstructive Pulmonary Disease (DC) Follow Up With: Gilbert Bradley MD [Primary Care Provider] - (in 1-2 weeks) Maurisio Juarez Jr, MD [Partnered Physician] - (compression fracture - postponed surgery) Gigi Vanessa DO [Partnered Physician] - (persistent sinus tachycardia in 1- 2 weeks) - Diet and Activity Activity: as per physical therapy Diet: low fat, low cholesterol, low salt diet
--- NOTE | 2018-09-23 13:42 | Physician Discharge Referral ---
Home Health/Hosp Referral Info Transfer to: Home Health Provider in Charge Post Discharge: PCP - Diagnosis (1) Acute respiratory failure with hypoxia Priority: Primary Status: Acute (2) COPD with acute exacerbation Priority: Secondary Status: Acute (3) CVA (cerebral vascular accident) Priority: Secondary Status: Chronic (4) Thoracic compression fracture Priority: Secondary Status: Acute (5) Frequent falls Priority: Secondary Status: Acute (6) CAD (coronary artery disease) Priority: Secondary Status: Chronic (7) Tachycardia Priority: Secondary Status: Chronic (8) DVT prophylaxis Priority: Secondary Status: Acute - Respiratory Orders Oxygen / L per min (4) Smoking Cessation: Smoking cessation has been advised. For more information, call the [place] Tobacco Quit Line at 5-506-RCSR-NOW. - Diet/Nutrition Diet/Nutrition Orders: Cardiac - Activity Activity Orders: Walker - Services Needed Following services are medically necessary services: Nursing, Physical Therapy, Occupational Therapy - Transfer Medications Prescriptions: Azithromycin [Zithromax] 500 mg PO DAILY #6 tablet Budesonide/Formoterol 80/4.5 [Symbicort 80/4.5] 2 puff IH BID #1 hfa.aer.ad GuaiFENesin ER [Mucinex] 600 mg PO BID PRN #30 tbbp.12hr PRN Reason: Congestion Metoprolol XL (24 HR) Succ [Toprol Xl] 25 mg PO DAILY #30 tab.er.24h predniSONE [PredniSONE] 10 mg PO DAILY 8 Days #20 tablet Home Medications: ALPRAZolam [Xanax 1 MG Tablet] 1 mg PO BID PRN 02/11/18 [History] Amlodipine Besylate 10 mg PO DAILY 02/11/18 [History] Atorvastatin [Lipitor] 40 mg PO HS 02/11/18 [History] Clopidogrel [Plavix] 75 mg PO DAILY 02/11/18 [History] Docusate [Colace] 100 mg PO BID PRN 02/11/18 [History] Ergocalciferol (VITAMIN D2) [Vitamin D2] 50,000 unit PO FR 02/11/18 [History] Furosemide [Lasix] 20 mg PO DAILY PRN 02/11/18 [History] Gabapentin [Neurontin] 300 mg PO 08,16 02/11/18 [History] Lisinopril [Zestril] 10 mg PO DAILY 02/11/18 [History] Omeprazole [PriLOSEC] 40 mg PO DAILY 02/11/18 [History] Albuterol Sulfate [Proair Hfa] 2 puff IH Q6H PRN 09/21/18 [History] Alendronate Sodium [Fosamax] 70 mg PO WE 09/21/18 [History] Aspirin [Ecotrin] 325 mg PO DAILY 09/21/18 [History] Calcitonin,[place],Synthetic [Calcitonin-[place]] 1 spray NS DAILY 09/21/18 [History] Gabapentin [Neurontin] 600 mg PO HS 09/21/18 [History] HYDROcodone/Acet 5/325 mg [[place] 5-325 mg] 1 tab PO Q6H PRN 09/21/18 [History] Potassium Chloride [Klor-Con 10] 5 meq PO DAILY 09/21/18 [History] Azithromycin [Zithromax] 500 mg PO DAILY #6 tablet 09/23/18 [Rx] Budesonide/Formoterol 80/4.5 [Symbicort 80/4.5] 2 puff IH BID #1 hfa.aer.ad 09/23/18 [Rx] GuaiFENesin ER [Mucinex] 600 mg PO BID PRN #30 tbbp.12hr 09/23/18 [Rx] Metoprolol XL (24 HR) Succ [Toprol Xl] 25 mg PO DAILY #30 tab.er.24h 09/23/18 [Rx] predniSONE [PredniSONE] 10 mg PO DAILY 8 Days #20 tablet 09/23/18 [Rx] Allergies/Adverse Reactions: Allergy/AdvReac Type Severity Reaction Status Date / Time codeine Allergy itching, Verified 09/21/18 11:23 [From Tylenol-Codeine #3] redness Zolpidem [From Ambien] Allergy swelling,di Verified 09/21/18 11:23 sorientatio n Certification: Further, I certify that my clinical findings support that this patient is homebound (i.e. absences from home require considerable and taxing effort and are for medical reasons or jew services or infrequently or short duration when for other reasons) because: Homebound Reason: Patient requires assistance of a person or device to safely leave home Attestation: My signature below is to certify that this patient is under my care and that I, or nurse practitioner, or a physician's embalmer assistant working with me, has a [id number] encounter with this patient.
[2018-09-24] MEDS ORDERED: Cholecalciferol (D-3) 1,000 UNIT TABLET PO SCH (09:00)
== END 2018-09-23 17:41 | disposition home health service (06) | DRG 190 ==
LOC: EMEROOARM 12:01 → 2NENU 12:01 → SUATTDRO 22:29 → 2NENU 09-22 05:05
PROVIDERS: ADMIT Internal Medicine Nephrology; ATTEND Internal Medicine

== ENCOUNTER 2019-05-05 11:10 | Inpatient (IN) ==
[~2019-05-05 11:10] MED LIST: Vancomycin 1,000 MG, Sodium Chloride IRRigation 1,000 ML IR ONE
[2019-05-05] MEDS ORDERED: Heparin 1,000 UNITS/500 mL 500 ML ONE (11:11)
[2019-05-05] MEDS ORDERED: Vancomycin 1,000 MG VIAL ONE (11:12)
[2019-05-05] MEDS ORDERED: Isovue-300 50ML VIAL ONE (11:12)
[2019-05-05] MEDS ORDERED: CeFAZolin Syr 2,000MG/20 ML 2,000 MG/20 ML SYRINGE IVPB ONE (11:28)
[2019-05-05] MEDS ORDERED: Ringers Solution, Lactated 1,000 ML IVC SCH (11:30)
[2019-05-05] MEDS ORDERED: *HR* Promethazine 25 MG/ML VIAL IVP PRN (11:34)
[2019-05-05] MEDS ORDERED: Albuterol 2.5 MG/3 ML NEBULIZER IH PRN (11:34)
[2019-05-05] MEDS ORDERED: *HR* Labetalol 20 MG/4 ML SYRINGE IVP PRN ×2 (11:34→17:54)
[2019-05-05] MEDS ORDERED: Acetaminophen IV 1,000 MG/100 ML INFUS..BTL IVPB ONE (11:34)
[2019-05-05] MEDS ORDERED: *HR* OxyCODONE Immed Rel 5 MG TABLET PO PRN ×3 (11:34→17:54)
[2019-05-05] MEDS ORDERED: Famotidine 20 MG/2 ML VIAL IVP ONE (11:34)
[2019-05-05] MEDS ORDERED: Ondansetron 4 MG/2 ML VIAL IVP ONE (11:34)
[2019-05-05] MEDS ORDERED: *HR* Propofol 200 MG/20 ML VIAL IVP ONE (11:39)
[2019-05-05] MEDS ORDERED: *HR* Rocuronium Bromide 50 MG/5 ML VIAL ONE ×2 (11:39→14:44)
[2019-05-05] MEDS ORDERED: Lidocaine -MPF 2% 2 ML VIAL ONE ×2 (11:39→12:21)
[2019-05-05] MEDS ORDERED: *HR* Midazolam HCl 2 MG/2 ML VIAL ONE (11:39)
[2019-05-05] MEDS ORDERED: *HR* Succinylcholine 200 MG/10 ML VIAL IVP ONE (11:39)
[2019-05-05] MEDS ORDERED: Dexamethasone 4 MG/ML VIAL ONE (11:39)
[2019-05-05] MEDS ORDERED: Lidocaine HCL 4 ML Topical Solution (Laryng-O-Jet Kit Sterile Pak) TP ONE (11:39)
[2019-05-05] MEDS ORDERED: *HR* FentaNYL (PF) 100 MCG/2 ML VIAL ONE ×3 (11:39→14:43)
[2019-05-05] MEDS ORDERED: Heparin 1,000 UNITS/500 mL 1,000 ML ONE (11:53)
[2019-05-05] MEDS ORDERED: *HR* PHENYLEPHRINE 1,000 MCG/10 ML SYRINGE IVP ONE (13:11)
[2019-05-05] MEDS ORDERED: EPHEDrine 50 MG/ML VIAL ONE (13:17)
[2019-05-05] MEDS ORDERED: *HR* Heparin 5,000 UNIT/ML VIAL ONE ×2 (14:08→15:06)
[2019-05-05] MEDS ORDERED: *HR* Phenylephrine 10 MG/ML VIAL ONE (15:48)
[2019-05-05] MEDS ORDERED: Neostigmine Methylsulfate 3 MG/3 ML SYRINGE ONE (16:15)
[2019-05-05] MEDS ORDERED: Esmolol 100 MG/10 ML VIAL IVP ONE (16:41)
[2019-05-05] MEDS: *HR* HYDROmorphone (PF) 1 MG/ML SYRINGE IVP PRN ×2 (17:02→17:17)
[2019-05-05] MEDS ORDERED: 0.9 % Sodium Chloride 1,000 ML IVC SCH ×4 (17:54→19:30)
[2019-05-05] MEDS ORDERED: Naloxone 0.4 MG/ML INJ IVP PRN (17:54)
[2019-05-05] MEDS ORDERED: Furosemide 20 MG TABLET PO PRN (17:54)
[2019-05-05] MEDS ORDERED: *HR* HYDROcodone/Acet 5/325 mg TABLET PO PRN (17:54)
[2019-05-05] MEDS ORDERED: Ondansetron 4 MG/2 ML VIAL IVP PRN (17:54)
[2019-05-05] MEDS ORDERED: Acetaminophen 325 MG TABLET PO PRN ×2 (17:54)
[2019-05-05] MEDS: *HR* Metoprolol 5 MG/5 ML VIAL IVP SCH (18:50)
[2019-05-05] MEDS: 0.9 % Sodium Chloride 1,000 ML IVC SCH ×2 (19:13→19:56)
[2019-05-05] MEDS: Nicotine 21 MG PATCH.TD24 TD SCH (20:30)
[2019-05-05] MEDS ORDERED: Gabapentin 400 MG CAPSULE PO SCH (21:00)
[2019-05-06] MEDS: *HR* Metoprolol 5 MG/5 ML VIAL IVP SCH ×2 (01:44→06:35)
[2019-05-06 02:01] LABS: Basophils % 0.3 %; Hematocrit 26.1 % (35.3-44.9); Immature Granulocytes % 0.4 % (0-4); Lymphocytes # 0.8 K/mcL (0.6-4.6); Mean Corpuscular HGB Conc 31.8 g/dL (31.6-35.5); Mean Corpuscular Hemoglobin 30.7 pg (28.0-33.3); Mean Corpuscular Volume 96.7 fL (83.0-100.0); Mean Platelet Volume 9.6 fL (9.4-12.4); Monocytes # 0.5 K/mcL (0.0-1.3); Monocytes % 7.2 %; Neutrophils # 5.6 K/mcL (1.6-8.9); Platelet Count 200 K/mcL (140-400); Red Cell Distribution Width 13.6 % (11.5-14.5); Segmented Neutrophils % 81.1 %; White Blood Count 6.9 K/mcL (4.3-11.1)
[2019-05-06 02:04] LABS: Hemoglobin 8.3 g/dL (11.5-15.4)
[2019-05-06 02:23] LABS: BUN/Creatinine Ratio 21 (6-26); Blood Urea Nitrogen 19 mg/dL (8-23); Carbon Dioxide 19 mEq/L (23-29); Chloride 110 mEq/L (98-107); Glucose 103 mg/dL (70-105); Osmolality,Calculated 283 (280-300); Potassium 3.7 mEq/L (3.5-5.1); Sodium 135 mEq/L (136-145); eGFR For African Americans > 60 (> 60); eGFR For Non-African Americans > 60 (> 60)
[2019-05-06] MEDS: *HR* HYDROcodone/Acet 5/325 mg TABLET PO PRN ×2 (03:57→11:01)
[2019-05-06] MEDS ORDERED: *HR* Heparin 5,000 UNIT/ML VIAL SQ SCH ×2 (06:00)
[2019-05-06] MEDS: Nicotine 21 MG PATCH.TD24 TD SCH (07:50)
[2019-05-06] MEDS ORDERED: Gabapentin 400 MG CAPSULE PO SCH (08:00)
[2019-05-06] MEDS ORDERED: Lisinopril 20 MG TABLET PO SCH (09:00)
[2019-05-06] MEDS ORDERED: Metoprolol XL (24 HR) Succ 50 MG TAB.ER.24H PO SCH (09:00)
[2019-05-06] MEDS ORDERED: amLODIPine 5 MG TABLET PO SCH (09:00)
[2019-05-06] MEDS ORDERED: Aspirin 325 MG TABLET PO SCH (09:00)
[2019-05-06 11:04] VITALS: BP 123/60
[2019-05-06] MEDS ORDERED: Ergocalciferol (VIT D2) 50,000 UNIT (1.25MG) CAP PO SCH (17:32)
== END 2019-05-06 15:11 | disposition home or self-care (01) | DRG 253 ==
LOC: SAMDAY 11:10 → 2NNU 18:12
PROVIDERS: ADMIT Surgery; ATTEND Surgery

== ENCOUNTER 2019-08-30 12:50 | Inpatient (IN) ==
[2019-08-30] MEDS ORDERED: 0.9 % Sodium Chloride 500 ML IVC ONE (13:10)
[2019-08-30] MEDS ORDERED: 0.9 % Sodium Chloride 1,000 ML IVC ONE (13:10)
[2019-08-30] MEDS ORDERED: Ipratropium/Albuterol Neb 3 ML IH ONE (13:10)
[2019-08-30] MEDS ORDERED: cefTRIAXone 1,000 MG in Water for inj. (sterile) 10 ML IVP ONE (13:10)
[2019-08-30 13:50] LABS: Bilirubin,Urine Small (Negative); Blood,Urine Small (Negative); Clarity,Urine Clear (Clear); Color,Urine Yellow (Yellow); Glucose,Urine (UA) Normal (Normal); Ketones,Urine Trace mg/dL (Negative); Leukocyte Esterase,Urine Negative (Negative); Nitrite,Urine Negative (Negative); PH,Urine 6.5 pH Units (5.0-8.0); Protein,Urine 100 mg/dL (Neg-Trace); Specific Gravity,Urine 1.025 (1.010-1.025); Urobilinogen,Urine Normal (Normal)
[2019-08-30 13:52] LABS: Bacteria,Urine None Seen per hpf (None-Few); Hyaline Casts,Urine None Seen per lpf (None-Few); Squamous Epithelial Cell,Urine Many per lpf (None-Few); WBC,Urine 0-3 per hpf (0-3)
[2019-08-30 14:19] LABS: Amphetamine Screen,Urine Negative ng/mL (Cutoff=1000); Barbiturate Screen,Urine Negative ng/mL (Cutoff=200); Benzodiazepines Screen,Urine Negative ng/mL (Cutoff=200); Cannabinoid Screen,Urine Negative ng/mL (Cutoff = 50); Cocaine Screen,Urine Negative ng/mL (Cutoff= 300); Opiate Screen,Urine Negative ng/mL (Cutoff=300); Phencyclidine Screen,Urine Negative ng/mL (Cutoff=25)
[2019-08-30 14:23] LABS: Basophils % 0.1 %; Hematocrit 42.2 % (35.3-44.9); Hemoglobin 13.3 g/dL (11.5-15.4); Immature Granulocytes % 0.3 % (0-4); Lymphocytes # 0.7 K/mcL (0.6-4.6); Lymphocytes % 4.8 %; Mean Corpuscular HGB Conc 31.5 g/dL (31.6-35.5); Mean Corpuscular Hemoglobin 27.2 pg (28.0-33.3); Mean Corpuscular Volume 86.3 fL (83.0-100.0); Mean Platelet Volume 9.8 fL (9.4-12.4); Monocytes # 0.8 K/mcL (0.0-1.3); Monocytes % 5.6 %; Neutrophils # 12.3 K/mcL (1.6-8.9); Platelet Count 393 K/mcL (140-400); Red Blood Count 4.89 M/mcL (3.82-4.97); Red Cell Distribution Width 15.8 % (11.5-14.5); Segmented Neutrophils % 89.2 %; White Blood Count 13.8 K/mcL (4.3-11.1)
[2019-08-30 14:39] LABS: BUN/Creatinine Ratio 40 (6-26); Blood Urea Nitrogen 36 mg/dL (8-23); Calcium 10.6 mg/dL (8.6-10.3); Carbon Dioxide 30 mEq/L (23-29); Chloride 98 mEq/L (98-107); Glucose 122 mg/dL (70-105); Osmolality,Calculated 304 (280-300); Potassium 2.3 mEq/L (3.5-5.1); Sodium 142 mEq/L (136-145); eGFR For African Americans > 60 (> 60); eGFR For Non-African Americans > 60 (> 60)
[2019-08-30 14:41] LABS: Troponin I 0.07 ng/mL (< 0.04)
[2019-08-30] MEDS ORDERED: Isovue-370 500 ML BOTTLE IVP ONE (15:03)
[2019-08-30 15:10] LABS: Alanine Aminotransferase 10 Units/L (7-52); Albumin 4.5 g/dL (3.5-5.7); Albumin/Globulin Ratio 1.3 (1.1-2.2); Alkaline Phosphatase 92 Units/L (34-104); Aspartate Amino Transferase 17 Units/L (13-39); Bilirubin,Indirect 0.4 mg/dL (0.0-1.0); Bilirubin,Total 0.4 mg/dL (0.3-1.0); Ethanol < 10 mg/dL (Less than 10); Globulin 3.5 g/dL (2.4-3.5)
[2019-08-30] MEDS ORDERED: Potassium Chloride 40 MEQ, Lidocaine 1% 2 ML in 0.9 % Sodium Chloride 500 ML IVPB ONE (15:52)
[2019-08-30] MEDS ORDERED: Azithromycin 500 MG in 0.9 % Sodium Chloride 250 ML IVPB ONE (16:59)
[2019-08-30] MEDS ORDERED: Naloxone 0.4 MG/ML INJ IVP PRN (17:55)
[2019-08-30] MEDS ORDERED: hydrALAZINE 10 MG TABLET PO PRN (18:00)
[2019-08-30] MEDS ORDERED: Gabapentin 400 MG CAPSULE PO SCH (21:00)
[2019-08-30] MEDS ORDERED: Ipratropium/Albuterol Neb 3 ML IH SCH (22:00)
[2019-08-30] MEDS: Budesonide/Formoterol 160/4.5 1 PUFF INH IH SCH (22:12)
[2019-08-30] MEDS: MethylPREDNISolone 40 MG/ML VIAL IVP SCH (22:32)
[2019-08-30] MEDS: *HR* Heparin 5,000 UNIT/ML VIAL SQ SCH (22:32)
[2019-08-30] MEDS: Sennosides/Docusate Sodium TABLET PO SCH (22:37)
[2019-08-30] MEDS: Nicotine 21 MG PATCH.TD24 TD SCH (22:38)
[2019-08-30] MEDS ORDERED: *HR* Labetalol 20 MG/4 ML SYRINGE IVP ONE (23:39)
[2019-08-31] MEDS: Levalbuterol Neb 1.25 MG/3 ML IH SCH ×7 (02:16→23:37)
[2019-08-31 02:55] LABS: Basophils % 0.2 %; Hematocrit 35.1 % (35.3-44.9); Immature Granulocytes % 0.3 % (0-4); Lymphocytes # 0.7 K/mcL (0.6-4.6); Lymphocytes % 5.6 %; Mean Corpuscular HGB Conc 30.8 g/dL (31.6-35.5); Mean Corpuscular Hemoglobin 27.4 pg (28.0-33.3); Mean Corpuscular Volume 89.1 fL (83.0-100.0); Mean Platelet Volume 9.6 fL (9.4-12.4); Monocytes # 1.2 K/mcL (0.0-1.3); Neutrophils # 10.1 K/mcL (1.6-8.9); Platelet Count 291 K/mcL (140-400); Red Blood Count 3.94 M/mcL (3.82-4.97); Red Cell Distribution Width 15.8 % (11.5-14.5); Segmented Neutrophils % 83.9 %; White Blood Count 12.1 K/mcL (4.3-11.1)
[2019-08-31 02:56] LABS: Hemoglobin 10.8 g/dL (11.5-15.4)
[2019-08-31 03:24] LABS: Magnesium 1.8 mg/dL (1.6-2.6); Phosphorous 2.2 mg/dL (2.7-4.5)
[2019-08-31 03:26] LABS: BUN/Creatinine Ratio 33 (6-26); Blood Urea Nitrogen 27 mg/dL (8-23); Calcium 8.4 mg/dL (8.6-10.3); Carbon Dioxide 23 mEq/L (23-29); Chloride 108 mEq/L (98-107); Glucose 104 mg/dL (70-105); Osmolality,Calculated 299 (280-300); Potassium 3.7 mEq/L (3.5-5.1); Sodium 142 mEq/L (136-145); eGFR For African Americans > 60 (> 60); eGFR For Non-African Americans > 60 (> 60)
[2019-08-31] MEDS: MethylPREDNISolone 40 MG/ML VIAL IVP SCH ×2 (06:49→18:40)
[2019-08-31] MEDS: *HR* Heparin 5,000 UNIT/ML VIAL SQ SCH ×2 (06:49→18:40)
[2019-08-31] MEDS: Budesonide/Formoterol 160/4.5 1 PUFF INH IH SCH ×2 (07:16→19:58)
[2019-08-31] MEDS: Aspirin 325 MG TABLET PO SCH (08:28)
[2019-08-31] MEDS: Gabapentin 400 MG CAPSULE PO SCH ×2 (08:28→14:37)
[2019-08-31] MEDS: amLODIPine 5 MG TABLET PO SCH (08:29)
[2019-08-31] MEDS: Metoprolol XL (24 HR) Succ 50 MG TAB.ER.24H PO SCH (08:30)
[2019-08-31] MEDS: lisinopriL 20 MG TABLET PO SCH (08:30)
[2019-08-31] MEDS: Sennosides/Docusate Sodium TABLET PO SCH ×2 (08:30→21:50)
[2019-08-31] MEDS: Azithromycin 250 MG TABLET PO SCH (08:31)
[2019-08-31] MEDS: cefTRIAXone 1,000 MG in Water for inj. (sterile) 10 ML IVP SCH (08:33)
[2019-08-31] MEDS: *HR* HYDROcodone/Acet 5/325 mg TABLET PO PRN ×2 (10:46→18:40)
[2019-08-31] MEDS: Nicotine 21 MG PATCH.TD24 TD SCH ×2 (12:52→21:49)
[2019-08-31 17:30] LABS: Adenovirus Not Detected (Not Detect); Bordetella Pertussis Not Detected (Not Detect); Chlamydophila pneumoniae Not Detected (Not Detect); Coronavirus 229E Not Detected (Not Detect); Coronavirus HKU1 Not Detected (Not Detect); Coronavirus NL63 Not Detected (Not Detect); Coronavirus OC43 Not Detected (Not Detect); Human Metapneumovirus Not Detected (Not Detect); Human Rhinovirus/Enterovirus Not Detected (Not Detect); Influenza A Subtype 2009 H1 Not Detected (Not Detect); Influenza B Not Detected (Not Detect); Mycoplasma pneumoniae Not Detected (Not Detect); Parainfluenza Virus 1 Not Detected (Not Detect); Parainfluenza Virus 2 Not Detected (Not Detect); Parainfluenza Virus 3 Not Detected (Not Detect); Parainfluenza Virus 4 Not Detected (Not Detect); Respiratory Syncytial Virus Not Detected (Not Detect)
[2019-08-31] MEDS: Gabapentin 400 MG CAPSULE PO PRN (21:50)
[2019-08-31] MEDS ORDERED: *HR* LORazepam 2 MG/ML VIAL IVP ONE (21:52)
[2019-09-01 02:37] LABS: Basophils % 0.1 %; Hematocrit 32.8 % (35.3-44.9); Hemoglobin 9.9 g/dL (11.5-15.4); Immature Granulocytes % 0.8 % (0-4); Lymphocytes # 0.4 K/mcL (0.6-4.6); Lymphocytes % 5.3 %; Mean Corpuscular HGB Conc 30.2 g/dL (31.6-35.5); Mean Corpuscular Hemoglobin 27.2 pg (28.0-33.3); Mean Corpuscular Volume 90.1 fL (83.0-100.0); Mean Platelet Volume 9.6 fL (9.4-12.4); Monocytes # 0.3 K/mcL (0.0-1.3); Monocytes % 3.4 %; Neutrophils # 7.2 K/mcL (1.6-8.9); Platelet Count 240 K/mcL (140-400); Red Blood Count 3.64 M/mcL (3.82-4.97); Red Cell Distribution Width 15.9 % (11.5-14.5); Segmented Neutrophils % 90.4 %
[2019-09-01 02:56] LABS: BUN/Creatinine Ratio 25 (6-26); Blood Urea Nitrogen 18 mg/dL (8-23); Calcium 8.5 mg/dL (8.6-10.3); Carbon Dioxide 26 mEq/L (23-29); Chloride 107 mEq/L (98-107); Glucose 133 mg/dL (70-105); Osmolality,Calculated 292 (280-300); Potassium 3.1 mEq/L (3.5-5.1); Sodium 139 mEq/L (136-145); eGFR For African Americans > 60 (> 60); eGFR For Non-African Americans > 60 (> 60)
[2019-09-01] MEDS: Levalbuterol Neb 1.25 MG/3 ML IH SCH ×6 (03:38→23:22)
[2019-09-01] MEDS: *HR* Heparin 5,000 UNIT/ML VIAL SQ SCH ×2 (05:09→17:09)
[2019-09-01] MEDS: MethylPREDNISolone 40 MG/ML VIAL IVP SCH (05:09)
[2019-09-01] MEDS: Budesonide/Formoterol 160/4.5 1 PUFF INH IH SCH ×2 (07:32→19:54)
[2019-09-01] MEDS: Aspirin 325 MG TABLET PO SCH (09:02)
[2019-09-01] MEDS: Azithromycin 250 MG TABLET PO SCH (09:02)
[2019-09-01] MEDS: amLODIPine 5 MG TABLET PO SCH (09:02)
[2019-09-01] MEDS: lisinopriL 20 MG TABLET PO SCH (09:02)
[2019-09-01] MEDS: cefTRIAXone 1,000 MG in Water for inj. (sterile) 10 ML IVP SCH (09:02)
[2019-09-01] MEDS: Metoprolol XL (24 HR) Succ 50 MG TAB.ER.24H PO SCH (09:02)
[2019-09-01] MEDS: Sennosides/Docusate Sodium TABLET PO SCH ×2 (09:02→20:39)
[2019-09-01] MEDS: Gabapentin 400 MG CAPSULE PO PRN ×3 (09:10→20:38)
[2019-09-01] MEDS ORDERED: Ibuprofen 800 MG TABLET PO ONE (09:37)
[2019-09-01] MEDS ORDERED: Ibuprofen 400 MG TABLET PO PRN (11:15)
[2019-09-01] MEDS: predniSONE 20 MG TABLET PO SCH (17:09)
[2019-09-01] MEDS: *HR* HYDROcodone/Acet 5/325 mg TABLET PO PRN (17:12)
[2019-09-01] MEDS ORDERED: *HR* LORazepam 2 MG/ML VIAL IVP ONE (20:39)
[2019-09-01] MEDS: Nicotine 21 MG PATCH.TD24 TD SCH (20:40)
[2019-09-02] MEDS: Levalbuterol Neb 1.25 MG/3 ML IH SCH ×4 (03:24→16:50)
[2019-09-02 05:12] LABS: Hematocrit 35.9 % (35.3-44.9); Hemoglobin 10.6 g/dL (11.5-15.4); Mean Corpuscular HGB Conc 29.5 g/dL (31.6-35.5); Mean Corpuscular Hemoglobin 26.6 pg (28.0-33.3); Mean Corpuscular Volume 90.2 fL (83.0-100.0); Mean Platelet Volume 9.6 fL (9.4-12.4); Platelet Count 272 K/mcL (140-400); Red Blood Count 3.98 M/mcL (3.82-4.97); Red Cell Distribution Width 15.9 % (11.5-14.5)
[2019-09-02 05:30] LABS: BUN/Creatinine Ratio 31 (6-26); Blood Urea Nitrogen 21 mg/dL (8-23); Carbon Dioxide 26 mEq/L (23-29); Chloride 107 mEq/L (98-107); Potassium 3.8 mEq/L (3.5-5.1); Sodium 140 mEq/L (136-145); eGFR For African Americans > 60 (> 60)
[2019-09-02 05:31] LABS: Calcium 8.7 mg/dL (8.6-10.3); Glucose 142 mg/dL (70-105); Osmolality,Calculated 295 (280-300); eGFR For Non-African Americans > 60 (> 60)
[2019-09-02] MEDS: *HR* Heparin 5,000 UNIT/ML VIAL SQ SCH (06:09)
[2019-09-02] MEDS: Budesonide/Formoterol 160/4.5 1 PUFF INH IH SCH (07:22)
[2019-09-02] MEDS: amLODIPine 5 MG TABLET PO SCH (08:23)
[2019-09-02] MEDS: predniSONE 20 MG TABLET PO SCH (08:24)
[2019-09-02] MEDS: Sennosides/Docusate Sodium TABLET PO SCH (08:24)
[2019-09-02] MEDS: lisinopriL 20 MG TABLET PO SCH (08:24)
[2019-09-02] MEDS: Metoprolol XL (24 HR) Succ 50 MG TAB.ER.24H PO SCH (08:24)
[2019-09-02] MEDS: Azithromycin 250 MG TABLET PO SCH (08:24)
[2019-09-02] MEDS: cefTRIAXone 1,000 MG in Water for inj. (sterile) 10 ML IVP SCH (08:27)
[2019-09-02] MEDS: Gabapentin 400 MG CAPSULE PO PRN ×2 (08:36→16:25)
[2019-09-02] MEDS ORDERED: Aspirin Enteric Coated 81 MG Tablet PO SCH (09:00)
[2019-09-02] MEDS: *HR* HYDROcodone/Acet 5/325 mg TABLET PO PRN (10:57)
[2019-09-02 15:43] VITALS: BP 125/78
[2019-09-02] MEDS ORDERED: Ergocalciferol (VIT D2) 50,000 UNIT (1.25MG) CAP PO SCH (18:00)
== END 2019-09-02 18:25 | disposition home or self-care (01) | DRG 190 ==
LOC: EMEROOARM 12:50 → 2NENU 12:50 → SUATTDRO 18:17 → 2NENU 18:56
PROVIDERS: ADMIT Internal Medicine; ATTEND Internal Medicine

== ENCOUNTER 2019-09-27 01:41 | Inpatient (IN) ==
[2019-09-27] MEDS ORDERED: 0.9 % Sodium Chloride 1,000 ML IVC ONE ×2 (02:25→05:21)
[2019-09-27] MEDS ORDERED: Acetaminophen 650 MG RECTAL SUPP RC ONE (02:26)
[2019-09-27] MEDS ORDERED: Piperacillin/Tazobactam 3.375 GM in 0.9 % Sodium Chloride Mini Bag 100 ML IVPB ONE (02:27)
[2019-09-27] MEDS ORDERED: levoFLOXacin 750 MG/150 ML 750 MG/150 ML BAG IVPB ONE (02:27)
[2019-09-27 02:44] LABS: INR 0.9; Prothrombin Time 10.2 Seconds (9.4-12.1)
[2019-09-27 02:47] LABS: Activated Partial Thrombo Time 27.5 Seconds (26.0-36.0)
[2019-09-27 03:04] LABS: Troponin I 0.04 ng/mL (< 0.04)
[2019-09-27 03:05] LABS: Alanine Aminotransferase 64 Units/L (7-52); Albumin 4.2 g/dL (3.5-5.7); Albumin/Globulin Ratio 1.5 (1.1-2.2); Alkaline Phosphatase 104 Units/L (34-104); Aspartate Amino Transferase 46 Units/L (13-39); BUN/Creatinine Ratio 20 (6-26); Bilirubin,Direct 0.1 mg/dL (0.0-0.2); Bilirubin,Indirect 0.1 mg/dL (0.0-1.0); Bilirubin,Total 0.2 mg/dL (0.3-1.0); Blood Urea Nitrogen 24 mg/dL (8-23); Calcium 8.9 mg/dL (8.6-10.3); Carbon Dioxide 31 mEq/L (23-29); Chloride 101 mEq/L (98-107); Creatine Kinase 78 Units/L (30-223); Ethanol < 10 mg/dL (Less than 10); Globulin 2.8 g/dL (2.4-3.5); Glucose 148 mg/dL (70-105); Osmolality,Calculated 297 (280-300); Sodium 140 mEq/L (136-145); eGFR For African Americans 56 (> 60); eGFR For Non-African Americans 46 (> 60)
[2019-09-27 03:10] LABS: ABG Base Excess 2 mEq/L (-2 to 3); ABG HCO3 33 mEq/L (21-27); ABG Oxygen Saturation 18 % (95-98); ABG PCO2 89 mmHg (35-45); ABG PH 7.17 pH Units (7.32-7.45); ABG PO2 19 mmHg (85-104); ABG TCO2 35 mEq/L (20-26); Blood Gas Modality ASSIST CONTROL; Blood Gas VT 450 cc
[2019-09-27 03:24] LABS: Bilirubin,Urine Negative (Negative); Blood,Urine Small (Negative); Clarity,Urine Clear (Clear); Color,Urine Yellow (Yellow); Glucose,Urine (UA) Normal (Normal); Ketones,Urine Negative (Negative); Leukocyte Esterase,Urine Negative (Negative); Nitrite,Urine Negative (Negative); Protein,Urine 100 mg/dL (Neg-Trace); Specific Gravity,Urine 1.023 (1.010-1.025); Urobilinogen,Urine Normal (Normal)
[2019-09-27 03:34] LABS: Amphetamine Screen,Urine Negative ng/mL (Cutoff=1000); Barbiturate Screen,Urine Negative ng/mL (Cutoff=200); Benzodiazepines Screen,Urine Negative ng/mL (Cutoff=200); Cannabinoid Screen,Urine Negative ng/mL (Cutoff = 50); Cocaine Screen,Urine Negative ng/mL (Cutoff= 300); Opiate Screen,Urine Negative ng/mL (Cutoff=300); Phencyclidine Screen,Urine Negative ng/mL (Cutoff=25)
[2019-09-27 03:49] LABS: Bacteria,Urine None Seen per hpf (None-Few); RBC,Urine 0-3 per hpf (0-3); Squamous Epithelial Cell,Urine Few per lpf (None-Few); WBC,Urine 0-3 per hpf (0-3)
[2019-09-27 03:50] LABS: Hyaline Casts,Urine None Seen per lpf (None-Few)
[2019-09-27] MEDS ORDERED: *HR* Midazolam HCl 2 MG/2 ML VIAL IVP ONE (03:55)
[2019-09-27] MEDS ORDERED: *HR* Midazolam HCl 5 MG/5 ML VIAL IVP ONE (03:57)
[2019-09-27] MEDS ORDERED: Naloxone 0.4 MG/ML INJ IVP PRN (05:21)
[2019-09-27 05:22] LABS: Hemoglobin 8.3 g/dL (11.5-15.4); Immature Granulocytes % 1.1 % (0-4); Red Cell Distribution Width 16.8 % (11.5-14.5)
[2019-09-27 05:23] LABS: Basophils % 0.2 %; Hematocrit 29.7 % (35.3-44.9); Lymphocytes # 0.6 K/mcL (0.6-4.6); Lymphocytes % 9.4 %; Mean Corpuscular HGB Conc 27.9 g/dL (31.6-35.5); Mean Corpuscular Hemoglobin 27.1 pg (28.0-33.3); Mean Corpuscular Volume 97.1 fL (83.0-100.0); Mean Platelet Volume 9.8 fL (9.4-12.4); Monocytes # 0.7 K/mcL (0.0-1.3); Neutrophils # 5.2 K/mcL (1.6-8.9); Nucleated Red Blood Cells 0.9 /100 WBC (0); Platelet Count 262 K/mcL (140-400); Red Blood Count 3.06 M/mcL (3.82-4.97); Segmented Neutrophils % 79.3 %; White Blood Count 6.5 K/mcL (4.3-11.1)
[2019-09-27] MEDS ORDERED: D5% in 0.45% NACL 1,000 ML IVC SCH (05:30)
[2019-09-27] MEDS: FentaNYL (PF) 1,000 MCG in 0.9 % Sodium Chloride 80 ML IVC SCH ×2 (05:40→23:30)
[2019-09-27 05:59] LABS: Hypochromasia Present (Not Present); Platelet Estimate Normal (Normal)
[2019-09-27] MEDS ORDERED: *HR* Heparin 5,000 UNIT/ML VIAL SQ SCH (06:00)
[2019-09-27] MEDS ORDERED: Aminoglycoside Consult 1 EACH MC ONE (07:13)
[2019-09-27] MEDS ORDERED: Famotidine 20 MG TABLET PO SCH (07:30)
[2019-09-27 08:17] LABS: ABG Base Excess 8 mEq/L (-2 to 3); ABG HCO3 34 mEq/L (21-27); ABG Oxygen Saturation 93 % (95-98); ABG PCO2 56 mmHg (35-45); ABG PH 7.39 pH Units (7.32-7.45); ABG PO2 68 mmHg (85-104); ABG TCO2 35 mEq/L (20-26); Blood Gas Modality AF; Blood Gas VT 450 cc
[2019-09-27] MEDS: MethylPREDNISolone 40 MG/ML VIAL IVP SCH ×2 (08:48→18:32)
[2019-09-27] MEDS: Piperacillin/Tazobactam 3.375 GM in 0.9 % Sodium Chloride Mini Bag 100 ML IVPB SCH ×2 (08:49→18:32)
[2019-09-27 10:53] LABS: Adenovirus Not Detected (Not Detect); Bordetella Pertussis Not Detected (Not Detect); Chlamydophila pneumoniae Not Detected (Not Detect); Coronavirus 229E Not Detected (Not Detect); Coronavirus HKU1 Not Detected (Not Detect); Coronavirus NL63 Not Detected (Not Detect); Coronavirus OC43 Not Detected (Not Detect); Human Metapneumovirus Not Detected (Not Detect); Human Rhinovirus/Enterovirus Not Detected (Not Detect); Influenza A Subtype 2009 H1 Not Detected (Not Detect); Influenza B Not Detected (Not Detect); Mycoplasma pneumoniae Not Detected (Not Detect); Parainfluenza Virus 1 Not Detected (Not Detect); Parainfluenza Virus 2 Not Detected (Not Detect); Parainfluenza Virus 3 Not Detected (Not Detect); Parainfluenza Virus 4 Not Detected (Not Detect); Respiratory Syncytial Virus Not Detected (Not Detect)
[2019-09-27 13:49] LABS: Troponin I 0.07 ng/mL (< 0.04)
[2019-09-27] MEDS ORDERED: *HR* Heparin 5,000 UNIT/ML VIAL IVP PRN ×2 (14:46)
[2019-09-27] MEDS: Heparin 25,000 UNIT/250 ML D5W 25,000 UNIT/250 ML IV.SOLN IVC SCH (15:33)
[2019-09-27 15:47] LABS: Heparin anti-factor XA UFH < 0.04 IU/mL (0.30-0.70)
[2019-09-27 15:48] LABS: Prothrombin Time 11.7 Seconds (9.4-12.1)
[2019-09-27] MEDS: Aspirin 325 MG TABLET PO SCH (16:16)
[2019-09-27] MEDS: Famotidine 20 MG TABLET PO SCH (16:17)
[2019-09-27] MEDS ORDERED: Artificial Tears SOLN 15 ML BOTTLE BOTH EYES PRN (22:52)
[2019-09-27] MEDS: Chlorhexidine Rinse 15 ML MOUTHWASH MM SCH (23:50)
[2019-09-27] MEDS: Artificial Tears SOLN 15 ML BOTTLE BOTH EYES SCH (23:50)
[2019-09-27] MEDS: Pantoprazole 40 MG VIAL IVP SCH (23:50)
[2019-09-28] MEDS: Piperacillin/Tazobactam 3.375 GM in 0.9 % Sodium Chloride Mini Bag 100 ML IVPB SCH ×3 (01:27→18:29)
[2019-09-28 04:26] LABS: Basophils % 0.2 %; Hematocrit 25.6 % (35.3-44.9); Hemoglobin 7.6 g/dL (11.5-15.4); Immature Granulocytes % 0.3 % (0-4); Lymphocytes # 0.7 K/mcL (0.6-4.6); Lymphocytes % 11.5 %; Mean Corpuscular HGB Conc 29.7 g/dL (31.6-35.5); Mean Corpuscular Hemoglobin 27.3 pg (28.0-33.3); Mean Corpuscular Volume 92.1 fL (83.0-100.0); Mean Platelet Volume 9.8 fL (9.4-12.4); Monocytes # 0.6 K/mcL (0.0-1.3); Neutrophils # 4.5 K/mcL (1.6-8.9); Nucleated Red Blood Cells 0.3 /100 WBC (0); Platelet Count 215 K/mcL (140-400); Red Blood Count 2.78 M/mcL (3.82-4.97); Red Cell Distribution Width 16.5 % (11.5-14.5); White Blood Count 5.8 K/mcL (4.3-11.1)
[2019-09-28] MEDS: Artificial Tears SOLN 15 ML BOTTLE BOTH EYES SCH ×5 (04:27→20:11)
[2019-09-28 04:46] LABS: ABG Base Excess 9 mEq/L (-2 to 3); ABG HCO3 34 mEq/L (21-27); ABG Oxygen Saturation 96 % (95-98); ABG PCO2 52 mmHg (35-45); ABG PH 7.42 pH Units (7.32-7.45); ABG PO2 84 mmHg (85-104); ABG TCO2 36 mEq/L (20-26); Blood Gas Modality ASSIST CONTROL; Blood Gas VT 400 cc
[2019-09-28 04:49] LABS: BUN/Creatinine Ratio 22 (6-26); Blood Urea Nitrogen 21 mg/dL (8-23); Calcium 8.3 mg/dL (8.6-10.3); Carbon Dioxide 28 mEq/L (23-29); Chloride 108 mEq/L (98-107); Glucose 122 mg/dL (70-105); Magnesium 1.7 mg/dL (1.6-2.6); Osmolality,Calculated 304 (280-300); Phosphorous 2.8 mg/dL (2.7-4.5); Potassium 3.2 mEq/L (3.5-5.1); Sodium 145 mEq/L (136-145); eGFR For African Americans > 60 (> 60); eGFR For Non-African Americans > 60 (> 60)
[2019-09-28] MEDS: FentaNYL (PF) 1,000 MCG in 0.9 % Sodium Chloride 80 ML IVC SCH ×3 (05:00→22:15)
[2019-09-28] MEDS: MethylPREDNISolone 40 MG/ML VIAL IVP SCH ×2 (05:10→18:28)
[2019-09-28] MEDS: Potassium Chloride Elixir 20 MEQ/15 ML UDC GTUBE ONE (06:14)
[2019-09-28] MEDS: Pantoprazole 40 MG VIAL IVP SCH (09:15)
[2019-09-28] MEDS: Aspirin 325 MG TABLET PO SCH (09:15)
[2019-09-28] MEDS: Chlorhexidine Rinse 15 ML MOUTHWASH MM SCH ×2 (09:16→20:13)
[2019-09-28] MEDS: Famotidine 20 MG TABLET PO SCH ×2 (09:16→18:28)
[2019-09-28] MEDS ORDERED: Potassium Chloride 40 MEQ, Lidocaine 1% 2 ML in 0.9 % Sodium Chloride 500 ML IVPB ONE (09:49)
[2019-09-28] MEDS: Furosemide 20 MG/2 ML VIAL IVP SCH (12:23)
[2019-09-28] MEDS: Dexmedetomidine HCl 400 MCG/100 ML MLS IVC SCH ×2 (12:24→21:19)
[2019-09-28] MEDS: Heparin 25,000 UNIT/250 ML D5W 25,000 UNIT/250 ML IV.SOLN IVC SCH (16:11)
[2019-09-28 16:27] LABS: Magnesium 2.5 mg/dL (1.6-2.6); Phosphorous 4.7 mg/dL (2.7-4.5); Potassium 3.8 mEq/L (3.5-5.1)
[2019-09-29] MEDS: Artificial Tears SOLN 15 ML BOTTLE BOTH EYES SCH ×7 (01:00→22:56)
[2019-09-29] MEDS: Piperacillin/Tazobactam 3.375 GM in 0.9 % Sodium Chloride Mini Bag 100 ML IVPB SCH ×3 (02:46→16:51)
[2019-09-29] MEDS: Dexmedetomidine HCl 400 MCG/100 ML MLS IVC SCH ×3 (03:20→22:24)
[2019-09-29 05:20] LABS: ABG Base Excess 4 mEq/L (-2 to 3); ABG HCO3 31 mEq/L (21-27); ABG Oxygen Saturation 77 % (95-98); ABG PCO2 64 mmHg (35-45); ABG PO2 48 mmHg (85-104); ABG TCO2 33 mEq/L (20-26); Blood Gas Modality AF; Blood Gas VT 400 cc
[2019-09-29] MEDS: MethylPREDNISolone 40 MG/ML VIAL IVP SCH ×2 (05:57→16:51)
[2019-09-29] MEDS: FentaNYL (PF) 1,000 MCG in 0.9 % Sodium Chloride 80 ML IVC SCH ×3 (05:58→19:23)
[2019-09-29 06:28] LABS: Hemoglobin 7.4 g/dL (11.5-15.4)
[2019-09-29 06:30] LABS: Basophils % 0.2 %; Hematocrit 25.6 % (35.3-44.9); Immature Granulocytes % 1.1 % (0-4); Lymphocytes # 0.6 K/mcL (0.6-4.6); Lymphocytes % 10.5 %; Mean Corpuscular HGB Conc 28.9 g/dL (31.6-35.5); Mean Corpuscular Hemoglobin 27.3 pg (28.0-33.3); Mean Corpuscular Volume 94.5 fL (83.0-100.0); Mean Platelet Volume 10.2 fL (9.4-12.4); Monocytes # 0.7 K/mcL (0.0-1.3); Monocytes % 12.5 %; Neutrophils # 4.1 K/mcL (1.6-8.9); Nucleated Red Blood Cells 0.9 /100 WBC (0); Platelet Count 200 K/mcL (140-400); Red Blood Count 2.71 M/mcL (3.82-4.97); Red Cell Distribution Width 16.8 % (11.5-14.5); Segmented Neutrophils % 75.7 %; White Blood Count 5.4 K/mcL (4.3-11.1)
[2019-09-29 06:48] LABS: Alanine Aminotransferase 35 Units/L (7-52); Albumin/Globulin Ratio 1.3 (1.1-2.2); Alkaline Phosphatase 64 Units/L (34-104); Aspartate Amino Transferase 44 Units/L (13-39); BUN/Creatinine Ratio 26 (6-26); Bilirubin,Total 0.2 mg/dL (0.3-1.0); Blood Urea Nitrogen 29 mg/dL (8-23); Calcium 7.9 mg/dL (8.6-10.3); Carbon Dioxide 30 mEq/L (23-29); Chloride 108 mEq/L (98-107); Globulin 2.4 g/dL (2.4-3.5); Glucose 195 mg/dL (70-105); Osmolality,Calculated 311 (280-300); Potassium 4.7 mEq/L (3.5-5.1); Sodium 145 mEq/L (136-145); Total Protein 5.4 g/dL (6.4-8.9); eGFR For African Americans > 60 (> 60); eGFR For Non-African Americans 50 (> 60)
[2019-09-29 07:08] LABS: Hypochromasia Present (Not Present); Platelet Estimate Normal (Normal)
[2019-09-29] MEDS: Aspirin 325 MG TABLET PO SCH (09:36)
[2019-09-29] MEDS: Famotidine 20 MG TABLET PO SCH ×2 (09:36→16:52)
[2019-09-29] MEDS: Pantoprazole 40 MG VIAL IVP SCH (09:37)
[2019-09-29] MEDS: Chlorhexidine Rinse 15 ML MOUTHWASH MM SCH ×2 (09:37→19:46)
[2019-09-29] MEDS: Furosemide 20 MG/2 ML VIAL IVP SCH ×2 (09:38→16:52)
[2019-09-29 11:04] LABS: Mycoplasma pneumoniae IgG 0.18 U/L (<=0.09)
[2019-09-29] MEDS: Doxycycline 100 MG in 0.9 % Sodium Chloride Mini Bag 100 ML IVPB SCH (16:51)
[2019-09-29] MEDS: Heparin 25,000 UNIT/250 ML D5W 25,000 UNIT/250 ML IV.SOLN IVC SCH (21:53)
[2019-09-30] MEDS: FentaNYL (PF) 1,000 MCG in 0.9 % Sodium Chloride 80 ML IVC SCH ×3 (01:10→20:06)
[2019-09-30] MEDS: Piperacillin/Tazobactam 3.375 GM in 0.9 % Sodium Chloride Mini Bag 100 ML IVPB SCH ×3 (01:11→17:29)
[2019-09-30 02:55] LABS: Basophils % 0.1 %; Hematocrit 25.9 % (35.3-44.9); Hemoglobin 7.6 g/dL (11.5-15.4); Immature Granulocytes % 0.8 % (0-4); Lymphocytes # 0.4 K/mcL (0.6-4.6); Lymphocytes % 5.8 %; Mean Corpuscular HGB Conc 29.3 g/dL (31.6-35.5); Mean Corpuscular Hemoglobin 26.8 pg (28.0-33.3); Mean Corpuscular Volume 91.2 fL (83.0-100.0); Mean Platelet Volume 9.9 fL (9.4-12.4); Monocytes # 0.6 K/mcL (0.0-1.3); Monocytes % 7.7 %; Neutrophils # 6.3 K/mcL (1.6-8.9); Nucleated Red Blood Cells 0.7 /100 WBC (0); Platelet Count 202 K/mcL (140-400); Red Blood Count 2.84 M/mcL (3.82-4.97); Red Cell Distribution Width 16.4 % (11.5-14.5); Segmented Neutrophils % 85.6 %; White Blood Count 7.3 K/mcL (4.3-11.1)
[2019-09-30 03:16] LABS: Alanine Aminotransferase 45 Units/L (7-52); Albumin/Globulin Ratio 1.2 (1.1-2.2); Alkaline Phosphatase 66 Units/L (34-104); Aspartate Amino Transferase 66 Units/L (13-39); BUN/Creatinine Ratio 34 (6-26); Bilirubin,Total 0.2 mg/dL (0.3-1.0); Blood Urea Nitrogen 35 mg/dL (8-23); Calcium 8.2 mg/dL (8.6-10.3); Carbon Dioxide 32 mEq/L (23-29); Chloride 102 mEq/L (98-107); Globulin 2.5 g/dL (2.4-3.5); Glucose 251 mg/dL (70-105); Magnesium 1.9 mg/dL (1.6-2.6); Osmolality,Calculated 310 (280-300); Phosphorous 4.7 mg/dL (2.7-4.5); Potassium 3.7 mEq/L (3.5-5.1); Sodium 142 mEq/L (136-145); Total Protein 5.5 g/dL (6.4-8.9); eGFR For African Americans > 60 (> 60); eGFR For Non-African Americans 54 (> 60)
[2019-09-30] MEDS: Artificial Tears SOLN 15 ML BOTTLE BOTH EYES SCH ×5 (04:13→20:45)
[2019-09-30] MEDS: Dexmedetomidine HCl 400 MCG/100 ML MLS IVC SCH ×3 (04:59→17:29)
[2019-09-30] MEDS: Doxycycline 100 MG in 0.9 % Sodium Chloride Mini Bag 100 ML IVPB SCH ×2 (05:34→17:30)
[2019-09-30] MEDS: MethylPREDNISolone 40 MG/ML VIAL IVP SCH ×2 (05:34→17:30)
[2019-09-30 05:49] LABS: ABG Base Excess 8 mEq/L (-2 to 3); ABG HCO3 34 mEq/L (21-27); ABG Oxygen Saturation 93 % (95-98); ABG PCO2 53 mmHg (35-45); ABG PH 7.41 pH Units (7.32-7.45); ABG PO2 69 mmHg (85-104); ABG TCO2 35 mEq/L (20-26); Blood Gas Modality AF; Blood Gas VT 400 cc
[2019-09-30] MEDS: Famotidine 20 MG TABLET PO SCH ×2 (08:17→17:31)
[2019-09-30] MEDS: Pantoprazole 40 MG VIAL IVP SCH (08:17)
[2019-09-30] MEDS: Chlorhexidine Rinse 15 ML MOUTHWASH MM SCH ×2 (08:18→20:05)
[2019-09-30] MEDS: Aspirin 325 MG TABLET PO SCH (08:18)
[2019-09-30] MEDS: Furosemide 20 MG/2 ML VIAL IVP SCH ×2 (08:18→17:30)
[2019-09-30] MEDS ORDERED: *HR* Dextrose 50 % in Water (Syg) 50 ML SYRINGE IVP PRN (10:23)
[2019-09-30] MEDS ORDERED: D5% in Water 1,000 ML IVC PRN (10:23)
[2019-09-30] MEDS ORDERED: Dextrose Gel 15 GM/37.5 ML TUBE PO PRN ×2 (10:23)
[2019-09-30] MEDS: Insulin LISPRO 300 UNITS/3 ML VIAL SQ SCH ×2 (13:00→19:27)
[2019-09-30] MEDS: Ipratropium 1 PUFF INHALER IH SCH ×3 (16:19→23:57)
[2019-10-01] MEDS: Artificial Tears SOLN 15 ML BOTTLE BOTH EYES SCH ×6 (00:10→20:00)
[2019-10-01] MEDS: Insulin LISPRO 300 UNITS/3 ML VIAL SQ SCH ×4 (00:59→19:14)
[2019-10-01] MEDS: Dexmedetomidine HCl 400 MCG/100 ML MLS IVC SCH ×4 (01:02→22:48)
[2019-10-01] MEDS: Piperacillin/Tazobactam 3.375 GM in 0.9 % Sodium Chloride Mini Bag 100 ML IVPB SCH ×3 (02:37→18:47)
[2019-10-01] MEDS: Ipratropium 1 PUFF INHALER IH SCH ×5 (04:44→19:44)
[2019-10-01 05:23] LABS: Basophils % 0.1 %; Hematocrit 27.5 % (35.3-44.9); Hemoglobin 8.1 g/dL (11.5-15.4); Lymphocytes # 0.6 K/mcL (0.6-4.6); Lymphocytes % 6.3 %; Mean Corpuscular HGB Conc 29.5 g/dL (31.6-35.5); Mean Corpuscular Hemoglobin 27.3 pg (28.0-33.3); Mean Corpuscular Volume 92.6 fL (83.0-100.0); Mean Platelet Volume 10.8 fL (9.4-12.4); Monocytes # 0.7 K/mcL (0.0-1.3); Neutrophils # 8.6 K/mcL (1.6-8.9); Nucleated Red Blood Cells 0.5 /100 WBC (0); Platelet Count 222 K/mcL (140-400); Red Blood Count 2.97 M/mcL (3.82-4.97); Red Cell Distribution Width 16.4 % (11.5-14.5); Segmented Neutrophils % 84.6 %; White Blood Count 10.2 K/mcL (4.3-11.1)
[2019-10-01 05:32] LABS: Alanine Aminotransferase 47 Units/L (7-52); Albumin 3.2 g/dL (3.5-5.7); Albumin/Globulin Ratio 1.2 (1.1-2.2); Alkaline Phosphatase 69 Units/L (34-104); Aspartate Amino Transferase 63 Units/L (13-39); BUN/Creatinine Ratio 42 (6-26); Bilirubin,Total 0.2 mg/dL (0.3-1.0); Blood Urea Nitrogen 34 mg/dL (8-23); Calcium 8.3 mg/dL (8.6-10.3); Carbon Dioxide 38 mEq/L (23-29); Chloride 96 mEq/L (98-107); Globulin 2.6 g/dL (2.4-3.5); Glucose 253 mg/dL (70-105); Magnesium 1.5 mg/dL (1.6-2.6); Osmolality,Calculated 306 (280-300); Phosphorous 3.6 mg/dL (2.7-4.5); Potassium 3.2 mEq/L (3.5-5.1); Sodium 140 mEq/L (136-145); Total Protein 5.8 g/dL (6.4-8.9); eGFR For African Americans > 60 (> 60); eGFR For Non-African Americans > 60 (> 60)
[2019-10-01] MEDS: Heparin 25,000 UNIT/250 ML D5W 25,000 UNIT/250 ML IV.SOLN IVC SCH ×2 (05:49→18:46)
[2019-10-01] MEDS: Doxycycline 100 MG in 0.9 % Sodium Chloride Mini Bag 100 ML IVPB SCH ×2 (05:54→18:48)
[2019-10-01] MEDS: MethylPREDNISolone 40 MG/ML VIAL IVP SCH ×2 (05:54→18:48)
[2019-10-01] MEDS: Famotidine 20 MG TABLET PO SCH ×2 (05:54→18:47)
[2019-10-01 06:58] LABS: ABG Base Excess 10 mEq/L (-2 to 3); ABG HCO3 38 mEq/L (21-27); ABG Oxygen Saturation 92 % (95-98); ABG PCO2 78 mmHg (35-45); ABG PO2 73 mmHg (85-104); ABG TCO2 41 mEq/L (20-26); Blood Gas VT 400 cc
[2019-10-01] MEDS: Pantoprazole 40 MG VIAL IVP SCH (07:46)
[2019-10-01] MEDS: Furosemide 20 MG/2 ML VIAL IVP SCH ×2 (07:46→18:48)
[2019-10-01] MEDS: Aspirin 325 MG TABLET PO SCH (07:46)
[2019-10-01] MEDS: Chlorhexidine Rinse 15 ML MOUTHWASH MM SCH ×2 (07:46→21:37)
[2019-10-01] MEDS: FentaNYL (PF) 1,000 MCG in 0.9 % Sodium Chloride 80 ML IVC SCH ×2 (10:16→18:51)
[2019-10-01] MEDS ORDERED: Isovue-370 500 ML BOTTLE IVP ONE (16:35)
[2019-10-01] MEDS ORDERED: Potassium Chloride Elixir 20 MEQ/15 ML UDC GTUBE ONE (16:41)
[2019-10-01] MEDS: Gabapentin 400 MG CAPSULE PO SCH (18:46)
[2019-10-01] MEDS: Potassium Chloride Elixir 20 MEQ/15 ML UDC GTUBE ONE (18:47)
[2019-10-02] MEDS: Ipratropium 1 PUFF INHALER IH SCH ×7 (00:25→23:22)
[2019-10-02] MEDS: Gabapentin 400 MG CAPSULE PO SCH ×5 (01:17→23:23)
[2019-10-02] MEDS: Artificial Tears SOLN 15 ML BOTTLE BOTH EYES SCH ×7 (01:17→23:22)
[2019-10-02] MEDS: Piperacillin/Tazobactam 3.375 GM in 0.9 % Sodium Chloride Mini Bag 100 ML IVPB SCH ×3 (01:31→17:11)
[2019-10-02] MEDS: Insulin LISPRO 300 UNITS/3 ML VIAL SQ SCH ×4 (01:41→17:04)
[2019-10-02] MEDS: FentaNYL (PF) 1,000 MCG in 0.9 % Sodium Chloride 80 ML IVC SCH ×4 (02:20→20:41)
[2019-10-02 04:51] LABS: Basophils % 0.1 %; Hemoglobin 7.7 g/dL (11.5-15.4)
[2019-10-02 04:53] LABS: Hematocrit 26.1 % (35.3-44.9); Immature Granulocytes % 1.2 % (0-4); Lymphocytes # 0.5 K/mcL (0.6-4.6); Lymphocytes % 5.5 %; Mean Corpuscular HGB Conc 29.5 g/dL (31.6-35.5); Mean Corpuscular Hemoglobin 27.2 pg (28.0-33.3); Mean Corpuscular Volume 92.2 fL (83.0-100.0); Mean Platelet Volume 10.7 fL (9.4-12.4); Monocytes # 0.7 K/mcL (0.0-1.3); Monocytes % 7.5 %; Neutrophils # 8.1 K/mcL (1.6-8.9); Nucleated Red Blood Cells 0.4 /100 WBC (0); Platelet Count 220 K/mcL (140-400); Red Blood Count 2.83 M/mcL (3.82-4.97); Red Cell Distribution Width 16.4 % (11.5-14.5); Segmented Neutrophils % 85.7 %; White Blood Count 9.5 K/mcL (4.3-11.1)
[2019-10-02 05:17] LABS: ABG Base Excess 21 mEq/L (-2 to 3); ABG HCO3 49 mEq/L (21-27); ABG Oxygen Saturation 91 % (95-98); ABG PCO2 73 mmHg (35-45); ABG PH 7.43 pH Units (7.32-7.45); ABG PO2 64 mmHg (85-104); ABG TCO2 > 50 mEq/L (20-26); Blood Gas Modality AF; Blood Gas VT 440 cc
[2019-10-02 05:34] LABS: Alanine Aminotransferase 42 Units/L (7-52); Albumin/Globulin Ratio 1.4 (1.1-2.2); Alkaline Phosphatase 62 Units/L (34-104); Aspartate Amino Transferase 47 Units/L (13-39); BUN/Creatinine Ratio 37 (6-26); Bilirubin,Total 0.3 mg/dL (0.3-1.0); Blood Urea Nitrogen 25 mg/dL (8-23); Calcium 8.4 mg/dL (8.6-10.3); Carbon Dioxide 43 mEq/L (23-29); Chloride 93 mEq/L (98-107); Globulin 2.2 g/dL (2.4-3.5); Glucose 185 mg/dL (70-105); Osmolality,Calculated 301 (280-300); Phosphorous 3.5 mg/dL (2.7-4.5); Potassium 4.1 mEq/L (3.5-5.1); Sodium 141 mEq/L (136-145); Total Protein 5.2 g/dL (6.4-8.9); eGFR For African Americans > 60 (> 60); eGFR For Non-African Americans > 60 (> 60)
[2019-10-02] MEDS: Doxycycline 100 MG in 0.9 % Sodium Chloride Mini Bag 100 ML IVPB SCH ×2 (05:53→17:12)
[2019-10-02] MEDS: MethylPREDNISolone 40 MG/ML VIAL IVP SCH ×2 (06:05→17:12)
[2019-10-02] MEDS: Dexmedetomidine HCl 400 MCG/100 ML MLS IVC SCH ×2 (06:39→16:32)
[2019-10-02] MEDS ORDERED: acetaZOLAMIDE 250 MG TABLET PO ONE (07:27)
[2019-10-02] MEDS: Furosemide 20 MG/2 ML VIAL IVP SCH ×2 (09:30→17:19)
[2019-10-02] MEDS: Aspirin 325 MG TABLET PO SCH (09:30)
[2019-10-02] MEDS: Pantoprazole 40 MG VIAL IVP SCH (09:30)
[2019-10-02] MEDS: Famotidine 20 MG TABLET PO SCH ×2 (09:38→17:14)
[2019-10-02] MEDS: Chlorhexidine Rinse 15 ML MOUTHWASH MM SCH ×2 (09:40→20:07)
[2019-10-02 12:14] LABS: Source of Body Fluid LEFT LOWER LOBE LUNG
[2019-10-02 14:29] LABS: Appearance of Body Fluid Cloudy (Clear); Volume of Body Fluid 13 mL
[2019-10-02] MEDS: *HR* Heparin 5,000 UNIT/ML VIAL SQ SCH (17:19)
[2019-10-03] MEDS: Insulin LISPRO 300 UNITS/3 ML VIAL SQ SCH ×4 (00:19→17:32)
[2019-10-03] MEDS: Dexmedetomidine HCl 400 MCG/100 ML MLS IVC SCH ×2 (01:36→14:52)
[2019-10-03] MEDS: Piperacillin/Tazobactam 3.375 GM in 0.9 % Sodium Chloride Mini Bag 100 ML IVPB SCH ×3 (01:36→17:31)
[2019-10-03 03:34] LABS: Hemoglobin 7.6 g/dL (11.5-15.4); Mean Corpuscular HGB Conc 29.2 g/dL (31.6-35.5); Mean Corpuscular Hemoglobin 27.1 pg (28.0-33.3); Mean Corpuscular Volume 92.9 fL (83.0-100.0); Mean Platelet Volume 10.8 fL (9.4-12.4); Platelet Count 264 K/mcL (140-400); Red Cell Distribution Width 16.4 % (11.5-14.5); White Blood Count 11.3 K/mcL (4.3-11.1)
[2019-10-03] MEDS: Ipratropium 1 PUFF INHALER IH SCH ×6 (03:43→23:56)
[2019-10-03] MEDS: FentaNYL (PF) 1,000 MCG in 0.9 % Sodium Chloride 80 ML IVC SCH ×2 (03:48→18:44)
[2019-10-03 03:56] LABS: Alanine Aminotransferase 37 Units/L (7-52); Albumin 2.9 g/dL (3.5-5.7); Albumin/Globulin Ratio 1.1 (1.1-2.2); Alkaline Phosphatase 57 Units/L (34-104); Aspartate Amino Transferase 38 Units/L (13-39); BUN/Creatinine Ratio 40 (6-26); Bilirubin,Total 0.3 mg/dL (0.3-1.0); Blood Urea Nitrogen 31 mg/dL (8-23); Calcium 8.6 mg/dL (8.6-10.3); Carbon Dioxide 45 mEq/L (23-29); Chloride 93 mEq/L (98-107); Globulin 2.7 g/dL (2.4-3.5); Glucose 160 mg/dL (70-105); Magnesium 1.9 mg/dL (1.6-2.6); Osmolality,Calculated 304 (280-300); Phosphorous 3.8 mg/dL (2.7-4.5); Potassium 4.1 mEq/L (3.5-5.1); Sodium 142 mEq/L (136-145); Total Protein 5.6 g/dL (6.4-8.9); eGFR For African Americans > 60 (> 60); eGFR For Non-African Americans > 60 (> 60)
[2019-10-03] MEDS: Artificial Tears SOLN 15 ML BOTTLE BOTH EYES SCH ×6 (04:08→22:53)
[2019-10-03] MEDS: Gabapentin 400 MG CAPSULE PO SCH ×4 (04:51→22:53)
[2019-10-03 04:59] LABS: ABG Base Excess 15 mEq/L (-2 to 3); ABG HCO3 42 mEq/L (21-27); ABG Oxygen Saturation 95 % (95-98); ABG PCO2 63 mmHg (35-45); ABG PH 7.43 pH Units (7.32-7.45); ABG PO2 75 mmHg (85-104); ABG TCO2 44 mEq/L (20-26); Blood Gas Modality ASSIST CONTROL; Blood Gas VT 440 cc
[2019-10-03] MEDS: Doxycycline 100 MG in 0.9 % Sodium Chloride Mini Bag 100 ML IVPB SCH ×2 (05:50→17:30)
[2019-10-03] MEDS: MethylPREDNISolone 40 MG/ML VIAL IVP SCH ×2 (05:51→17:31)
[2019-10-03] MEDS: *HR* Heparin 5,000 UNIT/ML VIAL SQ SCH ×2 (05:51→17:30)
[2019-10-03] MEDS: Famotidine 20 MG TABLET PO SCH (07:30)
[2019-10-03] MEDS: Chlorhexidine Rinse 15 ML MOUTHWASH MM SCH ×2 (07:31→20:09)
[2019-10-03] MEDS: Pantoprazole 40 MG VIAL IVP SCH (07:31)
[2019-10-03] MEDS: Aspirin 325 MG TABLET PO SCH (07:31)
[2019-10-03] MEDS: Furosemide 20 MG/2 ML VIAL IVP SCH ×2 (07:31→17:30)
[2019-10-03] MEDS ORDERED: *HR* Rocuronium Bromide 100 MG/10 ML VIAL IVC ONE (10:12)
[2019-10-04] MEDS: Dexmedetomidine HCl 400 MCG/100 ML MLS IVC SCH ×2 (01:20→05:28)
[2019-10-04] MEDS: FentaNYL (PF) 1,000 MCG in 0.9 % Sodium Chloride 80 ML IVC SCH (02:19)
[2019-10-04] MEDS: Piperacillin/Tazobactam 3.375 GM in 0.9 % Sodium Chloride Mini Bag 100 ML IVPB SCH ×2 (02:21→09:07)
[2019-10-04 03:24] LABS: Hematocrit 27.3 % (35.3-44.9); Mean Corpuscular HGB Conc 29.3 g/dL (31.6-35.5); Mean Corpuscular Hemoglobin 27.2 pg (28.0-33.3); Mean Corpuscular Volume 92.9 fL (83.0-100.0); Mean Platelet Volume 10.4 fL (9.4-12.4); Platelet Count 272 K/mcL (140-400); Red Blood Count 2.94 M/mcL (3.82-4.97); White Blood Count 11.2 K/mcL (4.3-11.1)
[2019-10-04] MEDS: Ipratropium 1 PUFF INHALER IH SCH ×3 (03:39→11:48)
[2019-10-04 03:51] LABS: Alanine Aminotransferase 36 Units/L (7-52); Albumin 3.1 g/dL (3.5-5.7); Albumin/Globulin Ratio 1.1 (1.1-2.2); Alkaline Phosphatase 60 Units/L (34-104); Aspartate Amino Transferase 41 Units/L (13-39); BUN/Creatinine Ratio 43 (6-26); Bilirubin,Total 0.3 mg/dL (0.3-1.0); Blood Urea Nitrogen 33 mg/dL (8-23); Calcium 8.8 mg/dL (8.6-10.3); Carbon Dioxide > 45 mEq/L (23-29); Chloride 93 mEq/L (98-107); Globulin 2.8 g/dL (2.4-3.5); Glucose 138 mg/dL (70-105); Magnesium 1.9 mg/dL (1.6-2.6); Osmolality,Calculated 307 (280-300); Phosphorous 4.3 mg/dL (2.7-4.5); Potassium 3.7 mEq/L (3.5-5.1); Sodium 144 mEq/L (136-145); Total Protein 5.9 g/dL (6.4-8.9); eGFR For African Americans > 60 (> 60); eGFR For Non-African Americans > 60 (> 60)
[2019-10-04] MEDS: Artificial Tears SOLN 15 ML BOTTLE BOTH EYES SCH ×3 (04:24→10:42)
[2019-10-04 05:05] LABS: ABG Base Excess 23 mEq/L (-2 to 3); ABG HCO3 53 mEq/L (21-27); ABG Oxygen Saturation 99 % (95-98); ABG PCO2 85 mmHg (35-45); ABG PO2 131 mmHg (85-104); ABG TCO2 > 50 mEq/L (20-26); Blood Gas Modality AF; Blood Gas VT 440 cc
[2019-10-04] MEDS: *HR* Heparin 5,000 UNIT/ML VIAL SQ SCH ×2 (05:26→17:11)
[2019-10-04] MEDS: Gabapentin 400 MG CAPSULE PO SCH ×4 (05:26→22:25)
[2019-10-04] MEDS: Doxycycline 100 MG in 0.9 % Sodium Chloride Mini Bag 100 ML IVPB SCH ×2 (05:27→17:11)
[2019-10-04] MEDS: MethylPREDNISolone 40 MG/ML VIAL IVP SCH (05:27)
[2019-10-04] MEDS: Insulin LISPRO 300 UNITS/3 ML VIAL SQ SCH ×5 (05:28→23:35)
[2019-10-04] MEDS: Furosemide 20 MG/2 ML VIAL IVP SCH (09:07)
[2019-10-04] MEDS: Pantoprazole 40 MG VIAL IVP SCH (09:07)
[2019-10-04] MEDS: Chlorhexidine Rinse 15 ML MOUTHWASH MM SCH (10:42)
[2019-10-04] MEDS: Aspirin 325 MG TABLET PO SCH (10:44)
[2019-10-04] MEDS ORDERED: Morphine Sulfate 2 MG/ML SYRINGE IVP ONE (12:22)
[2019-10-04] MEDS: Ipratropium/Albuterol Neb 3 ML IH SCH ×3 (16:08→23:19)
[2019-10-05] MEDS: Ipratropium/Albuterol Neb 3 ML IH SCH ×6 (03:51→23:18)
[2019-10-05 03:56] LABS: Mean Corpuscular Hemoglobin 26.5 pg (28.0-33.3); Red Cell Distribution Width 16.1 % (11.5-14.5)
[2019-10-05 03:57] LABS: Hematocrit 31.7 % (35.3-44.9); Mean Corpuscular HGB Conc 28.4 g/dL (31.6-35.5); Mean Corpuscular Volume 93.2 fL (83.0-100.0); Mean Platelet Volume 10.6 fL (9.4-12.4); Platelet Count 343 K/mcL (140-400); White Blood Count 13.4 K/mcL (4.3-11.1)
[2019-10-05] MEDS: Dexmedetomidine HCl 400 MCG/100 ML MLS IVC SCH (03:57)
[2019-10-05 04:21] LABS: Alanine Aminotransferase 36 Units/L (7-52); Albumin 3.4 g/dL (3.5-5.7); Albumin/Globulin Ratio 1.2 (1.1-2.2); Alkaline Phosphatase 64 Units/L (34-104); Aspartate Amino Transferase 47 Units/L (13-39); BUN/Creatinine Ratio 35 (6-26); Bilirubin,Total 0.5 mg/dL (0.3-1.0); Blood Urea Nitrogen 26 mg/dL (8-23); Calcium 9.2 mg/dL (8.6-10.3); Carbon Dioxide > 45 mEq/L (23-29); Chloride 91 mEq/L (98-107); Globulin 2.9 g/dL (2.4-3.5); Glucose 145 mg/dL (70-105); Magnesium 1.8 mg/dL (1.6-2.6); Osmolality,Calculated 305 (280-300); Phosphorous 2.7 mg/dL (2.7-4.5); Potassium 2.8 mEq/L (3.5-5.1); Sodium 144 mEq/L (136-145); Total Protein 6.3 g/dL (6.4-8.9); eGFR For African Americans > 60 (> 60); eGFR For Non-African Americans > 60 (> 60)
[2019-10-05] MEDS: Doxycycline 100 MG in 0.9 % Sodium Chloride Mini Bag 100 ML IVPB SCH ×2 (06:04→17:19)
[2019-10-05] MEDS: *HR* Heparin 5,000 UNIT/ML VIAL SQ SCH ×2 (06:05→17:20)
[2019-10-05] MEDS: Insulin LISPRO 300 UNITS/3 ML VIAL SQ SCH ×4 (06:13→23:31)
[2019-10-05] MEDS: Gabapentin 400 MG CAPSULE PO SCH ×4 (06:13→23:07)
[2019-10-05] MEDS ORDERED: Calcium Gluconate 1gm/50mL 1 GM/50 ML BAG IVPB PRN (08:41)
[2019-10-05] MEDS ORDERED: MethylPREDNISolone 40 MG/ML VIAL IVP SCH (09:00)
[2019-10-05] MEDS: Pantoprazole 40 MG VIAL IVP SCH (09:03)
[2019-10-05] MEDS: Aspirin 325 MG TABLET PO SCH (09:03)
[2019-10-05] MEDS: Potassium Chloride Elixir 20 MEQ/15 ML UDC PO SCH ×2 (09:11→19:48)
[2019-10-05] MEDS: Ibuprofen 800 MG TABLET PO PRN (21:03)
[2019-10-06] MEDS ORDERED: *HR* Metoprolol 5 MG/5 ML VIAL IVP PRN ×2 (02:13→11:15)
[2019-10-06] MEDS: Ipratropium/Albuterol Neb 3 ML IH SCH ×6 (03:25→19:33)
[2019-10-06 03:36] LABS: Basophils % 0.3 %; Eosinophils # 0.1 K/mcL (0.0-0.6); Hematocrit 31.8 % (35.3-44.9); Hemoglobin 9.3 g/dL (11.5-15.4); Immature Granulocytes % 2.3 % (0-4); Lymphocytes # 1.3 K/mcL (0.6-4.6); Mean Corpuscular HGB Conc 29.2 g/dL (31.6-35.5); Mean Corpuscular Hemoglobin 26.8 pg (28.0-33.3); Mean Corpuscular Volume 91.6 fL (83.0-100.0); Mean Platelet Volume 10.4 fL (9.4-12.4); Monocytes # 1.5 K/mcL (0.0-1.3); Neutrophils # 9.4 K/mcL (1.6-8.9); Platelet Count 346 K/mcL (140-400); Red Blood Count 3.47 M/mcL (3.82-4.97); Red Cell Distribution Width 16.3 % (11.5-14.5); Segmented Neutrophils % 74.4 %; White Blood Count 12.7 K/mcL (4.3-11.1)
[2019-10-06 03:42] LABS: VBG Ionized Calcium 1.05 mmol/L (1.15-1.35)
[2019-10-06 03:56] LABS: BUN/Creatinine Ratio 31 (6-26); Blood Urea Nitrogen 24 mg/dL (8-23); Calcium 8.6 mg/dL (8.6-10.3); Carbon Dioxide 36 mEq/L (23-29); Chloride 98 mEq/L (98-107); Glucose 85 mg/dL (70-105); Osmolality,Calculated 293 (280-300); Potassium 3.4 mEq/L (3.5-5.1); Sodium 140 mEq/L (136-145); eGFR For African Americans > 60 (> 60); eGFR For Non-African Americans > 60 (> 60)
[2019-10-06] MEDS: Gabapentin 400 MG CAPSULE PO SCH ×4 (04:27→17:30)
[2019-10-06 04:32] LABS: Magnesium 1.8 mg/dL (1.6-2.6)
[2019-10-06] MEDS: Doxycycline 100 MG in 0.9 % Sodium Chloride Mini Bag 100 ML IVPB SCH (05:13)
[2019-10-06] MEDS: *HR* Heparin 5,000 UNIT/ML VIAL SQ SCH ×2 (05:22→17:31)
[2019-10-06] MEDS: Ibuprofen 800 MG TABLET PO PRN (05:25)
[2019-10-06] MEDS: Insulin LISPRO 300 UNITS/3 ML VIAL SQ SCH ×4 (05:30→20:49)
[2019-10-06 05:44] LABS: Influenza A PCR Body Fluid INVALID; Influenza B PCR Body Fluid INVALID; RVP Body Fluid Source BAL
[2019-10-06] MEDS ORDERED: Potassium Chloride Elixir 20 MEQ/15 ML UDC PO ONE (06:50)
[2019-10-06] MEDS: Pantoprazole 40 MG VIAL IVP SCH (08:06)
[2019-10-06] MEDS: Aspirin 325 MG TABLET PO SCH (08:06)
[2019-10-06] MEDS ORDERED: predniSONE 20 MG TABLET PO SCH (09:00)
[2019-10-06] MEDS ORDERED: D5% in Water 1,000 ML IVC PRN (11:15)
[2019-10-06] MEDS ORDERED: *HR* Dextrose 50 % in Water (Syg) 50 ML SYRINGE IVP PRN (11:15)
[2019-10-06] MEDS ORDERED: Ibuprofen 800 MG TABLET PO PRN (11:15)
[2019-10-06] MEDS ORDERED: Dextrose Gel 15 GM/37.5 ML TUBE PO PRN ×2 (11:15)
[2019-10-06] MEDS ORDERED: Naloxone 0.4 MG/ML INJ IVP PRN (11:15)
[2019-10-06] MEDS ORDERED: Insulin LISPRO 300 UNITS/3 ML VIAL SQ SCH ×2 (11:30→21:00)
[2019-10-06] MEDS: *HR* OxyCODONE Immed Rel 5 MG TABLET PO PRN ×2 (11:42→20:48)
[2019-10-06] MEDS ORDERED: Doxycycline 100 MG in 0.9 % Sodium Chloride Mini Bag 100 ML IVPB SCH (18:00)
[2019-10-07 00:17] LABS: ABG Base Excess 6 mEq/L (-2 to 3); ABG HCO3 33 mEq/L (21-27); ABG Oxygen Saturation 87 % (95-98); ABG PCO2 57 mmHg (35-45); ABG PH 7.37 pH Units (7.32-7.45); ABG PO2 57 mmHg (85-104); ABG TCO2 35 mEq/L (20-26)
[2019-10-07] MEDS: Ipratropium/Albuterol Neb 3 ML IH SCH ×7 (00:20→23:17)
[2019-10-07] MEDS: Gabapentin 400 MG CAPSULE PO SCH ×4 (01:01→17:48)
[2019-10-07] MEDS: *HR* Heparin 5,000 UNIT/ML VIAL SQ SCH ×2 (05:27→17:48)
[2019-10-07] MEDS: *HR* OxyCODONE Immed Rel 5 MG TABLET PO PRN ×3 (05:46→21:08)
[2019-10-07 05:57] LABS: VBG Ionized Calcium 1.18 mmol/L (1.15-1.35)
[2019-10-07 05:59] LABS: Platelet Count 340 K/mcL (140-400); Red Cell Distribution Width 16.2 % (11.5-14.5)
[2019-10-07 06:00] LABS: Hematocrit 30.3 % (35.3-44.9); Hemoglobin 8.7 g/dL (11.5-15.4); Mean Corpuscular HGB Conc 28.7 g/dL (31.6-35.5); Mean Corpuscular Hemoglobin 26.8 pg (28.0-33.3); Mean Corpuscular Volume 93.2 fL (83.0-100.0); Red Blood Count 3.25 M/mcL (3.82-4.97); White Blood Count 10.9 K/mcL (4.3-11.1)
[2019-10-07 06:19] LABS: BUN/Creatinine Ratio 28 (6-26); Blood Urea Nitrogen 21 mg/dL (8-23); Calcium 8.5 mg/dL (8.6-10.3); Carbon Dioxide 33 mEq/L (23-29); Chloride 102 mEq/L (98-107); Glucose 96 mg/dL (70-105); Magnesium 1.8 mg/dL (1.6-2.6); Osmolality,Calculated 293 (280-300); Phosphorous 3.3 mg/dL (2.7-4.5); Potassium 3.8 mEq/L (3.5-5.1); Sodium 140 mEq/L (136-145); eGFR For African Americans > 60 (> 60); eGFR For Non-African Americans > 60 (> 60)
[2019-10-07] MEDS: Insulin LISPRO 300 UNITS/3 ML VIAL SQ SCH ×4 (08:25→21:04)
[2019-10-07] MEDS: predniSONE 20 MG TABLET PO SCH (08:34)
[2019-10-07] MEDS: lisinopriL 20 MG TABLET PO SCH (08:34)
[2019-10-07] MEDS: Aspirin 325 MG TABLET PO SCH (08:47)
[2019-10-07] MEDS: Furosemide 20 MG TABLET PO SCH ×2 (16:49→16:50)
[2019-10-07] MEDS: Budesonide/Formoterol 160/4.5 1 PUFF INH IH SCH (19:42)
[2019-10-08] MEDS: Gabapentin 400 MG CAPSULE PO SCH ×5 (00:06→23:54)
[2019-10-08 03:14] LABS: Estimated Average Glucose 151 mg/dl
[2019-10-08] MEDS: Ipratropium/Albuterol Neb 3 ML IH SCH ×6 (03:54→23:34)
[2019-10-08] MEDS: *HR* Heparin 5,000 UNIT/ML VIAL SQ SCH ×2 (05:42→16:40)
[2019-10-08] MEDS: Budesonide/Formoterol 160/4.5 1 PUFF INH IH SCH ×2 (07:24→19:58)
[2019-10-08] MEDS: Insulin LISPRO 300 UNITS/3 ML VIAL SQ SCH ×4 (07:48→20:43)
[2019-10-08] MEDS: Aspirin 325 MG TABLET PO SCH (08:54)
[2019-10-08] MEDS: predniSONE 20 MG TABLET PO SCH (08:54)
[2019-10-08] MEDS: Furosemide 20 MG TABLET PO SCH (08:55)
[2019-10-08] MEDS: lisinopriL 20 MG TABLET PO SCH (08:55)
[2019-10-08] MEDS: *HR* OxyCODONE Immed Rel 5 MG TABLET PO PRN ×2 (09:51→16:40)
[2019-10-08 11:05] LABS: VBG Ionized Calcium 1.08 mmol/L (1.15-1.35)
[2019-10-08 11:14] LABS: Eosinophils % 1.7 %; Hemoglobin 8.8 g/dL (11.5-15.4); Red Cell Distribution Width 16.8 % (11.5-14.5)
[2019-10-08 11:15] LABS: Basophils % 0.2 %; Eosinophils # 0.2 K/mcL (0.0-0.6); Hematocrit 30.6 % (35.3-44.9); Immature Granulocytes % 2.5 % (0-4); Lymphocytes # 1.1 K/mcL (0.6-4.6); Lymphocytes % 8.7 %; Mean Corpuscular HGB Conc 28.8 g/dL (31.6-35.5); Mean Corpuscular Volume 93.9 fL (83.0-100.0); Mean Platelet Volume 10.3 fL (9.4-12.4); Monocytes % 6.9 %; Neutrophils # 9.8 K/mcL (1.6-8.9); Platelet Count 387 K/mcL (140-400); Red Blood Count 3.26 M/mcL (3.82-4.97); White Blood Count 12.3 K/mcL (4.3-11.1)
[2019-10-08 11:22] LABS: BUN/Creatinine Ratio 29 (6-26); Blood Urea Nitrogen 21 mg/dL (8-23); Calcium 8.2 mg/dL (8.6-10.3); Carbon Dioxide 27 mEq/L (23-29); Chloride 105 mEq/L (98-107); Glucose 125 mg/dL (70-105); Magnesium 1.6 mg/dL (1.6-2.6); Osmolality,Calculated 296 (280-300); Phosphorous 3.1 mg/dL (2.7-4.5); Potassium 3.6 mEq/L (3.5-5.1); Sodium 141 mEq/L (136-145); eGFR For African Americans > 60 (> 60); eGFR For Non-African Americans > 60 (> 60)
[2019-10-08 11:31] LABS: Monocytes # 0.9 K/mcL (0.0-1.3)
[2019-10-08 11:55] LABS: Platelet Estimate Normal (Normal)
[2019-10-08 11:56] LABS: Anisocytosis 1+ (Not Present)
[2019-10-08 12:04] LABS: RSV PCR Body Fluid INVALID
[2019-10-09] MEDS: *HR* OxyCODONE Immed Rel 5 MG TABLET PO PRN ×4 (00:21→23:43)
[2019-10-09] MEDS: Ipratropium/Albuterol Neb 3 ML IH SCH ×6 (04:05→23:50)
[2019-10-09] MEDS: Gabapentin 400 MG CAPSULE PO SCH ×4 (05:55→23:41)
[2019-10-09] MEDS: *HR* Heparin 5,000 UNIT/ML VIAL SQ SCH ×2 (05:55→17:32)
[2019-10-09] MEDS: Budesonide/Formoterol 160/4.5 1 PUFF INH IH SCH ×2 (07:26→19:52)
[2019-10-09 07:36] LABS: Basophils % 0.4 %; Eosinophils # 0.1 K/mcL (0.0-0.6); Eosinophils % 1.1 %; Hematocrit 30.5 % (35.3-44.9); Hemoglobin 8.6 g/dL (11.5-15.4); Immature Granulocytes % 2.4 % (0-4); Lymphocytes # 1.8 K/mcL (0.6-4.6); Lymphocytes % 16.2 %; Mean Corpuscular HGB Conc 28.2 g/dL (31.6-35.5); Mean Corpuscular Hemoglobin 26.8 pg (28.0-33.3); Mean Platelet Volume 9.8 fL (9.4-12.4); Monocytes # 0.7 K/mcL (0.0-1.3); Monocytes % 6.3 %; Neutrophils # 8.1 K/mcL (1.6-8.9); Platelet Count 357 K/mcL (140-400); Red Blood Count 3.21 M/mcL (3.82-4.97); Segmented Neutrophils % 73.6 %
[2019-10-09 07:51] LABS: BUN/Creatinine Ratio 28 (6-26); Blood Urea Nitrogen 20 mg/dL (8-23); Calcium 8.6 mg/dL (8.6-10.3); Carbon Dioxide 32 mEq/L (23-29); Chloride 103 mEq/L (98-107); Glucose 68 mg/dL (70-105); Osmolality,Calculated 295 (280-300); Potassium 3.8 mEq/L (3.5-5.1); Sodium 142 mEq/L (136-145); eGFR For African Americans > 60 (> 60); eGFR For Non-African Americans > 60 (> 60)
[2019-10-09] MEDS: lisinopriL 20 MG TABLET PO SCH (08:04)
[2019-10-09] MEDS: Furosemide 20 MG TABLET PO SCH (08:04)
[2019-10-09] MEDS: Aspirin 325 MG TABLET PO SCH (08:05)
[2019-10-09] MEDS: predniSONE 20 MG TABLET PO SCH (08:05)
[2019-10-09] MEDS: Insulin LISPRO 300 UNITS/3 ML VIAL SQ SCH ×4 (08:07→21:13)
[2019-10-09 08:17] LABS: Anisocytosis 1+ (Not Present); Platelet Estimate Normal (Normal)
[2019-10-10 02:39] LABS: BUN/Creatinine Ratio 29 (6-26); Blood Urea Nitrogen 24 mg/dL (8-23); Calcium 8.7 mg/dL (8.6-10.3); Carbon Dioxide 31 mEq/L (23-29); Chloride 101 mEq/L (98-107); Glucose 75 mg/dL (70-105); Magnesium 1.6 mg/dL (1.6-2.6); Osmolality,Calculated 291 (280-300); Potassium 4.3 mEq/L (3.5-5.1); Sodium 139 mEq/L (136-145); eGFR For African Americans > 60 (> 60); eGFR For Non-African Americans > 60 (> 60)
[2019-10-10 02:50] LABS: Basophils % 0.2 %
[2019-10-10 02:51] LABS: Eosinophils # 0.1 K/mcL (0.0-0.6); Eosinophils % 0.5 %; Hematocrit 30.7 % (35.3-44.9); Hemoglobin 8.7 g/dL (11.5-15.4); Immature Granulocytes % 1.7 % (0-4); Lymphocytes # 1.7 K/mcL (0.6-4.6); Lymphocytes % 13.8 %; Mean Corpuscular HGB Conc 28.3 g/dL (31.6-35.5); Mean Corpuscular Hemoglobin 26.6 pg (28.0-33.3); Mean Corpuscular Volume 93.9 fL (83.0-100.0); Monocytes # 0.8 K/mcL (0.0-1.3); Monocytes % 6.2 %; Platelet Count 361 K/mcL (140-400); Red Blood Count 3.27 M/mcL (3.82-4.97); Segmented Neutrophils % 77.6 %; White Blood Count 12.1 K/mcL (4.3-11.1)
[2019-10-10 02:55] LABS: Neutrophils # 9.4 K/mcL (1.6-8.9)
[2019-10-10 03:24] LABS: Hypochromasia Present (Not Present); Platelet Estimate Normal (Normal)
[2019-10-10] MEDS: Ipratropium/Albuterol Neb 3 ML IH SCH ×3 (03:57→11:20)
[2019-10-10] MEDS: Gabapentin 400 MG CAPSULE PO SCH ×2 (05:19→12:02)
[2019-10-10] MEDS: *HR* Heparin 5,000 UNIT/ML VIAL SQ SCH (05:19)
[2019-10-10] MEDS: Budesonide/Formoterol 160/4.5 1 PUFF INH IH SCH (07:18)
[2019-10-10] MEDS: Insulin LISPRO 300 UNITS/3 ML VIAL SQ SCH ×2 (07:22→11:21)
[2019-10-10] MEDS: Furosemide 20 MG TABLET PO SCH (07:43)
[2019-10-10] MEDS: predniSONE 20 MG TABLET PO SCH (07:43)
[2019-10-10] MEDS: lisinopriL 20 MG TABLET PO SCH (07:43)
[2019-10-10] MEDS: Aspirin 325 MG TABLET PO SCH (07:43)
[2019-10-10] MEDS: *HR* OxyCODONE Immed Rel 5 MG TABLET PO PRN (07:46)
[2019-10-10 11:19] VITALS: BP 100/62
== END 2019-10-10 14:20 | disposition home health service (06) | DRG 870 ==
LOC: EMEROOARM 01:41 → SUATTDRO 06:11 → 2NNU 06:11 → ICNU 10-01 14:36 → 2ANU 10-06 12:05
PROVIDERS: ADMIT Family Medicine; ATTEND Internal Medicine